=== PATIENT | male | born 1945 | race Caucasian/White ===

== ENCOUNTER 2024-12-19 09:43 | Inpatient (IN) | payer MEDICAID ==
[2024-12-19] MEDS: NA CHLORIDE 0.9% 1,000 ML ONE (10:00)
[2024-12-19] MEDS ORDERED: CEFAZOLIN SODIUM 2 GM/VIAL ONE (10:31)
[2024-12-19 10:33] LABS: PT Prothrombin Time 57.2 SECONDS (10-13.0); Protime INR 5.31
[2024-12-19] MEDS ORDERED: FENTANYL CITR 100 MCG/2 ML ONE (10:57)
[2024-12-19] MEDS ORDERED: ONDANSETRON 4 MG/2 ML VIAL ONE (10:57)
[2024-12-19] MEDS ORDERED: LIDOCAINE 2% MPF 5 ML VIAL ONE (10:57)
[2024-12-19] MEDS ORDERED: ONDANSETRON 4 MG/2 ML VIAL IV PRN (14:01)
--- NOTE | 2024-12-19 14:06 | P.HP ---
Certification for Inpatient Patient admitted to: Inpatient With expected LOS: >2 Midnights Practitioner: I am a practitioner with admitting privileges, knowledge of patient current condition, hospital course, and medical plan of care. Services: Services provided to patient in accordance with Admission requirements found in Title 42 Section 412.3 of the Code of Federal Regulations Patient History Date of Service: 12/19/24 Reason for admission: infected diabetic foot wound History of Present Illness: 79yo M, PMH: IDDM2, HTN, CAD s/p stent, who had an injury ~1 week ago with a piece of glass penetrating his foot. He underwent debridement and removal of glass by Dr. Larson. He was treated with antibiotics and wound care, however, he states home health didn't do wound care. He presented to Dr. Larson's office ~2 days ago, where he was noted to have worsening appearance of his wound, so he was scheduled for debridement today. In pre-op, an INR was checked and noted to be >5, so surgery was cancelled. Due to the worsening of his wound, Dr. Larson recommended admission to the hospital for IV antibiotics, and surgery once INR is better. Allergies No Known Allergies Allergy (Verified 12/17/24 13:03) Home Medications: Aspirin 325 mg PO DAILY 02/10/18 Metformin HCl 1,000 mg PO BID 02/10/18 Tamsulosin [Flomax] 0.4 mg PO BID 02/10/18 Warfarin Sodium 2.5 mg PO DAILY 02/10/18 Allopurinol 300 mg PO DAILY 12/07/24 Amoxicillin [Amoxil] 875 mg PO BID 12/07/24 Atorvastatin Calcium 20 mg PO DAILY 12/07/24 Colchicine 0.6 mg PO DAILY 12/07/24 Insuln Asp Prt/Insulin Aspart [Novolog Mix 70-30 Vial] 16 unit SQ BID 12/07/24 Isosorbide Mononitrate [Isosorbide Mononitrate ER] 30 mg PO DAILY 12/07/24 Losartan Potassium 100 mg PO DAILY 12/07/24 Metoprolol Succinate 50 mg PO DAILY 12/07/24 [place]-3S/Dha/Epa/Fish Oil [Fish Oil 1,200 mg Softgel] 1 each PO DAILY 12/07/24 hydroCHLOROthiazide [Hydrochlorothiazide] 12.5 mg PO DAILY 12/07/24 - Past Medical/Surgical History -: HTN -: CAD -: HLD -: stent - Family History Family History: Reviewed- Non-Contributory - Social History Smoking Status: Former smoker Alcohol use: Yes Place of Residence: Home Review of Systems 10-point ROS is otherwise unremarkable Physical Examination - Vital Signs Temperature: 98.4 F Blood Pressure: 140/77 Pulse: 91 Respirations: 18 - Physical Exam General: Alert, In no apparent distress, Oriented x3 HEENT: EOMI, Sclerae nonicteric Neck: Supple, No LAD Respiratory: Clear to auscultation bilaterally, Normal air movement Cardiovascular: No edema, Regular rate/rhythm Gastrointestinal: Soft and benign, No tenderness Musculoskeletal: No contractures Integumentary: Other (foot dressing in place, odorous) Neurological: Normal speech, Normal affect - Studies Laboratory Data (last 24 hrs) 12/19/24 10:05 PT 57.2 H INR 5.31 Assessment and Plan - Advance Directives Does patient have a Living Will: No Does patient have a Durable POA for Healthcare: No Physician Review Additional Text: Problem List infected Diabetic foot ulcer paroxysmal afib CAD s/p stent (2007) IDDM2 HTN HLD INR supratherapeutic last PO coumadin was taken 3 days ago hold coumadin monitor for signs of overt bleeding IV antibiotics - vanc/cefepime for now labs ordered for further eval. As of now, no evidence of sepsis at this time Dr. Larson consulted - planning for surgery once INR better unclear etiology of elevated INR, denies any recent increase in dosing may have been affected by recent antibiotic use / infection repeat labs in AM confirm home meds, restart as appropriate hold anticoagulation for now VTE: supratherapeutic Code: Full Dispo: home, ~3-4 days pending INR improvement / surgery / recovery Time Spent Managing Pts Care (In Minutes): 65
--- OUTSIDE RECORDS SUMMARY | 2024-12-19 14:37 | XMS REPORT | Continuity of Care Document ---
Author Name Unknown Address [address] [facility] [address] [place] [address] Organization [facility] [place] Address [address] [facility] [address] [place] [address] Care Team Providers Care Sign Maintenance Name Role Phone TICO CORONADO Primary Care Physician Unavailab DEON Baez Attending Clinician Unavailable Frank GLUE WHEEL OPERATOR- Jj SALINAS Attending Clinician TICO CORONADO Attending Clinician Unavailable ARLYN SAWANT Attending Clinician Unavailable SURINDER AGUIRRE Attending Clinician Unavailable NT90 Attending Clinician Unavailable HANNAH SHARMA Attending Clinician Unavailable Doctor Unassigned, [place] Attending Clinician U Deon Kwan MD Attending Clinician [phone] Jason Perdomo MD Attending Clinician [phone] Lachelle Umaña MD Attending Clinician [phone] LACHELLE UMAÑA Attending Clinician Unavailable DEON OTT Attending Clinician Unavailable Art Bradford MD Attending Clinician [phone] GEGE VU Attending Clinician Unavailabl e [id number] Attending Clinician Unavailable Kristen Ahumada Attending Clinician Unavailable Pob, [facility] Main Attending Clinician Unavailabl e 2, Adc Lab Attending Clinician Unavailable Vtc-Lab Attending Clinician Unavailable GAYATRI LINARES Attending Clinician UnavailGayatri Morocho MD Attending Clinician [phone] JJ MARIE Attending Clinician Unavailable LAB90 Attending Clinician Unavailable Lachelle Umaña MD Attending Clinician [phone] TERESA MARTELL Attending Clinician Unavailab Marcelina Barber Attending Clinician [phone] Doctor Unassigned, [place] Attending Clinician U JOSEPH Ramirez Attending Clinician Unavailable Tru OTT, Deon Attending Clinician [phone] MARCELINA CROWLEY Attending Clinician Unavaila ble [facility] Attending Clinician Unavailable Pob, Adc Lab Main Attending Clinician UnavailLeona Duval DO Attending Clinician [phone] Celena OTT, Nisreen Gregory Attending Clinician Un available Li FINN, Lauren Attending Clinician Unavailable Melody Cosby DO Attending Clinician [phone] Pako OTT, Caroline Attending Clinician [phone] JOHN BARR Attending Clinician Unavaila ble Cortney ACNP, John Attending Clinician + [phone] TWIN CARO Attending Clinician Unavaila ble [facility] Attending Clinician Unavailable Lucy Kimball MD Attending Clinician [phone] Velasquez YOUSIF, Peng Attending Clinician [phone] LUCY KIMBALL Attending Clinician Unavailable Joya Ruiz MD Attending Clinician [phone] JOYA RUIZ Attending Clinician UnavailTwin Greenwood MD Attending Clinician [phone] LELO YANG Attending Clinician Unavailable Gramm Lelo CORTES Attending Clinician [phone] Nurse, Adc Pob Immunization Attending Clinician Unavailable Lavelle Bates DO Attending Clinician [phone] Nurse, Adc Surgery Gu Attending Clinician Yvette Bird, Adc Surg Spec Procedure Attending Clinician Unavailable Juan Jose OTT, Joseph Attending Clinician [phone] Room, [facility] Uro Procedure Attending Clinician Unaluis Martin RN, Kaiden Franks Attending Clinician Unavail able Kris Kenny Attending Clinician [phone] Peter Fitzgerald MD Attending Clinician [phone] Meera CORTESArmen Attending Clinician [phone] TATE SHABAZZ Attending Clinician Unavailable 2, Adc Lab Attending Clinician Unavailable Mor Simpson MD Attending Clinician [phone] MOR SIMPSON Attending Clinician UnavailAJ Harden Attending Clinician Unavailable Aj Davila Attending Clinician [phone] ARMEN ESTES Attending Clinician Unavailable JASON PERDOMO Admitting Clinician Unavailable GAYATRI LINARES Admitting Clinician UnavailCaroline Law MD Admitting Clinician [phone] CAROLINE DURAND Admitting Clinician Unavailable Peter Fitzgerald MD Admitting Clinician [phone] Payers Payer Name Policy Type Policy Number Effective Date Expirati on Date Source MEDICARE PART A \\T\\ B [id number] 2012 00:00:00 [employer] INDEMNITY [id number] 2013 00:00:00 [employer] [id number] 2023 00:00:00 [employer]-POS 16 [id number] 00:00:00 Problems Condition Name Condition Details Condition Category Status Onset Date Resolution Date Last Treatment Date Treating Clinician Comments Source Elevated PSA Elevated PSA Disease Active 06-27 00:00: 00 Isabel Seybold - Externa l Type 2 diabetes mellitus with stage 3a chronic kidney disease (multi HCC) Type 2 diabetes mellitus with stage 3a chronic kidney disease (multi HCC) Disease Active 12-27 00:00: 00 Isabel Seybold - Externa l Thrombocyt openia Thrombocyt openia Disease Active 12-26 00:00: 00 Isabel Seybold - Externa l Controlled type 2 diabetes mellitus with stage 3 chronic kidney disease, with long-term current use of insulin (multi HCC) Controlled type 2 diabetes mellitus with stage 3 chronic kidney disease, with long-term current use of insulin (multi HCC) Disease Active 06-08 00:00: 00 Isabel Seybold - Externa l Controlled type 2 diabetes mellitus with stage 3 chronic kidney disease, with long-term current use of insulin (multi HCC) Controlled type 2 diabetes mellitus with stage 3 chronic kidney disease, with long-term current use of insulin (multi HCC) Disease Active 06-08 00:00: 00 Isabel Farnsworth - Externa l 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) Disease Active -16 00:00: 00 Isabel Farnsworth - Externa l Well adult exam Well adult exam Disease Active - 00:00: 00 Isabel Farnsworth - Externa l Longstandi ng persistent atrial fibrillati on (multi HCC) Longstandi ng persistent atrial fibrillati on (multi HCC) Disease Active 2022-05 00:00: 00 Isabel Hutsonold - Externa l Atrial fibrillati on (multi HCC) Atrial fibrillati on (multi HCC) Disease Active 2022-05 00:00: 00 Isabel Farnsworth - Externa l 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 (multi HCC) 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 (multi HCC) Disease Active 2022-05 00:00: 00 Isabel Hutsonold - Externa l Chronic anticoagul ation Chronic anticoagul ation Disease Active 2022-05 00:00: 00 Isabel Hutsonold - Externa l BPH (benign prostatic hyperplasi a) BPH (benign prostatic hyperplasi a) Disease Active 2022-05 00:00: 00 Isabel Farnsworth - Externa l DM type 2 with diabetic mixed hyperlipid emia (multi HCC) DM type 2 with diabetic mixed hyperlipid emia (multi HCC) Disease Active 2022-05 00:00: 00 Isabel Farnsworth - Externa l Gout Gout Disease Active 2022-05 00:00: 00 Isabel Hutsonold - Externa l HTN (hypertens ion) HTN (hypertens ion) Disease Active 2022-05 00:00: 00 Isabel Hutsonold - Externa l Obesity Obesity Disease Active 2022-05 00:00: 00 Isabel Farnsworth - Externa l Impacted cerumen of right ear Impacted cerumen of right ear Disease Active 2022-05 00:00: 00 Isabel keller CAD (coronary artery disease) CAD (coronary artery disease) Disease Active 2022-05 00:00: 00 Isabel keller History of heart artery stent History of heart artery stent Disease Active 2022-05 00:00: 00 Isabel keller At risk for falls At risk for falls Disease Active 01-05 00:00: 00 [facility] Unspecifie d abnormalit ies of gait and mobility Unspecifie d abnormalit ies of gait and mobility Disease Active 01-05 00:00: 00 [facility] Obesity (BMI 30-39.9) Obesity (BMI 30-39.9) Disease Active 8 00:00: 00 [facility] 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 Disease Active 8 00:00: 00 [facility] Bacteremia Bacteremia Disease Active 8 00:00: 00 [facility] Complicate d UTI (urinary tract infection) Complicate d UTI (urinary tract infection) Disease Active 10-14 00:00: 00 [facility] Coronary artery disease involving agdaagux coronary artery of agdaagux heart without angina pectoris Coronary artery disease involving agdaagux coronary artery of agdaagux heart without angina pectoris Disease Active 10-14 00:00: 00 [facility] Chronic atrial fibrillati on Chronic atrial fibrillati on Disease Active 10-14 00:00: 00 [facility] Elevated brain natriureti c peptide (BNP) level Elevated brain natriureti c peptide (BNP) level Disease Active 10-14 00:00: 00 [facility] Type 2 diabetes mellitus with other specified complicati on Type 2 diabetes mellitus with other specified complicati on Disease Active 10-14 00:00: 00 [facility] Coronary artery disease involving agdaagux coronary artery of agdaagux heart without angina pectoris Coronary artery disease involving agdaagux coronary artery of agdaagux heart without angina pectoris Disease Active 10-14 00:00: 00 [facility] Elevated brain natriureti c peptide (BNP) level Elevated brain natriureti c peptide (BNP) level Disease Active 10-14 00:00: 00 [facility] ANYI (acute kidney injury) ANYI (acute kidney injury) Disease Active 10-13 00:00: 00 [facility] ANYI (acute kidney injury) ANYI (acute kidney injury) Disease Active 10-13 00:00: 00 [facility] Dyslipidem ia Dyslipidem ia Disease Active 06-05 00:00: 00 [facility] Essential hypertensi on Essential hypertensi on Disease Active 06-05 00:00: 00 [facility] Metabolic syndrome Metabolic syndrome Disease Active 06-05 00:00: 00 [facility] Type II or unspecifie d type diabetes mellitus with peripheral auto garage attendant y disorders, uncontroll ed(250.72) Type II or unspecifie d type diabetes mellitus with peripheral auto garage attendant y disorders, uncontroll ed(250.72) Disease Active 08-20 00:00: 00 [facility] 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) Disease Active Iasbel Farnsworth - Externa l Allergies, Adverse Reactions, Alerts Allergy Name Allergy Type Status Severity Reaction(s) Onset Date Inactive Date Treating Clinician Comments Source [place] tin Propensi ty to adverse reaction s Active Itching 2015-05 00:00: 00 [facility] Linaglip tin Propensi ty to adverse reaction s Active Itching 2015-05 00:00: 00 [facility] SAXAGLIP TIN DRUG INGREDI Active ITCHING 2015-05 00:00: 00 [facility] LINAGLIP TIN DRUG INGREDI Active ITCHING 2015-05 00:00: 00 [facility] [place] tin Propensi ty to adverse reaction s Active Rash 09-04 00:00: 00 [facility] SITAGLIP TIN DRUG INGREDI Active ITCHING 2013-0 09-04 00:00: 00 [facility] Social History Social Habit Start Date Stop Date Quantity Comments Source History SDOH Alcohol Frequency [facility] History SDOH Alcohol Std Drinks [facility] History SDOH Alcohol Binge [facility] Sexual orientation Arabella lamb Daja - External History of Occupation Isabel Farnsworth - External Gender identity Patience Farnsworth - External History of tobacco use Cigarette Smoker Isabel arndt - External Alcoholic beverage intake 2024-12-03 00:00:00 2024-12-03 00:00:00 Current drinker of alcohol (finding) Isabel Farnsworth - External Cigarettes smoked current (pack per day) - Reported 2023-09-14 00:00:00 2023-09-14 00:00:00 Isabel Farnsworth - External Cigarette pack-years 2023-09-14 00:00:00 2023-09-14 00:00:00 Isabel Farnsworth - External Tobacco use and exposure 2023-09-14 00:00:00 2023-09-14 00:00:00 Smokeless tobacco non-user Isabel Farnsworth - External Alcohol intake 2023-06-08 00:00:00 2023-06-08 00:00:00 Current drinker of alcohol (finding) Isabel Farnsworth - External History of Social function 2023-05-04 00:00:00 2023-05-04 00:00:00 Isabel Farnsworth - External Education 2023-05-04 00:00:00 2023-05-04 00:00:00 17 Isabel Farnsworth - External Alcohol Comment 2023-05-04 00:00:00 2023-05-04 00:00:00 occasionally Isabel Farnsworth - External Sex 2023-02-23 07:49:31 2023-02-23 07:49:31 Male (finding) Isabel Farnsworth - External Exposure to SARS-CoV-2 (event) 2022-07-06 00:00:00 2022-07-16 11:25:00 Not sure [facility] Tobacco Comment 2021-12-10 00:00:00 2021-12-10 00:00:00 quit in 1983 [facility] Sex assigned at 1945 00:00:00 1945 00:00:00 Isabel Arzate Smoking Status Start Date Stop Date Source Never smoked tobacco [facility] Ex-smoker 2023-09-14 00:00:00 2023-09-14 00:00:00 Arabella lamb Daja Arzate Medications Ordered Medication Name Filled Medication Name Start Date Stop Date Current Medication? Ordering Clinician Indication Dosage Frequency Signature (SIG) Comments Components Source Insulin [place], Disposable, (BD ULTRAFINE III MINI PEN) 31 gauge x 3/16" Ndle 12-12 00:00: 00 Yes [id number] USE TWICE DAILY DIRECTED [facility] Isosorbide Mononitrate CR 30 MG oral TABLET SR 24 HR Isosorbide Mononitrate CR 30 MG oral TABLET SR 24 HR 12-03 15:28: 51 Yes 30mg QD Take 1 tablet (30 mg total) by mouth daily. Isabel keller [place] 3 340 MG oral Delayed Release Capsule [place] 3 340 MG oral Delayed Release Capsule 12-03 15:28: 51 Yes 1g Q.5D Take 1 g by mouth in the morning and 1 g in the evening. Isabel keller Aspirin (Ecotrin) 325 MG oral Tablet Delayed Response Aspirin (Ecotrin) 325 MG oral Tablet Delayed Response 12-03 15:28: 51 Yes 325mg QD Take 1 tablet (325 mg total) by mouth daily. Isabel keller Amoxicillin -Pot Clavulanate 875-125 MG oral Tablet Amoxicillin -Pot Clavulanate 875-125 MG oral Tablet 12-03 00:00: 00 Yes [id number] 1{tbl} Q.5D Take 1 tablet by mouth 2 times daily. Isabel keller Doxycycline Hyclate 100 MG oral Capsule Doxycycline Hyclate 100 MG oral Capsule 12-01 00:00: 00 Yes Isabel keller Warfarin (COUMADIN) 2 MG oral Tablet Warfarin (COUMADIN) 2 MG oral Tablet 11-26 00:00: 00 Yes 1 TABLET ORALLY TUESDAY, TUESDAY, TUESDAY, TUESDAY, TUESDAY Isabel keller Isosorbide Mononitrate CR 30 MG oral TABLET SR 24 HR 11-21 13:48: 44 Yes 30mg QD Take 1 tablet (30 mg total) by mouth daily. Isabel keller [place] 3 340 MG oral Delayed Release Capsule 11-21 13:48: 44 Yes 1g Q.5D Take 1 g by mouth in the morning and 1 g in the evening. Isabel keller Aspirin (Ecotrin) 325 MG oral Tablet Delayed Response 11-21 13:48: 44 Yes 325mg QD Take 1 tablet (325 mg total) by mouth daily. Isabel keller ondansetron (ZOFRAN (PF)) injection 11-19 21:17: 23 11-19 21:17 :23 No PRN, Starting on Tue11/19/24 at 1617, Until Tue11/19/24 at 1617, Administer over 2-5 Minutes, Intra-op [facility] lidocaine (XYLOCAINE) 2 % jelly URO-JET 11-19 19:57: 00 11-19 19:57 :00 No PRN, Starting on Tue11/19/24 at 1457, Until Tue11/19/24 at 1457, Routine, Intra-op [facility] ALPRAZolam (XANAX) tablet 0.25 mg 11-19 14:45: 00 11-19 19:25 :00 No [id number] .25mg 0.25 mg, Oral, ONCE, 1 dose, On Tue11/19/24 at 0945, Routine [facility] lidocaine variable + sod bicarb injection 11-19 14:45: 00 11-19 20:00 :00 No [id number] 30mL Intraderma l, ONCE, 1 dose, On Tue11/19/24 at 0945, 30 mL [facility] cefdinir 300 mg capsule 10-31 00:00: 00 11-08 04:59 :00 Yes 300mg Take 1 capsule by mouth in the morning and 1 capsule in the evening. Do all this for 7 days. [facility] sodium phosphates (FLEET ENEMA) 19-7 gram/118 mL enema 10-31 00:00: 00 11-03 04:59 :00 Yes 1{enema } Insert 1 Enema into rectum in the morning for 2 doses. Follow package directions [facility] ONETOUCH VERIO FLEX METER Misc 10-12 00:00: 00 Yes [id number] Use as directed daily E 11.65 [facility] Blood Glucose Monitoring Suppl (OneTouch Verio Flex System) w/Device does not apply Kit Blood Glucose Monitoring Suppl (OneTouch Verio Flex System) w/Device does not apply Kit 10-12 00:00: 00 Yes USE DIRECTED DAILY E 11.65 Isabel Farnsworth - Externa l Lancets (OneTouch Delica Plus [id number]) does not apply Misc Lancets (OneTouch Delica Plus [id number]) does not apply Misc 10-11 00:00: 00 Yes Isabel Farnsworth - Externa l Insulin NPH-Regular Human Rec (NOVOLIN 70-30 FLEXPEN U-100) 100 unit/mL (70-30) injection 10-10 00:00: 00 Yes [id number] 14U inject 14 Units under the skin 2 times daily before breakfast and dinner. E11.65 [facility] lancets (ONETOUCH DELICA PLUS LANCET) 33 gauge Misc 10-10 00:00: 00 Yes [id number] Use to check blood glucose three times daily before meals E11.65 [facility] blood sugar diagnostic (ONETOUCH VERIO TEST STRIPS) strip 10-10 00:00: 00 Yes [id number] Use to check blood glucose 3x daily before meals E11.65 [facility] metFORMIN 1,000 mg tablet 10-10 00:00: 00 Yes [id number] 1000mg Take 1 tablet by mouth every morning and evening. [facility] TAMSULOSIN 0.4 mg 24 hr capsule 2025-0 5-29 00:00: 00 Yes [id number] TAKE 1 CAPSULE BY MOUTH IN THE MORNING AND IN THE EVENING [facility] Tamsulosin HCl 0.4 MG oral Capsule 08-08 14:40: 20 08-08 00:00 :00 No .4mg Take 1 capsule (0.4 mg total) by mouth every night at bedtime. Isabel keller [place] 3 340 MG oral Delayed Release Capsule 08-08 14:17: 52 Yes 1g Q.5D Take 1 g by mouth in the morning and 1 g in the evening. Isabel keller Isosorbide Mononitrate CR 30 MG oral TABLET SR 24 HR 08-08 14:17: 51 Yes 30mg QD Take 1 tablet (30 mg total) by mouth daily. Isabel keller Aspirin (Ecotrin) 325 MG oral Tablet Delayed Response 08-08 14:17: 51 Yes 325mg QD Take 1 tablet (325 mg total) by mouth daily. Isabel keller Insulin NPH Isophane & Regular (NovoLIN 70/30 FlexPen) (70-30) 100 UNIT/ML subcutaneou s Suspension Pen-injecto r Insulin NPH Isophane & Regular (NovoLIN 70/30 FlexPen) (70-30) 100 UNIT/ML subcutaneou s Suspension Pen-injecto r 08-08 00:00: 00 Yes [id number] 3 16 unit sc eery am and 14 unit sc every pm. Isabel keller Warfarin 2.5 MG oral Tablet Warfarin 2.5 MG oral Tablet 08-08 00:00: 00 Yes [id number] 2.5mg QD Take 1 tablet (2.5 mg total) by mouth daily. Isabel keller Tamsulosin HCl 0.4 MG oral Capsule Tamsulosin HCl 0.4 MG oral Capsule 08-08 00:00: 00 Yes [id number] .4mg Q.5D Take 1 capsule (0.4 mg total) by mouth in the morning and 1 capsule (0.4 mg total) before bedtime. Isabel keller Ketoconazol e 2 % apply externally Cream 08-08 00:00: 00 11-21 00:00 :00 No [id number] 1{appli cation} Q.5D Apply 1 Applicatio n topically 2 times daily. Isabel keller Gabapentin 100 MG oral Capsule 02 00:00: 00 11-21 00:00 :00 No [id number] 100mg Q.5D Take 1 capsule (100 mg total) by mouth 2 times daily as needed. Isabel keller tamsulosin 0.4 mg 24 hr capsule 3-13 00:00: 00 10-04 00:00 :00 No [id number] .4mg Take 1 capsule by mouth in the morning and 1 capsule in the evening. [facility] Tamsulosin HCl 0.4 MG oral Capsule 06-27 14:25: 38 Yes .4mg Take 1 capsule (0.4 mg total) by mouth every night at bedtime. Isabel keller Isosorbide Mononitrate CR 30 MG oral TABLET SR 24 HR 06-27 14:25: 38 Yes 30mg QD Take 1 tablet (30 mg total) by mouth daily. Isabel keller [place] 3 340 MG oral Delayed Release Capsule 06-27 14:25: 38 Yes 1g Q.5D Take 1 g by mouth 2 times daily. Isabel keller Aspirin (Ecotrin) 325 MG oral Tablet Delayed Response 06-27 14:25: 38 Yes 325mg QD Take 1 tablet (325 mg total) by mouth daily. Isabel keller lidocaine (XYLOCAINE) 2 % jelly URO-JET 10 mL 06-06 19:00: 00 06-06 18:26 :00 No [id number] 10mL 10 mL, Urethral, ONCE, 1 dose, On Tue06/06/24 at 1300, Routine [facility] gentamicin injection 160 mg 06-06 18:00: 00 06-06 17:16 :00 No [id number] 160mg 160 mg, Intramuscu lar, ONCE, 1 dose, On Tue06/06/24 at 1200, [place], Reason for Anti-Infec tive: Surgical Prophylaxi s, Surgical Prophylaxi s: Genitourin filemon, Duration of therapy: within 24 hours of surgery [facility] amoxicillin -pot clavulanate 500 mg (AUGMENTIN) 500-125 mg tablet 06-04 00:00: 00 06-04 00:00 :00 No [id number] 500mg Take 1 tablet by mouth in the morning and 1 tablet at noon and 1 tablet in the evening. [facility] tamsulosin 0.4 mg 24 hr capsule 2023-05 00:00: 00 04-23 00:00 :00 No [id number] .4mg Take 1 capsule by mouth in the morning. [facility] atorvastati n 20 mg tablet 2023-05 14:28: 02 Yes TAKE 1 TABLET BY MOUTH EVERY DAY FOR 90 DAYS [facility] metFORMIN 1,000 mg tablet 2023-05 00:00: 00 10-10 00:00 :00 No [id number] 1000mg Take 1 tablet by mouth every morning and evening. [facility] hydroCHLORO thiazide 12.5 MG oral Tablet hydroCHLORO thiazide 12.5 MG oral Tablet 2023-05 00:00: 00 Yes 12.5mg QD TAKE 1 TABLET BY MOUTH EVERY DAY Isabel keller METFORMIN 1,000 mg tablet 2023-05 00:00: 00 04-11 00:00 :00 No [id number] 1000mg TAKE 1 TABLET BY MOUTH EVERY MORNING AND EVENING. [facility] tamsulosin 0.4 mg 24 hr capsule 2023-05 1- 00:00: 00 Yes [id number] .4mg Take 1 capsule by mouth in the morning and 1 capsule in the evening. [facility] HYDROcodone -acetaminop hen 5-325 mg tablet 2023-05 0-13 00:00: 00 02-26 04:59 :00 No [id number] 1{tbl} Take 1 tablet by mouth every 6 (six) hours as needed for Pain (scale 7-10) for up to 7 days. Indication s: acute pain [facility] blood sugar diagnostic (ONETOUCH VERIO TEST STRIPS) strip 01-12 00:00: 00 Yes [id number] Use to check blood glucose 3x daily before meals E11.65 [facility] metFORMIN 1,000 mg tablet 01-12 00:00: 00 Yes [id number] 1000mg Take 1 tablet by mouth every morning and evening. [facility] Insulin [place], Disposable, (SURE COMFORT PEN NEEDLE) 31 gauge x 5/16" Ndle 01-12 00:00: 00 12-12 00:00 :00 No [id number] USE TWICE DAILY [facility] Insulin NPH-Regular Human Rec (NOVOLIN 70-30 FLEXPEN U-100) 100 unit/mL (70-30) injection 01-12 00:00: 00 10-10 00:00 :00 No [id number] 14U inject 14 Units under the skin 2 (two) times daily before breakfast and dinner. E11.65 [facility] blood sugar diagnostic (ONETOUCH VERIO TEST STRIPS) strip 01-12 00:00: 00 10-10 00:00 :00 No [id number] Use to check blood glucose 3x daily before meals E11.65 [facility] Insulin [place], Disposable, (SURE COMFORT PEN NEEDLE) 31 gauge x 5/16" Ndle 01-11 00:00: 00 01-12 00:00 :00 No [id number] USE TWICE DAILY [facility] Tamsulosin HCl 0.4 MG oral Capsule 12-26 15:24: 56 Yes .4mg Take 1 capsule (0.4 mg total) by mouth every night at bedtime. Isabel keller Isosorbide Mononitrate CR 30 MG oral TABLET SR 24 HR 12-26 15:24: 56 Yes 30mg QD Take 1 tablet (30 mg total) by mouth daily. Isabel keller [place] 3 340 MG oral Delayed Release Capsule 12-26 15:24: 56 Yes 1g Q.5D Take 1 g by mouth 2 times daily. Isabel keller Aspirin (Ecotrin) 325 MG oral Tablet Delayed Response 820 15:24: 56 Yes 325mg QD Take 1 tablet (325 mg total) by mouth daily. Isabel keller Atorvastati n Calcium 20 MG oral Tablet Atorvastati n Calcium 20 MG oral Tablet 12-26 00:00: 00 Yes [id number] 20mg QD Take 1 tablet (20 mg total) by mouth daily FOR 90 DAYS. Isabel keller TAMSULOSIN 0.4 mg 24 hr capsule 12-14 00:00: 00 03-15 00:00 :00 No [id number] TAKE 1 CAPSULE BY MOUTH EVERY MORNING AND EVERY EVENING FOR PAIN [facility] metFORMIN 1,000 mg tablet 12-04 00:00: 00 01-12 00:00 :00 No [id number] 1000mg TAKE 1 TABLET BY MOUTH IN THE MORNING AND IN THE EVENING [facility] Atorvastati n Calcium 20 MG oral Tablet 11-06 00:00: 00 12-26 00:00 :00 No 20mg Q.5D Take 1 tablet (20 mg total) by mouth 2 times daily FOR 90 DAYS. Isabel keller hydroCHLORO thiazide 12.5 MG oral Tablet 10-03 00:00: 00 Yes 12.5mg QD Take 1 tablet (12.5 mg total) by mouth daily. Isabel keller tamsulosin 0.4 mg 24 hr capsule 09-12 00:00: 00 12-14 00:00 :00 No [id number] TAKE 1 CAPSULE BY MOUTH EVERY MORNING AND 1 CAPSULE FOR PAIN EVERY EVENING [facility] OneTouch Verio in vitro Strip OneTouch Verio in vitro Strip 30 00:00: 00 Yes Isabel keller Sure Comfort Pen [place] 31G X 8 MM does not apply Misc [facility] [employer] Pen [place] 31G X 8 MM does not apply Misc 08-31 00:00: 00 Yes Q.5D in the morning and in the evening. Isabel keller NovoLIN 70/30 FlexPen (70-30) 100 UNIT/ML subcutaneou s Suspension Pen-injecto r 3-14 00:00: 00 08-08 00:00 :00 No Isabel keller hydroCHLORO thiazide 12.5 MG oral Tablet 2-27 00:00: 00 Yes TAKE 1 TABLET BY MOUTH EVERY DAY IN THE MORNING FOR 90 DAYS Isabel keller Losartan Potassium (COZAAR) 100 MG oral Tablet Losartan Potassium (COZAAR) 100 MG oral Tablet 2-15 00:00: 00 Yes 100mg QD Take 1 tablet (100 mg total) by mouth daily. Isabel keller Insulin NPH Isophane & Regular (NOVOLIN 70/30 FLEXPEN RELION SC) 06-08 16:22: 04 09-13 00:00 :00 No 14U Inject 14 units into the skin 2 times daily. Isabel keller Colchicine 0.6 MG oral Tablet 06-08 16:20: 20 06-08 00:00 :00 No .6mg Take 1 tablet (0.6 mg total) by mouth daily. Isabel keller Tamsulosin HCl 0.4 MG oral Capsule 06-08 16:05: 38 Yes .4mg Take 1 capsule (0.4 mg total) by mouth every night at bedtime. Isabel keller Isosorbide Mononitrate CR 30 MG oral TABLET SR 24 HR 06-08 16:05: 38 Yes 30mg Take 1 tablet (30 mg total) by mouth daily. Isabel keller [place] 3 340 MG oral Delayed Release Capsule 06-08 16:05: 38 Yes 1g Take 1 g by mouth 2 times daily. Isabel keller Aspirin (Ecotrin) 325 MG oral Tablet Delayed Response 06-08 16:05: 38 Yes 325mg Take 1 tablet (325 mg total) by mouth daily. Isabel keller amLODIPine Besy-Benaze pril HCl 10-40 MG oral Capsule 06-08 16:05: 38 Yes 1{capsu le} Take 1 capsule by mouth daily. Isabel keller Colchicine 0.6 MG oral Tablet Colchicine 0.6 MG oral Tablet 06-08 00:00: 00 Yes [id number] .6mg QD Take 1 tablet (0.6 mg total) by mouth daily. Isabel keller Cefdinir 300 MG oral Capsule 05-18 00:00: 00 06-08 00:00 :00 No [id number] 300mg Take 1 capsule (300 mg total) by mouth 2 times daily. Isabel keller Warfarin Sodium 2.5 MG oral Tablet 2022-05 15:04: 49 05-04 00:00 :00 No 2.5mg Take 1 tablet (2.5 mg total) by mouth daily. Isabel keller Allopurinol 300 MG oral Tablet 2022-05 15:03: 30 05-04 00:00 :00 No 300mg Take 1 tablet (300 mg total) by mouth 2 times daily FOR 90 DAYS. Isabel keller Finasteride 5 MG oral Tablet 2022-05 15:01: 41 05-04 00:00 :00 No 5mg Take 1 tablet (5 mg total) by mouth daily. Isabel keller B-COMPLEX, FOLIC ACID, OR 2022-05 15:01: 29 05-04 00:00 :00 No Take by mouth. Isabel keller Tamsulosin HCl 0.4 MG oral Capsule 2022-05 14:59: 17 Yes .4mg Take 1 capsule (0.4 mg total) by mouth every night at bedtime. Isabel keller Isosorbide Mononitrate CR 30 MG oral TABLET SR 24 HR 2022-05 14:59: 17 Yes 30mg Take 1 tablet (30 mg total) by mouth daily. Isabel keller Colchicine 0.6 MG oral Tablet 2022-05 14:59: 17 Yes .6mg Take 1 tablet (0.6 mg total) by mouth daily. Isabel keller [place] 3 340 MG oral Delayed Release Capsule 2022-05 14:59: 17 Yes 1g Take 1 g by mouth 2 times daily. Isabel keller Aspirin (Ecotrin) 325 MG oral Tablet Delayed Response 2022-05 14:59: 17 Yes 325mg Take 1 tablet (325 mg total) by mouth daily. Isabel keller amLODIPine Besy-Benaze pril HCl 10-40 MG oral Capsule 2022-05 14:59: 15 09-13 00:00 :00 No 1{capsu le} Take 1 capsule by mouth daily. Isabel keller Metoprolol Succinate 50 MG oral TABLET SR 24 HR Metoprolol Succinate 50 MG oral TABLET SR 24 HR 2022-05 00:00: 00 Yes [id number] 50mg QD Take 1 tablet (50 mg total) by mouth daily FOR 90 DAYS. Isabel keller Allopurinol 300 MG oral Tablet Allopurinol 300 MG oral Tablet 2022-05 00:00: 00 12-03 00:00 :00 No [id number] 300mg QD Take 1 tablet (300 mg total) by mouth daily FOR 90 DAYS. Isabel keller Warfarin Sodium (COUMADIN) 2 MG oral Tablet 2022-05 00:00: 00 08-08 00:00 :00 No [id number] 2mg QD Take 1 tablet (2 mg total) by mouth daily. Isabel keller Ketoconazol e 2 % apply externally Cream 2022-05 00:00: 00 06-27 00:00 :00 No [id number] Apply to the affected skin twice daily for 14 days.. Isabel keller Triamcinolo ne Acetonide 0.1 % apply externally Cream 2022-05 00:00: 00 06-02 05:59 :00 No [id number] Apply to affected skin twice daily for 10 days.. Isabel Seybold - Externa l lancets (ONETOUCH DELICA PLUS LANCET) 33 gauge [facility] 2022-05 00:00: 00 Yes [id number] Use to check blood glucose three times daily before meals E11.65 [facility] lancets (ONETOUCH DELICA PLUS LANCET) 33 gauge [facility] 2022-05 00:00: 00 10-10 00:00 :00 No [id number] Use to check blood glucose three times daily before meals E11.65 [facility] blood sugar diagnostic (ONETOUCH VERIO TEST STRIPS) strip 2022-05 00:00: 00 01-12 00:00 :00 No [id number] Use to check blood glucose 3x daily before meals E11.65 [facility] ONETOUCH VERIO FLEX METER [facility] 2022-05 00:00: 00 Yes [id number] Use as directed TIDAC E11.65 [facility] Metformin HCl 1000 MG oral Tablet Metformin HCl 1000 MG oral Tablet 2022-05 00:00: 00 Yes 1000mg Q.5D Take 1 tablet (1,000 mg total) by mouth in the morning and 1 tablet (1,000 mg total) in the evening. Isabel keller ONETOUCH VERIO FLEX METER [facility] 2022-05 00:00: 00 10-12 00:00 :00 No [id number] Use as directed TIDAC E11.65 [facility] Insulin NPH-Regular Human Rec (NOVOLIN 70-30 FLEXPEN U-100) 100 unit/mL (70-30) injection 2022-05 00:00: 00 01-12 00:00 :00 No [id number] 14U inject 14 Units under the skin 2 (two) times daily before breakfast and dinner. E11.65 [facility] ONETOUCH VERIO TEST STRIPS strip 2022-05 00:00: 00 04-12 00:00 :00 No [id number] Use as directed TIDAC E11.65 [facility] ONETOUCH DELICA PLUS LANCET 33 gauge [facility] 2022-05 00:00: 04-12 00:00 :00 No [id number] Use as directed TIDAC E11.65 [facility] Metoprolol Succinate 50 MG oral TABLET SR 24 HR 2022-05 1-06 00:00: 00 05-04 00:00 :00 No 50mg Take 1 tablet (50 mg total) by mouth 2 times daily FOR 90 DAYS. Isabel Morelosa krishna Insulin [place], Disposable, (SURE COMFORT PEN NEEDLE) 31 gauge x 5/16" Ndle 2022-05 0- 00:00: 00 01-11 00:00 :00 No [id number] USE TWICE DAILY [facility] Atorvastati n Calcium 10 MG oral Tablet 2022-05 0 00:00: 00 12-26 00:00 :00 No 10mg QD Take 1 tablet (10 mg total) by mouth daily. Isabel Farnsworth - Jamari keller Insulin NPH-Regular Human Rec (NOVOLIN 70-30 FLEXPEN U-100) 100 unit/mL (70-30) injection 10-11 00:00: 00 04-11 00:00 :00 No [id number] 14U inject 14 Units under the skin 2 (two) times daily before breakfast and dinner. E11.65 [facility] metFORMIN 1,000 mg tablet 10-11 00:00: 00 04-11 00:00 :00 No [id number] 1000mg Take 1 tablet by mouth in the morning and 1 tablet in the evening. [facility] tamsulosin (FLOMAX) 0.4 mg 24 hr capsule 425 00:00: 00 09-12 00:00 :00 No [id number] .4mg Take 1 capsule by mouth in the morning and 1 capsule in the evening. once daily [facility] amoxicillin -pot clavulanate 500 mg (AUGMENTIN) 500-125 mg tablet 3-20 00:00: 00 08-03 04:59 :00 No [id number] 500mg Take 1 tablet by mouth in the morning and 1 tablet in the evening. Do all this for 7 days. [facility] cefUROXime 250 mg tablet 3-09 00:00: 00 07-26 00:00 :00 No [id number] 250mg Take 1 tablet by mouth in the morning and 1 tablet in the evening. [facility] cephALEXin (KEFLEX) 500 mg capsule 2-16 00:00: 00 06-30 05:59 :00 No [id number] 500mg Take 1 capsule by mouth in the morning and 1 capsule in the evening. Do all this for 5 days. [facility] Insulin [place], Disposable, (BD ULTRAFINE III MINI PEN) 31 gauge x 3/16" Ndle 06-02 00:00: 00 Yes [id number] USE TO INJECT INSULIN 2X DAILY. DX:E11.9 [facility] Insulin [place], Disposable, (BD ULTRAFINE III MINI PEN) 31 gauge x 3/16" Ndle 06-02 00:00: 00 02-28 00:00 :00 No [id number] USE TO INJECT INSULIN 2X DAILY. DX:E11.9 [facility] Insulin NPH-Regular Human Rec (NOVOLIN 70-30 FLEXPEN U-100) 100 unit/mL (70-30) injection 06-02 00:00: 00 10-11 00:00 :00 No [id number] 14U inject 14 Units under the skin 2 (two) times daily before breakfast and dinner. E11.65 [facility] metFORMIN 1,000 mg tablet 06-02 00:00: 00 10-11 00:00 :00 No [id number] 1000mg Take 1 tablet by mouth in the morning and 1 tablet in the evening. [facility] Insulin NPH-Regular Human Rec (NOVOLIN 70-30 FLEXPEN U-100) 100 unit/mL (70-30) injection 2021-05 0-11 00:00: 00 06-02 00:00 :00 No 8U inject 8 Units under the skin 2 (two) times daily before breakfast and dinner. [facility] metFORMIN 1,000 mg tablet 9-30 00:00: 00 06-02 00:00 :00 No [id number] 1000mg Take 1 tablet by mouth in the morning and 1 tablet in the evening. [facility] insulin NPH and regular human 70-30 (HUMULIN 70/30 U-100 INSULIN) 100 unit/mL (70-30) injection 02-05 00:00: 00 02-16 00:00 :00 No [id number] 8U inject 8 Units under the skin 2 (two) times daily before breakfast and dinner. [facility] metFORMIN 1,000 mg tablet 02-02 00:00: 00 02-05 00:00 :00 No [id number] 1000mg Take 1 tablet by mouth in the morning and 1 tablet in the evening. [facility] tamsulosin (FLOMAX) 0.4 mg 24 hr capsule 01-29 00:00: 00 08-31 00:00 :00 No [id number] .4mg Take 1 capsule by mouth in the morning and 1 capsule in the evening. once daily [facility] losartan 100 mg tablet 12-11 00:47: 02 Yes 100mg Take 100 mg by mouth in the morning. [facility] omega-3 fatty acids-vitam in E (FISH OIL) 1,000 mg capsule 12-09 12:47: 21 Yes 1g Take 1 g by mouth 2 (two) times daily. [facility] losartan 100 mg tablet 12-09 12:47: 21 Yes 100mg Take 100 mg by mouth in the morning. [facility] COLCHICINE 0.6 MG ORAL TAB 12-09 12:47: 21 Yes once daily [facility] ECOTRIN 325 MG ORAL TBEC 12-09 12:47: 21 Yes once daily [facility] WARFARIN 2.5 MG ORAL TAB 12-09 12:47: 21 Yes once daily [facility] IMDUR 30 MG ORAL TB24 12-09 12:47: 21 Yes once daily [facility] omega-3 fatty acids-vitam in E (FISH OIL) 1,000 mg capsule 12-09 12:47: 21 Yes 1g Take 1 g by mouth 2 (two) times daily. [facility] allopurinol (ZYLOPRIM) 300 mg tablet 12-09 12:47: 21 Yes 300mg Take 300 mg by mouth daily. [facility] finasteride 5 mg tablet 12-09 12:47: 21 Yes 5mg Take 5 mg by mouth daily. [facility] B-complex with vitamin C (VITAMIN B COMPLEX-C ORAL) 12-09 12:47: 21 Yes Take by mouth. [facility] levoFLOXaci n 750 mg tablet 12-09 00:00: 00 12-17 04:59 :00 No [id number] 750mg Take 1 tablet by mouth in the morning for 7 days. [facility] metFORMIN 1,000 mg tablet 10-06 00:00: 00 02-02 00:00 :00 No [id number] 1000mg Take 1 tablet by mouth 2 (two) times daily. [facility] tamsulosin (FLOMAX) 0.4 mg 24 hr capsule 09-11 00:00: 00 01-29 00:00 :00 No [id number] .4mg Take 1 capsule by mouth 2 (two) times daily. once daily [facility] liraglutide (VICTOZA 3-MERON) 0.6 mg/0.1 mL (18 mg/3 mL) injection 18 00:00: 00 06-02 00:00 :00 No [id number] 1.8mg inject 1.8 mg under the skin daily. [facility] Insulin [place], Disposable, (BD ULTRAFINE III MINI PEN) 31 gauge x 3/16" Ndle 3-14 00:00: 00 06-02 00:00 :00 No USE TO INJECT INSULIN 2X DAILY. DX:E11.9 [facility] blood sugar diagnostic (ACCU-CHEK GUIDE TEST STRIPS) strip 1-28 00:00: 00 04-11 00:00 :00 No [id number] Use to check glucose 3X daily. DX:E11.8 [facility] insulin degludec (TRESIBA FLEXTOUCH U-100) 100 unit/mL (3 mL) InPn 06-05 00:00: 00 02-05 00:00 :00 No [id number] 12U inject 12 Units under the skin daily. [facility] FLOMAX 0.4 MG ORAL CP24 2020-05 15:05: 34 03-31 00:00 :00 No once daily [facility] metoprolol succinate XL 50 mg 24 hr tablet 12-14 00:00: 00 Yes 50mg Take 50 mg by mouth daily. [facility] TOPROL XL 25 MG ORAL TB24 05-21 15:00: 04 05-21 00:00 :00 No once daily [facility] LOTREL 10-40 MG ORAL CAP 05-21 14:59: 17 05-21 00:00 :00 No once daily [facility] atorvastati n (LIPITOR) 10 mg tablet 08-15 00:00: 00 04-11 00:00 :00 No [id number] 10mg Take 1 tablet by mouth at bedtime. [facility] Liraglutide (VICTOZA 3-MERON) 0.6 mg/0.1 mL (18 mg/3 mL) injection 01-26 00:00: 00 03-25 00:00 :00 No 1.8mg inject 0.3 mL under the skin daily. [facility] Liraglutide (VICTOZA 2-MERON) 0.6 mg/0.1 mL (18 mg/3 mL) injection 11-12 00:00: 00 01-26 00:00 :00 No [id number] 1.8mg inject 0.3 mL under the skin daily. [facility] Insulin Syringes, Disposable, 1 mL Syrg 06-25 00:00: 00 2020- 01-13 00:00 :00 No [id number] Inject once a day E11.59Use as directed [facility] Insulin [place], Disposable, 29 gauge x 1/2" Ndle 06-25 00:00: 00 05-21 00:00 :00 No [id number] Once a day E11.59 [facility] metFORMIN 1,000 mg tablet 06-25 00:00: 00 03-25 00:00 :00 No [id number] 1000mg Take 1 tablet by mouth 2 (two) times daily. [facility] atorvastati n (LIPITOR) 10 mg tablet 06-25 00:00: 00 03-25 00:00 :00 No [id number] 10mg Take 1 tablet by mouth at bedtime. [facility] insulin glargine 100 unit/mL injection 06-25 00:00: 00 03-25 00:00 :00 No [id number] 10U inject 10 Units under the skin daily. [facility] Immunizations Ordered Immunization Name Filled Immunization Name Date Status Comments Source Influenza High Dose 2024-01-13 09:30:00 Completed [facility] Pneumococcal 13 Conjugate, PCV13 (Prevnar 13) 2024-01-13 09:30:00 Completed [facility] SARS-COV-2 COVID-19 PFIZER VACCINE 2024-01-13 09:30:00 Completed [facility] Pneumococcal Polysaccharide, PPSV23 (PNEUMOVAX) 2024-01-13 09:30:00 Completed [facility] Influenza High Dose 2023-09-15 00:00:00 Completed [facility] Pneumococcal 13 Conjugate, PCV13 (Prevnar 13) 2023-09-15 00:00:00 Completed [facility] SARS-COV-2 COVID-19 PFIZER VACCINE 2023-09-15 00:00:00 Completed [facility] Pneumococcal Polysaccharide, PPSV23 (PNEUMOVAX) 2023-09-15 00:00:00 Completed [facility] Influenza High Dose 2023-09-11 00:00:00 Completed [facility] Pneumococcal 13 Conjugate, PCV13 (Prevnar 13) 2023-09-11 00:00:00 Completed [facility] SARS-COV-2 COVID-19 PFIZER VACCINE 2023-09-11 00:00:00 Completed [facility] Pneumococcal Polysaccharide, PPSV23 (PNEUMOVAX) 2023-09-11 00:00:00 Completed [facility] Influenza High Dose 2023-05-04 00:00:00 Completed [facility] Pneumococcal 13 Conjugate, PCV13 (Prevnar 13) 2023-05-04 00:00:00 Completed [facility] SARS-COV-2 COVID-19 PFIZER VACCINE 2023-05-04 00:00:00 Completed [facility] Pneumococcal Polysaccharide, PPSV23 (PNEUMOVAX) 2023-05-04 00:00:00 Completed [facility] Influenza vaccine, quadrivalent, adjuvanted, 65+ Influenza vaccine, quadrivalent, adjuvanted, 65+ 2023-05-04 00:00:00 Completed Isabel Arzate Influenza High Dose 2023-04-12 00:00:00 Completed [facility] Pneumococcal 13 Conjugate, PCV13 (Prevnar 13) 2023-04-12 00:00:00 Completed [facility] SARS-COV-2 COVID-19 PFIZER VACCINE 2023-04-12 00:00:00 Completed [facility] Pneumococcal Polysaccharide, PPSV23 (PNEUMOVAX) 2023-04-12 00:00:00 Completed [facility] Influenza High Dose 2023-04-11 14:30:00 Completed [facility] Pneumococcal 13 Conjugate, PCV13 (Prevnar 13) 2023-04-11 14:30:00 Completed [facility] Pneumococcal Polysaccharide, PPSV23 (PNEUMOVAX) 2023-04-11 14:30:00 Completed [facility] SARS-COV-2 COVID-19 PFIZER VACCINE 2023-04-11 14:30:00 Completed [facility] Influenza High Dose 2023-02-28 00:00:00 Completed [facility] Pneumococcal 13 Conjugate, PCV13 (Prevnar 13) 2023-02-28 00:00:00 Completed [facility] SARS-COV-2 COVID-19 PFIZER VACCINE 2023-02-28 00:00:00 Completed [facility] Pneumococcal Polysaccharide, PPSV23 (PNEUMOVAX) 2023-02-28 00:00:00 Completed [facility] Influenza High Dose 2023-02-27 00:00:00 Completed [facility] Pneumococcal 13 Conjugate, PCV13 (Prevnar 13) 2023-02-27 00:00:00 Completed [facility] SARS-COV-2 COVID-19 PFIZER VACCINE 2023-02-27 00:00:00 Completed [facility] Pneumococcal Polysaccharide, PPSV23 (PNEUMOVAX) 2023-02-27 00:00:00 Completed [facility] Influenza High Dose 2021-06-10 00:00:00 Completed [facility] Pneumococcal 13 Conjugate, PCV13 (Prevnar 13) 2021-06-10 00:00:00 Completed [facility] SARS-COV-2 COVID-19 PFIZER VACCINE 2021-06-10 00:00:00 Completed [facility] Pneumococcal Polysaccharide, PPSV23 (PNEUMOVAX) 2021-06-10 00:00:00 Completed [facility] SARS-COV-2 COVID-19 PFIZER VACCINE 2021-04-15 00:00:00 Completed [facility] SARS-COV-2 COVID-19 PFIZER VACCINE 2021-04-15 00:00:00 Completed [facility] SARS-COV-2 COVID-19 PFIZER VACCINE 2021-04-15 00:00:00 Completed [facility] SARS-COV-2 COVID-19 PFIZER VACCINE 2021-04-15 00:00:00 Completed [facility] SARS-COV-2 COVID-19 PFIZER VACCINE 2021-04-15 00:00:00 Completed [facility] SARS-COV-2 COVID-19 PFIZER VACCINE 2021-04-15 00:00:00 Completed [facility] SARS-COV-2 COVID-19 PFIZER VACCINE 2021-04-15 00:00:00 Completed [facility] SARS-COV-2 COVID-19 PFIZER VACCINE 2021-04-15 00:00:00 Completed [facility] SARS-COV-2 COVID-19 PFIZER VACCINE 2021-04-15 00:00:00 Completed [facility] SARS-COV-2 COVID-19 PFIZER VACCINE 2021-04-15 00:00:00 Completed [facility] SARS-COV-2 COVID-19 PFIZER VACCINE 2021-04-15 00:00:00 Completed [facility] SARS-COV-2 COVID-19 PFIZER VACCINE 2021-04-15 00:00:00 Completed [facility] SARS-COV-2 COVID-19 PFIZER VACCINE 2021-04-15 00:00:00 Completed [facility] SARS-COV-2 COVID-19 PFIZER VACCINE 2021-04-15 00:00:00 Completed [facility] SARS-COV-2 COVID-19 PFIZER VACCINE 2021-04-15 00:00:00 Completed [facility] SARS-COV-2 COVID-19 PFIZER VACCINE 2021-04-15 00:00:00 Completed [facility] SARS-COV-2 COVID-19 PFIZER VACCINE 2021-04-15 00:00:00 Completed [facility] SARS-COV-2 COVID-19 PFIZER VACCINE 2021-04-15 00:00:00 Completed [facility] SARS-COV-2 COVID-19 PFIZER VACCINE 2021-04-15 00:00:00 Completed [facility] SARS-COV-2 COVID-19 PFIZER VACCINE 2021-04-15 00:00:00 Completed [facility] SARS-COV-2 COVID-19 PFIZER VACCINE 2021-04-15 00:00:00 Completed [facility] SARS-COV-2 COVID-19 PFIZER VACCINE 2021-04-15 00:00:00 Completed [facility] SARS-COV-2 COVID-19 PFIZER VACCINE 2021-04-15 00:00:00 Completed [facility] SARS-COV-2 COVID-19 PFIZER VACCINE 2021-04-15 00:00:00 Completed [facility] SARS-COV-2 COVID-19 PFIZER VACCINE 2021-04-15 00:00:00 Completed [facility] SARS-COV-2 COVID-19 PFIZER VACCINE 2021-04-15 00:00:00 Completed [facility] SARS-COV-2 COVID-19 PFIZER VACCINE 2021-04-15 00:00:00 Completed [facility] SARS-COV-2 COVID-19 PFIZER VACCINE 2021-04-15 00:00:00 Completed [facility] SARS-COV-2 COVID-19 PFIZER VACCINE 2021-04-15 00:00:00 Completed [facility] SARS-COV-2 COVID-19 PFIZER VACCINE 2021-04-15 00:00:00 Completed [facility] SARS-COV-2 COVID-19 PFIZER VACCINE 2020-07-11 00:00:00 Completed [facility] SARS-COV-2 COVID-19 PFIZER VACCINE 2020-07-11 00:00:00 Completed [facility] SARS-COV-2 COVID-19 PFIZER VACCINE 2020-07-11 00:00:00 Completed [facility] SARS-COV-2 COVID-19 PFIZER VACCINE 2020-07-11 00:00:00 Completed [facility] SARS-COV-2 COVID-19 PFIZER VACCINE 2020-07-11 00:00:00 Completed [facility] SARS-COV-2 COVID-19 PFIZER VACCINE 2020-07-11 00:00:00 Completed [facility] SARS-COV-2 COVID-19 PFIZER VACCINE 2020-07-11 00:00:00 Completed [facility] SARS-COV-2 COVID-19 PFIZER VACCINE 2020-07-11 00:00:00 Completed [facility] SARS-COV-2 COVID-19 PFIZER VACCINE 2020-07-11 00:00:00 Completed [facility] SARS-COV-2 COVID-19 PFIZER VACCINE 2020-07-11 00:00:00 Completed [facility] SARS-COV-2 COVID-19 PFIZER VACCINE 2020-07-11 00:00:00 Completed [facility] SARS-COV-2 COVID-19 PFIZER VACCINE 2020-07-11 00:00:00 Completed [facility] SARS-COV-2 COVID-19 PFIZER VACCINE 2020-07-11 00:00:00 Completed [facility] SARS-COV-2 COVID-19 PFIZER VACCINE 2020-07-11 00:00:00 Completed [facility] SARS-COV-2 COVID-19 PFIZER VACCINE 2020-07-11 00:00:00 Completed [facility] SARS-COV-2 COVID-19 PFIZER VACCINE 2020-07-11 00:00:00 Completed [facility] SARS-COV-2 COVID-19 PFIZER VACCINE 2020-07-11 00:00:00 Completed [facility] SARS-COV-2 COVID-19 PFIZER VACCINE 2020-07-11 00:00:00 Completed [facility] SARS-COV-2 COVID-19 PFIZER VACCINE 2020-07-11 00:00:00 Completed [facility] SARS-COV-2 COVID-19 PFIZER VACCINE 2020-07-11 00:00:00 Completed [facility] SARS-COV-2 COVID-19 PFIZER VACCINE 2020-07-11 00:00:00 Completed [facility] SARS-COV-2 COVID-19 PFIZER VACCINE 2020-07-11 00:00:00 Completed [facility] SARS-COV-2 COVID-19 PFIZER VACCINE 2020-07-11 00:00:00 Completed [facility] SARS-COV-2 COVID-19 PFIZER VACCINE 2020-07-11 00:00:00 Completed [facility] SARS-COV-2 COVID-19 PFIZER VACCINE 2020-07-11 00:00:00 Completed [facility] SARS-COV-2 COVID-19 PFIZER VACCINE 2020-07-11 00:00:00 Completed [facility] SARS-COV-2 COVID-19 PFIZER VACCINE 2020-07-11 00:00:00 Completed [facility] SARS-COV-2 COVID-19 PFIZER VACCINE 2020-07-11 00:00:00 Completed [facility] SARS-COV-2 COVID-19 PFIZER VACCINE 2020-07-11 00:00:00 Completed [facility] SARS-COV-2 COVID-19 PFIZER VACCINE 2020-07-11 00:00:00 Completed [facility] SARS-COV-2 COVID-19 PFIZER VACCINE 2020-06-20 00:00:00 Completed [facility] SARS-COV-2 COVID-19 PFIZER VACCINE 2020-06-20 00:00:00 Completed [facility] SARS-COV-2 COVID-19 PFIZER VACCINE 2020-06-20 00:00:00 Completed [facility] SARS-COV-2 COVID-19 PFIZER VACCINE 2020-06-20 00:00:00 Completed [facility] SARS-COV-2 COVID-19 PFIZER VACCINE 2020-06-20 00:00:00 Completed [facility] SARS-COV-2 COVID-19 PFIZER VACCINE 2020-06-20 00:00:00 Completed [facility] SARS-COV-2 COVID-19 PFIZER VACCINE 2020-06-20 00:00:00 Completed [facility] SARS-COV-2 COVID-19 PFIZER VACCINE 2020-06-20 00:00:00 Completed [facility] SARS-COV-2 COVID-19 PFIZER VACCINE 2020-06-20 00:00:00 Completed [facility] SARS-COV-2 COVID-19 PFIZER VACCINE 2020-06-20 00:00:00 Completed [facility] SARS-COV-2 COVID-19 PFIZER VACCINE 2020-06-20 00:00:00 Completed [facility] SARS-COV-2 COVID-19 PFIZER VACCINE 2020-06-20 00:00:00 Completed [facility] SARS-COV-2 COVID-19 PFIZER VACCINE 2020-06-20 00:00:00 Completed [facility] SARS-COV-2 COVID-19 PFIZER VACCINE 2020-06-20 00:00:00 Completed [facility] SARS-COV-2 COVID-19 PFIZER VACCINE 2020-06-20 00:00:00 Completed [facility] SARS-COV-2 COVID-19 PFIZER VACCINE 2020-06-20 00:00:00 Completed [facility] SARS-COV-2 COVID-19 PFIZER VACCINE 2020-06-20 00:00:00 Completed [facility] SARS-COV-2 COVID-19 PFIZER VACCINE 2020-06-20 00:00:00 Completed [facility] SARS-COV-2 COVID-19 PFIZER VACCINE 2020-06-20 00:00:00 Completed [facility] SARS-COV-2 COVID-19 PFIZER VACCINE 2020-06-20 00:00:00 Completed [facility] SARS-COV-2 COVID-19 PFIZER VACCINE 2020-06-20 00:00:00 Completed [facility] SARS-COV-2 COVID-19 PFIZER VACCINE 2020-06-20 00:00:00 Completed [facility] SARS-COV-2 COVID-19 PFIZER VACCINE 2020-06-20 00:00:00 Completed [facility] SARS-COV-2 COVID-19 PFIZER VACCINE 2020-06-20 00:00:00 Completed [facility] SARS-COV-2 COVID-19 PFIZER VACCINE 2020-06-20 00:00:00 Completed [facility] SARS-COV-2 COVID-19 PFIZER VACCINE 2020-06-20 00:00:00 Completed [facility] SARS-COV-2 COVID-19 PFIZER VACCINE 2020-06-20 00:00:00 Completed [facility] SARS-COV-2 COVID-19 PFIZER VACCINE 2020-06-20 00:00:00 Completed [facility] SARS-COV-2 COVID-19 PFIZER VACCINE 2020-06-20 00:00:00 Completed [facility] Pneumococcal Polysaccharide, PPSV23 (PNEUMOVAX) 2019-02-14 00:00:00 Completed [facility] Pneumococcal Polysaccharide, PPSV23 (PNEUMOVAX) 2019-02-14 00:00:00 Completed [facility] Pneumococcal Polysaccharide, PPSV23 (PNEUMOVAX) 2019-02-14 00:00:00 Completed [facility] Pneumococcal Polysaccharide, PPSV23 (PNEUMOVAX) 2019-02-14 00:00:00 Completed [facility] Pneumococcal Polysaccharide, PPSV23 (PNEUMOVAX) 2019-02-14 00:00:00 Completed [facility] Pneumococcal Polysaccharide, PPSV23 (PNEUMOVAX) 2019-02-14 00:00:00 Completed [facility] Pneumococcal Polysaccharide, PPSV23 (PNEUMOVAX) 2019-02-14 00:00:00 Completed [facility] Pneumococcal Polysaccharide, PPSV23 (PNEUMOVAX) 2019-02-14 00:00:00 Completed [facility] Pneumococcal Polysaccharide, PPSV23 (PNEUMOVAX) 2019-02-14 00:00:00 Completed [facility] Pneumococcal Polysaccharide, PPSV23 (PNEUMOVAX) 2019-02-14 00:00:00 Completed [facility] Pneumococcal Polysaccharide, PPSV23 (PNEUMOVAX) 2019-02-14 00:00:00 Completed [facility] Pneumococcal Polysaccharide, PPSV23 (PNEUMOVAX) 2019-02-14 00:00:00 Completed [facility] Pneumococcal Polysaccharide, PPSV23 (PNEUMOVAX) 2019-02-14 00:00:00 Completed [facility] Pneumococcal Polysaccharide, PPSV23 (PNEUMOVAX) 2019-02-14 00:00:00 Completed [facility] Pneumococcal Polysaccharide, PPSV23 (PNEUMOVAX) 2019-02-14 00:00:00 Completed [facility] Pneumococcal Polysaccharide, PPSV23 (PNEUMOVAX) 2019-02-14 00:00:00 Completed [facility] Pneumococcal Polysaccharide, PPSV23 (PNEUMOVAX) 2019-02-14 00:00:00 Completed [facility] Pneumococcal Polysaccharide, PPSV23 (PNEUMOVAX) 2019-02-14 00:00:00 Completed [facility] Pneumococcal Polysaccharide, PPSV23 (PNEUMOVAX) 2019-02-14 00:00:00 Completed [facility] Pneumococcal Polysaccharide, PPSV23 (PNEUMOVAX) 2019-02-14 00:00:00 Completed [facility] Pneumococcal Polysaccharide, PPSV23 (PNEUMOVAX) 2019-02-14 00:00:00 Completed [facility] Pneumococcal Polysaccharide, PPSV23 (PNEUMOVAX) 2019-02-14 00:00:00 Completed [facility] Pneumococcal Polysaccharide, PPSV23 (PNEUMOVAX) 2019-02-14 00:00:00 Completed [facility] Pneumococcal Polysaccharide, PPSV23 (PNEUMOVAX) 2019-02-14 00:00:00 Completed [facility] Pneumococcal Polysaccharide, PPSV23 (PNEUMOVAX) 2019-02-14 00:00:00 Completed [facility] Pneumococcal Polysaccharide, PPSV23 (PNEUMOVAX) 2019-02-14 00:00:00 Completed [facility] Pneumococcal Polysaccharide, PPSV23 (PNEUMOVAX) 2019-02-14 00:00:00 Completed [facility] Pneumococcal Polysaccharide, PPSV23 (PNEUMOVAX) 2019-02-14 00:00:00 Completed [facility] Pneumococcal Polysaccharide, PPSV23 (PNEUMOVAX) 2019-02-14 00:00:00 Completed [facility] Pneumococcal Vaccine, Polysaccharide Pneumococcal Vaccine, Polysaccharide 2019-02-14 00:00:00 Completed Isabel Arzate Influenza High Dose 2019-02-07 00:00:00 Completed [facility] Influenza High Dose 2019-02-07 00:00:00 Completed [facility] Influenza High Dose 2019-02-07 00:00:00 Completed [facility] Influenza High Dose 2019-02-07 00:00:00 Completed [facility] Influenza High Dose 2019-02-07 00:00:00 Completed [facility] Influenza High Dose 2019-02-07 00:00:00 Completed [facility] Influenza High Dose 2019-02-07 00:00:00 Completed [facility] Influenza High Dose 2019-02-07 00:00:00 Completed [facility] Influenza High Dose 2019-02-07 00:00:00 Completed [facility] Influenza High Dose 2019-02-07 00:00:00 Completed [facility] Influenza High Dose 2019-02-07 00:00:00 Completed [facility] Influenza High Dose 2019-02-07 00:00:00 Completed [facility] Influenza High Dose 2019-02-07 00:00:00 Completed [facility] Influenza High Dose 2019-02-07 00:00:00 Completed [facility] Influenza High Dose 2019-02-07 00:00:00 Completed [facility] Influenza High Dose 2019-02-07 00:00:00 Completed [facility] Influenza High Dose 2019-02-07 00:00:00 Completed [facility] Influenza High Dose 2019-02-07 00:00:00 Completed [facility] Influenza High Dose 2019-02-07 00:00:00 Completed [facility] Influenza High Dose 2019-02-07 00:00:00 Completed [facility] Influenza High Dose 2019-02-07 00:00:00 Completed [facility] Influenza High Dose 2019-02-07 00:00:00 Completed [facility] Influenza High Dose 2019-02-07 00:00:00 Completed [facility] Influenza High Dose 2019-02-07 00:00:00 Completed [facility] Influenza High Dose 2019-02-07 00:00:00 Completed [facility] Influenza High Dose 2019-02-07 00:00:00 Completed [facility] Influenza High Dose 2019-02-07 00:00:00 Completed [facility] Influenza High Dose 2019-02-07 00:00:00 Completed [facility] Influenza High Dose 2019-02-07 00:00:00 Completed [facility] Influenza Virus Vaccine, High Dose, Age 65 And Up Influenza Virus Vaccine, High Dose, Age 65 And Up 2019-02-07 00:00:00 Completed Isabel Arzate Pneumococcal 13 Conjugate, PCV13 (Prevnar 13) 2018-02-03 00:00:00 Completed [facility] Pneumococcal 13 Conjugate, PCV13 (Prevnar 13) 2018-02-03 00:00:00 Completed [facility] Pneumococcal 13 Conjugate, PCV13 (Prevnar 13) 2018-02-03 00:00:00 Completed [facility] Pneumococcal 13 Conjugate, PCV13 (Prevnar 13) 2018-02-03 00:00:00 Completed [facility] Pneumococcal 13 Conjugate, PCV13 (Prevnar 13) 2018-02-03 00:00:00 Completed [facility] Pneumococcal 13 Conjugate, PCV13 (Prevnar 13) 2018-02-03 00:00:00 Completed [facility] Pneumococcal 13 Conjugate, PCV13 (Prevnar 13) 2018-02-03 00:00:00 Completed [facility] Pneumococcal 13 Conjugate, PCV13 (Prevnar 13) 2018-02-03 00:00:00 Completed [facility] Pneumococcal 13 Conjugate, PCV13 (Prevnar 13) 2018-02-03 00:00:00 Completed [facility] Pneumococcal 13 Conjugate, PCV13 (Prevnar 13) 2018-02-03 00:00:00 Completed [facility] Pneumococcal 13 Conjugate, PCV13 (Prevnar 13) 2018-02-03 00:00:00 Completed [facility] Pneumococcal 13 Conjugate, PCV13 (Prevnar 13) 2018-02-03 00:00:00 Completed [facility] Pneumococcal 13 Conjugate, PCV13 (Prevnar 13) 2018-02-03 00:00:00 Completed [facility] Pneumococcal 13 Conjugate, PCV13 (Prevnar 13) 2018-02-03 00:00:00 Completed [facility] Pneumococcal 13 Conjugate, PCV13 (Prevnar 13) 2018-02-03 00:00:00 Completed [facility] Pneumococcal 13 Conjugate, PCV13 (Prevnar 13) 2018-02-03 00:00:00 Completed [facility] Pneumococcal 13 Conjugate, PCV13 (Prevnar 13) 2018-02-03 00:00:00 Completed [facility] Pneumococcal 13 Conjugate, PCV13 (Prevnar 13) 2018-02-03 00:00:00 Completed [facility] Pneumococcal 13 Conjugate, PCV13 (Prevnar 13) 2018-02-03 00:00:00 Completed [facility] Pneumococcal 13 Conjugate, PCV13 (Prevnar 13) 2018-02-03 00:00:00 Completed [facility] Pneumococcal 13 Conjugate, PCV13 (Prevnar 13) 2018-02-03 00:00:00 Completed [facility] Pneumococcal 13 Conjugate, PCV13 (Prevnar 13) 2018-02-03 00:00:00 Completed [facility] Pneumococcal 13 Conjugate, PCV13 (Prevnar 13) 2018-02-03 00:00:00 Completed [facility] Pneumococcal 13 Conjugate, PCV13 (Prevnar 13) 2018-02-03 00:00:00 Completed [facility] Pneumococcal 13 Conjugate, PCV13 (Prevnar 13) 2018-02-03 00:00:00 Completed [facility] Pneumococcal 13 Conjugate, PCV13 (Prevnar 13) 2018-02-03 00:00:00 Completed [facility] Pneumococcal 13 Conjugate, PCV13 (Prevnar 13) 2018-02-03 00:00:00 Completed [facility] Pneumococcal 13 Conjugate, PCV13 (Prevnar 13) 2018-02-03 00:00:00 Completed [facility] Pneumococcal 13 Conjugate, PCV13 (Prevnar 13) 2018-02-03 00:00:00 Completed [facility] Pneumococcal Vaccine, Conjugate 13 Pneumococcal Vaccine, Conjugate 13 2018-02-03 00:00:00 Completed Isabel Farnsworth - External Influenza Virus Vaccine, High Dose, Age 65 And Up Unknown Completed Isabel Farnsworth - External Pneumococcal Vaccine, Conjugate 13 Unknown Completed Isabel Farnsworth - External Pneumococcal Vaccine, Polysaccharide Unknown Completed Isabel luna - External Influenza vaccine, quadrivalent, adjuvanted, 65+ Unknown Completed Isabel roberts - External Influenza Virus Vaccine, High Dose, Age 65 And Up Unknown Completed Isabel Seybold - External Pneumococcal Vaccine, Conjugate 13 Unknown Completed Isabel Seybold - External Pneumococcal Vaccine, Polysaccharide Unknown Completed Isabel Seybol d - External Influenza vaccine, quadrivalent, adjuvanted, 65+ Unknown Completed Isabel Seybo ld - External Influenza Virus Vaccine, High Dose, Age 65 And Up Unknown Completed Isabel Seybold - External Pneumococcal Vaccine, Conjugate 13 Unknown Completed Isabel Seybold - External Pneumococcal Vaccine, Polysaccharide Unknown Completed Isabel Seybol d - External Influenza vaccine, quadrivalent, adjuvanted, 65+ Unknown Completed Isabel Seybo ld - External Influenza Virus Vaccine, High Dose, Age 65 And Up Unknown Completed Isabel Seybold - External Pneumococcal Vaccine, Conjugate 13 Unknown Completed Isabel Seybold - External Pneumococcal Vaccine, Polysaccharide Unknown Completed Isabel Seybol d - External Influenza vaccine, quadrivalent, adjuvanted, 65+ Unknown Completed Isabel Seybo ld - External Influenza Virus Vaccine, High Dose, Age 65 And Up Unknown Completed Isabel Seybold - External Pneumococcal Vaccine, Conjugate 13 Unknown Completed Isabel Seybold - External Pneumococcal Vaccine, Polysaccharide Unknown Completed Isabel Seybol d - External Influenza vaccine, quadrivalent, adjuvanted, 65+ Unknown Completed Isabel Seybo ld - External Influenza Virus Vaccine, High Dose, Age 65 And Up Unknown Completed Isabel Seybold - External Pneumococcal Vaccine, Conjugate 13 Unknown Completed Isabel Seybold - External Pneumococcal Vaccine, Polysaccharide Unknown Completed Isabel Seybol d - External Influenza vaccine, quadrivalent, adjuvanted, 65+ Unknown Completed Isabel Seybo ld - External Influenza Virus Vaccine, High Dose, Age 65 And Up Unknown Completed Isabel Seybold - External Pneumococcal Vaccine, Conjugate 13 Unknown Completed Isabel Seybold - External Pneumococcal Vaccine, Polysaccharide Unknown Completed Isabel Seybol d - External Influenza vaccine, quadrivalent, adjuvanted, 65+ Unknown Completed Isabel Seybo ld - External Vital Signs Vital Name Observation Time Observation Value Comments S ource Systolic blood pressure 2024-12-03 15:23:00 122 mm[Hg] Isable Seybo ld - External Diastolic blood pressure 2024-12-03 15:23:00 70 mm[Hg] Isabel Seybo ld - External Heart rate 2024-12-03 15:23:00 91 /min Hilario balderas Seybold - External Body temperature 2024-12-03 15:23:00 36.89 Melinda Isabel Seybold - External Respiratory rate 2024-12-03 15:23:00 18 /min Isabel Seybold - External Body height 2024-12-03 15:23:00 177.8 cm Patience ey Seybold - External Body weight 2024-12-03 15:23:00 97.07 kg Patience ey Seybold - External BMI 2024-12-03 15:23:00 30.71 kg/m2 Patience ey Seybold - External Oxygen saturation in Arterial blood by Pulse oximetry 2024-12-03 15:23:00 98 /min Isabel Seybo ld - External Systolic blood pressure 2024-11-21 18:43:00 118 mm[Hg] Isabel Seybo ld - External Diastolic blood pressure 2024-11-21 18:43:00 72 mm[Hg] Isabel Seybo ld - External Heart rate 2024-11-21 18:43:00 96 /min Hilario y Seybold - External Body temperature 2024-11-21 18:43:00 36.5 Melinda Isabel Seybold - External Respiratory rate 2024-11-21 18:43:00 20 /min Isabel Seybold - External Body height 2024-11-21 18:43:00 177.8 cm Patience ey Seybold - External Body weight 2024-11-21 18:43:00 97.07 kg Patience ey Seybold - External BMI 2024-11-21 18:43:00 30.71 kg/m2 Patience ey Seybold - External Oxygen saturation in Arterial blood by Pulse oximetry 2024-11-21 18:43:00 96 /min Isabel Seybo ld - External Systolic blood pressure 2024-11-19 21:50:00 140 mm[Hg] [facility] Diastolic blood pressure 2024-11-19 21:50:00 68 mm[Hg] [facility] Respiratory rate 2024-11-19 21:50:00 17 /min [facility] Oxygen saturation in Arterial blood by Pulse oximetry 2024-11-19 21:50:00 97 /min [facility] Heart rate 2024-11-19 21:15:00 98 /min [facility] Systolic blood pressure 2024-10-10 18:03:00 107 mm[Hg] [facility] Diastolic blood pressure 2024-10-10 18:03:00 72 mm[Hg] [facility] Heart rate 2024-10-10 18:03:00 84 /min [facility] Respiratory rate 2024-10-10 18:03:00 18 /min [facility] Body height 2024-10-10 18:03:00 177.8 cm [facility] Body weight 2024-10-10 18:03:00 93.895 kg [facility] BMI 2024-10-10 18:03:00 29.70 kg/m2 [facility] Oxygen saturation in Arterial blood by Pulse oximetry 2024-10-10 18:03:00 95 /min [facility] Systolic blood pressure 2024-08-08 19:16:00 116 mm[Hg] Isabel Seybo ld - External Diastolic blood pressure 2024-08-08 19:16:00 74 mm[Hg] Isabel Seybo ld - External Heart rate 2024-08-08 19:16:00 73 /min Kelse y Seybold - External Body temperature 2024-08-08 19:16:00 36.44 Melinda Isabel Seybold - External Respiratory rate 2024-08-08 19:16:00 18 /min Isabel Seybold - External Body height 2024-08-08 19:16:00 177.8 cm Patience ey Seybold - External Body weight 2024-08-08 19:16:00 95.346 kg Patience ey Seybold - External BMI 2024-08-08 19:16:00 30.16 kg/m2 Patience ey Seybold - External Oxygen saturation in Arterial blood by Pulse oximetry 2024-08-08 19:16:00 99 /min Isabel Seybo ld - External Systolic blood pressure 2024-06-27 20:22:00 122 mm[Hg] Isabel Seybo ld - External Diastolic blood pressure 2024-06-27 20:22:00 72 mm[Hg] Isabel Seybo ld - External Heart rate 2024-06-27 20:22:00 93 /min Hilario Hutsonold - External Body temperature 2024-06-27 20:22:00 36.28 Melinda Isabel Farnsworth - External Respiratory rate 2024-06-27 20:22:00 18 /min Isabel Farnsworth - External Body height 2024-06-27 20:22:00 177.8 cm Patience valdes Seybold - External Body weight 2024-06-27 20:22:00 96.163 kg Patience valdes Seybold - External BMI 2024-06-27 20:22:00 30.42 kg/m2 Patience valdes Seybhair - External Oxygen saturation in Arterial blood by Pulse oximetry 2024-06-27 20:22:00 100 /min Isabel Parekh ld - External Systolic blood pressure 2024-06-06 16:52:00 135 mm[Hg] [facility] Diastolic blood pressure 2024-06-06 16:52:00 75 mm[Hg] [facility] Heart rate 2024-06-06 16:52:00 76 /min [facility] Body height 2024-06-06 16:52:00 177.8 cm [facility] Body weight 2024-06-06 16:52:00 98.431 kg [facility] BMI 2024-06-06 16:52:00 31.14 kg/m2 [facility] Oxygen saturation in Arterial blood by Pulse oximetry 2024-06-06 16:52:00 98 /min [facility] Systolic blood pressure 2024-04-20 20:02:00 138 mm[Hg] [facility] Diastolic blood pressure 2024-04-20 20:02:00 87 mm[Hg] [facility] Heart rate 2024-04-20 20:02:00 80 /[facility] Body temperature 2024-04-20 20:02:00 36.67 Melinda [facility] Respiratory rate 2024-04-20 20:02:00 20 /min [facility] Body height 2024-04-20 20:02:00 177.8 cm [facility] Body weight 2024-04-20 20:02:[address] [facility] BMI 2024-04-20 20:02:00 30.99 kg/m2 Univ [facility] Oxygen saturation in Arterial blood by Pulse oximetry 2024-04-20 20:02:00 100 /min [facility] Systolic blood pressure 2024-04-11 19:56:00 109 mm[Hg] [facility] Diastolic blood pressure 2024-04-11 19:56:00 58 mm[Hg] [facility] Heart rate 2024-04-11 19:56:00 85 /min [facility] Respiratory rate 2024-04-11 19:56:00 16 /min [facility] Body height 2024-04-11 19:56:[address] [facility] Body weight 2024-04-11 19:56:[address] [facility] BMI 2024-04-11 19:56:00 31.32 kg/m2 Univ [facility] Oxygen saturation in Arterial blood by Pulse oximetry 2024-04-11 19:56:00 97 /min [facility] Systolic blood pressure 2024-02-19 19:18:00 132 mm[Hg] [facility] Diastolic blood pressure 2024-02-19 19:18:00 73 mm[Hg] [facility] Heart rate 2024-02-19 19:18:00 73 /min [facility] Body temperature 2024-02-19 19:18:00 37 Melinda [facility] Respiratory rate 2024-02-19 19:18:00 15 /min [facility] Oxygen saturation in Arterial blood by Pulse oximetry 2024-02-19 19:18:00 98 /min [facility] Body height 2024-02-19 18:46:00 175.3 [facility] 2024-02-19 18:46:[address] [facility] BMI 2024-02-19 18:46:00 31.01 kg/m2 Univ [facility] Systolic blood pressure 2024-01-13 14:34:00 107 mm[Hg] [facility] Diastolic blood pressure 2024-01-13 14:34:00 50 mm[Hg] [facility] Heart rate 2024-01-13 14:34:00 74 /min [facility] Respiratory rate 2024-01-13 14:34:00 14 /min [facility] Body height 2024-01-13 14:34:00 175.3 cm [facility] Body [facility] 2024-01-13 14:34:00 98.703 kg [facility] BMI 2024-01-13 14:34:00 32.13 kg/m2 [facility] Oxygen saturation in Arterial blood by Pulse oximetry 2024-01-13 14:34:00 99 /min [facility] Systolic blood pressure 2023-12-27 20:23:00 119 mm[Hg] Isabel Antunezybo ld - External Diastolic blood pressure 2023-12-27 20:23:00 73 mm[Hg] Isabel Antunezybo ld - External Heart rate 2023-12-27 20:23:00 89 /min Kelse y Seybold - External Body temperature 2023-12-27 20:23:00 36.56 Melinda Isabel Antunezybold - External Respiratory rate 2023-12-27 20:23:00 20 /min Isabel Antunezybold - External Body height 2023-12-27 20:23:00 177.8 cm Patience valdes Seybold - External Body weight 2023-12-27 20:23:00 97.523 kg Patience valdes Seybold - External BMI 2023-12-27 20:23:00 30.85 kg/m2 Patience valdes Seybold - External Oxygen saturation in Arterial blood by Pulse oximetry 2023-12-27 20:23:00 98 /min Isabel Hutsono ld - External Systolic blood pressure 2023-10-12 17:50:00 138 mm[Hg] [facility] Diastolic blood pressure 2023-10-12 17:50:00 84 mm[Hg] [facility] Heart rate 2023-10-12 17:50:00 79 /min [facility] Respiratory rate 2023-10-12 17:50:00 16 /min [facility] Body height 2023-10-12 17:50:00 175.3 cm [facility] Body weight 2023-10-12 17:50:00 97.024 kg [facility] BMI 2023-10-12 17:50:00 31.59 kg/m2 [facility] Oxygen saturation in Arterial blood by Pulse oximetry 2023-10-12 17:50:00 98 /min [facility] Systolic blood pressure 2023-09-14 13:24:00 122 mm[Hg] Isabel Seybo ld - External Diastolic blood pressure 2023-09-14 13:24:00 68 mm[Hg] Isabel Seybo ld - External Heart rate 2023-09-14 13:24:00 84 /min Kelse y Seybold - External Body temperature 2023-09-14 13:24:00 36.78 Melinda Isabel Seybold - External Respiratory rate 2023-09-14 13:24:00 18 /min Isabel Seybold - External Body height 2023-09-14 13:24:00 177.8 cm Patience ey Seybold - External Body weight 2023-09-14 13:24:00 97.07 kg Patience ey Seybold - External BMI 2023-09-14 13:24:00 30.71 kg/m2 Patience ey Seybold - External Systolic blood pressure 2023-06-08 22:04:00 131 mm[Hg] Isabel Seybo ld - External Diastolic blood pressure 2023-06-08 22:04:00 86 mm[Hg] Isabel Seybo ld - External Heart rate 2023-06-08 22:04:00 88 /min Kelse y Seybold - External Body temperature 2023-06-08 22:04:00 36.94 Melinda Isabel Seybold - External Respiratory rate 2023-06-08 22:04:00 16 /min Isabel Seybold - External Body height 2023-06-08 22:04:00 177.8 cm Patience ey Seybold - External Body weight 2023-06-08 22:04:00 99.338 kg Patience ey Seybold - External BMI 2023-06-08 22:04:00 31.42 kg/m2 Patience ey Seybold - External Oxygen saturation in Arterial blood by Pulse oximetry 2023-06-08 22:04:00 98 /min Isabel Parekh ld - External Systolic blood pressure 2023-05-04 20:46:00 129 mm[Hg] Isabel Hutsono ld - External Diastolic blood pressure 2023-05-04 20:46:00 89 mm[Hg] Isabel Hutsono ld - External Heart rate 2023-05-04 20:46:00 78 /min Hilario y ybhair - External Body temperature 2023-05-04 20:46:00 36.94 Melinda Isabel Antunezybold - External Body height 2023-05-04 20:46:00 177.8 cm Patience valdes Seybold - External Body weight 2023-05-04 20:46:00 97.523 kg Patience valdes Seybold - External BMI 2023-05-04 20:46:00 30.85 kg/m2 Patience valdes Seybold - External Systolic blood pressure 2023-04-11 20:48:00 156 mm[Hg] [facility] Diastolic blood pressure 2023-04-11 20:48:00 75 mm[Hg] [facility] Heart rate 2023-04-11 20:48:00 76 /min Unive [facility] Respiratory rate 2023-04-11 20:48:00 18 /min [facility] Body height 2023-04-11 20:48:00 175.3 cm [facility] Body weight 2023-04-11 20:48:00 96.616 kg [facility] BMI 2023-04-11 20:48:00 31.45 kg/m2 [facility] Oxygen saturation in Arterial blood by Pulse oximetry 2023-04-11 20:48:00 100 /min [facility] Systolic blood pressure 2023-01-05 19:08:00 126 mm[Hg] [facility] Diastolic blood pressure 2023-01-05 19:08:00 68 mm[Hg] [facility] Heart rate 2023-01-05 19:08:00 99 /min Unive [facility] Body temperature 2023-01-05 19:08:00 36.11 Melinda [facility] Respiratory rate 2023-01-05 19:08:00 20 /min [facility] Body height 2023-01-05 19:08:[address] [facility] Body weight 2023-01-05 19:08:[address] [facility] BMI 2023-01-05 19:08:00 30.72 kg/m2 Univ [facility] Oxygen saturation in Arterial blood by Pulse oximetry 2023-01-05 19:08:00 100 /min [facility] Systolic blood pressure 2022-10-11 19:49:00 133 mm[Hg] [facility] Diastolic blood pressure 2022-10-11 19:49:00 72 mm[Hg] [facility] Heart rate 2022-10-11 19:49:00 100 /min Unive [facility] Respiratory rate 2022-10-11 19:49:00 16 /min [facility] Body height 2022-10-11 19:49:[address] [facility] Body weight 2022-10-11 19:49:00 99.202 kg [facility] BMI 2022-10-11 19:49:00 32.30 kg/m2 [facility] Oxygen saturation in Arterial blood by Pulse oximetry 2022-10-11 19:49:00 100 /min [facility] Systolic blood pressure 2022-06-21 22:32:00 138 mm[Hg] [facility] Diastolic blood pressure 2022-06-21 22:32:00 83 mm[Hg] [facility] Heart rate 2022-06-21 22:31:00 80 /min Unive [facility] Body temperature 2022-06-21 22:31:00 36.56 Melinda [facility] Respiratory rate 2022-06-21 22:31:00 18 /min [facility] Body height 2022-06-21 22:31:00 175.3 cm [facility] 2022-06-21 22:31:00 99.338 kg [facility] BMI 2022-06-21 22:31:00 32.34 kg/m2 [facility] Oxygen saturation in Arterial blood by Pulse oximetry 2022-06-21 22:31:00 97 /min [facility] Systolic blood pressure 2022-06-02 20:02:00 143 mm[Hg] [facility] Diastolic blood pressure 2022-06-02 20:02:00 77 mm[Hg] [facility] Heart rate 2022-06-02 20:02:00 91 /min Unive [facility] Respiratory rate 2022-06-02 20:02:00 16 /min [facility] Body height 2022-06-02 20:02:[address] [facility] Body weight 2022-06-02 20:02:[address] [facility] BMI 2022-06-02 20:02:00 31.11 kg/m2 [facility] Oxygen saturation in Arterial blood by Pulse oximetry 2022-06-02 20:02:00 96 /min [facility] Systolic blood pressure 2022-02-05 16:41:00 129 mm[Hg] [facility] Diastolic blood pressure 2022-02-05 16:41:00 75 mm[Hg] [facility] Heart rate 2022-02-05 16:41:00 86 /min Unive [facility] Body temperature 2022-02-05 16:41:00 36.44 Melinda [facility] Respiratory rate 2022-02-05 16:41:00 16 /min [facility] Body height 2022-02-05 16:41:[address] [facility] Body weight 2022-02-05 16:41:[address] [facility] BMI 2022-02-05 16:41:00 30.72 kg/m2 [facility] Oxygen saturation in Arterial blood by Pulse oximetry 2022-02-05 16:41:00 97 /min [facility] Systolic blood pressure 2021-12-10 20:03:00 117 mm[Hg] [facility] Diastolic blood pressure 2021-12-10 20:03:00 72 mm[Hg] [facility] Heart rate 2021-12-10 20:03:00 57 /min [facility] acute hospital Respiratory rate 2021-12-10 20:03:00 16 /min [facility] Body height 2021-12-10 20:03:00 177.8 cm [facility] Body weight 2021-12-10 20:03:00 98.431 kg [facility] BMI 2021-12-10 20:03:00 31.14 kg/m2 [facility] Oxygen saturation in Arterial blood by Pulse oximetry 2021-12-10 20:03:00 96 /min [facility] Procedures Procedure Date / Time Performed Performing Clinician Source FOOT LEFT 2024-12-03 00:00:00 Isabel medina - External PROTHROMBIN TIME (PT) 2024-12-03 00:00:00 Isabel Farnsworth - External MR GUIDED BIOPSY PROSTATE 2024-11-19 20:34:42 Arlyn Sawant [facility] SURGICAL PATHOLOGY EXAM 2024-11-19 20:10:00 Arnie Perdomo [facility] PHYSICIAN ORDERS 2024-10-18 14:42:02 Doctor Leatha signed, [place] [facility] POCT HEMOGLOBIN A1C TEST 2024-10-10 00:00:00 Dashawn Umaña [facility] JOSE,POST-VOID RES,US,NON-IMAGING 2024-06-06 18:10:00 Tru [facility] POCT URINALYSIS AUTO 2024-06-06 16:43:00 Heron Ott [facility] POCT URINALYSIS AUTO 2024-04-20 19:58:00 Heron Ott [facility] JOSE,POST-VOID RES,US,NON-IMAGING 2024-04-20 00:00:00 Tru [facility] XR RIBS 3 VW RIGHT 2024-02-19 20:26:52 Gayatri Linares [facility] XR SHOULDER 2+ VW RIGHT 2024-02-19 20:26:52 Gayatri Linares [facility] POCT HEMOGLOBIN A1C TEST 2023-10-12 18:44:00 Dashawn Umaña jonathan [facility] EXTERNAL PROVIDER - ADC CARDIOLOGY 2023-05-04 06:01:00 Doctor Unassigned, [place] [facility] POCT HEMOGLOBIN A1C TEST 2023-04-11 00:00:00 Dashawn Umaña jonathan [facility] POCT URINALYSIS AUTO 2023-01-05 20:53:00 Heron Ott [facility] MEDICATION CORRESPONDENCE 2022-12-28 05:01:00 Do ctor Unassigned, [place] [facility] ASSIGNMENT OF BENEFITS 2022-08-16 18:51:48 Docto r Unassigned, [place] [facility] ASSIGNMENT OF BENEFITS 2022-07-26 19:16:34 Docto r Unassigned, [place] [facility] ASSIGNMENT OF BENEFITS 2022-07-16 17:18:29 Docto r Unassigned, [place] [facility] URINE CULTURE 2022-06-21 23:00:00 Marcelina Crowley [facility] POCT URINALYSIS AUTO 2022-06-21 22:33:00 Marcus Crowley [facility] DIABETES TESTING REPORTS 2022-06-02 06:01:00 Doc tor Unassigned, [place] [facility] POCT HEMOGLOBIN A1C TEST 2022-06-02 00:00:00 Dashawn Umaña [facility] POCT URINALYSIS AUTO 2021-12-10 20:12:00 Heron Ott [facility] Plan of Care Planned Activity Planned Date Details Comments Source Encounters Start Date/Time End Date/Time Encounter Type Admission Type Attending Clinicians Care Facility Care Department Encounter ID Source 2022-12-30 11:54:[address] [facility] [id number] [facility] Fire Depart ent 2021-03-08 23:37:01 Emergency [facility] [id number] [facility] 2024-12-11 00:00:00 2024-12-12 09:28:00 Jj Jaimes [facility] 1.2.840.114 350.1.13.10 4.2.7.2.686 [id number] [facility] 2024-12-12 00:00:00 2024-12-12 00:00:00 Outpatient TICO CORONADO ISABEL GONZALES [id number] [facility] 2024-12-09 18:00:00 2024-12-09 18:00:00 [facility] [id number] 2024-12-03 16:50:00 2024-12-03 16:50:00 Outpatient ISABEL GONZALES [id number] [facility] 2024-12-03 15:30:00 2024-12-03 15:30:00 Outpatient SURINDER AGUIRRE ISABEL GONZALES [id number] [facility] 2024-12-03 15:00:00 2024-12-03 15:00:00 Outpatient NT90 ISABEL GONZALES [id number] [facility] 2024-12-03 00:00:00 2024-12-03 00:00:00 Outpatient HANNAH SHARMA ISABEL GONZALES [id number] [facility] 2024-10-29 00:00:00 2024-12-01 18:23:51 Patient Secure Msg Doctor Unassigned, [place] Doctor Unassigned, [place] [facility] ..840.114 350.1.13.10 4.2.7.2.686 [id number] [facility] 2024-11-30 00:00:00 2024-11-30 16:15:15 Telephone Tru [facility] 1..840.114 350.1.13.10 4.2.7.2.686 [id number] [facility] 2024-11-21 14:00:00 2024-11-21 14:00:00 Outpatient TICO CORONADO ISABEL GONZALES [id number] [facility] 2024-11-20 08:00:00 2024-11-20 08:00:00 Outpatient ARLYN WANG [facility] [id number] [facility] 2024-11-19 13:49:45 2024-11-19 23:59:00 Hospital Encounter ARLYN WANG [facility] 1.2.840.114 350.1.13.10 4.2.7.2.686 [id number] [facility] 2024-10-31 00:00:00 2024-10-31 12:10:43 Case Management Jason Perdomo [facility] ([facility]) 1.2840.114 350.1.13.10 4.2.7.2.686 [id number] [facility] 2024-10-18 00:00:00 2024-10-19 02:04:13 Orders Only Doctor Unassigned, [place] Doctor Unassigned, [place] [facility] ([facility] 1.2840.114 350.1.13.10 4.2.7.2.686 [id number] [facility] 2024-10-17 00:00:00 2024-10-17 13:22:32 Telephone Deon Ott [facility] 1.2840.114 350.1.13.10 4.2.7.2.686 [id number] [facility] 2024-10-16 15:15:00 2024-10-16 15:15:00 Outpatient ISABEL GONZALES [id number] Isabel [facility]arnsworth 2024-10-10 13:00:00 2024-10-10 14:03:42 Office Visit Lachelle Santiago [facility] 1.20.114 350.1.13.10 4.2.7.2.686 [id number] [facility] 2024-10-03 00:00:00 2024-10-04 14:09:51 Refill Tru [facility] 1.2840.114 350.1.13.10 4.2.7.2.686 [id number] [facility] 2024-10-04 00:00:00 2024-10-04 00:00:00 Outpatient ISABEL GILBERTSEY [id number] [facility] 2024-10-04 00:00:00 2024-10-04 00:00:00 Outpatient DEON OTT [id number] [facility] 2024-09-27 12:30:00 2024-09-27 12:30:00 Outpatient ISABEL ISABEL [id number] [facility] 2024-09-16 00:00:00 2024-09-16 00:00:00 [facility] [id number] [facility] 2024-09-15 09:15:00 2024-09-15 09:15:00 [facility] [id number] [facility] 2024-09-15 09:15:00 2024-09-15 09:15:00 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 Machine Operator 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 R [facility] 1..114 350.1.13.10 4.2.7.2.686 [id number] [facility] 2024-09-14 00:00:00 2024-09-14 17:26:20 Telephone Tru [facility] 1..114 350.1.13.10 4.2.7.2.686 [id number] [facility] 2017-01-26 00:00:00 2024-08-30 22:27:47 Refill Art Bradford [facility] 1..114 350.1.13.10 4.2.7.2.686 [id number] [facility] 2024-08-28 00:00:00 2024-08-28 00:00:00 Outpatient ISABEL ISABEL [id number] [facility] 2024-08-09 00:00:00 2024-08-09 00:00:00 Outpatient GEGE VU ISABEL GONZALES [id number] [facility] 2024-08-08 14:30:00 2024-08-08 14:30:00 Outpatient TICO CORONADO ISABEL [id number] [facility] 2024-08-08 00:00:00 2024-08-08 00:00:00 Outpatient GEGE VU ISABEL GONZALES [id number] [facility] 2024-08-07 08:20:00 2024-08-07 08:20:00 Outpatient [id number] ISABEL GONZALES [id number] [facility] 2024-06-28 00:00:00 2024-06-28 00:00:00 Outpatient TICO CORONADO ISABEL [id number] [facility] 2024-06-27 14:30:00 2024-06-27 14:30:00 Outpatient TICO CORONADO ISABEL [id number] [facility] 2021-02-09 00:00:00 2024-06-23 02:53:05 Orders Only Kristen Ahumada Sarah N [facility] 1.2.840.114 350.1.13.10 4.2.7.2.686 [id number] [facility] 2024-06-23 00:00:00 2024-06-23 00:00:00 [facility] [id number] 2024-06-23 00:00:00 2024-06-23 00:00:00 Outpatient DEON GOULD [facility] [id number] [facility] 2024-06-07 00:00:00 2024-06-07 09:40:15 Telephone Deon Ott [facility] 1.2.840.114 350.1.13.10 4.2.7.2.686 [id number] [facility] 2024-06-06 11:00:00 2024-06-06 12:16:41 Outpatient R DEON OTT [facility] [id number] [facility] 2024-06-06 11:00:00 2024-06-06 12:16:41 Office Visit R TRU [facility] 1.2.840.114 350.1.13.10 4.2.7.2.686 [id number] [facility] 2024-06-04 00:00:00 2024-06-04 08:52:36 [facility] [place] 1.2.840.114 350.1.13.10 4.2.7.2.686 [id number] [facility] 2024-06-01 14:15:00 2024-06-01 14:30:00 Spinning Machine Operator Visit Pob, Adc Lab Main Deon Ott Pob, Adc Lab Main [facility] 1.2.840.114 350.1.13.10 4.2.7.2.686 [id number] [facility] 2024-06-01 14:15:00 2024-06-01 14:15:00 [facility] [id number] [facility] 2024-05-31 00:00:00 2024-05-31 13:00:38 Telephone Tru [facility] 1.2.840.114 350.1.13.10 4.2.7.2.686 [id number] [facility] 2024-04-23 00:00:00 2024-04-23 13:38:52 Refill Deon Ott [facility] 1.2.840.114 350.1.13.10 4.2.7.2.686 [id number] [facility] 2024-04-23 00:00:00 2024-04-23 07:32:57 Telephone Deon Ott [facility] 1.2.840.114 350.1.13.10 4.2.7.2.686 [id number] [facility] 2024-04-20 13:30:00 2024-04-20 13:45:00 Spinning Machine Operator Visit 2, Adc Lab Deon Ott 2, Adc Lab [facility] 1.2.840.114 350.1.13.10 4.2.7.2.686 [id number] [facility] 2024-04-20 13:30:00 2024-04-20 13:30:00 [facility] [id number] [facility] 2024-04-20 13:15:00 2024-04-20 13:30:00 Office Visit Tru [facility] 1.2.840.114 350.1.13.10 4.2.7.2.686 [id number] [facility] 2024-04-20 00:00:00 2024-04-20 00:00:00 Outpatient TICO CORONADO [id number] [facility] 2024-04-11 14:00:00 2024-04-11 14:33:29 Outpatient R LACHELLE UMAÑA [facility] [id number] [facility] 2024-04-11 14:00:00 2024-04-11 14:33:29 Office Visit Umaña, [place] [facility] 1.840.114 350.1.13.10 4.2.7.2.686 [id number] [facility] 2024-03-31 00:00:00 2024-03-31 00:00:00 Outpatient TICO CORONADO ISABEL [id number] Isabel Antunezhair 2024-03-30 00:00:00 2024-03-30 12:21:57 [facility] 1.840.114 350.1.13.10 4.2.7.2.686 [id number] [facility] 2024-03-30 12:00:00 2024-03-30 12:15:00 Spinning Machine Operator Visit Vtc-Lab Lachelle Umaña [facility] 1.840.114 350.1.13.10 4.2.7.2.686 [id number] [facility] 2024-03-30 12:00:00 2024-03-30 12:00:00 Outpatient LACHELLE SANTIAGO [facility] [id number] [facility] 2024-03-28 00:00:00 2024-03-28 00:00:00 Outpatient KOKITICO Lassiter ISABEL GONZALES [id number] [facility] 2024-03-11 00:00:00 2024-03-15 08:48:13 Deon Cruz [facility] 1..840.114 350.1.13.10 4.2.7.2.686 [id number] [facility] 2024-02-19 14:03:00 2024-02-19 18:02:00 Emergency X GAYATRI LINARES [facility] ERT [id number] [facility] 2024-02-19 14:03:00 2024-02-19 18:02:00 Emergency Gayatri Linares [facility] 1.2840.114 350.1.13.10 4.2.7.2.686 [id number] [facility] 2024-01-13 09:30:00 2024-01-13 10:14:07 Outpatient R FRANK JJ [facility] [id number] [facility] 2024-01-13 09:30:00 2024-01-13 10:14:07 Office Visit Jj Marie [facility] 1.840.114 350.1.13.10 4.2.7.2.686 [id number] [facility] 2024-01-13 00:00:00 2024-01-13 00:00:00 Outpatient TICO CORONADO [id number] Isabel [facility] 2024-01-12 00:00:00 2024-01-12 14:43:29 Refill [facility]le [facility] 1..840.114 350.1.13.10 4.2.7.2.686 [id number] [facility] 2023-12-27 15:15:00 2023-12-27 15:15:00 Outpatient TICO CORONADO [id number] [facility] 2023-12-12 00:00:00 2023-12-15 12:06:03 Refill Deon Ott [facility] 1..840.114 350.1.13.10 4.2.7.2.686 [id number] [facility] 2023-11-16 15:15:00 2023-11-16 15:15:00 Outpatient TICO CORONADO [id number] [facility] 2023-11-09 00:00:00 2023-11-09 00:00:00 Outpatient TICO CORONADO [id number] [facility] 2023-11-08 09:25:00 2023-11-08 09:25:00 Outpatient LAB90 ISABEL GONZALES [id number] [facility] 2023-10-26 15:45:00 2023-10-26 15:45:00 Outpatient TICO CORONADO [id number] [facility] 2023-10-24 00:00:00 2023-10-24 00:00:00 Outpatient TICO CORONADO [id number] [facility] 2023-10-12 13:00:00 2023-10-12 13:37:59 Outpatient R LEEROY [facility] [id number] [facility] 2023-10-12 13:00:00 2023-10-12 13:37:59 Office Visit Leeroy [facility] .840.114 350.1.13.10 4.2.7.2.686 [id number] [facility] 2023-10-02 00:00:00 2023-10-02 00:00:00 Outpatient TICO CORONADO [id number] [facility] 2023-09-15 00:00:00 2023-09-15 15:14:[address] [facility] .840.114 350.1.13.10 4.2.7.2.686 [id number] [facility] 2023-09-14 08:30:00 2023-09-14 08:30:00 Outpatient JASBIRTERESA [id number] [facility] 2023-09-11 00:00:00 2023-09-13 09:10:06 Marcelina Murray [facility] 1.840.114 350.1.13.10 4.2.7.2.686 [id number] [facility] 2023-09-07 16:00:00 2023-09-07 16:00:00 Outpatient PREZATICO Lassiter [id number] Isabel Antunezhair 2023-06-08 16:15:00 2023-06-08 16:15:00 Outpatient PREZASTICO [id number] [facility]23-[facility]-08 16:15:00 2023-06-08 16:15:00 Outpatient PREZAS, TICO GONZALES ISABEL [id number] [facility] 2023-05-30 16:15:00 2023-05-30 16:15:00 Outpatient PREZASTICO [id number] Isabel Antunezhair 2023-05-25 09:05:00 2023-05-25 09:05:00 Outpatient LAB90 ISABEL ISABEL [id number] [facility] 2023-05-18 00:00:00 2023-05-18 00:00:00 Outpatient PREZAMaikol, TICO GONZALES ISABEL [id number] [facility] 2023-05-16 00:00:00 2023-05-16 00:00:00 Outpatient PREZAS, TICO GONZALES [id number] [facility] 2023-05-13 09:25:00 2023-05-13 09:25:00 Outpatient LAB90 ISABEL GILBERTSEY [id number] [facility] 2023-05-04 15:00:00 2023-05-04 15:00:00 Outpatient PREZASTICO [id number] [facility] 2023-05-04 00:00:00 2023-05-04 00:00:00 Orders Only Doctor Unassigned, [place] [facility] 1.2.840.114 350.1.13.10 4.2.7.2.686 [id number] [facility] 2023-04-20 13:00:00 2023-04-20 13:00:00 Outpatient JOSEPH SNOW [facility] [id number] [facility] 2023-04-12 00:00:00 2023-04-12 00:00:00 [facility] 1..840.114 350.1.13.10 4.2.7.2.686 [id number] 220 [id number] [facility] 2023-04-11 14:30:00 2023-04-11 15:54:22 Outpatient R [facility] [id number] [facility] 2023-04-11 14:30:00 2023-04-11 15:54:22 Office Visit [facility] 1.840.114 350.1.13.10 4.2.7.2.686 [id number] 220 [id number] [facility] 2023-02-28 00:00:00 2023-02-28 00:00:00 [facility] 1.2840.114 350.1.13.10 4.2.7.2.686 [id number] 220 [id number] [facility] 2023-02-27 00:00:00 2023-02-27 00:00:00 Refill Tru [facility] 1..840.114 350.1.13.10 4.2.7.2.686 [id number] [facility] 2023-02-23 13:30:00 2023-02-23 13:30:00 Outpatient R JOSEPH BHAT [facility] [id number] [facility] 2023-01-05 14:00:00 2023-01-05 14:46:21 Outpatient R TRU [facility] [id number] [facility] 2023-01-05 14:00:00 2023-01-05 14:46:21 Office Visit Tru [facility] 1.840.114 350.1.13.10 4.2.7.2.686 [id number] [facility] 2022-12-28 00:00:00 2022-12-28 00:00:00 Orders Only Doctor Unassigned, [place] [facility] 1.2840.114 350.1.13.10 4.2.7.2.686 [id number] [id number] [facility] 2022-12-28 00:00:00 2022-12-28 00:00:00 Telephone Tru [facility] 1.840.114 350.1.13.10 4.2.7.2.686 [id number] 204 [id number] [facility] 2022-10-11 15:45:00 2022-10-11 16:00:00 Spinning Machine Operator Visit Vtc-Lab [facility] [place] 1.840.114 350.1.13.10 4.2.7.2.686 [id number] [facility] 2022-10-11 14:30:00 2022-10-11 15:44:45 Outpatient R LEEROY [facility] [id number] [facility] 2022-10-11 14:30:00 2022-10-11 15:44:45 Office Visit [facility] 1.840.114 350.1.13.10 4.2.7.2.686 [id number] 220 [id number] [facility] 2022-08-31 00:00:00 2022-08-31 00:00:00 Telephone Meghanachermag [facility] BUILDING 1.2840.114 350.1.13.10 4.2.7.2.686 [id number] 204 [id number] [facility] 2022-08-26 00:00:00 2022-08-26 00:00:00 Telephone Lachelle Umaña [facility] 1.2840.114 350.1.13.10 4.2.7.2.686 [id number] 220 [id number] [facility] 2022-08-16 14:00:00 2022-08-16 14:15:00 Spinning Machine Operator Visit Pob, Adc Lab Main [facility] 1.2840.114 350.1.13.10 4.2.7.2.686 [id number] [facility] 2022-08-16 14:00:00 2022-08-16 14:00:00 Outpatient R TRU [facility] [id number] [facility] 2022-08-16 00:00:00 2022-08-16 00:00:00 Orders Only Doctor Unassigned, [place] [facility] 1.2840.114 350.1.13.10 4.2.7.2.686 [id number] 009 [id number] [facility] 2022-07-28 00:00:00 2022-07-28 00:00:00 Case Management Carline [facility] 1.2840.114 350.1.13.10 4.2.7.2.686 [id number] 204 [id number] [facility] 2022-07-26 14:45:00 2022-07-26 15:00:00 Spinning Machine Operator Visit Shona, Adc Lab Main Carline [facility] BUILDING 1.2840.114 350.1.13.10 4.2.7.2.686 [id number] [facility] 2022-07-26 14:45:00 2022-07-26 14:45:00 [facility] [id number] 2022-07-26 00:00:00 2022-07-26 00:00:00 Orders Only Doctor Unassigned, [place] [facility] 1.2.840.114 350.1.13.10 4.2.7.2.686 [id number] [id number] [facility] 2022-07-26 00:00:00 2022-07-26 00:00:00 [facility] 1.2.840.114 350.1.13.10 4.2.7.2.686 [id number] 204 [id number] [facility] 2022-07-16 11:30:00 2022-07-16 11:45:00 Spinning Machine Operator Visit Pob, Adc Lab Main [facility] 1.2.840.114 350.1.13.10 4.2.7.2.686 [id number] [facility] 2022-07-16 11:30:00 2022-07-16 11:30:00 [facility] [id number] [facility] 2022-07-16 00:00:00 2022-07-16 00:00:00 Orders Only Doctor Unassigned, [place] [facility] 1.2.840.114 350.1.13.10 4.2.7.2.686 [id number] [id number] [facility] 2022-07-15 00:00:00 2022-07-15 00:00:00 [facility]phone [facility] 1.2.840.114 350.1.13.10 4.2.7.2.686 [id number] [facility] 2022-06-24 00:00:00 2022-06-24 00:00:00 Case Management Crowley, [facility] 1.2.840.114 350.1.13.10 4.2.7.2.686 [id number] 204 [id number] [facility] 2022-06-21 16:30:00 2022-06-21 16:58:52 Outpatient R CARLINE [facility] [id number] [facility] 2022-06-21 16:30:00 2022-06-21 16:58:52 Office Visit Carline [facility] 1.840.114 350.1.13.10 4.2.7.2.686 [id number] 204 [id number] [facility] 2022-06-02 14:00:00 2022-06-02 14:37:16 Outpatient R [facility]Y [facility] [id number] [facility] 2022-06-02 14:00:00 2022-06-02 14:37:16 [facility] 1..114 350.1.13.10 4.2.7.2.686 [id number] 220 [id number] [facility] 2022-06-02 00:00:00 2022-06-02 00:00:00 Orders Only Doctor Unassigned, [place] [facility] 1..114 350.1.13.10 4.2.7.2.686 [id number] [id number] [facility] 2022-02-16 00:00:00 2022-02-16 00:00:00 Telephone Leona Wei [facility] MULTISPEC IALTY [facility] 1..114 350.1.13.10 4.2.7.2.686 [id number] 220 [id number] [facility] 2022-02-05 12:45:00 2022-02-05 13:00:00 Spinning Machine Operator Visit Vtc-Lab Umaña, [facility] MULTISPEC IALTY [facility] 1.2840.114 350.1.13.10 4.2.7.2.686 [id number] [facility] 2022-02-05 11:00:00 2022-02-05 12:27:09 Outpatient R [facility]Y [facility] [id number] [facility] 2022-02-05 11:00:00 2022-02-05 12:27:09 [facility] 1.2840.114 350.1.13.10 4.2.7.2.686 [id number] 220 [id number] [facility] 2022-02-05 00:00:00 2022-02-05 00:00:00 [facility] 1.2.840.114 350.1.13.10 4.2.7.2.686 [id number] 220 [id number] [facility] 2022-02-02 00:00:00 2022-02-02 00:00:00 [facility] 1.2840.114 350.1.13.10 4.2.7.2.686 [id number] 220 [id number] [facility] 2022-02-02 00:00:00 2022-02-02 00:00:00 Refill Leeroy [facility] MULTISPEC [facility]ALTY [facility] 1.2.840.114 350.1.13.10 4.2.7.2.686 [id number] 220 [id number] [facility] 2022-01-29 00:00:00 2022-01-29 00:00:00 Telephone Nisreen Dallas [facility] MULTISPEC IALTY [facility] 1.2840.114 350.1.13.10 4.2.7.2.686 [id number] 220 [id number] [facility] 2022-01-29 00:00:00 2022-01-29 00:00:00 Refill Tru [facility] BUILDING 1.2.840.114 350.1.13.10 4.2.7.2.686 [id number] 204 [id number] [facility] 2021-12-10 14:30:00 2021-12-10 15:29:30 Outpatient R TRU [facility] [id number] [facility] 2021-12-10 14:30:00 2021-12-10 15:29:30 Office Visit Tru [facility] 1.2.840.114 350.1.13.10 4.2.7.2.686 [id number] 204 [id number] [facility] 2021-12-10 00:00:00 2021-12-10 00:00:00 Transition of Care [place] Lauren BALTAZAR 1.2.840.114 350.1.13.10 4.2.7.2.686 [id number] [facility] 2021-12-07 13:12:00 2021-12-09 12:47:00 Hospital Encounter Melody Cosby Jelani [facility] 1.2.840.114 350.1.13.10 4.2.7.2.686 [id number] [facility] 2021-12-06 16:49:00 2021-12-06 20:14:00 Emergency X [facility] [id number] [facility] 2021-12-06 16:49:00 2021-12-06 20:14:00 [facility] 1.2.840.114 350.1.13.10 4.2.7.2.686 [id number] [facility] 2021-12-06 16:49:00 2021-12-06 20:14:00 Emergency X JOHN BARR [facility] ERT [id number] [facility] 2021-10-12 15:00:00 2021-10-12 15:00:00 Outpatient R [facility] [id number] [facility] 2021-10-12 15:00:00 2021-10-12 15:00:00 Outpatient R VANIA TWIN [facility] [id number] [facility] 2021-10-06 00:00:00 2021-10-06 00:00:00 Telephone [facility]reen [place] [facility] 1.114 350.1.13.10 4.2.7.2.686 [id number] 220 [id number] [facility] 2021-10-02 10:00:00 2021-10-02 10:00:00 Outpatient R [facility]EROY [facility] [id number] [facility] 2021-10-02 10:00:00 2021-10-02 10:00:00 Outpatient R LACHELLE UMAÑA [facility] [id number] [facility] 2021-09-11 00:00:00 2021-09-11 00:00:00 Telephone Deon Ott [facility] 1..114 350.1.13.10 4.2.7.2.686 [id number] 204 [id number] [facility] 2021-09-07 15:30:00 2021-09-07 15:30:00 Spinning Machine Operator Visit [facility] Lucy Kimball [facility] 1.114 350.1.13.10 4.2.7.2.686 [id number] [facility] 2021-09-07 14:30:00 2021-09-07 15:00:00 Office Visit Peng Eng Peter C [facility] 1.114 350.1.13.10 4.2.7.2.686 [id number] [id number] [facility] 2021-09-07 14:30:00 2021-09-07 15:00:00 Office Visit Peng Eng Peter C [facility] 1.114 350.1.13.10 4.2.7.2.686 [id number] [facility] 2021-09-07 14:30:00 2021-09-07 14:30:00 Outpatient Roney [facility] [id number] [facility] 2021-09-07 14:30:00 2021-09-07 14:30:00 Outpatient LUCY GREGORY [facility] [id number] [facility] 2021-09-07 14:30:00 2021-09-07 14:30:00 Outpatient LUCY GREGORY [facility] [id number] [facility] 2021-09-03 11:45:00 2021-09-03 12:00:00 Spinning Machine Operator Visit Pob, Adc Lab Main Joya Ruiz [facility] 1.114 350.1.13.10 4.2.7.2.686 [id number] [facility] 2021-09-03 11:45:00 2021-09-03 11:45:00 Outpatient JOYA SUTHERLAND [facility] [id number] [facility] 2021-09-03 00:00:00 2021-09-03 00:00:00 Orders Only Doctor Unassigned, [place] [facility] 1.114 350.1.13.10 4.2.7.2.686 [id number] [id number] [facility] 2021-08-17 00:00:00 2021-08-17 00:00:00 Refill Peng Eng [facility] 1.0.114 350.1.13.10 4.2.7.2.686 [id number] 089 [id number] [facility] 2021-07-24 00:00:00 2021-07-24 00:00:00 [facility] [place] [facility] 1.840.114 350.1.13.10 4.2.7.2.686 [id number] 220 [id number] [facility] 2021-07-23 00:00:00 2021-07-23 00:00:00 [facility] 1.840.114 350.1.13.10 4.2.7.2.686 [id number] [facility] 2021-07-21 00:00:00 2021-07-21 00:00:00 Orders Only Doctor Unassigned, [place] [facility] 1.840.114 350.1.13.10 4.2.7.2.686 [id number] [id number] [facility] 2021-07-20 00:00:00 2021-07-20 00:00:00 Refill Nisreen [place] [facility] 1.0.114 350.1.13.10 4.2.7.2.686 [id number] 220 [id number] [facility] 2021-07-06 14:00:00 2021-07-06 15:00:00 Office Visit Peng Eng Juan Carlos [facility] 1.0.114 350.1.13.10 4.2.7.2.686 [id number] [facility] 2021-07-06 14:00:00 2021-07-06 14:00:00 Outpatient Roney [facility] [id number] [facility] 2021-07-06 14:00:00 2021-07-06 14:00:00 Outpatient TWIN PEREIRA [facility] [id number] [facility] 2021-06-11 00:00:00 2021-06-11 00:00:00 Telephone Tru [facility] BUILDING 1.84.114 350.1.13.10 4.2.7.2.686 [id number] [facility] 2021-06-10 00:00:00 2021-06-10 00:00:00 Patient Secure Msg Doctor Unassigned, [place] [facility] 1.114 350.1.13.10 4.2.7.2.686 [id number] [facility] 2021-06-08 12:45:00 2021-06-08 13:00:00 Spinning Machine Operator Visit Pob, Adc Lab Main Tru [facility] BUILDING 1..114 350.1.13.10 4.2.7.2.686 [id number] [facility] 2021-06-08 12:45:00 2021-06-08 12:45:00 Outpatient R TRU [facility] [id number] [facility] 2021-06-05 10:00:00 2021-06-05 10:38:40 Office Visit Nisreen [place] [facility] 1.114 350.1.13.10 4.2.7.2.686 [id number] [facility] 2021-06-05 10:00:00 2021-06-05 10:38:40 Outpatient R UMAÑA, [facility] [id number] [facility] 2021-06-05 10:00:00 2021-06-05 10:38:40 Outpatient R LEEROY [facility] [id number] [facility] 2021-06-05 10:00:00 2021-06-05 10:38:40 Office Visit Nisreen Dallas, [facility] 1.114 350.1.13.10 4.2.7.2.686 [id number] [facility] 2021-06-05 10:00:00 2021-06-05 10:00:00 Outpatient R LEEROY [facility] [id number] [facility] 2021-06-05 10:00:00 2021-06-05 10:00:00 Outpatient Roney UMAÑA [facility] [id number] [facility] 2021-06-05 00:00:00 2021-06-05 00:00:00 Orders Only Doctor Unassigned, [place] [facility] 1.114 350.1.13.10 4.2.7.2.686 [id number] [id number] [facility] 2021-06-03 13:00:00 2021-06-03 13:00:00 Outpatient LELO SMITH [facility] [id number] [facility] 2021-05-21 00:00:00 2021-05-21 00:00:00 Telephone Deon Ott [facility] BUILDING 1..114 350.1.13.10 4.2.7.2.686 [id number] [facility] 2021-05-04 00:00:00 2021-05-04 00:00:00 Telephone Lelo Yang [facility] BUILDING 1..114 350.1.13.10 4.2.7.2.686 [id number] 204 [id number] [facility] 2021-04-30 16:30:00 2021-04-30 16:45:00 Spinning Machine Operator Visit Shona, Ayesha Lab Main Lelo [facility] BU[facility] 1.2.840.114 350.1.13.10 4.2.7.2.686 [id number] [facility] 2021-04-30 16:30:00 2021-04-30 16:30:00 Outpatient R TREYRACHELELELO [facility] [id number] [facility] 2021-04-30 00:00:00 2021-04-30 00:00:00 Case Management Lelo Yang [facility] BUILDING 1.2.840.114 350.1.13.10 4.2.7.2.686 [id number] [facility] 2021-04-17 00:00:00 2021-04-17 00:00:00 Telephone MeghanaDeon power [facility] BUILDING 1.2.840.114 350.1.13.10 4.2.7.2.686 [id number] [facility] 2021-04-15 13:45:00 2021-04-15 13:45:00 Outpatient R LELO YANG [facility] [id number] [facility] 2021-04-15 13:45:00 2021-04-15 13:45:00 Outpatient R TREY LELO [facility] [id number] [facility] 2021-04-15 10:53:19 2021-04-15 11:08:19 Spinning Machine Operator Visit Shona, Ayesha Lab Main TreyRacheleLelo A [facility] BUILDING 1.2.840.114 350.1.13.10 4.2.7.2.686 [id number] [facility] 2021-04-15 11:06:06 2021-04-15 11:06:15 Imm/Inj Visit Nurse, Adc Pob ImmunizatiLavelle Moreno [facility] BUILDING 1.2.840.114 350.1.13.10 4.2.7.2.686 [id number] [facility] 2021-03-31 00:00:00 2021-03-31 00:00:00 Refill Tru [facility] BUILDING 1.2.840.114 350.1.13.10 4.2.7.2.686 [id number] [facility] 2021-03-26 00:00:00 2021-03-26 00:00:00 Telephone Tru [facility] 1.2.840.114 350.1.13.10 4.2.7.2.686 [id number] [facility] 2021-03-20 00:00:00 2021-03-20 00:00:00 Telephone Tru [facility] 1.2.840.114 350.1.13.10 4.2.7.2.686 [id number] 204 [id number] [facility] 2021-03-19 12:27:18 2021-03-19 12:42:18 Spinning Machine Operator Visit Pob, Adc Lab Main Tru [facility] 1.2.840.114 350.1.13.10 4.2.7.2.686 [id number] [facility] 2021-03-19 12:30:00 2021-03-19 12:30:00 [facility] [id number] 2021-03-16 00:00:00 2021-03-16 00:00:00 Telephone Meghanajannet [facility] 1.2.840.114 350.1.13.10 4.2.7.2.686 [id number] [facility] 2021-03-14 09:15:00 2021-03-14 09:15:00 [facility] [id number] [facility] 2021-03-14 08:48:55 2021-03-14 09:03:55 Spinning Machine Operator Visit Pob, [facility] 1.2.840.114 350.1.13.10 4.2.7.2.686 [id number] [facility] 2021-03-14 00:00:00 2021-03-14 00:00:00 Orders Only Doctor Unassigned, [place] [facility] 1..840.114 350.1.13.10 4.2.7.2.686 [id number] [id number] [facility] 2021-03-13 00:00:00 2021-03-13 00:00:00 Telephone Tru [facility] 1.2.840.114 350.1.13.10 4.2.7.2.686 [id number] [facility] 2021-03-05 16:30:00 2021-03-05 16:30:00 [facility] [id number] [facility] 2021-03-05 16:30:00 2021-03-05 14:45:25 Outpatient R TRU [facility] [id number] [facility] 2021-03-05 14:11:40 2021-03-05 14:45:25 Office Visit Tru [facility] 1.2.840.114 350.1.13.10 4.2.7.2.686 [id number] 204 [id number] [facility] 2021-02-17 00:00:00 2021-02-17 00:00:00 [facility] 1.2.840.114 350.1.13.10 4.2.7.2.686 [id number] 204 [id number] [facility] 2021-02-16 13:36:51 2021-02-16 15:11:28 Office Visit Tru [facility] Building 1.2.840.114 350.1.13.10 4.2.7.2.686 [id number] [facility] 2021-02-16 14:00:00 2021-02-16 14:00:00 Outpatient R TRU [facility] [id number] [facility] 2021-02-12 08:01:49 2021-02-12 09:06:40 Office Visit Tru [facility] Building 1.2.840.114 350.1.13.10 4.2.7.2.686 [id number] 204 [id number] [facility] 2021-02-12 08:00:00 2021-02-12 08:00:00 [facility] [id number] [facility] 2021-02-12 00:00:00 2021-02-12 00:00:00 Telephone Tru [facility] Building 1.2.840.114 350.1.13.10 4.2.7.2.686 [id number] [facility] 2021-02-11 00:00:00 2021-02-11 00:00:00 Telephone Tru [facility] Building 1.2.840.114 350.1.13.10 4.2.7.2.686 [id number] [facility] 2021-02-09 14:00:00 2021-02-09 14:00:00 Outpatient R TRU [facility] [id number] [facility] 2021-02-09 13:51:20 2021-02-09 13:51:43 Nurse Visit Nurse, [facility] 1.2.840.114 350.1.13.10 4.2.7.2.686 [id number] [facility] 2021-02-09 00:00:00 2021-02-09 00:00:00 Telephone Tru [facility] Building 1.2.840.114 350.1.13.10 4.2.7.2.686 [id number] [facility] 2021-02-09 00:00:00 2021-02-09 00:00:00 Telephone Tru [facility] Building 1.2.840.114 350.1.13.10 4.2.7.2.686 [id number] [facility] 2021-01-23 09:38:21 2021-01-23 11:17:30 Office Visit Nisreen [place] [facility] M[facility]PEC [facility]TY [facility] 1.2.840.114 350.1.13.10 4.2.7.2.686 [id number] [facility] 2021-01-23 09:38:21 2021-01-23 11:17:30 Office Visit Nisreen [place] [facility] MULTISPEC [facility]TY C[facility] 1.2.840.114 350.1.13.10 4.2.7.2.686 [id number] [facility] 2021-01-23 10:00:00 2021-01-23 10:00:00 Outpatient R LACHELLE UMAÑA [facility] [id number] [facility] 2020-12-25 14:30:00 2020-12-25 14:30:00 [facility] [id number] [facility] 2020-12-25 13:29:16 2020-12-25 13:59:16 Office Visit Deon Ott, Ayesha Surg Spec Procedure [facility] Professio nal Building 1.2.840.114 350.1.13.10 4.2.7.2.686 [id number] [facility] 2020-12-25 00:00:00 2020-12-25 00:00:00 Orders Only Doctor Unassigned, [place] 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 Shona, Ayesha Lab Main [facility] 1.2.840.114 350.1.13.10 4.2.7.2.686 [id number] [facility] 2020-12-22 13:30:00 2020-12-22 13:30:00 Outpatient R DEON OTT [facility] [id number] [facility] 2020-12-18 00:00:00 2020-12-18 00:00:00 Telephone [facility] 1.2.840.114 350.1.13.10 4.2.7.2.686 [id number] [facility] 2020-12-18 00:00:00 2020-12-18 00:00:00 Telephone Alzweri, [facility] Building 1.2840.114 350.1.13.10 4.2.7.2.686 [id number] [facility] 2020-12-16 09:38:57 2020-12-16 10:54:59 Office Visit Juan Jose Joseph Kim, [employer] Procedure [facility] 1.2840.114 350.1.13.10 4.2.7.2.686 [id number] [facility] 2020-12-16 10:00:00 2020-12-16 10:00:00 Outpatient R JOSEPH BHAT [facility] [id number] [facility] 2020-12-16 00:00:00 2020-12-16 00:00:00 Telephone Tru [facility] 1.2840.114 350.1.13.10 4.2.7.2.686 [id number] [facility] 2020-12-11 11:30:33 2020-12-11 11:45:33 Spinning Machine Operator Visit Potobias, Adc Lab Main Lydia [facility] 1.2840.114 350.1.13.10 4.2.7.2.686 [id number] [facility] 2020-12-11 11:30:00 2020-12-11 11:30:00 Outpatient R TRU [facility] [id number] [facility] 2020-12-09 00:00:00 2020-12-09 00:00:00 Telephone Nisreen Dallas [facility] 1.20.114 350.1.13.10 4.2.7.2.686 [id number] [facility] 2020-12-08 00:00:00 2020-12-08 00:00:00 [facility] 1. 350.1.13.10 4.2.7.2.686 [id number] [facility] 2020-11-24 00:00:00 2020-11-24 00:00:00 Telephone [facility] 1.114 350.1.13.10 4.2.7.2.686 [id number] [facility] 2020-11-17 09:13:53 2020-11-17 10:00:18 Office Visit Deon Ott, Adc Surg Spec Procedure [facility] Building 1.114 350.1.13.10 4.2.7.2.686 [id number] [facility] 2020-11-17 09:30:00 2020-11-17 09:30:00 Outpatient R DEON OTT [facility] [id number] [facility] 2020-11-04 13:11:14 2020-11-04 13:26:14 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 1.114 350.1.13.10 4.2.7.2.686 [id number] [facility] 2020-10-31 00:00:00 2020-10-31 00:00:00 Case Management Lelo Yang [facility] 1..114 350.1.13.10 4.2.7.2.686 [id number] [facility] 2020-10-30 00:00:00 2020-10-30 00:00:00 Telephone Tru [facility] [employer] 1..114 350.1.13.10 4.2.7.2.686 [id number] [facility] 2020-10-27 15:41:30 2020-10-27 16:27:43 Office Visit Meghanajannet [facility] 1..114 350.1.13.10 4.2.7.2.686 [id number] [facility] 2020-10-27 16:15:00 2020-10-27 16:15:00 Outpatient R TRU [facility] [id number] [facility] 2020-10-16 00:00:00 2020-10-16 00:00:00 Transition of Care [facility]iden [facility] 1..114 350.1.13.10 4.2.7.2.686 [id number] [facility] 2020-10-13 13:57:00 2020-10-15 13:45:00 Hospital Encounter Kris Delaney [facility] 1..114 350.1.13.10 4.2.7.2.686 [id number] [facility] 2020-10-13 00:00:00 2020-10-13 00:00:00 Orders Only Doctor Unassigned, [place] [facility] 1.2.840.114 350.1.13.10 4.2.7.2.686 [id number] [facility] 2020-10-07 00:00:00 2020-10-07 00:00:00 Refill MeeraArmen [facility] 1.2.840.114 350.1.13.10 4.2.7.2.686 [id number] [facility] 2020-09-15 00:00:00 2020-09-15 00:00:00 Telephone Nisreen Dallas [facility] 1.2.840.114 350.1.13.10 4.2.7.2.686 [id number] [facility] 2020-09-08 00:00:00 2020-09-08 00:00:00 [facility] 1.2.840.114 350.1.13.10 4.2.7.2.686 [id number] [facility] 2020-09-01 00:00:00 2020-09-01 00:00:00 [facility].114 350.1.13.10 4.2.7.2.686 [id number] [facility] 2020-09-01 00:00:00 2020-09-01 00:00:00 Refill Tru [facility] 1.2.840.114 350.1.13.10 4.2.7.2.686 [id number] [facility] 2020-08-07 00:00:00 2020-08-07 00:00:00 Orders Only Doctor Unassigned, [place] [facility] 1.2.840.114 350.1.13.10 4.2.7.2.686 [id number] [facility] 2020-08-04 11:05:55 2020-08-04 11:50:37 Office Visit Deon Ott Adc Surg Spec Procedure [facility]al Building 1.2840.114 350.1.13.10 4.2.7.2.686 [id number] [facility] 2020-08-04 11:30:00 2020-08-04 11:30:00 Outpatient R TRU [facility] [id number] [facility] 2020-07-31 13:30:00 2020-07-31 13:30:00 Outpatient R TRU [facility] [id number] [facility] 2020-07-23 13:29:28 2020-07-23 13:44:28 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 1..114 350.1.13.10 4.2.7.2.686 [id number] [facility] 2020-07-23 13:30:00 2020-07-23 13:30:00 Outpatient R TRU [facility] [id number] [facility] 2020-07-22 00:00:00 2020-07-22 00:00:[address] [facility] 1.284.114 350.1.13.10 4.2.7.2.686 [id number] [facility] 2020-07-18 10:25:49 2020-07-18 11:50:38 [facility] [place] 1..114 350.1.13.10 4.2.7.2.686 [id number] [facility] 2020-07-18 10:30:00 2020-07-18 10:30:00 Outpatient R [facility] [id number] [facility] 2020-07-14 00:00:00 2020-07-14 00:00:00 Telephone Nisreen Dallas [facility] 1..840.114 350.1.13.10 4.2.7.2.686 [id number] [facility] 2020-07-11 09:20:00 2020-07-11 09:20:00 Outpatient TATE NAVA [facility] [id number] [facility] 2020-07-07 00:00:00 2020-07-07 00:00:00 [facility] 1..840.114 350.1.13.10 4.2.7.2.686 [id number] [facility] 2020-06-27 11:00:00 2020-06-27 11:00:00 Outpatient R LACHELLE UMAÑA [facility] [id number] [facility] 2020-06-26 14:30:00 2020-06-26 14:30:00 Outpatient R DEON OTT [facility] [id number] [facility] 2020-06-20 14:00:00 2020-06-20 14:00:00 Outpatient TATE NAVA [facility] [id number] [facility] 2020-06-12 13:30:20 2020-06-12 14:36:30 Office Visit Deon Ott Rm, Adc Surg Spec Procedure [facility] Building 1..840.114 350.1.13.10 4.2.7.2.686 [id number] [facility] 2020-06-12 14:00:00 2020-06-12 14:00:00 [facility] [id number] [facility] 2020-06-09 00:00:00 2020-06-09 00:00:00 Telephone Tru [facility] 1.2.840.114 350.1.13.10 4.2.7.2.686 [id number] [facility] 2020-05-19 00:00:00 2020-05-19 00:00:00 Telephone Tru [facility] 1.2.840.114 350.1.13.10 4.2.7.2.686 [id number] [facility] 2020-05-14 11:23:32 2020-05-14 11:37:03 Nurse Visit Nurse, [facility] 1.2.840.114 350.1.13.10 4.2.7.2.686 [id number] [facility] 2020-05-14 10:30:00 2020-05-14 10:30:00 Outpatient R TRU [facility] [id number] [facility] 2020-05-13 00:00:00 2020-05-13 00:00:00 Case Management Lelo Yang [facility] Building 1.2.840.114 350.1.13.10 4.2.7.2.686 [id number] [facility] 2020-05-08 14:46:15 2020-05-08 15:01:15 Spinning Machine Operator Visit 2, Adc Lab Tru [facility] Building 1.2.840.114 350.1.13.10 4.2.7.2.686 [id number] [facility] 2020-05-08 13:02:27 2020-05-08 14:42:41 Office Visit Tru [facility] Keerthi Bowers [facility] 1.2.114 350.1.13.10 4.2.7.2.686 [id number] [facility] 2020-05-08 13:30:00 2020-05-08 13:30:00 Outpatient R MEGHANAJANNET [facility] [id number] [facility] 2020-05-08 00:00:00 2020-05-08 00:00:00 Orders Only Doctor Unassigned, [place] [facility] 1.0.114 350.1.13.10 4.2.7.2.686 [id number] [facility] 2020-03-07 00:00:00 2020-03-07 00:00:00 Orders Only Doctor Unassigned, [place] [facility] 1.0.114 350.1.13.10 4.2.7.2.686 [id number] [facility] 2020-03-01 00:00:00 2020-03-01 00:00:00 Anson Estes [facility] 1..114 350.1.13.10 4.2.7.2.686 [id number] [facility] 2020-01-07 00:00:00 2020-01-07 00:00:00 [facility] 1..114 350.1.13.10 4.2.7.2.686 [id number] [facility] 2019-12-28 10:45:55 2019-12-28 12:23:56 Office Visit [facility] 1.2.840.114 350.1.13.10 4.2.7.2.686 [id number] [facility] 2019-12-28 11:00:00 2019-12-28 11:00:00 Outpatient R [facility] [id number] [facility] 2019-12-27 14:24:04 2019-12-27 15:17:50 Office Visit Mor Simpson [facility] carmelo [place] 1..114 350.1.13.10 4.2.7.2.686 [id number] [facility] 2019-12-27 14:45:00 2019-12-27 14:45:00 Outpatient R MOR SIMPSON [facility] [id number] [facility] 2019-12-20 11:00:00 2019-12-20 11:00:00 Outpatient R MOR SIMPSON [facility] [id number] [facility] 2019-12-04 00:00:00 2019-12-04 00:00:00 Anson Estes [facility] 1.114 350.1.13.10 4.2.7.2.686 [id number] [facility] 2019-11-28 00:00:00 2019-11-28 00:00:00 Anson Estes [facility] 1.2.114 350.1.13.10 4.2.7.2.686 [id number] [facility] 2019-10-03 13:30:00 2019-10-03 13:30:00 Outpatient AJ BLANTON [facility] [id number] [facility] 2019-10-03 13:12:59 2019-10-03 13:27:59 Office Visit Aj Borges [facility] Surgical Specialmatt rhodes [place] 1.84.114 350.1.13.10 4.2.7.2.686 [id number] [facility] 2019-08-20 15:40:00 2019-08-20 15:40:00 Outpatient R [facility] [id number] [facility] 2019-08-20 14:37:23 2019-08-20 15:17:23 Telemedici ne Visit Meera [facility] 1.2.840.114 350.1.13.10 4.2.7.2.686 [id number] [facility] 2019-07-12 00:00:00 2019-07-12 00:00:00 [facility] 1.2.840.114 350.1.13.10 4.2.7.2.686 [id number] [facility] 2019-01-15 00:00:00 2019-01-15 00:00:00 Refill Meera [facility] 1.2.840.114 350.1.13.10 4.2.7.2.686 [id number] [facility] Results Test Description Test Time Test Comments Results Result Comments Source MR Guided biopsy prostate 2024-11-06 5 18:35:35 PROCEDURE: TRANSPERINEAL PROSTATE BIOPSY WITH TRANSRECTAL ULTRASOUNDGUIDANCE INDICATION: MRI of the prostate result that showed PI - Rad 3 and 4lesions. Primary target is anterior transition zone lesion on the left midgland [facility] PHYSICIAN ORDERS 2024-10-07 2 14:42:02 Ordered by an unspecified provider. [facility],US,[id number] 18:10:00* Test Item Value Reference Range Interpretation Comme nts PVR (URINE VOLUME) (test code = 5193) 0 ml 0-100 [facility], [id number] 16:50:00 * Test Item Value Reference Range Interpretation Comme nts POCT U SP GRAV (test code = 3255) 1.01 mg/dl 1.005-1.025 POCT PH U (test code = 3254) 6 mg/dl 5-8 POCT U LEUK EST (test code = 3263) moderate Negative - Negative POCT U NIT (test code = 3262) neg Negative - Negati ve POCT U PROT (test code = 3259) neg Negative - Negat john POCT U GLU (test code = 3256) neg Negative - Negati ve POCT U KETONE (test code = 3258) neg Negative - Negative POCT U UROBILI (test code = 3260) 0.2 mg/dl 0.2-1 POCT U BILI (test code = 3261) neg Negative - Negat john POCT U BLD (test code = 3257) trace Negative - Negati ve POCT U COLOR (test code = 3266) yellow POCT U APPEAR (test code = 3267) clear [facility] Urinalysis, [id number] 19:59:00 * Test Item Value Reference Range Interpretation Comme nts POCT U SP GRAV (test code = 3255) 1.010 mg/dl 1.005-1.025 POCT PH U (test code = 3254) 5.5 mg/dl 5-8 POCT U LEUK EST (test code = 3263) small Negative - Negative POCT U NIT (test code = 3262) positive Negative - Negative POCT U PROT (test code = 3259) trace Negative - Negative POCT U GLU (test code = 3256) negative Negative - Negative POCT U KETONE (test code = 3258) negative Negative - Negative POCT U UROBILI (test code = 3260) 0.2 mg/dl 0.2-1 POCT U BILI (test code = 3261) negative Negative - Negative POCT U BLD (test code = 3257) trace-intact Negative - Negative POCT U COLOR (test code = 3266) yellow POCT U APPEAR (test code = 3267) cloudy [facility],POST-VOID RES,US,[id number] 00:00:00* Test Item Value Reference Range Interpretation Comme nts PVR (URINE VOLUME) (test cod e = 5193) 177 ml 0-100 A Lab Interpretation (test cod e = 35625-4) Abnormal [facility] SH[facility] 2+ VW [id number] 22:10:41 ORDERING PROVIDER: ?GAYATRI LINARES HISTORY: ?fall TECHNIQUE: Internally and externally rotated and scapular Y views of theright shoulder. ? Technical Quality: Diagnostic COMPARISON: None FINDINGS: The osseous structures are anatomically aligned. ?No acute fractures areidentified. ?Glenohumeral and acromioclavicular osteoarthrosis. ?Softtissues are unremarkable.[facility] RIBS 3 VW [id number] 22:06:10ORDERING PROVIDER: ?GAYATRI LINARES HISTORY: Fall, injury, trauma TECHNIQUE: AP view of the chest and AP and oblique views of the right ribs. COMPARISON: None FINDINGS: The lungs are adequately aerated. ? No focal consolidation, pleuraleffusion, or pneumothorax. ? The cardiac silhouette and pulmonaryvasculature are within normal limits. ? No acute rib fracture lucency adjacent to the skin marker. Subacute chronicfracture remodeling of lateral right rib 9. Degenerative changes are seenin the spine and shoulders.[facility] Hemoglobin A1C [id number] 18:44:00* Test Item Value Reference Range Interpretation Comme [facility] PO[facility] HBA1C (test code = 4548-4) 6.7 % 4-6 A Lab Interpretation (test cod e = 36438-9) Abnormal [facility] Hemoglobin A1C [id number] 18:44:00* Test Item Value Reference Range Interpretation Comme [facility] POCT HBA1C (test code = 4548-4) 6.7 % 4-6 A Lab Interpretation (test cod e = 07832-5) Abnormal [facility] Hemoglobin A1C [id number] 18:44:00* Test Item Value Reference Range Interpretation Comme [facility] POCT HBA1C (test code = 4548-4) 6.7 % 4-6 A Lab Interpretation (test cod e = 70519-2) Abnormal [facility] HEMOGLOBIN A1C [id number] 22:53:00* Test Item Value Reference Range Interpretation Comme [facility] POCT HBA1C (test code = 4548-4) 8.0 % 4-6 A Lab Interpretation (test cod e = 47337-6) Abnormal [facility] HEMOGLOBIN A1C [id number] 22:53:00* Test Item Value Reference Range Interpretation Comme nts POCT HBA1C (test code = 4548-4) 8.0 % 4-6 A Lab Interpretation (test cod e = 03222-3) Abnormal [facility] URINALYSIS, [id number] 20:53:00 * Test Item Value Reference Range Interpretation Comme nts POCT U SP GRAV (test code = 3255) 1.020 mg/dl 1.005-1.025 POCT PH U (test code = 3254) 5.5 mg/dl 5-8 POCT U LEUK EST (test code = 3263) large Negative - Negative POCT U NIT (test code = 3262) positive Negative - Negati ve POCT U PROT (test code = 3259) 30 Negative - Negative POCT U GLU (test code = 3256) neg Negative - Negati ve POCT U KETONE (test code = 3258) neg Negative - Negative POCT U UROBILI (test code = 3260) 0.2 mg/dl 0.2-1 POCT U BILI (test code = 3261) neg Negative - Negative POCT U BLD (test code = 3257) moderate Negative - Negati ve POCT U COLOR (test code = 3266) POCT U APPEAR (test code = 3267) [facility] URINALYSIS, [id number] 22:35:00 * Test Item Value Reference Range Interpretation Comme nts POCT U SP GRAV (test code = 3255) 1.005 mg/dl 1.005-1.025 POCT PH U (test code = 3254) 6 mg/dl 5-8 POCT U LEUK EST (test code = 3263) moderate Negative - Negative POCT U NIT (test code = 3262) positive Negative - Negati ve POCT U PROT (test code = 3259) negative Negative - Negative POCT U GLU (test code = 3256) 500 Negative - Negati ve POCT U KETONE (test code = 3258) negative Negative - Negative POCT U UROBILI (test code = 3260) 0.2 mg/dl 0.2-1 POCT U BILI (test code = 3261) negative Negative - Negative POCT U BLD (test code = 3257) negative Negative - Negati ve POCT U COLOR (test code = 3266) yellow POCT U APPEAR (test code = 3267) clear [facility] URINALYSIS, [id number] 22:35:00 * Test Item Value Reference Range Interpretation Comme nts POCT U SP GRAV (test code = 3255) 1.005 mg/dl 1.005-1.025 POCT PH U (test code = 3254) 6 mg/dl 5-8 POCT U LEUK EST (test code = 3263) moderate Negative - Negative POCT U NIT (test code = 3262) positive Negative - Negati ve POCT U PROT (test code = 3259) negative Negative - Negative POCT U GLU (test code = 3256) 500 Negative - Negati ve POCT U KETONE (test code = 3258) negative Negative - Negative POCT U UROBILI (test code = 3260) 0.2 mg/dl 0.2-1 POCT U BILI (test code = 3261) negative Negative - Negative POCT U BLD (test code = 3257) negative Negative - Negati ve POCT U COLOR (test code = 3266) yellow POCT U APPEAR (test code = 3267) clear [facility] HEMOGLOBIN A1C [id number] 23:08:00* Test Item Value Reference Range Interpretation Comme nts POCT HBA1C (test code = 4548-4) 7.9 % 4-6 A Lab Interpretation (test cod e = 28464-0) Abnormal [facility] HEMOGLOBIN A1C [id number] 23:08:00* Test Item Value Reference Range Interpretation Comme nts POCT HBA1C (test code = 4548-4) 7.9 % 4-6 A Lab Interpretation (test cod e = 82776-7) Abnormal [facility] URINALYSIS, [id number] 20:13:00 * Test Item Value Reference Range Interpretation Comme nts POCT U SP GRAV (test code = 3255) 1.025 mg/dl 1.005-1.025 POCT PH U (test code = 3254) 5.5 mg/dl 5-8 POCT U LEUK EST (test code = 3263) small Negative - Negative POCT U NIT (test code = 3262) negative Negative - Negati ve POCT U PROT (test code = 3259) negative Negative - Negative POCT U GLU (test code = 3256) negative Negative - Negati ve POCT U KETONE (test code = 3258) negative Negative - Negative POCT U UROBILI (test code = 3260) 0.2 mg/dl 0.2-1 POCT U BILI (test code = 3261) negative Negative - Negative POCT U BLD (test code = 3257) trace Negative - Negati ve POCT U COLOR (test code = 3266) yellow POCT U APPEAR (test code = 3267) clear [facility] Procedure Notes Date/Time Note Provider Source 2024-11-19 14:00:00 Procedure(s): TRANSPERINEAL PROSTATE BIOPSY (SHX) Pre-Procedure Diagnose(s): Elevated prostate specific antigen (PSA) Post-Procedure Diagnose(s): Elevated prostate specific antigen (PSA) Summary: transperineal prostate biopsy Images from the original note were not included. VASCULAR AND INTERVENTIONAL RADIOLOGY PROCEDURE NOTE Pre-procedure diagnosis: prostate lesion and elevated PSA Post-procedure diagnosis: same Procedure: 18g core biopsy bilateral prostate targeting anterior TZ on left Findings: anterior TZ hypoechoic area biopsied and bilateral gland biopsies also donej. 18g cores submitted left anterior and right gland Complications: none Condition: good Estimated blood loss: less than 5cc Full dictated note to follow in PACS. T [facility] Notes Date/Time Note Provider Source 2024-12-12 09:25:27 Refill BD Pen needle MINH: 10/10/2024 NOV: none Refill sent for 90 days Per refill policy, needs follow up scheduled PSS: please assist with scheduling visit AST Francoise Roberts RN [facility] Referral ID Status Reason Start Date Expiration Date Visits Requested Visits Authorized [id number] Authorized Service Not Available at Clinic 12/03/2024 03/03/2025 1 1 Isabelcatalinahair [id number] 17:15:53* Isabeloralia [id number] 17:15:53* Surinder Aguirre PA-C - 12/03/2024 3:19 PM CDT Images from the original note were not included. HPI: Danny Bryant II is a 79 year old male is here for Foot Pain (Left foot injury ) . Left foot foreign body: [facility] Foreign body seen on XR- pt states the foreign body was removed in the ER but no repeat imaging was done. He was given abx- Doxycycline day 4/14 days seems to be getting worse Swelling and redness has worsened. He does have history of diabetes. Also taking Warfarin for persistent afib. Stopped taking the Warfarin because he read that doxy would interfere- has not been taking for 2 days. Diabetes mellitus: Patient is currently taking Metformin 1000 mg BID, Insulin 70/30 16 units in the morning and 14 units in the evening. Increased after last check. Last A1C was Results for orders placed or performed in visit on 08/07/24 HEMOGLOBIN (HB) A1C WITH EAG Collection Time: 08/07/24 8:24 AM Result Value Ref Range HEMOGLOBIN A1C 7.8 (High) 4.8 - 5.6 % Estimate Average Glucose (eAG) 177 mg/dL Current medications: Current Medications[1] Allergies: Patient has no known allergies. I have reviewed the past Medical, Family, and Social history. Review of Systems: All systems are negative, except those pertinent items mentioned in the HPI. Review of Systems Constitutional: Negative for chills and fever. Musculoskeletal: Positive for arthralgias and joint swelling. Negative for gait problem. Skin: Positive for color change. Physical Exam: BP 122/70 (Side: Left Arm, Position: SITTING, Cuff Size: Medium Adult) | Pulse 91 | Temp 98.4 ?F (36.9 ?C) (Oral) | Resp 18 | Ht 5' 10" (1.778 m) | Wt 214 lb (97.1 kg) | SpO2 98% | BMI 30.71 kg/m? Physical Exam Constitutional: General: He is not in acute distress. Appearance: Normal appearance. HENT: Head: Normocephalic and atraumatic. Right Ear: External ear normal. Left Ear: External ear normal. Nose: Nose normal. Eyes: Conjunctiva/sclera: Conjunctivae normal. Cardiovascular: Rate and Rhythm: Normal rate. Pulses: Normal pulses. Heart sounds: No murmur heard. Pulmonary: Effort: Pulmonary effort is normal. No respiratory distress. Breath sounds: No stridor. No wheezing, rhonchi or rales. Skin: Findings: Erythema present. Neurological: General: No focal deficit present. Mental Status: He is alert. Psychiatric: Mood and Affect: Mood normal. Behavior: Behavior normal. Thought Content: Thought content normal. Judgment: Judgment normal. Assessment and Plan: Danny was seen today for foot pain. Diagnoses and all orders for this visit: Foreign body in left foot, subsequent encounter- Amoxicillin-Pot Clavulanate 875-125 MG oral Tablet; Take 1 tablet by mouth 2 times daily. - REFERRAL TO GENERAL SURGERY- EXTERNAL - FOOT LEFT; Future Will obtain x-ray of left foot to evaluate for foreign body. Tetanus up-to-date. Will switch from doxycycline to Augmentin due to lack of efficacy. Referral placed to general surgeon Dr. Zamorano for further evaluation. Patient to schedule appointment for later this week. Cellulitis of foot- Amoxicillin-Pot Clavulanate 875-125 MG oral Tablet; Take 1 tablet by mouth 2 times daily. - REFERRAL TO GENERAL SURGERY- EXTERNAL - FOOT LEFT; Future Longstanding persistent atrial fibrillation (multi HCC)- PROTHROMBIN TIME (PT); Future Advised to restart warfarin as he stopped the warfarin 2 days ago. Will check INR in 2 to 3 days. Hypercoagulable state due to longstanding persistent atrial fibrillation (multi HCC) Advised to restart warfarin. Will check INR in 2 to 3 days. Type 2 diabetes mellitus with stage 3a chronic kidney disease, with long-term current use of insulin (multi HCC) - Amoxicillin-Pot Clavulanate 875-125 MG oral Tablet; Take 1 tablet by mouth 2 times daily. Controlled. Continue Metformin 1000 mg BID, Insulin 70/30 16 units in the morning and 14 units in the evening. Recommend to decrease carbohydrate intake to less than 45 g per meal. Recommend to check blood sugars at least twice daily. Recommend to maintain blood sugars less than 140 fasting and less than 200 after meals. If blood sugar remains above 200 further adjustment in medication may be required. Warfarin anticoagulation- PROTHROMBIN TIME (PT); Future Advised to restart his warfarin after being off of it for 2 days. Come back in 2 to 3 days to recheck INR. Return if symptoms worsen or fail to improve. This document was completed using voice recognition software. This can produce system safety manager errors that can at times significantly distort words and phrases. Please interpret any aspect of the note that is nonsensical in light of this fact. JOSE Hines-CSP: Dr. Tico Coronado, [place] [facility] [1]Current Outpatient Medications Medication Sig Dispense Refill Amoxicillin-Pot Clavulanate 875-125 MG oral Tablet Take 1 tablet by mouth 2 times daily. 20 tablet 0 Aspirin (Ecotrin) 325 MG oral Tablet Delayed Response Take 1 tablet (325 mg total) by mouth daily. Atorvastatin Calcium 20 MG oral Tablet Take 1 tablet (20 mg total) by mouth daily FOR 90 DAYS. Blood Glucose Monitoring Suppl (CelePostio Flex System) w/Device does not apply Kit USE DIRECTED DAILY E 11.65 Colchicine 0.6 MG oral Tablet Take 1 tablet (0.6 mg total) by mouth daily. 90 tablet 1 Doxycycline Hyclate 100 MG oral Capsule hydroCHLOROthiazide 12.5 MG oral Tablet TAKE 1 TABLET BY MOUTH EVERY DAY 90 tablet 1 Insulin NPH Isophane & Regular (NovoLIN 70/30 FlexPen) (70-30) 100 UNIT/ML subcutaneous Suspension Pen-injector 16 unit sc eery am and 14 unit sc every pm. Isosorbide Mononitrate CR 30 MG oral TABLET SR 24 HR Take 1 tablet (30 mg total) by mouth daily. Lancets (Zero Carbon Food Delica Plus Gavyna76P) does not apply Misc Losartan Potassium (COZAAR) 100 MG oral Tablet Take 1 tablet (100 mg total) by mouth daily. Metformin HCl 1000 MG oral Tablet Take 1 tablet (1,000 mg total) by mouth in the morning and 1 tablet (1,000 mg total) in the evening. Metoprolol Succinate 50 MG oral TABLET SR 24 HR Take 1 tablet (50 mg total) by mouth daily FOR 90 DAYS. [place] 3 340 MG oral Delayed Release Capsule Take 1 g by mouth in the morning and 1 g in the evening. CelePostSET in vitro Strip Sure Comfort Pen [place] 31G X 8 MM does not apply Misc in the morning and in the evening. Tamsulosin HCl 0.4 MG oral Capsule Take 1 capsule (0.4 mg total) by mouth in the morning and 1 capsule (0.4 mg total) before bedtime. Warfarin (COUMADIN) 2 MG oral Tablet 1 TABLET ORALLY TUESDAY, TUESDAY, TUESDAY, TUESDAY, TUESDAY Warfarin 2.5 MG oral Tablet Take 1 tablet (2.5 mg total) by mouth daily. No current facility-administered medications for this visit. T [facility]2025-07-28 17:15:53Pending Results Scheduled Orders Name Type Priority Associated Diagnoses Orde r Schedule FOOT LEFT Imaging Routine Foreign body in left foot, subsequent encounter Cellulitis of foot Expected: 12/03/2024, Expires: 06/05/2025 PROTHROMBIN TIME (PT) Lab Routine Longstanding persistent atrial fibrillation (multi HCC) Warfarin anticoagulation Expected: 12/03/2024 (Approximate), Expires: 03/03/2025 Scheduled Referrals Name Type Priority Associated Diagnoses Orde r Schedule REFERRAL TO GENERAL SURGERY- EXTERNAL Referral Routine Foreign body in left foot, subsequent encounter Cellulitis of foot Ordered: 12/03/2024 Health Maintenance Due Date Last Done Comments Tdap Vaccines 1966 Zoster Vaccines (1 of 2) 1997 AAA SCREEN 2012 RSV Vaccines (1 - 1-dose 75+ series) 2022 COVID-19 Vaccine ( - 2023-2 5 season) 2024 04/15/2021, 07/11/2020, 06/20/2020 Diabetes: Retinopathy Screening 01/18/2024 01/17/2023 (Previously completed) Physical Exam 05/04/2024 05/04/2023 Influenza Vaccines (#1) 2025 05/04/2023, 02/07 Diabetes: Hemoglobin A1C 02/06/2025 04 025, 03/30/2024, 11/08/2023, Additional history exists Creatinine Level (Kidney Fun ction Test) 08/07/2025 08/07/2024, 11/08/2023, 05/13/2023 Diabetes: Urine Protein Screening 08/07/2025 025, 05/13/2023 Lipid Panel 08/07/2025 08/07/2024, 05/13/2023 Pneumococcal Vaccine: 50+ Years Completed 9, 02/03/2018 [place] [id number] 17:15:53 Diagnosis Foreign body in left foot, s ubsequent encounter - Primary Cellulitis of foot Cellulitis and abscess of foot, except toes Longstanding persistent atri al fibrillation (multi HCC) Hypercoagulable state due to longstanding persistent atrial fibrillation (multi HCC) Type 2 diabetes mellitus wit h stage 3a chronic kidney disease, with long-term current use of insulin (multi HCC) Warfarin anticoagulation Long-term (current) use of anticoagulants [place] [id number] 17:15:53 [place] [id number] 15:28:55 Chief Complaint Patient presents with Foot Pain Left foot injury Ml Pruitt LVN [place] [id number] 10:43:55 SCHEDULED AST Asia PelletierMarymount HospitalBxuwsq7676-22-86 16:14:28 Spoke with patient and updated on POC. Patient awaiting call from [facility] to schedule. Kiya Michael RNMarymount HospitalKmersw1012-00-71 15:28:[address] Ott's note on 06/06/24 MRI prostate to rule out TENNILLE and prostate cancer changes , prior to GARSIA procedure/ HoLEP MRI Guided Prostate Biopsy result showed no lesions suspicious for cancer. Chronic inflammation noted. A. PROSTATE GLAND, LEFT ANTERIOR TRANSITION ZONE TARGET, NEEDLE BIOPSY: - BENIGN PROSTATE TISSUE B. PROSTATE GLAND, RIGHT BACKGROUND, NEEDLE BIOPSY: - BENIGN PROSTATE TISSUE WITH CHRONIC INFLAMMATION Schedule with Dr. 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 Ott with results break down as well as to discuss plan of treatment now that biopsy is completed. Patient states he was sent results via [facility] but was not given any direction as to what to do next. Please advise. Asia Keller [place] 968405-07-16 13:50:18 Chief Complaint Patient presents with Diabetes 3 month follow up Ear Problem Right ear feels clogged Anay Chin MA [facility] Hospital[facility]arylSandra [facility] [address]67Ncvsfg2575-26-94 13:48:45 Chief Complaint Patient presents with Diabetes 3 month follow up Anay Chin MA [facility] Cpkxez6661-20-62 09:59:10 Addended by: ARLYN SAWANT O on: 10/18/2024 09:59 AM Modules accepted: Orders [place] 145965-06-12 09:58:10 MRI Guided biopsy ordered with [facility]. [place] 145965-06-12 09:47:31 Called patient, notified him that I received a faxed response from [facility] that they do not offer MRI guided biopsy of the prostate. Patient would like to schedule MRI with [facility]. Please advise. Maria Teresa Plasencia [place] 912175-06-11 14:50:26 Order faxed to [facility] per patient request. Maria Teresa Plasencia [facility]Tilxqs8677-18-14 14:28:51 Addended by: ARLYN SAWANT O on: 10/17/2024 02:28 PM Modules accepted: Orders [facility] HospitalGljtwp8914-37-66 14:04:40 Spoke to patient regarding MRI of the prostate result that showed PI - Rad 3 and 4 lesions. Advised that MRI guided biopsy have been ordered and patient requested that the order be sent to [facility]. Order will be faxed to [facility], [facility] HospitalUttdnd2326-63-39 12:59:34 Received MRI prostate results from [facility] Maza uploaded to chart under media for review. Jordana WatersMarymount HospitalRatndq3722-81-53 10:09:06 MRI orders faxed to [facility] at [phone]. Airam Fraga RN 10/04/2024 10:09 AM Name and verified, pt is aware of MRI orders faxed. Pt verbalized understanding. Airam Fraga RN 10/04/2024 10:14 AM Airam Fraga [facility] HospitalWkwkxz4083-44-35 09:23:35 Patient called back to give information of radiology department he is going to use for his MRI, he will need order to be faxed to [phone] phone # [phone]. He will also want a call back when order is sent so that he can call and scheduled his appointment. Jordana WatersMarymount HospitalTbxnka6006-50-73 08:38:37 Name and verified, pt states he is on his last bottle of tamsulosin and needs more refills. Pt states he has not done his MRI. It was canceled in August and has not rescheduled. Pt states he will call today to schedule MRI. Please advise on refills. Airam Fraga RN 10/04/2024 8:41 AM [facility] HospitalObatar0309-24-81 09:15:00 Images from the original note were not included. Venipuncture collection performed by clean technique on the right anticubitus. Total of 1 attempts were made. Slight pressure and a bandage/dressing were applied to the site(s). The patient experienced no complications. The following specimens were processed according to instructions and sent to [facility] laboratories per lab order on today: LT BLUE SST 1 RED LAV PPT DK GREEN (LiHep) DK GREEN (SodH) HSU DK BLUE (K2) DK BLUE (S) ACD Blood Culture NIPT/NTD Labs for Alzweri only [facility] HospitalOoluxb1875-22-93 17:06:18 Pt has an appt for a MRI scheduled for 09/16 ( Tuesday) and states that he was told he could not be seen without an updated order. Per MRI order, it does not until 05/2025. Unable to contact radiology outside of business hours. Order resubmitted as previously written to prevent a potential delay in care. Cr levels > 90 days old, orders placed, pt advised to have lab collected tomorrow prior to exam Tuesday. Routed to Dr Ott for review. [place] 145965-05-09 16:08:27 Patient called in regards to scheduled MRI. Order is out of date and radiology will not allow patient to proceed with 09/16/24 appointment. Please advise with new/update MRI order. T Asia Keller [facility] HospitaltannerAnthony [facility] 74[address]-04-02 14:19:16 Chief Complaint Patient presents with Diabetes Blood Pressure 6 week follow up OTHER Patient complains of dry skin and jock itch Anay Chin MA [facility] HospitalseyDaja Iqdegh5178-30-46 14:26:22 Chief Complaint Patient presents with Diabetes Blood Pressure 6 month follow up Anay Chin MA [facility] Hollisoralia Nkkupl2562-39-45 09:36:29 LVM- Courtesy post-procedure call. Mailbox is full and unable to leave a message. msg sent. ÓN Berry RNTracy [place] 145965-01-27 14:53:58 Sent [place] 715895-01-27 14:53:54 Addended by: DEON OTT on: 06/04/2024 02:53 PM Modules accepted: Orders [place] 715895-01-27 13:42:05 Patient notified of results/recommendations, understanding was verbalized via teach back. Augmentin sent to the incorrect pharmacy. Can you please resend to [facility]/pharmacy #[id number] [place], [place] - [address] [place] [address]? I corrected this on the patient chart and made it his preferred pharmacy. 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 Patient has been identified by and name and was provided with cup, antiseptic towelette, and clean catch instructions. 2 urine specimen(s) sent. Unpreserved 1 Urine Culture 1 Aptima tube Other urine [place] 715895-01-23 16:39:50 Patient notified of plan by PSS. ÓN Michael [facility] HospitalVugheh8841-91-51 15:09:19 Called number on file; no answer; unable to leave message due to mail box is full. ÓN Michael [place] 137625-01-23 15:07:31 Ucx order placed, submit tomorrow, then start oral abx, if need be will change it accordingly [place] 715895-01-23 15:07:29 Addended by: DEON OTT on: 05/31/2024 03:07 PM Modules accepted: Orders [place] 52888-01-23 12:43:00 Patient called asking for antibiotics before cysto procedure. I do not see that UCX was completed within the 14-10 day window please advise. [facility] Asia Keller [place] 968404-12-16 13:36:52 Received refill request for Tamsulosin 0.4 mg. MINH 04/20/2024 noted to continue and RTC for cysto. Cysto scheduled for 05/2024. Refill approved. Patient notified. IRA JANG RN 04/23/2024 1:37 PM [facility] Ira Jang RNTracy [place] 145964-12-16 13:29:46 Pt is requesting a refill and says he is completley out. Please Assist [place] 715894-12-16 07:29:59 Elevated PSA most likely 2/2 UTI Oral abx Repeat Ucx 10 days prior to cysto Repeat PSA prior to cysto 06/06/2023 If PSA > 3.0 for MRI Prostate RTC as scheduled [place] 715894-12-13 13:30:00 Images from the original note were not included. Venipuncture collection performed by clean technique on the left anticubitus. Total of 1 attempts were made. Slight pressure and a bandage/dressing were applied to the site(s). The patient experienced no complications. The following specimens were processed according to instructions and sent to [facility] laboratories per lab order on 04/20/2024: LT BLUE SST 1 RED LAV PPT DK GREEN (LiHep) DK GREEN (SodH) HSU DK BLUE (K2) DK BLUE (S) ACD Blood Culture NIPT/NTD Alzweri orders only [facility]2024-11-22 12:00:00 Images from the original note were not included. Venipuncture collection performed by clean technique on the left anticubitus. Total of 1 attempts were made. Slight pressure and a bandage/dressing were applied to the site(s). The patient experienced no complications. The following specimens were processed according to instructions and sent to [facility] laboratories per lab order on 03/30/2024 : LT BLUE SST 1 RED LAV 1 PPT DK GREEN (LiHep) DK GREEN (SodH) HSU DK BLUE (K2) DK BLUE (S) ACD Blood Culture NIPT/NTD Patient has been identified by and was provided with cup, antiseptic towelette, and clean catch instructions. 1 urine specimen(s) sent. Unpreserved 1 Urine Culture Aptima tube Other urine [place] 715894-11-07 08:46:18 40 day supply sent to pharmacy. Follow up scheduled on 04/20/2024. If patient is to cancel appointment no further refills will be approved. [facility] Malina River MATracy [place] 145964-11-04 14:03:53 Patient requests the medication be sent to [facility] until he's able to come in for his appointment. Please advise. 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 Pt states," he fall last night while getting groceries and hit shoulder and arm adducted. He states he thinks he broke ribs on the right side, rates pain 8/10. C/o of pain in knee and pain when he reach for items with the right arm. Pt states he had a fall in 2022 and broken some ribs but nothing was done. Benita Ortiz [facility] HospitalEujego4745-68-31 13:30:00 [facility] Emergency Department Note Patient Name: Danny Bryant II Date of : 1945 78 year old male Treatment Room: Room/bed info not found Primary Care Physician: Tico Coronado Patient Escorted by: Friend [6] Mode of Arrival: Personal means [1] EMS Treatment Prior to ED Arrival: Travel and Exposure Screening: Symptoms Does patient have any of these symptoms?: (not recorded) Exposure Screening Has patient had contact with someone with a communicable disease in the last month?: (not recorded) Diseases exposed to:: (not recorded) Is Patient ?: (not recorded) Exposure Date: (not recorded) Chief Complaint: Chief Complaint Patient presents with Fall History of Present Illness: Pt is a 78 yo M with h/o afib on coumadin, CAD, HLD, DM, HTN, p/w pain to R shoulder and R chest wall after fall last night about 8 pm. Pt states he was carrying in groceries, tripped and fell onto hard grass. 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 Pt denies abd pain, no head injury, no LOC, no neck pain, no weakness, numbness, tingling. Pt having pain with R shoulder movement, able to range elbow, wrist without difficulty. No pain to hips, lower extremities. History provided by: Patient Past Medical History/Immunizations: Past Medical History: Diagnosis Date Atrial fibrillation 2009 s/p cardioversion 06/2009 Coronary artery disease 2007 s/p stent Essential hypertension, benign Gout MT (myocardial infarction) Other and unspecified hyperlipidemia Type II or unspecified type diabetes mellitus without mention of complication, not stated as uncontrolled Allergies: Allergies Allergen Reactions Januvia [Sitagliptin] Itching and Rash Onglyza [Saxagliptin] Itching Tradjenta [Linagliptin] Itching Past Social History: Tobacco Use Former; Types: Cigarettes Passive Exposure: Past Smokeless Tobacco: Never used smokeless tobacco. Comments: quit in 1983 Alcohol Use Yes. Comments: occassional Drug Use No. Past Surgical History: Past Surgical History: Procedure Laterality Date HYDROCELECTOMY STENT Review of Systems: Review of Systems Constitutional: Negative for chills and fever. HENT: Negative for congestion, rhinorrhea and sore throat. Eyes: Negative for visual disturbance. Respiratory: Negative for cough and shortness of breath. Cardiovascular: Negative for chest pain. Gastrointestinal: Negative for abdominal pain, diarrhea, nausea and vomiting. Genitourinary: Negative for dysuria, urgency, frequency and flank pain. Musculoskeletal: Negative for back pain. Skin: Negative for rash and wound. Neurological: Negative for dizziness, light-headedness and headaches. Psychiatric/Behavioral: Negative. Endocrine: Endocrine negative Physical Exam: ED Triage Vitals Weight 10/13/24 1346 95.3 kg (210 lb) Actual or estimated 02/19/24 1346 Estimated by patient/family report Height 02/19/24 1346 1.753 m (5' 9") BP 02/19/24 1418 132/73 Pulse 02/19/24 1418 73 Resp 02/19/24 1418 15 Temp 02/19/24 1418 37 ?C (98.6 ?F) Temp source 02/19/24 1418 Oral SpO2 02/19/24 1418 98 % Measured on 02/19/24 1418 Room air Physical Exam Vitals and nursing note reviewed. Constitutional: General: He is not in acute distress. Appearance: Normal appearance. He is well-developed. He is not diaphoretic. HENT: Head: Normocephalic and atraumatic. Right Ear: External ear normal. Left Ear: External ear normal. Nose: Nose normal. Mouth/Throat: Mouth: Mucous membranes are moist. Pharynx: Oropharynx is clear. Eyes: Extraocular Movements: Extraocular movements intact. Conjunctiva/sclera: Conjunctivae normal. Pupils: Pupils are equal, round, and reactive to light. Cardiovascular: Rate and Rhythm: Normal rate and regular rhythm. Pulses: Normal pulses. Heart sounds: Normal heart sounds. No murmur heard. Pulmonary: Effort: Pulmonary effort is normal. No respiratory distress. Breath sounds: Normal breath sounds. No wheezing. Abdominal: General: Bowel sounds are normal. Palpations: Abdomen is soft. There is no mass. Tenderness: There is no abdominal tenderness. There is no guarding. Musculoskeletal: General: No tenderness. Normal range of motion. Cervical back: Normal range of motion and neck supple. Skin: General: Skin is warm and dry. Capillary Refill: Capillary refill takes less than 2 seconds. Findings: No erythema or rash. Neurological: General: No focal deficit present. Mental Status: He is alert and oriented to person, place, and time. Mental status is at baseline. Cranial Nerves: No cranial nerve deficit. Psychiatric: Mood and Affect: Mood normal. Behavior: Behavior normal. Thought Content: Thought content normal. Judgment: Judgment normal. Radiology: XR RIBS 3 VW RIGHT Final Result ORDERING PROVIDER: GAYATRI LINARES HISTORY: Fall, injury, trauma TECHNIQUE: AP view of the chest and AP and oblique views of the right ribs. COMPARISON: None FINDINGS: The lungs are adequately aerated. No focal consolidation, pleural effusion, or pneumothorax. The cardiac silhouette and pulmonary vasculature are within normal limits. No acute rib fracture lucency adjacent to the skin marker. Subacute chronic fracture remodeling of lateral right rib 9. Degenerative changes are seen in the spine and shoulders. IMPRESSION 1. No radiographic evidence of acute cardiopulmonary disease. 2. No acute rib fracture lucency adjacent to the skin marker. 3. Subacute chronic fracture remodeling of lateral right rib 9. RL: [id number] AFC: [id number] End of Report SHOULDER 2+ VW RIGHT Final Result ORDERING PROVIDER: GAYATRI LINARES HISTORY: fall TECHNIQUE: Internally and externally rotated and scapular Y views of the right shoulder. Technical Quality: Diagnostic COMPARISON: None FINDINGS: The osseous structures are anatomically aligned. No acute fractures are identified. Glenohumeral and acromioclavicular osteoarthrosis. Soft tissues are unremarkable. IMPRESSION 1. No acute fracture or malalignment detected at the right shoulder. 2. Glenohumeral and acromioclavicular osteoarthrosis. RL: 4231 AFC: [id number] End of Report Lab Results: Lab Results - No data to display EKG: If EKG completed, see Procedure Note. Orders and Treatments: Orders Placed This Encounter Procedures XR RIBS 3 VW RIGHT XR SHOULDER 2+ VW RIGHT Orders Placed This Encounter Medications HYDROcodone-acetaminophen 5-325 mg tablet First Provider Eval: ED Events Date/Time Event User Comments 02/19/24 1342 Medical Screening Begins GAYATRI LINARES MD -- 02/19/24 1342 First Provider Evaluation GAYATRI LINARES MD -- ED COURSE Diagnosis/Impression as of 02/19/24 1741 Fall, initial encounter Injury of right shoulder, initial encounter Chest wall contusion, right, initial encounter Procedures: Procedures MDM: Medical Decision Making Pt is a 78 yo M with h/o afib on coumadin, CAD, HLD, DM, HTN, p/w pain to R shoulder and R chest wall after fall last night about 8 pm. Pt states he was carrying in groceries, tripped and fell onto hard grass. 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 Pt denies abd pain, no head injury, no LOC, no neck pain, no weakness, numbness, tingling. Pt having pain with R shoulder movement, able to range elbow, wrist without difficulty. No pain to hips, lower extremities. XR of R shoulder and R chest wall/ribs ordered to eval for traumatic injuries. XRs reviewed, no acute fractures. Pt and informed of all test results, advised to rest and take OTC meds as needed for pain. Also provided script for [place] as needed for severe pain. Problems Addressed: Chest wall contusion, right, initial encounter: acute illness or injury Fall, initial encounter: acute illness or injury Injury of right shoulder, initial encounter: acute illness or injury Amount and/or Complexity of Data Reviewed Independent Historian: spouse Radiology: ordered and independent interpretation performed. Decision-making details documented in ED Course. Risk Prescription drug management. Flowsheet Documentation: Scoring Tools: No data recorded Disposition/Condition: ED Disposition ED Disposition Disch - Home Condition Stable Comment -- Discharge Medications: Patient's Medications START taking these medications HYDROCODONE-ACETAMINOPHEN 5-325 MG TABLET Take 1 tablet by mouth every 6 (six) hours as needed for Pain (scale 7-10) for up to 7 days. Indications: acute pain CONTINUE taking these medications which have NOT CHANGED ALLOPURINOL (ZYLOPRIM) 300 MG TABLET Take 300 mg by mouth daily. ATORVASTATIN (LIPITOR) 10 MG TABLET Take 1 tablet by mouth at bedtime. B-COMPLEX WITH VITAMIN C (VITAMIN B COMPLEX-C ORAL) Take by mouth. BLOOD SUGAR DIAGNOSTIC ([place] VERIO TEST STRIPS) STRIP Use to check blood glucose 3x daily before meals E11.65 COLCHICINE 0.6 MG ORAL TAB once daily ECOTRIN 325 MG ORAL TBEC once daily FINASTERIDE 5 MG TABLET Take 5 mg by mouth daily. IMDUR 30 MG ORAL TB24 once daily INSULIN NEEDLES, DISPOSABLE, (SURE COMFORT PEN NEEDLE) 31 GAUGE X 5/16" NDLE USE TWICE DAILY INSULIN NPH-REGULAR HUMAN REC (NOVOLIN 70-30 FLEXPEN U-100) 100 UNIT/ML (70-30) INJECTION inject 14 Units under the skin 2 (two) times daily before breakfast and dinner. E11.65 LANCETS (ONETOUCH DELICA PLUS LANCET) 33 GAUGE MISC Use to check blood glucose three times daily before meals E11.65 LOSARTAN 100 MG TABLET Take 100 mg by mouth in the morning. METFORMIN 1,000 MG TABLET Take 1 tablet by mouth every morning and evening. METOPROLOL SUCCINATE XL 50 MG 24 HR TABLET Take 50 mg by mouth daily. OMEGA-3 FATTY ACIDS-VITAMIN E (FISH OIL) 1,000 MG CAPSULE Take 1 g by mouth 2 (two) times daily. ONETOUCH VERIO FLEX METER MISC Use as directed TIDAC E11.65 TAMSULOSIN 0.4 MG 24 HR CAPSULE TAKE 1 CAPSULE BY MOUTH EVERY MORNING AND EVERY EVENING FOR PAIN WARFARIN 2.5 MG ORAL TAB once daily START taking Modified Medications as Prescribed No medications on file STOP taking these medications No medications on file Follow-up: Contact information for follow-up Tico Coronado Specialty: FAMILY MEDICINE Relationship: PCP - General [address] [place], [place] [id number] [facility] [id number] Electronically signed by: Gayatri Linares MD 02/19/24 174 [facility]62[facility] 14:41:41 MIN[facility]-10/12/23 NOV-04/11/24 Refill sent Kristen Carlin RN Plan: - Continue 70/30 Insulin 14 Units before breakfast and 14 Units before dinner the nights that you plan to wake up late the following day.. - Make sure to take insulin 30 minutes before breakfast and Dinner - You can continue NPH 70/30 16 units before dinner the days you are planning to wake up early. - Continue metformin 1000 mg twice a day Kristen Carlin [facility]Seafep0110-18-26 09:59:53 REFILL (Requires review before approval) Provider: Deon Ott MD Patient's phone number: [phone] (home) Pharmacy: [facility] - [facility] [address] Medication: tamsulosin (FLOMAX) Strength: 0.4 mg capsule Directions: TAKE 1 CAPSULE BY MOUTH EVERY MORNING AND 1 CAPSULE FOR PAIN EVERY EVENING Quantity: 180 Capsules with ZERO Refills Last filled: Unknown, last prescribed 09/13/2023 Last office visit: 01/05/2023 Next scheduled visit: No future Urology visits are scheduled. Rizwana Johnson [facility]2024-06-05 13:00:00 Addended by: LACHELLE UMAÑA MD on: 11/06/2023 09:20 PM Modules accepted: Level of Service [facility]2024-05-09 09:11:49 Images from the original note were not included. T Melody [facility]2024-05-08 08:35:55 Chief Complaint Patient presents with Ear Problem Right ear clogged Ml Pruitt LVN [facility]2023-08-30 14:00:00Addended by: DIMITRIS GARDNER on: 01/05/2023 03:55 PM Modules accepted: Orders T [facility]tg[facility]4548-25-09 15:31:57 [employer] Medical supply form placed in provider folder in [facility] location for signature. A copy was scannedinto chart Asia Keller [facility]2017-09-20 11:11:11 PA retracted and RX resent as three pack. Awaiting pharmacy processing. 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 [facility]
[2024-12-19 14:59] VITALS: BMI 29.4
[2024-12-19] MEDS: HYDROCODONE/APAP 5/325 MG TAB PO PRN (15:21)
[2024-12-19] MEDS: VANCOMYCIN 2 GM in NA CHLORIDE 0.9% 500 ML IVPB ONE (15:21)
[2024-12-19] MEDS ORDERED: D10W 125 ML IV PRN (16:37)
[2024-12-19] MEDS ORDERED: GLUCAGON 1 MG/VIAL IM PRN (16:37)
[2024-12-19] MEDS: CEFEPIME 1 GM in NA CHLORIDE 0.9% 100 ML IV SCH (20:42)
[2024-12-19] MEDS: TAMSULOSIN 0.4 MG SR CAP PO SCH (20:43)
[2024-12-19] MEDS: INSULIN REGULAR (HUMAN) 100 UNIT/ML SQ SCH (20:56)
[2024-12-19] MEDS ORDERED: VANCOMYCIN 1.5 GM in NA CHLORIDE 0.9% 500 ML IVPB SCH (21:00)
[2024-12-20 05:38] LABS: Absolute Lymphocytes (CBC) 1.9 K/uL (0.7-4.9); Hematocrit 35.7 % (39.6-49.0); Hemoglobin 12.5 g/dL (13.6-17.9); MCH 31.3 pg (27.0-35.0); MCHC 34.8 g/dL (32.0-36.0); MCV 89.9 fL (80-100); MPV 7.3 fL (7.6-11.3); Nucleated RBC Absolute Count 0.0 (0-0); Nucleated Red Blood Cells % 0.1 % (0-0); RBC Red Blood Cell Count 3.98 M/uL (4.33-5.43); White Blood Count 9.50 thou/uL (4.3-10.9)
[2024-12-20 05:46] LABS: PT Prothrombin Time 47.4 SECONDS (10-13.0); Protime INR 4.38
[2024-12-20 06:01] LABS: ALT/SGPT 25.0 U/L (16-61); AST/SGOT 20.0 U/L (15-37); Albumin 2.6 g/dL (3.4-5.0); Albumin/Globulin Ratio 0.7 (1.1-1.8); Alkaline Phosphatase 139.0 U/L (45-117); Anion Gap 8.6 mEq/L (5.0-15.0); BUN Blood Urea Nitrogen 26.0 mg/dL (7-18); Globulin 4.0 g/dL (2.3-3.5); Glucose Level 182.0 mg/dL (74-106); Magnesium 1.7 mg/dL (1.6-2.4); Potassium 3.6 mEq/L (3.5-5.1)
--- NOTE | 2024-12-20 08:40 | P.PN ---
Date of Service: 12/20/24 Subjective: Continues with foot pain ~same Tolerable on oral medication, not needing IV vitals stable, afebrile Family updated at bedside Physical Exam: GEN: Alert, oriented, NAD CV: Regular rate and rhythm, no edema Pulm: Nonlabored respirations on room air, clear bilaterally ABD: soft, nontender, nondistended Integumentary: Left foot wrapped. left lateral foot with ischemic dusky appearance / foul odor Neuro: Normal speech, normal affect Problem List: Infected Diabetic foot ulcer INR supratherapeutic Recent Proteus ESBL infection Paroxysmal A-fib on chronic anticoagulation Hypercoagulable state hx of CAD s/p PCI Hx of CKD3 IDDM2 Hypertension Hyperlipidemia BPH Infected Diabetic foot ulcer INR supratherapeutic Recent Proteus ESBL infection Paroxysmal A-fib on chronic anticoagulation Hypercoagulable state Presents as a direct admit from Dr. Larson. Recently had piece of glass penetrating his foot ~1 week ago and had I&D with foreign body removal 12/10 Patient was slated for surgery but cancelled due to pre-op INR 5.31 Unclear etiology of elevated INR, denies any recent increase in dosing may have been affected by recent antibiotic use / infection On coumadin for longstanding persistent A-fib and hypercoagulable state. Prior wound cultures (12/10): Proteus Mirabilis ESBL and Staph Aureus Continue IV Vanc/Cefepime (12/19-) Dr. Larson consulted - planning for surgery once INR better Continue local wound care: vashe with damp to dry dressings Last PO coumadin was taken 3 days before admission Monitor for signs of overt bleeding Hold Coumadin Hx of CKD3 Continue to monitor renal function, electrolytes Sees Dr. Gaytan group Stable. IDDM2 accu-cheks, SSI confirm home meds, restart as appropriate Hypertension Hyperlipidemia BPH hx of CAD s/p PCI Resume home flomax, metoprolol, statin Recent PSA of 9. Had OSH MRI prostate done in October which showed multiple lesions - some concerning for malignancy Had Biopsy in November per PCP notes. Unknown results. Followed by [facility] Urology. VTE: Hold all anticoagulation for now Code: Full Dispo: Home, several days Pending surgery once INR better
[2024-12-20] MEDS: POTASSIUM CL SA 10 MEQ TAB PO ONE ×4 (09:19→18:11)
[2024-12-20] MEDS: METOPROLOL XL 50 MG TAB PO SCH (09:19)
[2024-12-20] MEDS: ATORVASTATIN 20 MG TAB PO SCH (09:19)
[2024-12-20] MEDS: ACETAMINOPHEN 500 MG TAB PO PRN (16:44)
[2024-12-20] MEDS: VANCOMYCIN 1.75 GM in NA CHLORIDE 0.9% 500 ML IVPB SCH (16:45)
[2024-12-21 05:10] LABS: Absolute Lymphocytes (CBC) 1.4 K/uL (0.7-4.9); Hematocrit 35.4 % (39.6-49.0); Hemoglobin 12.4 g/dL (13.6-17.9); MCH 31.6 pg (27.0-35.0); MCHC 35.1 g/dL (32.0-36.0); MCV 89.9 fL (80-100); MPV 6.9 fL (7.6-11.3); Nucleated RBC Absolute Count 0.0 (0-0); Nucleated Red Blood Cells % 0.0 % (0-0); RBC Red Blood Cell Count 3.94 M/uL (4.33-5.43); White Blood Count 8.60 thou/uL (4.3-10.9)
[2024-12-21 05:17] LABS: PT Prothrombin Time 41.9 SECONDS (10-13.0); Protime INR 3.86
[2024-12-21 05:31] LABS: ALT/SGPT 24.0 U/L (16-61); AST/SGOT 15.0 U/L (15-37); Albumin 2.5 g/dL (3.4-5.0); Albumin/Globulin Ratio 0.7 (1.1-1.8); Alkaline Phosphatase 144.0 U/L (45-117); Anion Gap 8.8 mEq/L (5.0-15.0); BUN Blood Urea Nitrogen 20.0 mg/dL (7-18); Globulin 3.8 g/dL (2.3-3.5); Glucose Level 147.0 mg/dL (74-106); Magnesium 1.7 mg/dL (1.6-2.4); Potassium 3.8 mEq/L (3.5-5.1)
[2024-12-21] MEDS: COLCHICINE 0.6 MG TAB PO SCH (08:56)
[2024-12-21] MEDS: POTASSIUM CL SA 10 MEQ TAB PO ONE (08:58)
[2024-12-21] MEDS: MAGNESIUM SULFATE 1 gm IVPB 1 GM/100 ML BAG IV ONE (08:58)
--- NOTE | 2024-12-21 10:55 | P.PN ---
Date of Service: 12/21/24 Subjective: Doing okay pain slightly worse feels toe is darker vitals stable Physical Exam: GEN: Alert, oriented, NAD CV: Regular rate and rhythm, no edema Pulm: Nonlabored respirations on room air, clear bilaterally ABD: soft, nontender, nondistended Integumentary: Left foot wrapped. left lateral foot with dry black 5th digit, foul odor Neuro: Normal speech, normal affect Problem List: Infected Diabetic foot ulcer INR supratherapeutic Recent Proteus ESBL infection Paroxysmal A-fib on chronic anticoagulation Hypercoagulable state Hx of CKD3 IDDM2 Hypertension Hyperlipidemia BPH hx of CAD s/p PCI Hx of gout Infected Diabetic foot ulcer INR supratherapeutic Recent Proteus ESBL infection Paroxysmal A-fib on chronic anticoagulation Hypercoagulable state Presents as a direct admit from Dr. Larson. Recently had piece of glass penetrating his foot ~1 week ago and had I&D with foreign body removal 12/10 Patient was slated for surgery but cancelled due to pre-op INR 5.31 Unclear etiology of elevated INR, denies any recent increase in dosing may have been affected by recent antibiotic use / infection On coumadin for longstanding persistent A-fib and hypercoagulable state. Prior wound cultures (12/10): Proteus Mirabilis ESBL and Staph Aureus Continue IV Vanc/Cefepime (12/19-) Dr. Larson consulted - planning for surgery once INR better Local wound care per surgery Monitor for signs of overt bleeding Hold Coumadin INR slowly improving daily - continue to hold check arterial dopplers Hx of CKD3 Continue to monitor renal function, electrolytes Sees Dr. Gaytan group Stable. IDDM2 accu-cheks, SSI confirm home meds, restart as appropriate Hypertension Hyperlipidemia BPH hx of CAD s/p PCI Hx of gout Resume home flomax, metoprolol, statin Recent PSA of 9. Had OSH MRI prostate done in October which showed multiple lesions - some concerning for malignancy Had Biopsy in November per PCP notes. Unknown results Followed by [facility] Urology VTE: Hold all anticoagulation for now Code: Full Dispo: Home, several days Pending surgery once INR better
[2024-12-21 14:26] LABS: Anion Gap 9.9 mEq/L (5.0-15.0); BUN Blood Urea Nitrogen 18.0 mg/dL (7-18); Glucose Level 194.0 mg/dL (74-106); Potassium 3.9 mEq/L (3.5-5.1)
[2024-12-22 06:13] LABS: PT Prothrombin Time 41.1 SECONDS (10-13.0); Protime INR 3.78
[2024-12-22 06:20] LABS: Absolute Lymphocytes (CBC) 2.0 K/uL (0.7-4.9); Hematocrit 36.3 % (39.6-49.0); Hemoglobin 12.8 g/dL (13.6-17.9); MCH 31.6 pg (27.0-35.0); MCHC 35.1 g/dL (32.0-36.0); MCV 90.0 fL (80-100); MPV 7.3 fL (7.6-11.3); Nucleated RBC Absolute Count 0.0 (0-0); Nucleated Red Blood Cells % 0.0 % (0-0); RBC Red Blood Cell Count 4.04 M/uL (4.33-5.43); White Blood Count 8.30 thou/uL (4.3-10.9)
[2024-12-22 06:35] LABS: ALT/SGPT 52.0 U/L (16-61); AST/SGOT 44.0 U/L (15-37); Albumin 2.4 g/dL (3.4-5.0); Albumin/Globulin Ratio 0.6 (1.1-1.8); Alkaline Phosphatase 164.0 U/L (45-117); Anion Gap 14.1 mEq/L (5.0-15.0); BUN Blood Urea Nitrogen 14.0 mg/dL (7-18); Globulin 4.0 g/dL (2.3-3.5); Glucose Level 151.0 mg/dL (74-106); Magnesium 2.0 mg/dL (1.6-2.4); Potassium 4.1 mEq/L (3.5-5.1)
[2024-12-22] MEDS: SILVER SULFADIAZINE 1% 50 GM TOP SCH (08:32)
--- NOTE | 2024-12-22 08:54 | RAD REPORT ---
EXAMINATION:Lower Extremity Arterial Bilat CLINICAL INDICATION: Leg pain. eval flow. left leg nonhealing /infected wound TECHNIQUE: Arterial duplex ultrasound was performed of the bilateral lower extremity arteries. With r eal-time, color-flow, and spectral wave Doppler evaluation..Grayscale, color and spectral analysis performed on all vessels COMPARISON: No prior exam. FINDINGS: Right common femoral, right superficial femoral, right popliteal arterial waveforms biphasic Right dorsalis pedis and posterior tibial arteries monophasic. There are diminished in amplitude. Left common femoral, left superficial femoral, left popliteal arterial waveforms triphasic. Left dorsalis pedis and posterior tibial arteries mono phasic waveforms. No occlusion IMPRESSION: Moderate bilateral distal lower extremity arterial disease No high-grade proximal/mid stenosis visualized proximal and mid lower extremity arteries bilaterally
--- NOTE | 2024-12-22 09:30 | P.PN ---
Date of Service: 12/22/24 Subjective: pain slightly worse today dressings changed this morning no events overnight afebrile Physical Exam: GEN: Alert, oriented, NAD CV: Regular rate and rhythm, no edema Pulm: Nonlabored respirations on room air Integumentary: left lateral foot with dry black 5th digit, foul odor Neuro: Normal speech, normal affect Problem List: Infected Diabetic foot ulcer INR supratherapeutic Moderate bilateral PAD Paroxysmal A-fib on chronic anticoagulation Hypercoagulable state Hx of CKD3 IDDM2 Hypertension Hyperlipidemia BPH hx of CAD s/p PCI Hx of gout Infected Diabetic foot ulcer INR supratherapeutic Moderate bilateral PAD Presents as a direct admit from Dr. Larson. Recently had piece of glass penetrating his foot ~1 week ago and had I&D with foreign body removal 12/10 Dr. Larson consulted - planning for surgery once INR better Unclear etiology of elevated INR, denies any recent increase in dosing Possibly affected by recent abx/infection Prior wound cultures (12/10): Proteus Mirabilis ESBL and Staph Aureus Continue IV Vanc/Cefepime (12/19-) Monitor for signs of overt bleeding INR slowly improving daily - continue to hold Coumadin Arterial doppler showed moderate bilateral PAD. No high grade stenosis. Silvadene cream added by surgery Paroxysmal A-fib on chronic anticoagulation Hypercoagulable state Continue home metoprolol Coumadin held for surgery HR stable in 70-80s Hx of CKD3 Continue to monitor renal function, electrolytes Sees Dr. Gaytan group Stable. IDDM2 accu-cheks, SSI confirm home meds, restart as appropriate Hypertension Hyperlipidemia BPH hx of CAD s/p PCI Hx of gout Resume home flomax, metoprolol, statin, allopurinol, colchicine Recent PSA of 9. Had OSH MRI prostate done in October which showed multiple lesions - some concerning for malignancy Had Biopsy in November per PCP notes. Unknown results Followed by [facility] Urology VTE: Hold all anticoagulation for now Code: Full Dispo: Home, several days Pending surgery once INR better
[2024-12-23 06:21] LABS: Albumin 2.5 g/dL (3.4-5.0); Anion Gap 14.4 mEq/L (5.0-15.0); BUN Blood Urea Nitrogen 13.0 mg/dL (7-18); Glucose Level 167.0 mg/dL (74-106); Magnesium 1.9 mg/dL (1.6-2.4); Potassium 4.4 mEq/L (3.5-5.1)
[2024-12-23 06:22] LABS: PT Prothrombin Time 33.0 SECONDS (10-13.0); Protime INR 3.02
--- NOTE | 2024-12-23 11:27 | P.PN ---
Date of Service: 12/23/24 Subjective: no events overnight vitals stable continues with pain Physical Exam: GEN: Alert, oriented, NAD CV: Regular rate and rhythm, no edema Pulm: Nonlabored respirations on room air Integumentary: left lateral foot with dry black 5th digit, foul odor Neuro: Normal speech, normal affect Problem List: Infected Diabetic foot ulcer INR supratherapeutic Moderate bilateral PAD Paroxysmal A-fib on chronic anticoagulation Hypercoagulable state Hx of CKD3 IDDM2 Hypertension Hyperlipidemia BPH hx of CAD s/p PCI Hx of gout Infected Diabetic foot ulcer INR supratherapeutic Moderate bilateral PAD Presents as a direct admit from Dr. Larson. Recently had piece of glass penetrating his foot ~1 week ago and had I&D with foreign body removal 12/10 Dr. Larson consulted - planning for surgery once INR better Unclear etiology of elevated INR, denies any recent increase in dosing Possibly affected by recent abx/infection Prior wound cultures (12/10): Proteus Mirabilis ESBL and Staph Aureus Continue IV Vanc/Cefepime (12/19-) Monitor for signs of overt bleeding INR slowly improving daily - continue to hold Coumadin Arterial doppler showed moderate bilateral PAD. No high grade stenosis. Local wound care per surgery Paroxysmal A-fib on chronic anticoagulation Hypercoagulable state Continue home metoprolol Coumadin held for surgery HR stable in 70-80s Hx of CKD3 Continue to monitor renal function, electrolytes Sees Dr. Gaytan group Stable. IDDM2 accu-cheks, SSI confirm home meds, restart as appropriate Hypertension Hyperlipidemia BPH hx of CAD s/p PCI Hx of gout Resume home flomax, metoprolol, statin, allopurinol, colchicine Recent PSA of 9. Had OSH MRI prostate done in October which showed multiple lesions - some concerning for malignancy Had Biopsy in November per PCP notes. Unknown results Followed by [facility] Urology VTE: Hold all anticoagulation for now Code: Full Dispo: Home, several days Pending surgery once INR <2
[2024-12-24 06:06] LABS: PT Prothrombin Time 25.0 SECONDS (10-13.0); Protime INR 2.27
[2024-12-24 06:12] LABS: Anion Gap 9.3 mEq/L (5.0-15.0); BUN Blood Urea Nitrogen 12.0 mg/dL (7-18); Glucose Level 176.0 mg/dL (74-106); Magnesium 1.9 mg/dL (1.6-2.4); Potassium 4.3 mEq/L (3.5-5.1)
--- NOTE | 2024-12-24 10:07 | P.PN ---
Date of Service: 12/24/24 Subjective: Doing okay family updated at bedside afebrile Physical Exam: GEN: Alert, oriented, NAD CV: Regular rate and rhythm, no edema Pulm: Nonlabored respirations on room air Integumentary: left lateral foot with dry black 5th digit, foul odor Neuro: Normal speech, normal affect Problem List: Infected Diabetic foot ulcer INR supratherapeutic Moderate bilateral PAD Paroxysmal A-fib on chronic anticoagulation Hypercoagulable state Hx of CKD3 IDDM2 Hypertension Hyperlipidemia BPH hx of CAD s/p PCI Hx of gout Infected Diabetic foot ulcer INR supratherapeutic Moderate bilateral PAD Presents as a direct admit from Dr. Larson. Recently had piece of glass penetrating his foot ~1 week ago and had I&D with foreign body removal 12/10 Dr. Larson consulted - planning for surgery once INR better Unclear etiology of elevated INR, denies any recent increase in dosing Possibly affected by recent abx/infection Prior wound cultures (12/10): Proteus Mirabilis ESBL and Staph Aureus Continue IV Vanc/Cefepime (12/19-) Monitor for signs of overt bleeding INR slowly improving daily - continue to hold Coumadin Arterial doppler showed moderate bilateral PAD. No high grade stenosis. Local wound care per surgery Paroxysmal A-fib on chronic anticoagulation Hypercoagulable state Continue home metoprolol Coumadin held for surgery HR stable in 70-80s Hx of CKD3 Continue to monitor renal function, electrolytes Sees Dr. Gaytan group Stable. IDDM2 accu-cheks, SSI confirm home meds, restart as appropriate Hypertension Hyperlipidemia BPH hx of CAD s/p PCI Hx of gout Resume home flomax, metoprolol, statin, allopurinol, colchicine Recent PSA of 9. Had OSH MRI prostate done in October which showed multiple lesions - some concerning for malignancy Had Biopsy in November per PCP notes. Unknown results Followed by [facility] Urology VTE: Hold all anticoagulation for now Code: Full Dispo: Home, several days Pending surgery once INR <2
[2024-12-25 06:30] LABS: PT Prothrombin Time 21.8 SECONDS (10-13.0); Protime INR 1.97
[2024-12-25 06:35] LABS: Anion Gap 10.8 mEq/L (5.0-15.0); BUN Blood Urea Nitrogen 11.0 mg/dL (7-18); Glucose Level 184.0 mg/dL (74-106); Magnesium 1.8 mg/dL (1.6-2.4); Potassium 4.8 mEq/L (3.5-5.1)
[2024-12-25] MEDS: MAGNESIUM SULFATE 1 gm IVPB 1 GM/100 ML BAG IV ONE (09:10)
[2024-12-25] MEDS: NA CHLORIDE 0.9% 1,000 ML ONE (11:46)
[2024-12-25] MEDS: LIDOCAINE HCL/EPINEPHRINE 20 ML MDV ONE (12:08)
[2024-12-25] MEDS ORDERED: LIDOCAINE 1% MPF 5 ML VIAL ONE (12:18)
[2024-12-25] MEDS ORDERED: FENTANYL CITR 100 MCG/2 ML ONE (12:18)
[2024-12-25] MEDS ORDERED: KETOROLAC 30 MG/ML INJ ONE (13:11)
--- NOTE | 2024-12-25 13:29 | P.OP ---
Preoperative diagnosis: LEFT 5th Toe Osteomyelitis Postoperative diagnosis: LEFT 5th Toe Osteomyelitis Primary procedure: LEFT 5th Partial Ray Amputation Anesthesia: GETA Estimated blood loss: <5cc Specimen: Amputation Findings: Necrotic Tissue to plantar fascia over 5th, 4th toes, Complications: None Transferred to: Recovery Room Condition: Good
[2024-12-25] MEDS: HYDROMORPHONE HCL 1 MG/ML INJ ONE (14:05)
[2024-12-25 14:15] VITALS: O2SAT 99
--- NOTE | 2024-12-25 15:20 | OP ---
Date of Procedure: 12/25/2024 Surgeon: Nazia Larson MD, Preoperative Diagnosis: Left fifth toe osteomyelitis. Postoperative Diagnosis: Left fifth toe osteomyelitis. Procedure Performed: Left fifth partial ray amputation. Anesthesia: General endotracheal. Estimated Blood Loss: Less than 5 cc. Specimen: Amputation specimen, which is left fifth toe and bone segment from metatarsal. Findings: Necrotic tissue to the plantar fascia overlying the fifth toe as well as the fourth toe. They were grossly necrotic to the capsule extending over the fourth metatarsal head, but not obviousl y involving the fourth metatarsal. Complications: None. Disposition: The patient was transferred to recovery room in good condition. Procedure In Detail: After informed consent was obtained, patient was brought to the operating room, prepped and draped in the usual sterile fashion. After adequate anesthesia was achieved, I demarca nazia an area circumferentially around an obvious fifth necrotic toe down to subcutaneous tissues. I d ebrided all nonviable tissue. I then the metatarsophalangeal joint on the fifth toe, sent off the toe and specimen for pathologic examination, at this point. I then proceeded to peel back al l the periosteum from the proximal segment of the obviously infected metatarsal head on the fifth dig it. I debrided all nonviable tissue circumferentially around this as well as near the fourth metatar sophalangeal joint and including the plantar fascia under the fourth metatarsal head. After all thes e nonviable tissue was removed, I transected the bone on the fifth metatarsal for a partial ray amput ation with a bone cutter, at this point, and sent this off for pathologic examination. The area was copiously irrigated. Good healthy bleeding viable tissue was left behind. This was easily controlle d with electrocautery. At this point, the area was copiously irrigated multiple times until complete ly cleared. I beveled the edges with a rasp of the fifth toe and then ultimately cleansed out the re maining area with significant irrigation. I then reapproximated the area over the fifth metatarsal t o cover the bone in its entirety using interrupted 2-0 nylon sutures, and the remainder of the incisi on was left open and packed with Vashe soaked gauze and sterile dressing placed over top. The patien t tolerated the procedure well without incident or complication, transferred to PACU in good conditio n. All counts were correct at the end of the case. ALIZA/NISSA Voice ID: [id number] Report ID: [id number]
--- NOTE | 2024-12-25 18:59 | P.PN ---
Subjective Date of Service: 12/25/24 Chief Complaint: infected diabetic foot wound Patient reports her left foot pain is better. Left 5th Partial Ray Amputation done today. Patient seen after surgery. Physical Examination - Vital Signs Temperature: 97.3 F Blood Pressure: 132/73 Pulse: 54 Respirations: 14 Pulse Ox (%): 99 - Studies Laboratory Data (last 24 hrs) 12/25/24 12/25/24 06:06 06:06 PT 21.8 H INR 1.97 Sodium 137 Potassium 4.8 BUN 11 Creatinine 1.06 Glucose 184 H Magnesium 1.8 Assessment And Plan - Plan Physical Exam: GEN: Alert, oriented, NAD CV: Regular rate and rhythm, no edema Pulm: Nonlabored respirations on room air Integumentary: Left fifth ray amputation wound with clean dressing. Neuro: Normal speech, normal affect Problem List: Infected Diabetic foot ulcer INR supratherapeutic Moderate bilateral PAD Paroxysmal A-fib on chronic anticoagulation Hypercoagulable state Hx of CKD3 IDDM2 Hypertension Hyperlipidemia BPH hx of CAD s/p PCI Hx of gout Infected Diabetic foot ulcer INR supratherapeutic Moderate bilateral PAD Presents as a direct admit from Dr. Larson. Recently had piece of glass penetrating his foot ~1 week ago and had I&D with foreign body removal 12/10 Dr. Larson consulted - planning for surgery once INR better Unclear etiology of elevated INR, denies any recent increase in dosing Possibly affected by recent abx/infection Prior wound cultures (12/10): Proteus Mirabilis ESBL and Staph Aureus Continue IV Vanc/Cefepime (12/19-) Monitor for signs of overt bleeding INR slowly improving daily - continue to hold Coumadin Arterial doppler showed moderate bilateral PAD. No high grade stenosis. Local wound care per surgery Paroxysmal A-fib on chronic anticoagulation Hypercoagulable state Continue home metoprolol Coumadin held for surgery HR stable in 70-80s Hx of CKD3 Continue to monitor renal function, electrolytes Sees Dr. Gaytan group Stable. IDDM2 accu-cheks, SSI confirm home meds, restart as appropriate Hypertension Hyperlipidemia BPH hx of CAD s/p PCI Hx of gout Resume home flomax, metoprolol, statin, allopurinol, colchicine Recent PSA of 9. Had OSH MRI prostate done in October which showed multiple lesions - some concerning for malignancy Had Biopsy in November per PCP notes. Unknown results Followed by [facility] Urology 12/25 Left fifth ray amputation. Continue antibiotics-cefepime and vancomycin. Continue wound care PT consult Continue home dose metoprolol Resume Coumadin tomorrow General Surgery Dr. Larson to follow. Code: Full
[2024-12-26] MEDS: MORPHINE 2 MG/ML SYR IV PRN (12:51)
--- NOTE | 2024-12-26 17:08 | P.PN ---
Subjective Date of Service: 12/26/24 Chief Complaint: infected diabetic foot wound Patient denies any new complain No fever. He is tolerating diet. Patient seen after surgery. Physical Examination - Vital Signs Temperature: 98 F Blood Pressure: 187/77 Pulse: 83 Respirations: 17 Pulse Ox (%): 99 Assessment And Plan - Plan Physical Exam: GEN: Alert, oriented, NAD CV: Regular rate and rhythm, no edema Pulm: Nonlabored respirations on room air Integumentary: Left fifth ray amputation wound with clean dressing. Neuro: Normal speech, normal affect Problem List: Infected Diabetic foot ulcer INR supratherapeutic Moderate bilateral PAD Paroxysmal A-fib on chronic anticoagulation Hypercoagulable state Hx of CKD3 IDDM2 Hypertension Hyperlipidemia BPH hx of CAD s/p PCI Hx of gout Infected Diabetic foot ulcer INR supratherapeutic Moderate bilateral PAD Presents as a direct admit from Dr. Larson. Recently had piece of glass penetrating his foot ~1 week ago and had I&D with foreign body removal 12/10 Dr. Larson consulted - planning for surgery once INR better Unclear etiology of elevated INR, denies any recent increase in dosing Possibly affected by recent abx/infection Prior wound cultures (12/10): Proteus Mirabilis ESBL and Staph Aureus Continue IV Vanc/Cefepime (12/19-) Monitor for signs of overt bleeding INR slowly improving daily - continue to hold Coumadin Arterial doppler showed moderate bilateral PAD. No high grade stenosis. Local wound care per surgery Paroxysmal A-fib on chronic anticoagulation Hypercoagulable state Continue home metoprolol Coumadin held for surgery HR stable in 70-80s Hx of CKD3 Continue to monitor renal function, electrolytes Sees Dr. Gaytan group Stable. IDDM2 accu-cheks, SSI confirm home meds, restart as appropriate Hypertension Hyperlipidemia BPH hx of CAD s/p PCI Hx of gout Resume home flomax, metoprolol, statin, allopurinol, colchicine Recent PSA of 9. Had OSH MRI prostate done in October which showed multiple lesions - some concerning for malignancy Had Biopsy in November per PCP notes. Unknown results Followed by [facility] Urology 12/25 Left fifth ray amputation. Continue antibiotics-cefepime and vancomycin. Continue wound care PT consult Continue home dose metoprolol Resume Coumadin tomorrow General Surgery Dr. Larson to follow. 12/26 Patient stated his pain is well-controlled. He lost his IV access. IV antibiotics changed to oral Augmentin and Bactrim Patient seen and evaluated by surgery Dr. Larson who recommend discharge in a.m. Resume Coumadin and monitor PT and INR. Code: Full
[2024-12-26] MEDS: AMOX/K CLAV 875 MG TAB PO SCH (19:51)
[2024-12-26] MEDS: SMZ./TMP. 800/160 MG TABLET PO SCH (19:52)
[2024-12-27 05:29] VITALS: TEMP 97.9
[2024-12-27 06:20] LABS: Absolute Lymphocytes (CBC) 1.1 K/uL (0.7-4.9); Hematocrit 32.3 % (39.6-49.0); Hemoglobin 11.2 g/dL (13.6-17.9); MCH 31.0 pg (27.0-35.0); MCHC 34.5 g/dL (32.0-36.0); MCV 89.9 fL (80-100); MPV 7.8 fL (7.6-11.3); Nucleated RBC Absolute Count 0.0 (0-0); Nucleated Red Blood Cells % 0.0 % (0-0); RBC Red Blood Cell Count 3.60 M/uL (4.33-5.43); White Blood Count 9.40 thou/uL (4.3-10.9)
[2024-12-27 06:35] LABS: Anion Gap 10.1 mEq/L (5.0-15.0); BUN Blood Urea Nitrogen 14.0 mg/dL (7-18); Glucose Level 193.0 mg/dL (74-106); Potassium 4.1 mEq/L (3.5-5.1)
[2024-12-27 06:38] LABS: PT Prothrombin Time 19.1 SECONDS (10-13.0); Protime INR 1.72
[2024-12-27 08:05] VITALS: BP 135/65
[2024-12-27] MEDS: ASPIRIN 325 MG TAB PO SCH (08:11)
[2024-12-27] MEDS: LOSARTAN POTASSIUM 50 MG TABLET PO SCH (08:11)
[2024-12-27] MEDS: ISOSORBIDE MONO SR 30 MG TAB PO SCH (08:11)
[2024-12-27] MEDS: WARFARIN SODIUM 2.5 MG TAB PO SCH (08:12)
[2024-12-27] MEDS ORDERED: HOME MED 1 EA UNK (Losartan Potassium [Losartan Potassium] 100 MG Tablet) PO SCH (09:00)
[2024-12-27] MEDS ORDERED: HOME MED 1 EA UNK (Hydrochlorothiazide [Hydrochlorothiazide] 12.5 MG Tablet) PO SCH (09:00)
--- NOTE | 2024-12-27 09:11 | P.DS ---
Admission Date: 12/19/24 Discharge Date: 12/27/24 Disposition: ROUTINE DISCHARGE Discharge Condition: FAIR Reason for Admission: infected diabetic foot wound Brief History of Present Illness: 79yo M, PMH: IDDM2, HTN, CAD s/p stent, who had an injury 1 week ago with a piece of glass penetrating his foot, status post debridement and removal of glass by Dr. Larson, followed by antibiotic treatment and local wound care followed up at Dr. Larson's and was noted to have worsening appearance of his wound, so he was scheduled for debridement. His INR checked before surgery was greater than 5, so surgery was cancelled and patient admitted for further management. Hospital Course: Problem List: Infected Diabetic foot ulcer INR supratherapeutic Moderate bilateral PAD Paroxysmal A-fib on chronic anticoagulation Hypercoagulable state Hx of CKD3 IDDM2 Hypertension Hyperlipidemia BPH hx of CAD s/p PCI Hx of gout Patient was admitted to the medical floor and treated with broad-spectrum antibiotics which included IV vancomycin and cefepime. His wound culture grew ESBL Proteus mirabilis and Staph aureus. Arterial Doppler of the lower extremity showed moderate bilateral peripheral arterial disease, no high-grade stenosis Patient was seen and evaluated by surgery Dr. Larson who performed left fifth ray amputation. Patient was monitored after amputation, his home dose Coumadin restarted. He was seen and evaluated by physical therapy and patient was able to ambulate with a walker. Patient deemed stable for discharge perDr. Larson. He is discharged with Bactrim and Augmentin and advised to follow-up with Dr. MARGARITO villeda within 1 week. Patient has multiple prostate lesions which is being addressed by [facility] urology. Vital Signs/Physical Exam: Temp Pulse Resp BP Pulse Ox 97.9 F 80 20 135/65 99 12/27/24 08:00 12/27/24 08:00 12/27/24 08:00 12/27/24 08:00 12/27/24 08:00 General: Alert, In no apparent distress, Oriented x3 HEENT: Mucous membr. moist/pink Neck: Supple, JVD not distended Respiratory: Clear to auscultation bilaterally, Normal air movement Cardiovascular: No edema, Regular rate/rhythm, Normal S1 S2 Gastrointestinal: Normal bowel sounds, Soft and benign, Non-distended, No tenderness Musculoskeletal: No swelling Integumentary: No cyanosis Neurological: Normal strength at 5/5 x4 extr Laboratory Data at Discharge: WBC 9.40 thou/uL (4.3-10.9) 12/27/24 05:59 Hgb 11.2 g/dL (13.6-17.9) L 12/27/24 05:59 Hct 32.3 % (39.6-49.0) L 12/27/24 05:59 Plt Count 195 thou/uL (152-406) 12/27/24 05:59 PT 19.1 SECONDS (10-13.0) H 12/27/24 05:59 INR 1.72 12/27/24 05:59 Sodium 136 mEq/L (136-145) 12/27/24 05:59 Potassium 4.1 mEq/L (3.5-5.1) 12/27/24 05:59 BUN 14 mg/dL (7-18) 12/27/24 05:59 Creatinine 1.14 mg/dL (0.70-1.30) 12/27/24 05:59 Glucose 193 mg/dL (74-106) H 12/27/24 05:59 Phosphorus 2.5 mg/dL (2.5-4.9) 12/23/24 04:39 Magnesium 1.8 mg/dL (1.6-2.4) 12/25/24 06:06 Total Bilirubin 0.7 mg/dL (0.2-1.0) 12/22/24 05:47 AST 44 U/L (15-37) H 12/22/24 05:47 ALT 52 U/L (16-61) 12/22/24 05:47 Alkaline Phosphatase 164 U/L (45-117) H 12/22/24 05:47 Home Medications: Aspirin 325 mg PO DAILY 02/10/18 Metformin HCl 1,000 mg PO BID 02/10/18 Tamsulosin [Flomax*] 0.4 mg PO BID 02/10/18 Warfarin Sodium 2.5 mg PO DAILY 02/10/18 Allopurinol 300 mg PO DAILY 12/07/24 Atorvastatin Calcium 20 mg PO DAILY 12/07/24 Colchicine 0.6 mg PO DAILY 12/07/24 Insuln Asp Prt/Insulin Aspart [Novolog Mix 70-30 Vial] 16 unit SQ BID 12/07/24 Isosorbide Mononitrate [Isosorbide Mononitrate ER] 30 mg PO DAILY 12/07/24 Losartan Potassium 100 mg PO DAILY 12/07/24 Metoprolol Succinate 50 mg PO DAILY 12/07/24 [place]-3S/Dha/Epa/Fish Oil [Fish Oil 1,200 mg Softgel] 1 each PO DAILY 12/07/24 hydroCHLOROthiazide [Hydrochlorothiazide] 12.5 mg PO DAILY 12/07/24 Amox/Clavulanate [Augmentin 875-125 Tab*] 875 mg PO BID #20 tab 12/27/24 Hydrocodone 5/APAP 325 [[place] 5/325*] 1 tab PO Q6H PRN #15 tab 12/27/24 Silver Sulfadiazine Crm [Silvadene*] 1 appl TOP DAILY #1 tube 12/27/24 Smz./Tmp. [Bactrim Ds 800 MG/160 MG*] 1 tab PO BID #20 tab 12/27/24 New Medications: Amox/Clavulanate [Augmentin 875-125 Tab*] 875 mg PO BID #20 tab Smz./Tmp. [Bactrim Ds 800 MG/160 MG*] 1 tab PO BID #20 tab Hydrocodone 5/APAP 325 [[place] 5/325*] 1 tab PO Q6H PRN #15 tab PRN Reason: Pain Scale 5-7 (Moderate) Silver Sulfadiazine Crm [Silvadene*] 1 appl TOP DAILY #1 tube Diet: ADA Activity: Ad darius Followup: Tico Coronado DO [Primary Care Provider] - 1-2 Weeks Rolando Larson MD [ACTIVE - CAN ADMIT] - 1-2 Weeks Time spent managing pt's care (in minutes): 35
== END 2024-12-27 11:13 | disposition home or self-care (01) | DRG 240 ==
LOC: OR 09:43 → 2ND 11:52
PROVIDERS: ADMIT Hospitalist; ATTEND Internal Medicine
PROC: 0Y6N0ZF Detachment at Left Foot, Partial 5th Ray, Open Approach (ICD-10-PCS; principal; 2024-12-25 13:15)
DX: E11.52 Type 2 diabetes mellitus with diabetic peripheral angiopathy with gangrene (principal); I48.11 Longstanding persistent atrial fibrillation; M86.172 Other acute osteomyelitis, left ankle and foot; Z16.12 Extended spectrum beta lactamase (ESBL) resistance; E11.69 Type 2 diabetes mellitus with other specified complication; I12.9 Hypertensive chronic kidney disease with stage 1 through stage 4 chronic kidney disease, or unspecified chronic kidney disease; N18.30 Chronic kidney disease, stage 3 unspecified; E11.22 Type 2 diabetes mellitus with diabetic chronic kidney disease; E11.621 Type 2 diabetes mellitus with foot ulcer; L97.529 Non-pressure chronic ulcer of other part of left foot with unspecified severity; M10.9 Gout, unspecified; N40.0 Benign prostatic hyperplasia without lower urinary tract symptoms; E78.00 Pure hypercholesterolemia, unspecified; I25.10 Atherosclerotic heart disease of native coronary artery without angina pectoris; B96.4 Proteus (mirabilis) (morganii) as the cause of diseases classified elsewhere; B95.61 Methicillin susceptible Staphylococcus aureus infection as the cause of diseases classified elsewhere; Z79.4 Long term (current) use of insulin; Z95.5 Presence of coronary angioplasty implant and graft; Z79.82 Long term (current) use of aspirin; Z79.01 Long term (current) use of anticoagulants; Z79.84 Long term (current) use of oral hypoglycemic drugs; Z79.899 Other long term (current) drug therapy; Z87.891 Personal history of nicotine dependence
CPT/HCPCS: 36415; 80048; 80053; 80069; 80202; 82947; 83735; 84132; 85025; 85610; 88305; 88311; 93925; 94760; 97116; 97161; 97530; J0692; J1171; J1815; J2003; J2270; J2405; J2704; J3010; J3370; J3475; J7030; J7040

== ENCOUNTER 2025-02-09 10:37 | Inpatient (IN) | payer MEDICAID ==
--- OUTSIDE RECORDS SUMMARY | 2025-02-09 10:47 | XMS REPORT | Continuity of Care Document ---
Author Name Unknown Address [address] [facility] [address] [place] [address] [facility] [place] Address [address] [facility] [address] [place] [address] Care Team Providers Care Cigar Sorter Name Role Phone TICO CORONADO Primary Care Physician Unavailab DEON Baez Attending Clinician Unavailable SURINDER AGUIRRE Attending Clinician Unavailable MARLEN NELSON Attending Clinician Unavailable TICO CORONADO Attending Clinician Unavailable JOYA RUIZ Attending Clinician UnavailDeon Ballesteros MD Attending Clinician [phone] Jason Perdomo MD Attending Clinician [phone] Arlyn Sawant Attending Clinician [phone] Shekhar [facility] Jj SALINAS Attending Clinician ARLYN SAWANT Attending Clinician Unavailable NT90 Attending Clinician Unavailable HANNAH SHARMA Attending Clinician Unavailable Doctor Unassigned, [place] Attending Clinician U Lachelle Rosa MD Attending Clinician [phone] LACHELLE UMAÑA Attending Clinician Unavailable DEON OTT Attending Clinician Unavailable Art Bradford MD Attending Clinician [phone] GEGE VU Attending Clinician Unavaileddie e CPC075 Attending Clinician Unavailable Kristen Ahumada Attending Clinician Unavailable Pob, [facility] Main Attending Clinician Unavailabl e 2, [facility] Attending Clinician Unavailable Vtc-Lab Attending Clinician Unavailable MILAGROS, GAYATRI S Attending Clinician Unavaileddie Linares MD, Gayatri S Attending Clinician [phone] JJ MARIE Attending Clinician Unavailable LAB90 Attending Clinician Unavailable Leeroy OTT, Lachelle Attending Clinician [phone] TERESA MARTELL Attending Clinician Unavailab Marcelina Barber Attending Clinician Doctor Unassigned, [place] Attending Clinician U kietailJOSEPH Perez Attending Clinician Unavailable Deon Ott MD Attending Clinician [phone] MARCELINA CROWLEY Attending Clinician Unavaila ble [facility] Attending Clinician Unavailable Pob, Adc Lab Main Attending Clinician UnavailLeona Duval DO Attending Clinician [phone] Celena OTT, Nisreen Gregory Attending Clinician Un available Lauren Jefferson RN Attending Clinician Unavailable Melody Cosby DO Attending Clinician [phone] Caroline Min MD Attending Clinician [phone] JOHN BARR Attending Clinician Unavaila ble Cortney ACNP, John Attending Clinician + [phone] TWIN NICK Attending Clinician Unavaila ble [facility] Attending Clinician Unavailable Lucy Kimball MD Attending Clinician [phone] Peng Ernst Attending Clinician [phone] LUCY KIMBALL Attending Clinician Unavailable Joya Ruiz MD Attending Clinician [phone] Twin Nick MD Attending Clinician [phone] LELO YANG Attending Clinician Unavailable Gramm SEBASTIAN Lelo A Attending Clinician [phone] Nurse, Ad[facility] Pob Immunization Attending Clinician Unavailable Lavelle Bates DO Attending Clinician [phone] Nurse, Adc Surgery Gu Attending Clinician Yvette nichols , [facility] Surg Spec Procedure Attending Clinician Unavailable Joseph Ingram MD Attending Clinician [phone] Room, [facility] Uro Procedure Attending Clinician Unav cal Martin RN, Kaiden Franks Attending Clinician Unavail able Kris Kenny Attending Clinician [phone] Peter Fitzgerald MD Attending Clinician [phone] Meera MAYP, Armen Attending Clinician [phone] TATE SHABAZZ Attending Clinician Unavailable 2, [facility] Attending Clinician Unavailable Mor Simpson MD Attending Clinician [phone] MOR SIMPSON Attending Clinician UnavailAJ Harden Attending Clinician Unavailable Aj Davila Attending Clinician [phone] MEERAARMEN Attending Clinician Unavailable JOYA RUIZ Admitting Clinician UnavailJASON Bee Admitting Clinician Unavailable GAYATRI LINARES Admitting Clinician UnavailCaroline Law MD Admitting Clinician [phone] CAROLINE MIN Admitting Clinician Unavailable Peter Fitzgerald MD Admitting Clinician [phone] Payers Payer Name Policy Type Policy Number Effective Date Expirati on Date Source MEDICARE PART A \\T\\ B [id number] 2012 00:00:00 [employer] INDEMNITY [id number] 2013 00:00:00 [employer] H[employer]-POS 16 [id number] 00:00:00 JAY ADVANTAGE OON [id number] 2023 00:00:00 Problems Condition Name Condition Details Condition Category Status Onset Date Resolution Date Last Treatment Date Treating Clinician Comments Source Elevated PSA Elevated PSA Disease Active 06-27 00:00: 00 Isabel keller Type 2 diabetes mellitus with stage 3a chronic kidney disease (multi HCC) Type 2 diabetes mellitus with stage 3a chronic kidney disease (multi HCC) Disease Active 12-27 00:00: 00 Isabel keller Thrombocyt openia Thrombocyt openia Disease Active 12-26 00:00: 00 Isabel keller Controlled type 2 diabetes mellitus with stage 3 chronic kidney disease, with long-term current use of insulin (multi HCC) Controlled type 2 diabetes mellitus with stage 3 chronic kidney disease, with long-term current use of insulin (multi HCC) Disease Active 06-08 00:00: 00 Isabel Secatalinaold - Externa l Controlled type 2 diabetes mellitus with stage 3 chronic kidney disease, with long-term current use of insulin (multi HCC) Controlled type 2 diabetes mellitus with stage 3 chronic kidney disease, with long-term current use of insulin (multi HCC) Disease Active 06-08 00:00: 00 Isabel Hutsonold - Externa l 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) Disease Active 05-24 00:00: 00 Isabel Seybold - Externa l Well adult exam Well adult exam Disease Active 05-18 00:00: 00 Isabel Seybold - Externa l Longstandi ng persistent atrial fibrillati on (multi HCC) Longstandi ng persistent atrial fibrillati on (multi HCC) Disease Active 2022-05 00:00: 00 Isabel Hutsonold - Externa l Atrial fibrillati on (multi HCC) Atrial fibrillati on (multi HCC) Disease Active 2022-05 00:00: 00 Isabel Seybold - Externa l 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 (multi HCC) 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 (multi HCC) Disease Active 2022-05 00:00: 00 Isabel Hutsonold - Externa l Chronic anticoagul ation Chronic anticoagul ation Disease Active 2022-05 00:00: 00 Isabel Secatalinaold - Externa l BPH (benign prostatic hyperplasi a) BPH (benign prostatic hyperplasi a) Disease Active 2022-05 00:00: 00 Isabel Seybold - Externa l DM type 2 with diabetic mixed hyperlipid emia (multi HCC) DM type 2 with diabetic mixed hyperlipid emia (multi HCC) Disease Active 2022-05 00:00: 00 Isabel Seybold - Externa l Gout Gout Disease Active 2022-05 00:00: 00 Isabel Seybold - Externa l HTN (hypertens ion) HTN (hypertens ion) Disease Active 2022-05 00:00: 00 Isabel Seybold - Externa l Obesity Obesity Disease Active 2022-05 00:00: 00 Isabel keller Impacted cerumen of right ear Impacted cerumen of right ear Disease Active 2022-05 00:00: 00 Isabel Morelosa krishna CAD (coronary artery disease) CAD (coronary artery disease) Disease Active 2022-05 00:00: 00 Isabel keller History of heart artery stent History of heart artery stent Disease Active 2022-05 00:00: 00 Isabel keller At risk for falls At risk for falls Disease Active 01-05 00:00: 00 [facility] Unspecifie d abnormalit ies of gait and mobility Unspecifie d abnormalit ies of gait and mobility Disease Active 01-05 00:00: 00 [facility] Obesity (BMI 30-39.9) Obesity (BMI 30-39.9) Disease Active 8 00:00: 00 [facility] 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 Disease Active 8 00:00: 00 [facility] Bacteremia Bacteremia Disease Active 8 00:00: 00 [facility] Complicate d UTI (urinary tract infection) Complicate d UTI (urinary tract infection) Disease Active 6 00:00: 00 [facility] Coronary artery disease involving iroquois coronary artery of iroquois heart without angina pectoris Coronary artery disease involving iroquois coronary artery of iroquois heart without angina pectoris Disease Active 10-14 00:00: 00 [facility] Chronic atrial fibrillati on Chronic atrial fibrillati on Disease Active 6 00:00: 00 [facility] Elevated brain natriureti c peptide (BNP) level Elevated brain natriureti c peptide (BNP) level Disease Active 6 00:00: 00 [facility] Type 2 diabetes mellitus with other specified complicati on Type 2 diabetes mellitus with other specified complicati on Disease Active 6 00:00: 00 [facility] Coronary artery disease involving iroquois coronary artery of iroquois heart without angina pectoris Coronary artery disease involving iroquois coronary artery of iroquois heart without angina pectoris Disease Active 10-14 00:00: 00 [facility] Elevated brain natriureti c peptide (BNP) level Elevated brain natriureti c peptide (BNP) level Disease Active 10-14 00:00: 00 [facility] ANYI (acute kidney injury) ANYI (acute kidney injury) Disease Active 10-13 00:00: 00 [facility] ANYI (acute kidney injury) ANYI (acute kidney injury) Disease Active 10-13 00:00: 00 [facility] Dyslipidem ia Dyslipidem ia Disease Active 06-05 00:00: 00 [facility] Essential hypertensi on Essential hypertensi on Disease Active 06-05 00:00: 00 [facility] Metabolic syndrome Metabolic syndrome Disease Active 06-05 00:00: 00 [facility] Type II or unspecifie d type diabetes mellitus with peripheral site supervisor y disorders, uncontroll ed(250.72) Type II or unspecifie d type diabetes mellitus with peripheral site supervisor y disorders, uncontroll ed(250.72) Disease Active -14 00:00: 00 [facility] 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) Disease Active Isabel keller Allergies, Adverse Reactions, Alerts Allergy Name Allergy Type Status Severity Reaction(s) Onset Date Inactive Date Treating Clinician Comments Source Saxaglip tin Propensi ty to adverse reaction s Active Itching 2015-05 00:00: 00 [facility] Linaglip tin Propensi ty to adverse reaction s Active Itching 2015-05 00:00: 00 [facility] SAXAGLIP TIN DRUG INGREDI Active ITCHING 2015-05 00:00: 00 [facility] LINAGLIP TIN DRUG INGREDI Active ITCHING 2015-05 00:00: 00 [facility] Sitaglip tin Propensi ty to adverse reaction s Active Rash 09-04 00:00: 00 [facility] SITAGLIP TIN DRUG INGREDI Active ITCHING 09-04 00:00: 00 [facility] Social History Social Habit Start Date Stop Date Quantity Comments Source History SDOH Alcohol Frequency [facility] History SDOH Alcohol Std Drinks [facility] History SDOH Alcohol Binge [facility] Sexual orientation Arabella Farnsworth - External History of Occupation Isabel Farnsworth [...] (event) 2022-07-06 00:00:00 2022-07-16 11:25:00 Not sure [facility] Tobacco Comment 2021-12-10 00:00:00 2021-12-10 00:00:00 quit in 1983 [facility] Sex assigned at 1945 00:00:00 1945 00:00:00 Isabel Arzate Smoking Status Start Date Stop Date Source Never smoked tobacco [facility] Ex-smoker 2023-09-14 00:00:00 2023-09-14 00:00:00 Arabella Arzate Medications Ordered Medication Name Filled Medication Name Start Date Stop Date Current Medication? Ordering Clinician Indication Dosage Frequency Signature (SIG) Comments Components Source Insulin Elmo, Disposable, (BD ULTRAFINE III MINI PEN) 31 gauge x 3/16" Ndle 12-12 00:00: 00 Yes [id number] USE TWICE DAILY DIRECTED [facility] Isosorbide Mononitrate CR 30 MG oral TABLET SR 24 HR Isosorbide Mononitrate CR 30 MG oral TABLET SR 24 HR 12-03 15:28: 51 Yes 30mg QD Take 1 tablet (30 mg total) by mouth daily. Isabel keller Happy Jack 3 340 MG oral Delayed Release Capsule Happy Jack 3 340 MG oral Delayed Release Capsule [...] MG oral Tablet 12-03 00:00: 00 Yes [id number] 1{tbl} Q.5D Take 1 tablet by mouth [...] mg total) by mouth daily. Isabel keller Happy Jack 3 340 MG oral Delayed Release Capsule [...] at 1617, Administer over 2-5 Minutes, Intra-op [facility] lidocaine (XYLOCAINE) 2 % jelly URO-JET 11-19 19:57: 00 11-19 19:57 :00 No PRN, Starting on Tue11/19/24 at 1457, Until Tue11/19/24 at 1457, Routine, Intra-op [facility] ALPRAZolam (XANAX) tablet 0.25 mg 11-19 14:45: 00 11-19 19:25 :00 No [id number] .25mg 0.25 mg, Oral, ONCE, 1 dose, On Tue11/19/24 at 0945, Routine [facility] lidocaine variable + sod bicarb injection 11-19 14:45: 00 11-19 20:00 :00 No [id number] 30mL Intraderma l, ONCE, 1 dose, On Tue11/19/24 at 0945, 30 mL [facility] cefdinir 300 mg capsule 10-31 00:00: 00 11-08 04:59 :00 No 300mg Take 1 capsule by mouth in the morning and 1 capsule in the evening. Do all this for 7 days. [facility] sodium phosphates (FLEET ENEMA) 19-7 gram/118 mL enema 10-31 00:00: 00 11-03 04:59 :00 No 1{enema } Insert 1 Enema into rectum in the morning for 2 doses. Follow package directions [facility] ONETOUCH VERIO FLEX METER Misc 10-12 00:00: 00 Yes [id number] Use as directed daily E 11.65 [facility] Blood Glucose Monitoring Suppl (OneTouch Verio Flex System) w/Device does not apply Kit Blood Glucose Monitoring Suppl (OneTouch Verio Flex System) w/Device does not apply Kit 10-12 00:00: 00 Yes USE DIRECTED DAILY E 11.65 Isabel Kauffman l Lancets (OneTouch Delica Plus [id number]) does not apply Misc Lancets (OneTouch Delica Plus [id number]) does not apply Misc 10-11 00:00: 00 Yes Isabel Kauffman l Insulin NPH-Regular Human Rec (NOVOLIN 70-30 FLEXPEN U-100) 100 unit/mL (70-30) injection 10-10 00:00: 00 Yes [id number] 14U inject 14 Units under the skin 2 times daily before breakfast and dinner. E11.65 [facility] lancets (ONETOUCH DELICA PLUS LANCET) 33 gauge Misc 10-10 00:00: 00 Yes [id number] Use to check blood glucose three times daily before meals E11.65 [facility] blood sugar diagnostic (ONETOUCH VERIO TEST STRIPS) strip 10-10 00:00: 00 Yes [id number] Use to check blood glucose 3x daily before meals E11.65 [facility] metFORMIN 1,000 mg tablet 10-10 00:00: 00 Yes [id number] 1000mg Take 1 tablet by mouth every morning and evening. [facility] TAMSULOSIN 0.4 mg 24 hr capsule 10-04 00:00: 00 Yes [id number] TAKE 1 CAPSULE BY MOUTH IN THE MORNING AND IN THE EVENING [facility] Tamsulosin HCl 0.4 MG oral Capsule 08-08 14:40: 20 08-08 00:00 :00 No .4mg Take 1 capsule (0.4 mg total) by mouth every night at bedtime. Isabel keller Happy Jack 3 340 MG oral Delayed Release Capsule [...] Suspension Pen-injecto r 08-08 00:00: 00 Yes [id number] 3 16 unit sc eery am and 14 unit sc every pm. Isabel keller Warfarin 2.5 MG oral Tablet Warfarin 2.5 MG oral Tablet 08-08 00:00: 00 Yes [id number] 2.5mg QD Take 1 tablet (2.5 mg total) by mouth daily. Isabel keller Tamsulosin HCl 0.4 MG oral Capsule Tamsulosin HCl 0.4 MG oral Capsule 08-08 00:00: 00 Yes [id number] .4mg Q.5D Take 1 capsule (0.4 mg total) by mouth in the morning and 1 capsule (0.4 mg total) before bedtime. Isabel keller Ketoconazol e 2 % apply externally Cream 08-08 00:00: 00 11-21 00:00 :00 No [id number] 1{appli cation} Q.5D Apply 1 Applicatio n topically 2 times daily. Isabel keller Gabapentin 100 MG oral Capsule 08-08 00:00: 00 11-21 00:00 :00 No [id number] 100mg Q.5D Take 1 capsule (100 mg total) by mouth 2 times daily as needed. Isabel keller tamsulosin 0.4 mg 24 hr capsule 13 00:00: 00 10-04 00:00 :00 No [id number] .4mg Take 1 capsule by mouth in the morning and 1 capsule in the evening. [facility] Tamsulosin HCl 0.4 MG oral Capsule 06-27 14:25: 38 Yes .4mg Take 1 capsule (0.4 mg total) by mouth every night at bedtime. Isabel keller Isosorbide Mononitrate CR 30 MG oral TABLET SR 24 HR 06-27 14:25: 38 Yes 30mg QD Take 1 tablet (30 mg total) by mouth daily. Isabel keller Happy Jack 3 340 MG oral Delayed Release Capsule 06-27 14:25: 38 Yes 1g Q.5D Take 1 g by mouth 2 times daily. Isabel keller Aspirin (Ecotrin) 325 MG oral Tablet Delayed Response 06-27 14:25: 38 Yes 325mg QD Take 1 tablet (325 mg total) by mouth daily. Isabel keller lidocaine (XYLOCAINE) 2 % jelly URO-JET 10 mL 06-06 19:00: 00 06-06 18:26 :00 No [id number] 10mL 10 mL, Urethral, ONCE, 1 dose, On Tue06/06/24 at 1300, Routine [facility] gentamicin injection 160 mg 06-06 18:00: 00 06-06 17:16 :00 No [id number] 160mg 160 mg, Intramuscu lar, ONCE, 1 dose, On Tue06/06/24 at 1200, [place], Reason for Anti-Infec tive: Surgical Prophylaxi s, Surgical Prophylaxi s: Genitourin filemon, Duration of therapy: within 24 hours of surgery [facility] amoxicillin -pot clavulanate 500 mg (AUGMENTIN) 500-125 mg tablet 06-04 00:00: 00 06-04 00:00 :00 No [id number] 500mg Take 1 tablet by mouth in the morning and 1 tablet at noon and 1 tablet in the evening. [facility] tamsulosin 0.4 mg 24 hr capsule 2023-05 00:00: 00 04-23 00:00 :00 No [id number] .4mg Take 1 capsule by mouth in the morning. [facility] atorvastati n 20 mg tablet 2023-05 14:28: 02 Yes TAKE 1 TABLET BY MOUTH EVERY DAY FOR 90 DAYS [facility] metFORMIN 1,000 mg tablet 2023-05 00:00: 00 10-10 00:00 :00 No [id number] 1000mg Take 1 tablet by mouth every morning and evening. [facility] hydroCHLORO thiazide 12.5 MG oral Tablet hydroCHLORO thiazide 12.5 MG oral Tablet 2023-05 00:00: 00 Yes 12.5mg QD TAKE 1 TABLET BY MOUTH EVERY DAY Isabel keller METFORMIN 1,000 mg tablet 2023-05 00:00: 00 04-11 00:00 :00 No [id number] 1000mg TAKE 1 TABLET BY MOUTH EVERY MORNING AND EVENING. [facility] tamsulosin 0.4 mg 24 hr capsule 2023-05 00:00: 00 Yes [id number] .4mg Take 1 capsule by mouth in the morning and 1 capsule in the evening. [facility] HYDROcodone -acetaminop hen 5-325 mg tablet 2023-05 0-13 00:00: 00 02-26 04:59 :00 No [id number] 1{tbl} Take 1 tablet by mouth every 6 (six) hours as needed for Pain (scale 7-10) for up to 7 days. Indication s: acute pain [facility] blood sugar diagnostic (ONETOUCH VERIO TEST STRIPS) strip 01-12 00:00: 00 Yes [id number] Use to check blood glucose 3x daily before meals E11.65 [facility] metFORMIN 1,000 mg tablet 01-12 00:00: 00 Yes [id number] 1000mg Take 1 tablet by mouth every morning and evening. [facility] Insulin Elmo, Disposable, (SURE COMFORT PEN NEEDLE) 31 gauge x 5/16" Ndle 01-12 00:00: 00 12-12 00:00 :00 No [id number] USE TWICE DAILY [facility] Insulin NPH-Regular Human Rec (NOVOLIN 70-30 FLEXPEN U-100) 100 unit/mL (70-30) injection 01-12 00:00: 00 10-10 00:00 :00 No [id number] 14U inject 14 Units under the skin 2 (two) times daily before breakfast and dinner. E11.65 [facility] blood sugar diagnostic (ONETOUCH VERIO TEST STRIPS) strip 01-12 00:00: 00 10-10 00:00 :00 No [id number] Use to check blood glucose 3x daily before meals E11.65 [facility] Insulin Elmo, Disposable, (SURE COMFORT PEN NEEDLE) 31 gauge x 5/16" Ndle 01-11 00:00: 00 01-12 00:00 :00 No [id number] USE TWICE DAILY [facility] Tamsulosin HCl 0.4 MG oral Capsule 12-26 15:24: 56 Yes .4mg Take 1 capsule (0.4 mg total) by mouth every night at bedtime. Isabel keller Isosorbide Mononitrate CR 30 MG oral TABLET SR 24 HR 12-26 15:24: 56 Yes 30mg QD Take 1 tablet (30 mg total) by mouth daily. Isabel keller Happy Jack 3 340 MG oral Delayed Release Capsule 12-26 15:24: 56 Yes 1g Q.5D Take 1 g by mouth 2 times daily. Isabel keller Aspirin (Ecotrin) 325 MG oral Tablet Delayed Response 12-26 15:24: 56 Yes 325mg QD Take 1 tablet (325 mg total) by mouth daily. Isabel keller Atorvastati n Calcium 20 MG oral Tablet Atorvastati n Calcium 20 MG oral Tablet 12-26 00:00: 00 Yes [id number] 20mg QD Take 1 tablet (20 mg total) by mouth daily FOR 90 DAYS. Isabel keller TAMSULOSIN 0.4 mg 24 hr capsule 12-14 00:00: 00 03-15 00:00 :00 No [id number] TAKE 1 CAPSULE BY MOUTH EVERY MORNING AND EVERY EVENING FOR PAIN [facility] metFORMIN 1,000 mg tablet 12-04 00:00: 00 01-12 00:00 :00 No [id number] 1000mg TAKE 1 TABLET BY MOUTH IN THE MORNING AND IN THE EVENING [facility] Atorvastati n Calcium 20 MG oral [...] 09-12 00:00: 00 12-14 00:00 :00 No [id number] TAKE 1 CAPSULE BY MOUTH EVERY MORNING AND 1 CAPSULE FOR PAIN EVERY EVENING [facility] OneTouch Verio in vitro Strip OneTouch Verio in vitro Strip 4-30 00:00: 00 Yes Isabel keller Sure Comfort Pen Elmo 31G X 8 MM does not apply Misc Sure Comfort Pen Elmo 31G X 8 MM does not apply Misc 4-25 00:00: 00 Yes Q.5D in the morning [...] mg total) by mouth daily. Isabel keller Happy Jack 3 340 MG oral Delayed Release Capsule 06-08 16:05: 38 Yes 1g Take 1 g by mouth 2 times daily. Isabel keller Aspirin (Ecotrin) 325 MG oral Tablet Delayed Response 06-08 16:05: 38 Yes 325mg Take 1 tablet (325 mg total) by mouth daily. Isabel ekller amLODIPine Besy-Benaze pril HCl 10-40 MG oral Capsule 06-08 16:05: 38 Yes 1{capsu le} Take 1 capsule by mouth daily. Isabel keller Colchicine 0.6 MG oral Tablet Colchicine 0.6 MG oral Tablet 06-08 00:00: 00 Yes [id number] .6mg QD Take 1 tablet (0.6 mg total) by mouth daily. Isabel keller Cefdinir 300 MG oral Capsule 05-18 00:00: 00 06-08 00:00 :00 No [id number] 9100 300mg Take 1 capsule (300 mg [...] mg total) by mouth daily. Isabel keller Happy Jack 3 340 MG oral Delayed Release Capsule [...] SR 24 HR 2022-05 00:00: 00 Yes [id number] 50mg QD Take 1 tablet (50 mg total) by mouth daily FOR 90 DAYS. Isabel keller Allopurinol 300 MG oral Tablet Allopurinol 300 MG oral Tablet 2022-05 00:00: 00 12-03 00:00 :00 No [id number] 300mg QD Take 1 tablet (300 mg total) by mouth daily FOR 90 DAYS. Isabel keller Warfarin Sodium (COUMADIN) 2 MG oral Tablet 2022-05 00:00: 00 08-08 00:00 :00 No [id number] 2mg QD Take 1 tablet (2 mg total) by mouth daily. Isabel keller Ketoconazol e 2 % apply externally Cream 2022-05 00:00: 00 06-27 00:00 :00 No [id number] Apply to the affected skin twice daily for 14 days.. Isabel keller Triamcinolo ne Acetonide 0.1 % apply externally Cream 2022-05 00:00: 06-02 05:59 :00 No [id number] Apply to affected skin twice daily for 10 days.. Isabel Farnsworth - Jethroa l lancets (ONETOUCH DELICA PLUS LANCET) 33 gauge [facility] 2022-05 00:00: 00 Yes [id number] Use to check blood glucose three times daily before meals E11.65 [facility] lancets (ONETOUCH DELICA PLUS LANCET) 33 gauge [facility] 2022-05 00:00: 00 10-10 00:00 :00 No [id number] Use to check blood glucose three times daily before meals E11.65 [facility] blood sugar diagnostic (ONETOUCH VERIO TEST STRIPS) strip 2022-05 00:00: 00 01-12 00:00 :00 No [id number] Use to check blood glucose 3x daily before meals E11.65 [facility] ONETOUCH VERIO FLEX METER [facility] 2022-05 00:00: 00 Yes [id number] Use as directed TIDAC E11.65 [facility] Metformin HCl 1000 MG oral Tablet Metformin HCl 1000 MG oral Tablet 2022-05 00:00: 00 Yes 1000mg Q.5D Take 1 tablet (1,000 mg total) by mouth in the morning and 1 tablet (1,000 mg total) in the evening. Isabel Morelosa l ONETOUCH VERIO FLEX METER [facility] 2022-05 00:00: 00 10-12 00:00 :00 No [id number] Use as directed TIDAC E11.65 [facility] Insulin NPH-Regular Human Rec (NOVOLIN 70-30 FLEXPEN U-100) 100 unit/mL (70-30) injection 2022-05 00:00: 00 01-12 00:00 :00 No [id number] 14U inject 14 Units under the skin 2 (two) times daily before breakfast and dinner. E11.65 [facility] ONETOUCH VERIO TEST STRIPS strip 2022-05 00:00: 00 04-12 00:00 :00 No [id number] Use as directed TIDAC E11.65 [facility] ONETOUCH DELICA PLUS LANCET 33 gauge Misc 2022-05 2-04 00:00: 00 04-12 00:00 :00 No [id number] Use as directed TIDAC E11.65 [facility] Metoprolol Succinate 50 MG oral TABLET SR 24 HR 2022-05 1-06 00:00: 00 05-04 00:00 :00 No 50mg Take 1 tablet (50 mg total) by mouth 2 times daily FOR 90 DAYS. [facility] Insulin Elmo, Disposable, (SURE COMFORT PEN NEEDLE) 31 gauge x 5/16" Ndle 2022-05 0-23 00:00: 00 01-11 00:00 :00 No [id number] USE TWICE DAILY [facility] Atorvastati n Calcium 10 MG oral Tablet 2022-05 0-02 00:00: 00 12-26 00:00 :00 No 10mg QD Take 1 tablet (10 mg total) by mouth daily. [facility] keller Insulin NPH-Regular Human Rec (NOVOLIN 70-30 FLEXPEN U-100) 100 unit/mL (70-30) injection 6 00:00: 00 04-11 00:00 :00 No [id number] 14U inject 14 Units under the skin 2 (two) times daily before breakfast and dinner. E11.65 [facility] metFORMIN 1,000 mg tablet 10-11 00:00: 00 04-11 00:00 :00 No [id number] 1000mg Take 1 tablet by mouth in the morning and 1 tablet in the evening. [facility] tamsulosin (FLOMAX) 0.4 mg 24 hr capsule 4-25 00:00: 00 09-12 00:00 :00 No [id number] .4mg Take 1 capsule by mouth in the morning and 1 capsule in the evening. once daily [facility] amoxicillin -pot clavulanate 500 mg (AUGMENTIN) 500-125 mg tablet 3-20 00:00: 00 08-03 04:59 :00 No [id number] 500mg Take 1 tablet by mouth in the morning and 1 tablet in the evening. Do all this for 7 days. [facility] cefUROXime 250 mg tablet 3-09 00:00: 00 07-26 00:00 :00 No [id number] 250mg Take 1 tablet by mouth in the morning and 1 tablet in the evening. [facility] cephALEXin (KEFLEX) 500 mg capsule 2-16 00:00: 00 06-30 05:59 :00 No [id number] 500mg Take 1 capsule by mouth in the morning and 1 capsule in the evening. Do all this for 5 days. [facility] Insulin Elmo, Disposable, (BD ULTRAFINE III MINI PEN) 31 gauge x 3/16" Ndle 06-02 00:00: 00 Yes [id number] USE TO INJECT INSULIN 2X DAILY. DX:E11.9 [facility] Insulin Elmo, Disposable, (BD ULTRAFINE III MINI PEN) 31 gauge x 3/16" Ndle 06-02 00:00: 00 02-28 00:00 :00 No [id number] USE TO INJECT INSULIN 2X DAILY. DX:E11.9 [facility] Insulin NPH-Regular Human Rec (NOVOLIN 70-30 FLEXPEN U-100) 100 unit/mL (70-30) injection 06-02 00:00: 00 10-11 00:00 :00 No [id number] 14U inject 14 Units under the skin 2 (two) times daily before breakfast and dinner. E11.65 [facility] metFORMIN 1,000 mg tablet -25 00:00: 00 10-11 00:00 :00 No [id number] 1000mg Take 1 tablet by mouth in the morning and 1 tablet in the evening. [facility] Insulin NPH-Regular Human Rec (NOVOLIN 70-30 FLEXPEN U-100) 100 unit/mL (70-30) injection 2021-05 0-11 00:00: 00 06-02 00:00 :00 No 8U inject 8 Units under the skin 2 (two) times daily before breakfast and dinner. [facility] metFORMIN 1,000 mg tablet 02-05 00:00: 00 06-02 00:00 :00 No [id number] 1000mg Take 1 tablet by mouth in the morning and 1 tablet in the evening. [facility] insulin NPH and regular human 70-30 (HUMULIN 70/30 U-100 INSULIN) 100 unit/mL (70-30) injection 02-05 00:00: 00 02-16 00:00 :00 No [id number] 8U inject 8 Units under the skin 2 (two) times daily before breakfast and dinner. [facility] metFORMIN 1,000 mg tablet 02-02 00:00: 00 02-05 00:00 :00 No [id number] 1000mg Take 1 tablet by mouth in the morning and 1 tablet in the evening. [facility] tamsulosin (FLOMAX) 0.4 mg 24 hr capsule 01-29 00:00: 00 08-31 00:00 :00 No [id number] .4mg Take 1 capsule by mouth in the morning and 1 capsule in the evening. once daily [facility] losartan 100 mg tablet 12-11 00:47: 02 Yes 100mg Take 100 mg by mouth in the morning. [facility] omega-3 fatty acids-vitam in E (FISH OIL) 1,000 mg capsule 12-09 12:47: 21 Yes 1g Take 1 g by mouth 2 (two) times daily. [facility] losartan 100 mg tablet 12-09 12:47: 21 Yes 100mg Take 100 mg by mouth in the morning. [facility] COLCHICINE 0.6 MG ORAL TAB 12-09 12:47: 21 Yes once daily [facility] ECOTRIN 325 MG ORAL TBEC 12-09 12:47: 21 Yes once daily [facility] WARFARIN 2.5 MG ORAL TAB 12-09 12:47: 21 Yes once daily [facility] IMDUR 30 MG ORAL TB24 12-09 12:47: 21 Yes once daily [facility] omega-3 fatty acids-vitam in E (FISH OIL) 1,000 mg capsule 12-09 12:47: 21 Yes 1g Take 1 g by mouth 2 (two) times daily. [facility] allopurinol (ZYLOPRIM) 300 mg tablet 12-09 12:47: 21 Yes 300mg Take 300 mg by mouth daily. [facility] finasteride 5 mg tablet 12-09 12:47: 21 Yes 5mg Take 5 mg by mouth daily. [facility] B-complex with vitamin C (VITAMIN B COMPLEX-C ORAL) 12-09 12:47: 21 Yes Take by mouth. [facility] levoFLOXaci n 750 mg tablet 12-09 00:00: 00 12-17 04:59 :00 No [id number] 750mg Take 1 tablet by mouth in the morning for 7 days. [facility] metFORMIN 1,000 mg tablet 10-06 00:00: 00 02-02 00:00 :00 No [id number] 1000mg Take 1 tablet by mouth 2 (two) times daily. [facility] tamsulosin (FLOMAX) 0.4 mg 24 hr capsule 06 00:00: 00 01-29 00:00 :00 No [id number] .4mg Take 1 capsule by mouth 2 (two) times daily. once daily [facility] liraglutide (VICTOZA 3-MERON) 0.6 mg/0.1 mL (18 mg/3 mL) injection 3-18 00:00: 00 06-02 00:00 :00 No [id number] 1.8mg inject 1.8 mg under the skin daily. [facility] Insulin Elmo, Disposable, (BD ULTRAFINE III MINI PEN) 31 gauge x 3/16" Ndle 3-14 00:00: 00 06-02 00:00 :00 No USE TO INJECT INSULIN 2X DAILY. DX:E11.9 [facility] blood sugar diagnostic (ACCU-CHEK GUIDE TEST STRIPS) strip 06-05 00:00: 00 04-11 00:00 :00 No [id number] Use to check glucose 3X daily. DX:E11.8 [facility] insulin degludec (TRESIBA FLEXTOUCH U-100) 100 unit/mL (3 mL) InPn 06-05 00:00: 00 02-05 00:00 :00 No [id number] 12U inject 12 Units under the skin daily. [facility] FLOMAX 0.4 MG ORAL CP24 2020-05 15:05: 34 03-31 00:00 :00 No once daily [facility] metoprolol succinate XL 50 mg 24 hr tablet 12-14 00:00: 00 Yes 50mg Take 50 mg by mouth daily. [facility] TOPROL XL 25 MG ORAL TB24 05-21 15:00: 04 05-21 00:00 :00 No once daily [facility] LOTREL 10-40 MG ORAL CAP 05-21 14:59: 17 05-21 00:00 :00 No [facility] atorvastati n (LIPITOR) 10 mg tablet 08-15 00:00: 00 04-11 00:00 :00 No [id number] 10mg Take 1 tablet by mouth at bedtime. [facility] Liraglutide (VICTOZA 3-MERON) 0.6 mg/0.1 mL (18 mg/3 mL) injection 01-26 00:00: 00 03-25 00:00 :00 No 1.8mg inject 0.3 mL under the skin daily. [facility] Liraglutide (VICTOZA 2-MERON) 0.6 mg/0.1 mL (18 mg/3 mL) injection 11-12 00:00: 00 01-26 00:00 :00 No [id number] 1.8mg inject 0.3 mL under the skin daily. [facility] Insulin Syringes, Disposable, 1 mL Syrg 06-25 00:00: 00 05-21 00:00 :00 No [id number] Inject once a day E11.59Use as directed [facility] Insulin Elmo, Disposable, 29 gauge x 1/2" Ndle 06-25 00:00: 00 05-21 00:00 :00 No [id number] Once a day E11.59 [facility] metFORMIN 1,000 mg tablet 06-25 00:00: 00 03-25 00:00 :00 No [id number] 1000mg Take 1 tablet by mouth 2 (two) times daily. [facility] atorvastati n (LIPITOR) 10 mg tablet 06-25 00:00: 00 03-25 00:00 :00 No [id number] 10mg Take 1 tablet by mouth at bedtime. [facility] insulin glargine 100 unit/mL injection 06-25 00:00: 00 03-25 00:00 :00 No [id number] 10U inject 10 Units under the skin daily. [facility] Immunizations Ordered Immunization Name Filled Immunization Name Date Status Comments Source Influenza High Dose 2024-01-13 09:30:00 Completed [facility] Pneumococcal 13 Conjugate, PCV13 (Prevnar 13) 2024-01-13 09:30:00 Completed [facility] SARS-COV-2 COVID-19 PFIZER VACCINE 2024-01-13 09:30:00 Completed [facility] Pneumococcal Polysaccharide, PPSV23 (PNEUMOVAX) 2024-01-13 09:30:00 Completed [facility] Influenza High Dose 2023-09-15 00:00:00 Completed [facility] Pneumococcal 13 Conjugate, PCV13 (Prevnar 13) 2023-09-15 00:00:00 Completed [facility] SARS-COV-2 COVID-19 PFIZER VACCINE 2023-09-15 00:00:00 Completed [facility] Pneumococcal Polysaccharide, PPSV23 (PNEUMOVAX) 2023-09-15 00:00:00 Completed [facility] Influenza High Dose 2023-09-11 00:00:00 Completed [facility] Pneumococcal 13 Conjugate, PCV13 (Prevnar 13) 2023-09-11 00:00:00 Completed [facility] SARS-COV-2 COVID-19 PFIZER VACCINE 2023-09-11 00:00:00 Completed [facility] Pneumococcal Polysaccharide, PPSV23 (PNEUMOVAX) 2023-09-11 00:00:00 Completed [facility] Influenza High Dose 2023-05-04 00:00:00 Completed [facility] Pneumococcal 13 Conjugate, PCV13 (Prevnar 13) 2023-05-04 00:00:00 Completed [facility] SARS-COV-2 COVID-19 PFIZER VACCINE 2023-05-04 00:00:00 Completed [facility] Pneumococcal Polysaccharide, PPSV23 (PNEUMOVAX) 2023-05-04 00:00:00 Completed [facility] Influenza vaccine, quadrivalent, adjuvanted, 65+ Influenza vaccine, quadrivalent, adjuvanted, 65+ 2023-05-04 00:00:00 Completed [facility] Arzate Influenza High Dose 2023-04-12 00:00:00 Completed [facility] Pneumococcal 13 Conjugate, PCV13 (Prevnar 13) 2023-04-12 00:00:00 Completed [facility] SARS-COV-2 COVID-19 PFIZER VACCINE 2023-04-12 00:00:00 Completed [facility] Pneumococcal Polysaccharide, PPSV23 (PNEUMOVAX) 2023-04-12 00:00:00 Completed [facility] Influenza High Dose 2023-04-11 14:30:00 Completed [facility] Pneumococcal 13 Conjugate, PCV13 (Prevnar 13) 2023-04-11 14:30:00 Completed [facility] Pneumococcal Polysaccharide, PPSV23 (PNEUMOVAX) 2023-04-11 14:30:00 Completed [facility] SARS-COV-2 COVID-19 PFIZER VACCINE 2023-04-11 14:30:00 Completed [facility] Influenza High Dose 2023-02-28 00:00:00 Completed [facility] Pneumococcal 13 Conjugate, PCV13 (Prevnar 13) 2023-02-28 00:00:00 Completed [facility] SARS-COV-2 COVID-19 PFIZER VACCINE 2023-02-28 00:00:00 Completed [facility] Pneumococcal Polysaccharide, PPSV23 (PNEUMOVAX) 2023-02-28 00:00:00 Completed [facility] Influenza High Dose 2023-02-27 00:00:00 Completed [facility] Pneumococcal 13 Conjugate, PCV13 (Prevnar 13) 2023-02-27 00:00:00 Completed [facility] SARS-COV-2 COVID-19 PFIZER VACCINE 2023-02-27 00:00:00 Completed [facility] Pneumococcal Polysaccharide, PPSV23 (PNEUMOVAX) 2023-02-27 00:00:00 Completed [facility] Influenza High Dose 2021-06-10 00:00:00 Completed [facility] Pneumococcal 13 Conjugate, PCV13 (Prevnar 13) 2021-06-10 00:00:00 Completed [facility] SARS-COV-2 COVID-19 PFIZER VACCINE 2021-06-10 00:00:00 Completed [facility] Pneumococcal Polysaccharide, PPSV23 (PNEUMOVAX) 2021-06-10 00:00:00 Completed [facility] SARS-COV-2 COVID-19 PFIZER VACCINE 2021-04-15 00:00:00 Completed [facility] SARS-COV-2 COVID-19 PFIZER VACCINE 2021-04-15 00:00:00 Completed [facility] SARS-COV-2 COVID-19 PFIZER VACCINE 2021-04-15 00:00:00 Completed [facility] SARS-COV-2 COVID-19 PFIZER VACCINE 2021-04-15 00:00:00 Completed [facility] SARS-COV-2 COVID-19 PFIZER VACCINE 2021-04-15 00:00:00 Completed [facility] SARS-COV-2 COVID-19 PFIZER VACCINE 2021-04-15 00:00:00 Completed [facility] SARS-COV-2 COVID-19 PFIZER VACCINE 2021-04-15 00:00:00 Completed [facility] SARS-COV-2 COVID-19 PFIZER VACCINE 2021-04-15 00:00:00 Completed [facility] SARS-COV-2 COVID-19 PFIZER VACCINE 2021-04-15 00:00:00 Completed [facility] SARS-COV-2 COVID-19 PFIZER VACCINE 2021-04-15 00:00:00 Completed [facility] SARS-COV-2 COVID-19 PFIZER VACCINE 2021-04-15 00:00:00 Completed [facility] SARS-COV-2 COVID-19 PFIZER VACCINE 2021-04-15 00:00:00 Completed [facility] SARS-COV-2 COVID-19 PFIZER VACCINE 2021-04-15 00:00:00 Completed [facility] SARS-COV-2 COVID-19 PFIZER VACCINE 2021-04-15 00:00:00 Completed [facility] SARS-COV-2 COVID-19 PFIZER VACCINE 2021-04-15 00:00:00 Completed [facility] SARS-COV-2 COVID-19 PFIZER VACCINE 2021-04-15 00:00:00 Completed [facility] SARS-COV-2 COVID-19 PFIZER VACCINE 2021-04-15 00:00:00 Completed [facility] SARS-COV-2 COVID-19 PFIZER VACCINE 2021-04-15 00:00:00 Completed [facility] SARS-COV-2 COVID-19 PFIZER VACCINE 2021-04-15 00:00:00 Completed [facility] SARS-COV-2 COVID-19 PFIZER VACCINE 2021-04-15 00:00:00 Completed [facility] SARS-COV-2 COVID-19 PFIZER VACCINE 2021-04-15 00:00:00 Completed [facility] SARS-COV-2 COVID-19 PFIZER VACCINE 2021-04-15 00:00:00 Completed [facility] SARS-COV-2 COVID-19 PFIZER VACCINE 2021-04-15 00:00:00 Completed [facility] SARS-COV-2 COVID-19 PFIZER VACCINE 2021-04-15 00:00:00 Completed [facility] SARS-COV-2 COVID-19 PFIZER VACCINE 2021-04-15 00:00:00 Completed [facility] SARS-COV-2 COVID-19 PFIZER VACCINE 2021-04-15 00:00:00 Completed [facility] SARS-COV-2 COVID-19 PFIZER VACCINE 2021-04-15 00:00:00 Completed [facility] SARS-COV-2 COVID-19 PFIZER VACCINE 2021-04-15 00:00:00 Completed [facility] SARS-COV-2 COVID-19 PFIZER VACCINE 2021-04-15 00:00:00 Completed [facility] SARS-COV-2 COVID-19 PFIZER VACCINE 2021-04-15 00:00:00 Completed [facility] SARS-COV-2 COVID-19 PFIZER VACCINE 2020-07-11 00:00:00 Completed [facility] SARS-COV-2 COVID-19 PFIZER VACCINE 2020-07-11 00:00:00 Completed [facility] SARS-COV-2 COVID-19 PFIZER VACCINE 2020-07-11 00:00:00 Completed [facility] SARS-COV-2 COVID-19 PFIZER VACCINE 2020-07-11 00:00:00 Completed [facility] SARS-COV-2 COVID-19 PFIZER VACCINE 2020-07-11 00:00:00 Completed [facility] SARS-COV-2 COVID-19 PFIZER VACCINE 2020-07-11 00:00:00 Completed [facility] SARS-COV-2 COVID-19 PFIZER VACCINE 2020-07-11 00:00:00 Completed [facility] SARS-COV-2 COVID-19 PFIZER VACCINE 2020-07-11 00:00:00 Completed [facility] SARS-COV-2 COVID-19 PFIZER VACCINE 2020-07-11 00:00:00 Completed [facility] SARS-COV-2 COVID-19 PFIZER VACCINE 2020-07-11 00:00:00 Completed [facility] SARS-COV-2 COVID-19 PFIZER VACCINE 2020-07-11 00:00:00 Completed [facility] SARS-COV-2 COVID-19 PFIZER VACCINE 2020-07-11 00:00:00 Completed [facility] SARS-COV-2 COVID-19 PFIZER VACCINE 2020-07-11 00:00:00 Completed [facility] SARS-COV-2 COVID-19 PFIZER VACCINE 2020-07-11 00:00:00 Completed [facility] SARS-COV-2 COVID-19 PFIZER VACCINE 2020-07-11 00:00:00 Completed [facility] SARS-COV-2 COVID-19 PFIZER VACCINE 2020-07-11 00:00:00 Completed [facility] SARS-COV-2 COVID-19 PFIZER VACCINE 2020-07-11 00:00:00 Completed [facility] SARS-COV-2 COVID-19 PFIZER VACCINE 2020-07-11 00:00:00 Completed [facility] SARS-COV-2 COVID-19 PFIZER VACCINE 2020-07-11 00:00:00 Completed [facility] SARS-COV-2 COVID-19 PFIZER VACCINE 2020-07-11 00:00:00 Completed [facility] SARS-COV-2 COVID-19 PFIZER VACCINE 2020-07-11 00:00:00 Completed [facility] SARS-COV-2 COVID-19 PFIZER VACCINE 2020-07-11 00:00:00 Completed [facility] SARS-COV-2 COVID-19 PFIZER VACCINE 2020-07-11 00:00:00 Completed [facility] SARS-COV-2 COVID-19 PFIZER VACCINE 2020-07-11 00:00:00 Completed [facility] SARS-COV-2 COVID-19 PFIZER VACCINE 2020-07-11 00:00:00 Completed [facility] SARS-COV-2 COVID-19 PFIZER VACCINE 2020-07-11 00:00:00 Completed [facility] SARS-COV-2 COVID-19 PFIZER VACCINE 2020-07-11 00:00:00 Completed [facility] SARS-COV-2 COVID-19 PFIZER VACCINE 2020-07-11 00:00:00 Completed [facility] SARS-COV-2 COVID-19 PFIZER VACCINE 2020-07-11 00:00:00 Completed [facility] SARS-COV-2 COVID-19 PFIZER VACCINE 2020-07-11 00:00:00 Completed [facility] SARS-COV-2 COVID-19 PFIZER VACCINE 2020-06-20 00:00:00 Completed [facility] SARS-COV-2 COVID-19 PFIZER VACCINE 2020-06-20 00:00:00 Completed [facility] SARS-COV-2 COVID-19 PFIZER VACCINE 2020-06-20 00:00:00 Completed [facility] SARS-COV-2 COVID-19 PFIZER VACCINE 2020-06-20 00:00:00 Completed [facility] SARS-COV-2 COVID-19 PFIZER VACCINE 2020-06-20 00:00:00 Completed [facility] SARS-COV-2 COVID-19 PFIZER VACCINE 2020-06-20 00:00:00 Completed [facility] SARS-COV-2 COVID-19 PFIZER VACCINE 2020-06-20 00:00:00 Completed [facility] SARS-COV-2 COVID-19 PFIZER VACCINE 2020-06-20 00:00:00 Completed [facility] SARS-COV-2 COVID-19 PFIZER VACCINE 2020-06-20 00:00:00 Completed [facility] SARS-COV-2 COVID-19 PFIZER VACCINE 2020-06-20 00:00:00 Completed [facility] SARS-COV-2 COVID-19 PFIZER VACCINE 2020-06-20 00:00:00 Completed [facility] SARS-COV-2 COVID-19 PFIZER VACCINE 2020-06-20 00:00:00 Completed [facility] SARS-COV-2 COVID-19 PFIZER VACCINE 2020-06-20 00:00:00 Completed [facility] SARS-COV-2 COVID-19 PFIZER VACCINE 2020-06-20 00:00:00 Completed [facility] SARS-COV-2 COVID-19 PFIZER VACCINE 2020-06-20 00:00:00 Completed [facility] SARS-COV-2 COVID-19 PFIZER VACCINE 2020-06-20 00:00:00 Completed [facility] SARS-COV-2 COVID-19 PFIZER VACCINE 2020-06-20 00:00:00 Completed [facility] SARS-COV-2 COVID-19 PFIZER VACCINE 2020-06-20 00:00:00 Completed [facility] SARS-COV-2 COVID-19 PFIZER VACCINE 2020-06-20 00:00:00 Completed [facility] SARS-COV-2 COVID-19 PFIZER VACCINE 2020-06-20 00:00:00 Completed [facility] SARS-COV-2 COVID-19 PFIZER VACCINE 2020-06-20 00:00:00 Completed [facility] SARS-COV-2 COVID-19 PFIZER VACCINE 2020-06-20 00:00:00 Completed [facility] SARS-COV-2 COVID-19 PFIZER VACCINE 2020-06-20 00:00:00 Completed [facility] SARS-COV-2 COVID-19 PFIZER VACCINE 2020-06-20 00:00:00 Completed [facility] SARS-COV-2 COVID-19 PFIZER VACCINE 2020-06-20 00:00:00 Completed [facility] SARS-COV-2 COVID-19 PFIZER VACCINE 2020-06-20 00:00:00 Completed [facility] SARS-COV-2 COVID-19 PFIZER VACCINE 2020-06-20 00:00:00 Completed [facility] SARS-COV-2 COVID-19 PFIZER VACCINE 2020-06-20 00:00:00 Completed [facility] SARS-COV-2 COVID-19 PFIZER VACCINE 2020-06-20 00:00:00 Completed [facility] Pneumococcal Polysaccharide, PPSV23 (PNEUMOVAX) 2019-02-14 00:00:00 Completed [facility] Pneumococcal Polysaccharide, PPSV23 (PNEUMOVAX) 2019-02-14 00:00:00 Completed [facility] Pneumococcal Polysaccharide, PPSV23 (PNEUMOVAX) 2019-02-14 00:00:00 Completed [facility] Pneumococcal Polysaccharide, PPSV23 (PNEUMOVAX) 2019-02-14 00:00:00 Completed [facility] Pneumococcal Polysaccharide, PPSV23 (PNEUMOVAX) 2019-02-14 00:00:00 Completed [facility] Pneumococcal Polysaccharide, PPSV23 (PNEUMOVAX) 2019-02-14 00:00:00 Completed [facility] Pneumococcal Polysaccharide, PPSV23 (PNEUMOVAX) 2019-02-14 00:00:00 Completed [facility] Pneumococcal Polysaccharide, PPSV23 (PNEUMOVAX) 2019-02-14 00:00:00 Completed [facility] Pneumococcal Polysaccharide, PPSV23 (PNEUMOVAX) 2019-02-14 00:00:00 Completed [facility] Pneumococcal Polysaccharide, PPSV23 (PNEUMOVAX) 2019-02-14 00:00:00 Completed [facility] Pneumococcal Polysaccharide, PPSV23 (PNEUMOVAX) 2019-02-14 00:00:00 Completed [facility] Pneumococcal Polysaccharide, PPSV23 (PNEUMOVAX) 2019-02-14 00:00:00 Completed [facility] Pneumococcal Polysaccharide, PPSV23 (PNEUMOVAX) 2019-02-14 00:00:00 Completed [facility] Pneumococcal Polysaccharide, PPSV23 (PNEUMOVAX) 2019-02-14 00:00:00 Completed [facility] Pneumococcal Polysaccharide, PPSV23 (PNEUMOVAX) 2019-02-14 00:00:00 Completed [facility] Pneumococcal Polysaccharide, PPSV23 (PNEUMOVAX) 2019-02-14 00:00:00 Completed [facility] Pneumococcal Polysaccharide, PPSV23 (PNEUMOVAX) 2019-02-14 00:00:00 Completed [facility] Pneumococcal Polysaccharide, PPSV23 (PNEUMOVAX) 2019-02-14 00:00:00 Completed [facility] Pneumococcal Polysaccharide, PPSV23 (PNEUMOVAX) 2019-02-14 00:00:00 Completed [facility] Pneumococcal Polysaccharide, PPSV23 (PNEUMOVAX) 2019-02-14 00:00:00 Completed [facility] Pneumococcal Polysaccharide, PPSV23 (PNEUMOVAX) 2019-02-14 00:00:00 Completed [facility] Pneumococcal Polysaccharide, PPSV23 (PNEUMOVAX) 2019-02-14 00:00:00 Completed [facility] Pneumococcal Polysaccharide, PPSV23 (PNEUMOVAX) 2019-02-14 00:00:00 Completed [facility] Pneumococcal Polysaccharide, PPSV23 (PNEUMOVAX) 2019-02-14 00:00:00 Completed [facility] Pneumococcal Polysaccharide, PPSV23 (PNEUMOVAX) 2019-02-14 00:00:00 Completed [facility] Pneumococcal Polysaccharide, PPSV23 (PNEUMOVAX) 2019-02-14 00:00:00 Completed [facility] Pneumococcal Polysaccharide, PPSV23 (PNEUMOVAX) 2019-02-14 00:00:00 Completed [facility] Pneumococcal Polysaccharide, PPSV23 (PNEUMOVAX) 2019-02-14 00:00:00 Completed [facility] Pneumococcal Polysaccharide, PPSV23 (PNEUMOVAX) 2019-02-14 00:00:00 Completed [facility] Pneumococcal Vaccine, Polysaccharide Pneumococcal Vaccine, Polysaccharide 2019-02-14 00:00:00 Completed [facility] Arzate Influenza High Dose 2019-02-07 00:00:00 Completed [facility] Influenza High Dose 2019-02-07 00:00:00 Completed [facility] Influenza High Dose 2019-02-07 00:00:00 Completed [facility] Influenza High Dose 2019-02-07 00:00:00 Completed [facility] Influenza High Dose 2019-02-07 00:00:00 Completed [facility] Influenza High Dose 2019-02-07 00:00:00 Completed [facility] Influenza High Dose 2019-02-07 00:00:00 Completed [facility] Influenza High Dose 2019-02-07 00:00:00 Completed [facility] Influenza High Dose 2019-02-07 00:00:00 Completed [facility] Influenza High Dose 2019-02-07 00:00:00 Completed [facility] Influenza High Dose 2019-02-07 00:00:00 Completed [facility] Influenza High Dose 2019-02-07 00:00:00 Completed [facility] Influenza High Dose 2019-02-07 00:00:00 Completed [facility] Influenza High Dose 2019-02-07 00:00:00 Completed [facility] Influenza High Dose 2019-02-07 00:00:00 Completed [facility] Influenza High Dose 2019-02-07 00:00:00 Completed [facility] Influenza High Dose 2019-02-07 00:00:00 Completed [facility] Influenza High Dose 2019-02-07 00:00:00 Completed [facility] Influenza High Dose 2019-02-07 00:00:00 Completed [facility] Influenza High Dose 2019-02-07 00:00:00 Completed [facility] Influenza High Dose 2019-02-07 00:00:00 Completed [facility] Influenza High Dose 2019-02-07 00:00:00 Completed [facility] Influenza High Dose 2019-02-07 00:00:00 Completed [facility] Influenza High Dose 2019-02-07 00:00:00 Completed [facility] Influenza High Dose 2019-02-07 00:00:00 Completed [facility] Influenza High Dose 2019-02-07 00:00:00 Completed [facility] Influenza High Dose 2019-02-07 00:00:00 Completed [facility] Influenza High Dose 2019-02-07 00:00:00 Completed [facility] Influenza High Dose 2019-02-07 00:00:00 Completed [facility] Influenza Virus Vaccine, High Dose, Age 65 And Up Influenza Virus Vaccine, High Dose, Age 65 And Up 2019-02-07 00:00:00 Completed Isabel Arzate Pneumococcal 13 Conjugate, PCV13 (Prevnar 13) 2018-02-03 00:00:00 Completed [facility] Pneumococcal 13 Conjugate, PCV13 (Prevnar 13) 2018-02-03 00:00:00 Completed [facility] Pneumococcal 13 Conjugate, PCV13 (Prevnar 13) 2018-02-03 00:00:00 Completed [facility] Pneumococcal 13 Conjugate, PCV13 (Prevnar 13) 2018-02-03 00:00:00 Completed [facility] Pneumococcal 13 Conjugate, PCV13 (Prevnar 13) 2018-02-03 00:00:00 Completed [facility] Pneumococcal 13 Conjugate, PCV13 (Prevnar 13) 2018-02-03 00:00:00 Completed [facility] Pneumococcal 13 Conjugate, PCV13 (Prevnar 13) 2018-02-03 00:00:00 Completed [facility] Pneumococcal 13 Conjugate, PCV13 (Prevnar 13) 2018-02-03 00:00:00 Completed [facility] Pneumococcal 13 Conjugate, PCV13 (Prevnar 13) 2018-02-03 00:00:00 Completed [facility] Pneumococcal 13 Conjugate, PCV13 (Prevnar 13) 2018-02-03 00:00:00 Completed [facility] Pneumococcal 13 Conjugate, PCV13 (Prevnar 13) 2018-02-03 00:00:00 Completed [facility] Pneumococcal 13 Conjugate, PCV13 (Prevnar 13) 2018-02-03 00:00:00 Completed [facility] Pneumococcal 13 Conjugate, PCV13 (Prevnar 13) 2018-02-03 00:00:00 Completed [facility] Pneumococcal 13 Conjugate, PCV13 (Prevnar 13) 2018-02-03 00:00:00 Completed [facility] Pneumococcal 13 Conjugate, PCV13 (Prevnar 13) 2018-02-03 00:00:00 Completed [facility] Pneumococcal 13 Conjugate, PCV13 (Prevnar 13) 2018-02-03 00:00:00 Completed [facility] Pneumococcal 13 Conjugate, PCV13 (Prevnar 13) 2018-02-03 00:00:00 Completed [facility] Pneumococcal 13 Conjugate, PCV13 (Prevnar 13) 2018-02-03 00:00:00 Completed [facility] Pneumococcal 13 Conjugate, PCV13 (Prevnar 13) 2018-02-03 00:00:00 Completed [facility] Pneumococcal 13 Conjugate, PCV13 (Prevnar 13) 2018-02-03 00:00:00 Completed [facility] Pneumococcal 13 Conjugate, PCV13 (Prevnar 13) 2018-02-03 00:00:00 Completed [facility] Pneumococcal 13 Conjugate, PCV13 (Prevnar 13) 2018-02-03 00:00:00 Completed [facility] Pneumococcal 13 Conjugate, PCV13 (Prevnar 13) 2018-02-03 00:00:00 Completed [facility] Pneumococcal 13 Conjugate, PCV13 (Prevnar 13) 2018-02-03 00:00:00 Completed [facility] Pneumococcal 13 Conjugate, PCV13 (Prevnar 13) 2018-02-03 00:00:00 Completed [facility] Pneumococcal 13 Conjugate, PCV13 (Prevnar 13) 2018-02-03 00:00:00 Completed [facility] Pneumococcal 13 Conjugate, PCV13 (Prevnar 13) 2018-02-03 00:00:00 Completed [facility] Pneumococcal 13 Conjugate, PCV13 (Prevnar 13) 2018-02-03 00:00:00 Completed [facility] Pneumococcal 13 Conjugate, PCV13 (Prevnar 13) 2018-02-03 00:00:00 Completed [facility] Pneumococcal Vaccine, Conjugate 13 Pneumococcal Vaccine, Conjugate 13 2018-02-03 00:00:00 Completed Isabel Farnsworth - External Influenza Virus Vaccine, High Dose, Age 65 And Up Unknown Completed Isabel Devine External Pneumococcal Vaccine, Conjugate 13 Unknown Completed Isabel Devine External Pneumococcal Vaccine, Polysaccharide Unknown Completed Isabel [...] Systolic blood pressure 2024-12-03 15:23:00 122 mm[Hg] Isabel Seybo ld - External Diastolic blood pressure 2024-12-03 15:23:00 70 mm[Hg] Isabel Seybo ld - External Heart rate 2024-12-03 15:23:00 91 /min Pollose y Seybold - External Body temperature 2024-12-03 15:23:00 36.89 Melinda Isabel Seybold - External Respiratory rate 2024-12-03 15:23:00 18 /min Isabel Antunezybold - External Body height 2024-12-03 15:23:00 177.8 cm Patience ey Seybold - External Body weight 2024-12-03 15:23:00 97.07 kg Patience ey Seybold - External BMI 2024-12-03 15:23:00 30.71 kg/m2 Patience ey Seybold - External Oxygen saturation in Arterial blood by Pulse oximetry 2024-12-03 15:23:00 98 /min Isabel Hutosno ld - External Systolic blood pressure 2024-11-21 18:43:00 118 mm[Hg] Isabel Antunezybo ld - External Diastolic blood pressure 2024-11-21 18:43:00 72 mm[Hg] Isabel Antunezybo ld - External Heart rate 2024-11-21 18:43:00 96 /min Hilario y Seybold - External Body temperature 2024-11-21 18:43:00 36.5 Melinda Isabel Seybold - External Respiratory rate 2024-11-21 18:43:00 20 /min Isabel Antunezybold - External Body height 2024-11-21 18:43:00 177.8 cm Patience ey Seybold - External Body weight 2024-11-21 18:43:00 97.07 kg Patience ey Seybold - External BMI 2024-11-21 18:43:00 30.71 kg/m2 Patience ey Seybold - External Oxygen saturation in Arterial blood by Pulse oximetry 2024-11-21 18:43:00 96 /min Isabel Hutsono ld - External Systolic blood pressure 2024-11-19 21:50:00 140 mm[Hg] [facility] Diastolic blood pressure 2024-11-19 21:50:00 68 mm[Hg] [facility] Respiratory rate 2024-11-19 21:50:00 17 /min [facility] Oxygen saturation in Arterial blood by Pulse oximetry 2024-11-19 21:50:00 97 /min [facility] Heart rate 2024-11-19 21:15:00 98 /min [facility] Systolic blood pressure 2024-10-10 18:03:00 107 mm[Hg] [facility] Diastolic blood pressure 2024-10-10 18:03:00 72 mm[Hg] [facility] Heart rate 2024-10-10 18:03:00 84 /min [facility] Respiratory rate 2024-10-10 18:03:00 18 /min [facility] Body height 2024-10-10 18:03:00 177.8 cm [facility] Body weight 2024-10-10 18:03:00 93.895 kg [facility] BMI 2024-10-10 18:03:00 29.70 kg/m2 [facility] Oxygen saturation in Arterial blood by Pulse oximetry 2024-10-10 18:03:00 95 /min [facility] Systolic blood pressure 2024-08-08 19:16:00 116 [...] blood pressure 2024-06-27 20:22:00 72 mm[Hg] Isabel Hutsono ld - External Heart rate 2024-06-27 20:22:00 93 /min Hilario Farnsworth - External Body temperature 2024-06-27 20:22:00 36.28 Melinda Isabel Farnsworth - External Respiratory rate 2024-06-27 20:22:00 18 /min Isabel Farnsworth - External Body height 2024-06-27 20:22:00 177.8 cm Patience valdes Seybold - External Body weight 2024-06-27 20:22:00 96.163 kg Patience ey Seybold - External BMI 2024-06-27 20:22:00 30.42 kg/m2 Patience valdes Seybold - External Oxygen saturation in Arterial blood by Pulse oximetry 2024-06-27 20:22:00 100 /min Isabel Parekh ld - External Systolic blood pressure 2024-06-06 16:52:00 135 mm[Hg] [facility] Diastolic blood pressure 2024-06-06 16:52:00 75 mm[Hg] [facility] Heart rate 2024-06-06 16:52:00 76 /[facility] Body height 2024-06-06 16:52:00 177.8 cm [facility] Body weight 2024-06-06 16:52:00 98.431 kg [facility] BMI 2024-06-06 16:52:00 31.14 kg/m2 [facility] Oxygen saturation in Arterial blood by Pulse oximetry 2024-06-06 16:52:00 98 /min [facility] Systolic blood pressure 2024-04-20 20:02:00 138 mm[Hg] [facility] Diastolic blood pressure 2024-04-20 20:02:00 87 mm[Hg] [facility] Heart rate 2024-04-20 20:02:00 80 /min [facility] Body temperature 2024-04-20 20:02:00 36.67 Melinda [facility] Respiratory rate 2024-04-20 20:02:00 20 /min [facility] Body height 2024-04-20 20:02:00 177.8 cm [facility] Body weight 2024-04-20 20:02:00 97.977 kg [facility] BMI 2024-04-20 20:02:00 30.99 kg/m2 [facility] Oxygen saturation in Arterial blood by Pulse oximetry 2024-04-20 20:02:00 100 /min [facility] Systolic blood pressure 2024-04-11 19:56:00 109 mm[Hg] [facility] Diastolic blood pressure 2024-04-11 19:56:00 58 mm[Hg] [facility] Heart rate 2024-04-11 19:56:00 85 /min [facility] Respiratory rate 2024-04-11 19:56:00 16 /min [facility] Body height 2024-04-11 19:56:00 175.3 cm [facility] Body weight 2024-04-11 19:56:00 96.208 kg [facility] BMI 2024-04-11 19:56:00 31.32 kg/m2 [facility] Oxygen saturation in Arterial blood by Pulse oximetry 2024-04-11 19:56:00 97 /min [facility] Systolic blood pressure 2024-02-19 19:18:00 132 mm[Hg] [facility] Diastolic blood pressure 2024-02-19 19:18:00 73 mm[Hg] [facility] Heart rate 2024-02-19 19:18:00 73 /min [facility] Body temperature 2024-02-19 19:18:00 37 Melinda [facility] Respiratory rate 2024-02-19 19:18:00 15 /min [facility] Oxygen saturation in Arterial blood by Pulse oximetry 2024-02-19 19:18:00 98 /min [facility] Body height 2024-02-19 18:46:00 [facility].3 [facility] 2024-02-19 18:46:00 95.255 kg [facility] BMI 2024-02-19 18:46:00 31.01 kg/m2 [facility] Systolic blood pressure 2024-01-13 14:34:00 107 mm[Hg] [facility] Diastolic blood pressure 2024-01-13 14:34:00 50 mm[Hg] [facility] Heart rate 2024-01-13 14:34:00 74 /min [facility] 2024-01-13 14:34:00 14 /min [facility] Body height 2024-01-13 14:34:00 175.3 cm [facility] Body weight 2024-01-13 14:34:00 98.703 kg [facility] BMI 2024-01-13 14:34:00 32.13 kg/m2 [facility] Oxygen saturation in Arterial blood by Pulse oximetry 2024-01-13 14:34:00 99 /min [facility] Systolic blood pressure 2023-12-27 20:23:00 119 mm[Hg] Isabel Antunezybo ld - External Diastolic blood pressure 2023-12-27 20:23:00 73 mm[Hg] Isabel Antunezybo ld - External Heart rate 2023-12-27 20:23:00 89 /min Kelse y Seybold - External Body temperature 2023-12-27 20:23:00 36.56 Melinda Isabel Seybold - External Respiratory rate 2023-12-27 20:23:00 20 /min Isabel Antunezybold - External Body height 2023-12-27 20:23:00 177.8 cm Patience ey Seybold - External Body weight 2023-12-27 20:23:00 97.523 kg Patience ey Seybold - External BMI 2023-12-27 20:23:00 30.85 kg/m2 Patience ey Seybold - External Oxygen saturation in Arterial blood by Pulse oximetry 2023-12-27 20:23:00 98 /min Isabel Hutsono ld - External Systolic blood pressure 2023-10-12 17:50:00 138 mm[Hg] [facility] Diastolic blood pressure 2023-10-12 17:50:00 84 mm[Hg] [facility] Heart rate 2023-10-12 17:50:00 79 /min [facility] 2023-10-12 17:50:00 16 /min [facility] Body height 2023-10-12 17:50:00 175.3 cm [facility] Body weight 2023-10-12 17:50:00 97.024 kg [facility] BMI 2023-10-12 17:50:00 31.59 kg/m2 [facility] Oxygen saturation in Arterial blood by Pulse oximetry 2023-10-12 17:50:00 98 /min [facility] Systolic blood pressure 2023-09-14 13:24:00 122 [...] Body weight 2023-06-08 22:04:00 99.338 kg Patience valdes Seybold - External BMI 2023-06-08 22:04:00 31.42 kg/m2 Patience valdes Seybold - External Oxygen saturation in Arterial blood by Pulse oximetry 2023-06-08 22:04:00 98 /min Isabel Parekh ld - External Systolic blood pressure 2023-05-04 20:46:00 129 mm[Hg] Isabel Hutsono ld - External Diastolic blood pressure 2023-05-04 20:46:00 89 mm[Hg] Isabel Hutsono ld - External Heart rate 2023-05-04 20:46:00 78 /min Hilario Farnsworth - External Body temperature 2023-05-04 20:46:00 36.94 Melinda Isabel Farnsworth - External Body height 2023-05-04 20:46:00 177.8 cm Patience valdes Seybold - External Body weight 2023-05-04 20:46:00 97.523 kg Patience valdes Seybold - External BMI 2023-05-04 20:46:00 30.85 kg/m2 Patience valdes Seybold - External Systolic blood pressure 2023-04-11 20:48:00 156 mm[Hg] [facility] Diastolic blood pressure 2023-04-11 20:48:00 75 mm[Hg] [facility] Heart rate 2023-04-11 20:48:00 76 /min [facility] Respiratory rate 2023-04-11 20:48:00 18 /min [facility] Body height 2023-04-11 20:48:00 175.3 cm [facility] Body weight 2023-04-11 20:48:00 96.616 kg [facility] BMI 2023-04-11 20:48:00 31.45 kg/m2 [facility] Oxygen saturation in Arterial blood by Pulse oximetry 2023-04-11 20:48:00 100 /min [facility] Systolic blood pressure 2023-01-05 19:08:00 126 mm[Hg] [facility] Diastolic blood pressure 2023-01-05 19:08:00 68 mm[Hg] [facility] Heart rate 2023-01-05 19:08:00 99 /min [facility] Body temperature 2023-01-05 19:08:00 36.11 Melinda [facility] Respiratory rate 2023-01-05 19:08:00 20 /min [facility] Body height 2023-01-05 19:08:00 175.3 cm [facility] 2023-01-05 19:08:00 94.348 kg [facility] BMI 2023-01-05 19:08:00 30.72 kg/m2 [facility] Oxygen saturation in Arterial blood by Pulse oximetry 2023-01-05 19:08:00 100 /min [facility] Systolic blood pressure 2022-10-11 19:49:00 133 mm[Hg] [facility] Diastolic blood pressure 2022-10-11 19:49:00 72 mm[Hg] [facility] Heart rate 2022-10-11 19:49:00 100 /min [facility] Respiratory rate 2022-10-11 19:49:00 16 /min [facility] Body height 2022-10-11 19:49:00 175.3 cm [facility] Body weight 2022-10-11 19:49:00 99.202 kg [facility] BMI 2022-10-11 19:49:00 32.30 kg/m2 [facility] Oxygen saturation in Arterial blood by Pulse oximetry 2022-10-11 19:49:00 100 /min [facility] Systolic blood pressure 2022-06-21 22:32:00 138 mm[Hg] [facility] Diastolic blood pressure 2022-06-21 22:32:00 83 mm[Hg] [facility] Heart rate 2022-06-21 22:31:00 80 /min [facility] Body temperature 2022-06-21 22:31:00 36.56 Melinda [facility] Respiratory rate 2022-06-21 22:31:00 18 /min [facility] Body height 2022-06-21 22:31:00 175.3 cm [facility] Body weight 2022-06-21 22:31:00 99.338 kg [facility] BMI 2022-06-21 22:31:00 32.34 kg/m2 [facility] saturation in Arterial blood by Pulse oximetry 2022-06-21 22:31:00 97 /min [facility] Systolic blood pressure 2022-06-02 20:02:00 143 mm[Hg] [facility] Diastolic blood pressure 2022-06-02 20:02:00 77 mm[Hg] [facility] Heart rate 2022-06-02 20:02:00 91 /min [facility] Respiratory rate 2022-06-02 20:02:00 16 /min [facility] Body height 2022-06-02 20:02:00 177.8 cm [facility] Body weight 2022-06-02 20:02:00 98.34 kg [facility] BMI 2022-06-02 20:02:00 31.11 kg/m2 [facility] Oxygen saturation in Arterial blood by Pulse oximetry 2022-06-02 20:02:00 96 /min [facility] Systolic blood pressure 2022-02-05 16:41:00 129 mm[Hg] [facility] Diastolic blood pressure 2022-02-05 16:41:00 75 mm[Hg] [facility] Heart rate 2022-02-05 16:41:00 86 /min [facility] Body temperature 2022-02-05 16:41:00 36.44 Melinda [facility] Respiratory rate 2022-02-05 16:41:00 16 /min [facility] Body height 2022-02-05 16:41:00 177.8 cm [facility] Body weight 2022-02-05 16:41:00 97.115 kg [facility] BMI 2022-02-05 16:41:00 30.72 kg/m2 [facility] saturation in Arterial blood by Pulse oximetry 2022-02-05 16:41:00 97 /min [facility] Systolic blood pressure 2021-12-10 20:03:00 117 mm[Hg] [facility] Diastolic blood pressure 2021-12-10 20:03:00 72 mm[Hg] [facility] Heart rate 2021-12-10 20:03:00 57 /min [facility] Respiratory rate 2021-12-10 20:03:00 16 /min [facility] Body height 2021-12-10 20:03:00 177.8 cm [facility] Body weight 2021-12-10 20:03:00 98.431 kg [facility] BMI 2021-12-10 20:03:00 31.14 kg/m2 [facility] Oxygen saturation in Arterial blood by Pulse oximetry 2021-12-10 20:03:00 96 /min [facility] Procedures Procedure Date / Time Performed Performing Clinician Source FOOT LEFT 2024-12-03 00:00:00 Isabel medina - External PROTHROMBIN TIME (PT) 2024-12-03 00:00:00 Isabel Farnsworth - External MR GUIDED BIOPSY PROSTATE 2024-11-19 20:34:42 Arlyn Sawant [facility] SURGICAL PATHOLOGY EXAM 2024-11-19 20:10:00 Arnie Perdomo [facility] PHYSICIAN ORDERS 2024-10-18 14:42:02 Doctor Leatha signed, [place] [facility] POCT HEMOGLOBIN A1C TEST 2024-10-10 00:00:00 Dashawn Umaña [facility] JOSE,POST-VOID RES,US,NON-IMAGING 2024-06-06 18:10:00 Tru [facility] POCT URINALYSIS AUTO 2024-06-06 16:43:00 Heron Ott [facility] POCT URINALYSIS AUTO 2024-04-20 19:58:00 Heron Ott [facility] JOSE,POST-VOID RES,US,NON-IMAGING 2024-04-20 00:00:00 Tru [facility] XR RIBS 3 VW RIGHT 2024-02-19 20:26:52 Gayatri Linares [facility] XR SHOULDER 2+ VW RIGHT 2024-02-19 20:26:52 Gayatri Linares [facility] POCT HEMOGLOBIN A1C TEST 2023-10-12 18:44:00 Dashawn Umaña [facility] EXTERNAL PROVIDER - [facility] CARDIOLOGY 2023-05-04 06:01:00 Doctor Unassigned, [place] [facility] POCT HEMOGLOBIN A1C TEST 2023-04-11 00:00:00 Dashawn Umaña [facility] POCT URINALYSIS AUTO 2023-01-05 20:53:00 Heron Ott [facility] MEDICATION CORRESPONDENCE 2022-12-28 05:01:00 Do ctor Unassigned, [place] [facility] ASSIGNMENT OF BENEFITS 2022-08-16 18:51:48 Docto r Unassigned, [place] [facility] ASSIGNMENT OF BENEFITS 2022-07-26 19:16:34 Docto r Unassigned, [place] [facility] ASSIGNMENT OF BENEFITS 2022-07-16 17:18:29 Docto r Unassigned, [place] [facility] URINE CULTURE 2022-06-21 23:00:00 Marcelina Crowley [facility] POCT URINALYSIS AUTO 2022-06-21 22:33:00 Marcus Crowley [facility] DIABETES TESTING REPORTS 2022-06-02 06:01:00 Doc tor Unassigned, [place] [facility] POCT HEMOGLOBIN A1C TEST 2022-06-02 00:00:00 Dashawn Umaña [facility] POCT URINALYSIS AUTO 2021-12-10 20:12:00 Heron Ott [facility] Plan of Care Planned Activity Planned Date Details Comments Source Encounters Start Date/Time End Date/Time Encounter Type Admission Type Attending Clinicians Care Facility Care Department Encounter ID Source 2022-12-30 11:54:58 Emergency HFD HFD [id number] [facility] 2021-03-08 23:37:01 Emergency [facility] [id number] [facility] 2025-02-06 13:00:00 2025-02-06 13:00:00 Outpatient Roney TRUDEON [facility] [id number] [facility] 2025-02-04 00:00:00 2025-02-04 00:00:00 Outpatient SURINDER AGUIRRE ISABEL GONZALES [id number] [facility] 2025-01-24 00:00:00 2025-01-24 00:00:00 Outpatient LESLIEMARLEN ISABEL GONZALES [id number] [facility]-23 00:00:00 2025-01-23 00:00:00 Outpatient TICO CORONADO ISABEL GONZALES [id number] Isabel [facility] 2025-01-15 00:00:00 2025-01-15 00:00:00 Outpatient LA, TICO ISABEL GONZALES [id number] Isabel [facility] 2025-01-14 00:00:00 2025-01-14 23:59:00 Hospital Encounter JOYA SUTHERLAND [facility] [id number] [facility] 2025-01-14 00:00:00 2025-01-14 00:00:00 Outpatient [facility] [id number] [facility] 2025-01-09 00:00:00 2025-01-09 15:09:42 [facility] 1..840.114 [id number] [id number] [facility] 2025-01-02 13:30:00 2025-01-02 13:30:00 Outpatient RAMONA SURINDER GONZALES [id number] [facility] 2024-12-28 00:00:00 2024-12-28 00:00:00 Outpatient RAMONA SURINDER GONZALES [id number] Isabel [facility] 2024-11-21 00:00:00 2024-12-22 18:23:08 Patient Secure Jason De La Rosa [facility] 1..840.114 [id number] [id number] [facility] 2024-11-21 00:00:00 2024-12-22 18:21:27 Patient Secure Msg Arlyn Sawant [facility] 1.840.114 [id number] [id number] [id number] [facility] 2024-12-11 00:00:00 2024-12-12 09:28:00 Jj Jaimes [facility] ..114 350.1.13.10 [id number] [id number] [facility] 2024-12-12 00:00:00 2024-12-12 00:00:00 Outpatient TICO CORONADO [id number] [facility] 2024-12-09 18:00:00 2024-12-09 18:00:00 Outpatient DEON GOULD [facility] [id number] [facility] 2024-12-03 16:50:00 2024-12-03 16:50:00 Outpatient ISABEL GONZALSE [id number] [facility] 2024-12-03 15:30:00 2024-12-03 15:30:00 Outpatient SURINDER AGUIRRE [id number] [facility] 2024-12-03 15:00:00 2024-12-03 15:00:00 Outpatient NT90 ISABEL GONZALES [id number] [facility] 2024-12-03 00:00:00 2024-12-03 00:00:00 Outpatient HANNAH SHARMA [id number] [facility] 2024-10-29 00:00:00 2024-12-01 18:23:51 Patient Secure Msg Doctor Unassigned, [place] Doctor Unassigned, [place] [facility] .840.114 350.1.13.10 [id number] [id number] [facility] 2024-11-30 00:00:00 2024-11-30 16:15:15 [facility] [id number] [id number] [id number] [id number] [facility] 2024-11-21 14:00:00 2024-11-21 14:00:00 Outpatient TICO CORONADOSEY ISABEL [id number] Isabel Farnsworth 2024-11-20 08:00:00 2024-11-20 08:00:00 Outpatient ARLYN WANG [facility] [id number] [facility] 2024-11-19 13:49:45 2024-11-19 23:59:00 Hospital Encounter ARLYN WANG [facility] 1.2840.114 350.1.13.10 4.2.7.2.686 [id number] [facility] 2024-10-31 00:00:00 2024-10-31 12:10:43 Case Management Jason Perdomo [facility] ([facility] 1.20.114 350.1.13.10 4.2.7.2.686 [id number] [facility] 2024-10-18 00:00:00 2024-10-19 02:04:13 Orders Only Doctor Unassigned, [place] Doctor Unassigned, [place] [facility] ([facility]) 1.2840.114 350.1.13.10 4.2.7.2.686 [id number] [facility] 2024-10-17 00:00:00 2024-10-17 13:22:32 [facility] 1.2840.114 350.1.13.10 4.2.7.2.686 [id number] [facility] 2024-10-16 15:15:00 2024-10-16 15:15:00 Outpatient ISABEL GILBERTSEY [id number] Isabel Farnsworth 2024-10-10 13:00:00 2024-10-10 14:03:42 Office Visit Lachelle Santiago [facility] 1..114 350.1.13.10 4.2.7.2.686 [id number] 220 [id number] [facility] 2024-10-03 00:00:00 2024-10-04 14:09:51 Refill Deon Ott [facility] 1.84.114 350.1.13.10 4.2.7.2.686 [id number] [facility] 2024-10-04 00:00:00 2024-10-04 00:00:00 Outpatient ISABEL GONZALES [id number] [facility] 2024-10-04 00:00:00 2024-10-04 00:00:00 Outpatient DEON OTT [id number] [facility] 2024-09-27 12:30:00 2024-09-27 12:30:00 Outpatient ISABEL GONZALES [id number] [facility] 2024-09-16 00:00:00 2024-09-16 00:00:00 Outpatient DEON GOULD [facility] [id number] [facility] 2024-09-15 09:15:00 2024-09-15 09:15:00 Outpatient DEON GOULD [facility] [id number] [facility] 2024-09-15 09:15:00 2024-09-15 09:15:00 Darkroom Worker Visit DEON GOULD [facility] 1.840.114 350.1.13.10 4.2.7.2.686 [id number] [facility] 2024-09-14 00:00:00 2024-09-14 17:26:20 Telephone Deon Ott [facility] 1.2.840.114 350.1.13.10 4.2.7.2.686 [id number] 204 [id number] [facility] 2017-01-26 00:00:00 2024-08-30 22:27:47 RefArt Adams [facility] 1..840.114 350.1.13.10 4.2.7.2.686 [id number] [facility] 2024-08-28 00:00:00 2024-08-28 00:00:00 Outpatient ISABEL GONZALES [id number] [facility] 2024-08-09 00:00:00 2024-08-09 00:00:00 Outpatient GEGE VU [id number] [facility] 2024-08-08 14:30:00 2024-08-08 14:30:00 Outpatient TICO CORONADO [id number] [facility] 2024-08-08 00:00:00 2024-08-08 00:00:00 Outpatient GEGE VU [id number] [facility] 2024-08-07 08:20:00 2024-08-07 08:20:00 Outpatient [id number] ISABEL GONZALES [id number] [facility] 2024-06-28 00:00:00 2024-06-28 00:00:00 Outpatient TICO CORONADO [id number] [facility] 2024-06-27 14:30:00 2024-06-27 14:30:00 Outpatient TICO CORONADO [id number] [facility] 2021-02-09 00:00:00 2024-06-23 02:53:05 Orders Only Kristen Ahumadaesma, Kristen N [facility]ILD[facility] 1..840.114 350.1.13.10 4.2.7.2.686 [id number] [facility] 2024-06-23 00:00:00 2024-06-23 00:00:00 Outpatient R TRU [facility] [id number] [facility] 2024-06-23 00:00:00 2024-06-23 00:00:00 Outpatient R TRU [facility] [id number] [facility] 2024-06-07 00:00:00 2024-06-07 09:40:15 Telephone Tru Deon [facility] 1..840.114 350.1.13.10 4.2.7.2.686 [id number] [facility] 2024-06-06 11:00:00 2024-06-06 12:16:41 Outpatient R TRU [facility] [id number] [facility] 2024-06-06 11:00:00 2024-06-06 12:16:[address] [facility] 1.840.114 350.1.13.10 4.2.7.2.686 [id number] [facility] 2024-06-04 00:00:00 2024-06-04 08:52:36 [facility] [place] 1..840.114 350.1.13.10 4.2.7.2.686 [id number] 204 [id number] [facility] 2024-06-01 14:15:00 2024-06-01 14:30:00 Darkroom Worker Visit Pob, Adc Lab Main Octavio Ottth Pob, Adc Lab Main [facility] BUILDING 1.2.840.114 350.1.13.10 4.2.7.2.686 [id number] [facility] 2024-06-01 14:15:00 2024-06-01 14:15:00 Outpatient R DEON OTT [facility] [id number] [facility] 2024-05-31 00:00:00 2024-05-31 13:00:38 Telephone Tru [facility] BUILDING 1.2.840.114 350.1.13.10 4.2.7.2.686 [id number] [facility] 2024-04-23 00:00:00 2024-04-23 13:38:52 Refill Tru [facility] BUILDING 1.2.840.114 350.1.13.10 4.2.7.2.686 [id number] 204 [id number] [facility] 2024-04-23 00:00:00 2024-04-23 07:32:57 Telephone Deon Ott [facility] [place] 1.2.840.114 350.1.13.10 4.2.7.2.686 [id number] 204 [id number] [facility] 2024-04-20 13:30:00 2024-04-20 13:45:00 Darkroom Worker Visit 2, Adc Lab Deon Ott 2, Adc Lab [facility] BUILDING 1.2.840.114 350.1.13.10 4.2.7.2.686 [id number] [facility] 2024-04-20 13:30:00 2024-04-20 13:30:00 Outpatient R DEON OTT [facility] [id number] [facility] 2024-04-20 13:15:00 2024-04-20 13:30:00 [facility]..840.114 350.1.13.10 4.2.7.2.686 [id number] [facility] 2024-04-20 00:00:00 2024-04-20 00:00:00 Outpatient TICO CORONADO [id number] Isabel Farnsworth 2024-04-11 14:00:00 2024-04-11 14:33:29 Outpatient R LACHELLE UMAÑA [facility] [id number] [facility] 2024-04-11 14:00:00 2024-04-11 14:33:29 Office Visit Lachelle Umaña [facility] I[facility]TY [place] [facility] 1.840.114 350.1.13.10 4.2.7.2.686 [id number] 220 [id number] [facility] 2024-03-31 00:00:00 2024-03-31 00:00:00 Outpatient TICO CORONADO [id number] [facility] 2024-03-30 00:00:00 2024-03-30 12:21:57 Telephone Jj Marie [facility]TY [place] [facility] 1..840.114 350.1.13.10 4.2.7.2.686 [id number] 220 [id number] [facility] 2024-03-30 12:00:00 2024-03-30 12:15:00 Darkroom Worker Visit Vtc-Lab Lachelle Umaña Vtc[facility]Lab [facility] IALTY [place] [facility] 1..840.114 350.1.13.10 4.2.7.2.686 [id number] [facility] 2024-03-30 12:00:00 2024-03-30 12:00:00 Outpatient LACHELLE SANTIAGO [facility] [id number] [facility] 2024-03-28 00:00:00 2024-03-28 00:00:00 Outpatient TICO CORONADO [id number] Isabel Farnsworth 2024-03-11 00:00:00 2024-03-15 08:48:13 Refill Deon Ott [facility] 1..840.114 350.1.13.10 4.2.7.2.686 [id number] [facility] 2024-02-19 14:03:00 2024-02-19 18:02:00 Emergency X GAYATRI LINARES [facility] ERT [id number] [facility] 2024-02-19 14:03:00 2024-02-19 18:02:00 Emergency MilagrosGayatri dubois [facility] 1.840.114 350.1.13.10 4.2.7.2.686 [id number] [facility] 2024-01-13 09:30:00 2024-01-13 10:14:07 Outpatient JJ NO [facility] [id number] [facility] 2024-01-13 09:30:00 2024-01-13 10:14:07 Office [facility] Jj [facility] 1.840.114 350.1.13.10 4.2.7.2.686 [id number] [facility] 2024-01-13 00:00:00 2024-01-13 00:00:00 Outpatient TICO CORONADO [id number] Isabel [facility] 2024-01-12 00:00:00 2024-01-12 14:43:29 Refill Lachelle Umaña [facility] MULTISPEC [facility] 1.840.114 350.1.13.10 4.2.7.2.686 [id number] 220 [id number] [facility] 2023-12-27 15:15:00 2023-12-27 15:15:00 Outpatient TICO CORONADO ISABEL [id number] [facility] 2023-12-12 00:00:00 2023-12-15 12:06:03 Refill TruDeon [facility]ERS [facility] 1.2.840.114 350.1.13.10 4.2.7.2.686 [id number] [facility] 2023-11-16 15:15:00 2023-11-16 15:15:00 Outpatient PREZASTICO ISABEL GONZALES [id number] [facility] 2023-11-09 00:00:00 2023-11-09 00:00:00 Outpatient KOKIMaikol TICO ISABEL GONZALES [id number] [facility] 2023-11-08 09:25:00 2023-11-08 09:25:00 Outpatient LAB90 ISABEL GONZALES [id number] [facility] 2023-10-26 15:45:00 2023-10-26 15:45:00 Outpatient PREZATICO Lassiter ISABEL GONZALES [id number] [facility] 2023-10-24 00:00:00 2023-10-24 00:00:00 Outpatient PREZATICO Lassiter ISABEL GONZALES [id number] [facility] 2023-10-12 13:00:00 2023-10-12 13:37:59 Outpatient R [facility]EROY [facility] [id number] [facility] 2023-10-12 13:00:00 2023-10-12 13:37:59 Office Visit Leeroy [facility] 1.2.840.114 350.1.13.10 4.2.7.2.686 [id number] 220 [id number] [facility] 2023-10-02 00:00:00 2023-10-02 00:00:00 Outpatient PREKANDI TICO GONZALES [id number] [facility] 2023-09-15 00:00:00 2023-09-15 15:14:37 Telephone Umaña, [place] [facility] 1.2.840.114 350.1.13.10 4.2.7.2.686 [id number] 220 [id number] [facility] 2023-09-14 08:30:00 2023-09-14 08:30:00 Outpatient TERESA MARTELL ISABEL GOZNALES [id number] [facility] 2023-09-11 00:00:00 2023-09-13 09:10:06 Marcelina [facility] 1.2.840.114 350.1.13.10 4.2.7.2.686 [id number] [facility] 2023-09-07 16:00:00 2023-09-07 16:00:00 Outpatient PREZAMaikol, TICO GONZALES [id number] [facility] 2023-06-08 16:15:00 2023-06-08 16:15:00 Outpatient PREZAMaikol, TICO GONZALES [id number] [facility] 2023-06-08 16:15:00 2023-06-08 16:15:00 Outpatient PREZAMaikol, TICO GONZALES [id number] [facility] 2023-05-30 16:15:00 2023-05-30 16:15:00 Outpatient PREZATICO Lassiter [id number] [facility] 2023-05-25 09:05:00 2023-05-25 09:05:00 Outpatient LAB90 ISABEL GONZALES [id number] [facility] 2023-05-18 00:00:00 2023-05-18 00:00:00 Outpatient PREZAMaikol, TICO GONZALES [id number] [facility] 2023-05-16 00:00:00 2023-05-16 00:00:00 Outpatient PREZAMaikol, TICO GONZALES [id number] [facility] 2023-05-13 09:25:00 2023-05-13 09:25:00 Outpatient LAB90 ISABEL GONZALES [id number] Isabel Farnsworth 2023-05-04 15:00:00 2023-05-04 15:00:00 Outpatient TICO CORONADO [id number] Isabel Farnsworth 2023-05-04 00:00:00 2023-05-04 00:00:00 Orders Only Doctor Unassigned, [place] [facility] 1.114 350.1.13.10 4.2.7.2.686 [id number] [facility] 2023-04-20 13:00:00 2023-04-20 13:00:00 Outpatient R JOSEPH INGRAM [facility] [id number] [facility] 2023-04-12 00:00:00 2023-04-12 00:00:00 [facility] .114 350.1.13.10 4.2.7.2.686 [id number] 220 [id number] [facility] 2023-04-11 14:30:00 2023-04-11 15:54:22 Outpatient R DASHAWN [facility] [id number] [facility] 2023-04-11 14:30:00 2023-04-11 15:54:22 [facility] [place] [facility] .114 350.1.13.10 4.2.7.2.686 [id number] 220 [id number] [facility] 2023-02-28 00:00:00 2023-02-28 00:00:00 [facility] .114 350.1.13.10 4.2.7.2.686 [id number] 220 [id number] [facility] 2023-02-27 00:00:00 2023-02-27 00:00:00 Refill Deon Ott [facility] 1..114 350.1.13.10 4.2.7.2.686 [id number] 204 [id number] [facility] 2023-02-23 13:30:00 2023-02-23 13:30:00 Outpatient R JOSEPH INGRAM [facility] [id number] [facility] 2023-01-05 14:00:00 2023-01-05 14:46:21 Outpatient R TRU [facility] [id number] [facility] 2023-01-05 14:00:00 2023-01-05 14:46:21 Office Visit Tru [facility] BUILD[facility] 1.2840.114 350.1.13.10 4.2.7.2.686 [id number] [facility] 2022-12-28 00:00:00 2022-12-28 00:00:00 Orders Only Doctor Unassigned, [place] [facility] 1.2.840.114 350.1.13.10 4.2.7.2.686 [id number] [facility] 2022-12-28 00:00:00 2022-12-28 00:00:00 Telephone Tru [facility] 1.2.840.114 350.1.13.10 4.2.7.2.686 [id number] 204 [id number] [facility] 2022-10-11 15:45:00 2022-10-11 16:00:00 Darkroom Worker Visit [facility] 1.2840.114 350.1.13.10 4.2.7.2.686 [id number] [facility] 2022-10-11 14:30:00 2022-10-11 15:44:45 Outpatient R LACHELLE UMAÑA [facility] [id number] [facility] 2022-10-11 14:30:00 2022-10-11 15:44:45 Office Visit U[facility] MULTISPEC [facility] 1.2840.114 350.1.13.10 4.2.7.2.686 [id number] 220 [id number] [facility] 2022-08-31 00:00:00 2022-08-31 00:00:00 Telephone Tru [facility] BUILDING 1.20.114 350.1.13.10 4.2.7.2.686 [id number] [facility] 2022-08-26 00:00:00 2022-08-26 00:00:00 Telephone Leeroy [facility]TY [facility] 1.0.114 350.1.13.10 4.2.7.2.686 [id number] 220 [id number] [facility] 2022-08-16 14:00:00 2022-08-16 14:15:00 Darkroom Worker Visit Pob, Adc Lab Main Tru [facility] BUILDING 1.2.114 350.1.13.10 4.2.7.2.686 [id number] [facility] 2022-08-16 14:00:00 2022-08-16 14:00:00 Outpatient R TRU [facility] [id number] [facility] 2022-08-16 00:00:00 2022-08-16 00:00:00 Orders Only Doctor Unassigned, [place] [facility] 1.20.114 350.1.13.10 4.2.7.2.686 [id number] [facility] 2022-07-28 00:00:00 2022-07-28 00:00:00 Case Management Marcelina Crowley [facility] BUILDING 1.2.840.114 350.1.13.10 4.2.7.2.686 [id number] [facility] 2022-07-26 14:45:00 2022-07-26 15:00:00 Darkroom Worker Visit Pob, Adc Lab Main [facility] 1.2.840.114 350.1.13.10 4.2.7.2.686 [id number] [facility] 2022-07-26 14:45:00 2022-07-26 14:45:00 Outpatient SARA PERALESTNEY [facility] [id number] [facility] 2022-07-26 00:00:00 2022-07-26 00:00:00 Orders Only Doctor Unassigned, [place] [facility] 1.2.840.114 350.1.13.10 4.2.7.2.686 [id number] [facility] 2022-07-26 00:00:00 2022-07-26 00:00:00 [place] Sara Crowleytney [facility] 1.2.840.114 350.1.13.10 4.2.7.2.686 [id number] 204 [id number] [facility] 2022-07-16 11:30:00 2022-07-16 11:45:00 Darkroom Worker Visit Pob, Adc Lab Main [facility] 1.2.840.114 350.1.13.10 4.2.7.2.686 [id number] 353 [id number] [facility] 2022-07-16 11:30:00 2022-07-16 11:30:00 Outpatient R MARCELINA CROWLEY [facility] [id number] [facility] 2022-07-16 00:00:00 2022-07-16 00:00:00 Orders Only Doctor Unassigned, [place] [facility] 1.2840.114 350.1.13.10 4.2.7.2.686 [id number] [facility] 2022-07-15 00:00:00 2022-07-15 00:00:00 Telephone Carline [facility] 1.2840.114 350.1.13.10 4.2.7.2.686 [id number] [facility] 2022-06-24 00:00:00 2022-06-24 00:00:00 Case Management Carline [facility] 1.2840.114 350.1.13.10 4.2.7.2.686 [id number] [facility] 2022-06-21 16:30:00 2022-06-21 16:58:52 Outpatient R CARLINE [facility] [id number] [facility] 2022-06-21 16:30:00 2022-06-21 16:58:52 Office Visit Carline [facility] 1.2840.114 350.1.13.10 4.2.7.2.686 [id number] 204 [id number] [facility] 2022-06-02 14:00:00 2022-06-02 14:37:16 Outpatient R DASHAWN UMAÑ[facility] [id number] [facility] 2022-06-02 14:00:00 2022-06-02 14:37:16 Office Visit Lachelle Umaña [facility] 1.284.114 350.1.13.10 4.2.7.2.686 [id number] [facility] 2022-06-02 00:00:00 2022-06-02 00:00:00 Orders Only Doctor Unassigned, [place] [facility] 1.840.114 350.1.13.10 4.2.7.2.686 [id number] [facility] 2022-02-16 00:00:00 2022-02-16 00:00:00 Telephone Leona Wei [facility] [place] [facility] 1.840.114 350.1.13.10 4.2.7.2.686 [id number] 220 [id number] [facility] 2022-02-05 12:45:00 2022-02-05 13:00:00 Darkroom Worker Visit Vtc-Lab Leeroy [facility] IALTY [place] [facility] 1.840.114 350.1.13.10 4.2.7.2.686 [id number] [facility] 2022-02-05 11:00:00 2022-02-05 12:27:09 Outpatient R LEEROY [facility] [id number] [facility] 2022-02-05 11:00:00 2022-02-05 12:27:09 Office Visit Leona Wei [facility] I[facility]TY [place] [facility] 1.0.114 350.1.13.10 4.2.7.2.686 [id number] 220 [id number] [facility] 2022-02-05 00:00:00 2022-02-05 00:00:00 [facility] [place] [facility] 1.0.114 350.1.13.10 4.2.7.2.686 [id number] 220 [id number] [facility] 2022-02-02 00:00:00 2022-02-02 00:00:00 Telephone Nisreen [place] [facility] 1.840.114 350.1.13.10 4.2.7.2.686 [id number] 220 [id number] [facility] 2022-02-02 00:00:00 2022-02-02 00:00:00 Refill Lachelle Umaña [facility] MULTISPEC [facility] 1.2840.114 350.1.13.10 4.2.7.2.686 [id number] 220 [id number] [facility] 2022-01-29 00:00:00 2022-01-29 00:00:00 Telephone Nisreen [place] [facility] 1.20.114 350.1.13.10 4.2.7.2.686 [id number] 220 [id number] [facility] 2022-01-29 00:00:00 2022-01-29 00:00:00 Refill Tru [facility] 1.2840.114 350.1.13.10 4.2.7.2.686 [id number] [facility] 2021-12-10 14:30:00 2021-12-10 15:29:30 Outpatient R TRU [facility] [id number] [facility] 2021-12-10 14:30:00 2021-12-10 15:29:30 Office Visit Tru [facility] 1.2840.114 350.1.13.10 4.2.7.2.686 [id number] [facility] 2021-12-10 00:00:00 2021-12-10 00:00:00 Transition of Care Lauren Jefferson 1.2840.114 350.1.13.10 4.2.7.2.686 [id number] [facility] 2021-12-07 13:12:00 2021-12-09 12:47:00 Hospital Encounter Melody Cosby EstevanCaroline maria [facility] 1..840.114 350.1.13.10 4.2.7.2.686 [id number] [facility] 2021-12-06 16:49:00 2021-12-06 20:14:00 Emergency [facility] [id number] [facility] 2021-12-06 16:49:00 2021-12-06 20:14:00 Emergency [place], [facility] 1..840.114 350.1.13.10 4.2.7.2.686 [id number] [facility] 2021-12-06 16:49:00 2021-12-06 20:14:00 Emergency [facility] [id number] [facility] 2021-10-12 15:00:00 2021-10-12 15:00:00 Outpatient R [facility] [id number] [facility] 2021-10-12 15:00:00 2021-10-12 15:00:00 Outpatient R [place] [facility] [id number] [facility] 2021-10-06 00:00:00 2021-10-06 00:00:00 Telephone [facility] [place] [facility] 1..840.114 350.1.13.10 4.2.7.2.686 [id number] [facility] 2021-10-02 10:00:00 2021-10-02 10:00:00 Outpatient R LACHELLE UMAÑA [facility] [id number] [facility] 2021-10-02 10:00:00 2021-10-02 10:00:00 Outpatient R LACHELLE UMAÑA [facility] [id number] [facility] 2021-09-11 00:00:00 2021-09-11 00:00:00 [facility] 1.2840.114 350.1.13.10 4.2.7.2.686 [id number] [facility] 2021-09-07 15:30:00 2021-09-07 15:30:00 Darkroom Worker Visit [facility] Lucy Kimball [facility] 1.2.840.114 350.1.13.10 4.2.7.2.686 [id number] [facility] 2021-09-07 14:30:00 2021-09-07 15:00:00 Office Visit Peng Eng Peter [facility] 1.2.0.114 350.1.13.10 4.2.7.2.686 [id number] [facility] 2021-09-07 14:30:00 2021-09-07 15:00:00 Office Visit Peng Eng [facility] 1.2.0.114 350.1.13.10 4.2.7.2.686 [id number] [facility] 2021-09-07 14:30:00 2021-09-07 14:30:00 Outpatient R [facility] [id number] [facility] 2021-09-07 14:30:00 2021-09-07 14:30:00 Outpatient R LUCY KIMBALL [facility] [id number] [facility] 2021-09-07 14:30:00 2021-09-07 14:30:00 Outpatient R LUCY KIMBALL [facility] [id number] [facility] 2021-09-03 11:45:00 2021-09-03 12:00:00 Darkroom Worker Visit Shona, Ayes[facility] Joya Ruiz [facility] 1.2.840.114 350.1.13.10 4.2.7.2.686 [id number] [facility] 2021-09-03 11:45:00 2021-09-03 11:45:00 Outpatient JOYA SUTHERLAND [facility] [id number] [facility] 2021-09-03 00:00:00 2021-09-03 00:00:00 Orders Only Doctor Unassigned, [place] [facility] 1.2840.114 350.1.13.10 4.2.7.2.686 [id number] [facility] 2021-08-17 00:00:00 2021-08-17 00:00:00 Refill Peng Eng [facility] 1.0.114 350.1.13.10 4.2.7.2.686 [id number] [facility] 2021-07-24 00:00:00 2021-07-24 00:00:00 Refill Nisreen [place] [facility] 1..114 350.1.13.10 4.2.7.2.686 [id number] [facility] 2021-07-23 00:00:00 2021-07-23 00:00:00 Refill Deon Ott [facility] [facility] 1.0.114 350.1.13.10 4.2.7.2.686 [id number] [facility] 2021-07-21 00:00:00 2021-07-21 00:00:00 Orders Only Doctor Unassigned, [place] [facility] 1.20.114 350.1.13.10 4.2.7.2.686 [id number] [id number] [facility] 2021-07-20 00:00:00 2021-07-20 00:00:00 Nisreen Perez [facility] 1..114 350.1.13.10 4.2.7.2.686 [id number] 220 [id number] [facility] 2021-07-06 14:00:00 2021-07-06 15:00:00 Office Visit Peng Eng Juan Carlos [facility] 1..114 350.1.13.10 4.2.7.2.686 [id number] [facility] 2021-07-06 14:00:00 2021-07-06 14:00:00 Outpatient Roney NICK [facility] [id number] [facility] 2021-07-06 14:00:00 2021-07-06 14:00:00 Outpatient Roney NICK [facility] [id number] [facility] 2021-06-11 00:00:00 2021-06-11 00:00:00 Telephone Tru [facility] BUILDING 1..114 350.1.13.10 4.2.7.2.686 [id number] [facility] 2021-06-10 00:00:00 2021-06-10 00:00:00 Patient Secure Msg Doctor Unassigned, [place] [facility] 1..114 350.1.13.10 4.2.7.2.686 [id number] [facility] 2021-06-08 12:45:00 2021-06-08 13:00:00 Darkroom Worker Visit Pob, Adc Lab Main [facility] 1..114 350.1.13.10 4.2.7.2.686 [id number] [facility] 2021-06-08 12:45:00 2021-06-08 12:45:00 Outpatient R DEON OTT [facility] [id number] [facility] 2021-06-05 10:00:00 2021-06-05 10:38:40 Office Visit Nisreen [place], [facility] 1.840.114 350.1.13.10 4.2.7.2.686 [id number] 220 [id number] [facility] 2021-06-05 10:00:00 2021-06-05 10:38:40 Outpatient R LEEROY [facility] [id number] [facility] 2021-06-05 10:00:00 2021-06-05 10:38:40 Outpatient R LEEROY [facility] [id number] [facility] 2021-06-05 10:00:00 2021-06-05 10:38:40 [facility] [place] 1.840.114 350.1.13.10 4.2.7.2.686 [id number] [facility] 2021-06-05 10:00:00 2021-06-05 10:00:00 Outpatient R LEEROY [facility] [id number] [facility] 2021-06-05 10:00:00 2021-06-05 10:00:00 Outpatient R [facility]EROY [facility] [id number] [facility] 2021-06-05 00:00:00 2021-06-05 00:00:00 Orders Only Doctor Unassigned, [place] [facility] 1.2840.114 350.1.13.10 4.2.7.2.686 [id number] [facility] 2021-06-03 13:00:00 2021-06-03 13:00:00 Outpatient R LELO YANG [facility] [id number] [facility] 2021-05-21 00:00:00 2021-05-21 00:00:00 Telephone Deon Ott [facility] 1.2.840.114 350.1.13.10 4.2.7.2.686 [id number] [facility] 2021-05-04 00:00:00 2021-05-04 00:00:00 Telephone Lelo Yang [facility] 1.2.840.114 350.1.13.10 4.2.7.2.686 [id number] [facility] 2021-04-30 16:30:00 2021-04-30 16:45:00 Darkroom Worker Visit Pob, Adc Lab Main Lelo Yang [facility] 1.2.840.114 350.1.13.10 4.2.7.2.686 [id number] [facility] 2021-04-30 16:30:00 2021-04-30 16:30:00 Outpatient R TREY LELO [facility] [id number] [facility] 2021-04-30 00:00:00 2021-04-30 00:00:00 Case Management Lelo Yang [facility] 1.2.840.114 350.1.13.10 4.2.7.2.686 [id number] [facility] 2021-04-17 00:00:00 2021-04-17 00:00:00 Telephone Deon Ott [facility] 1.2.840.114 350.1.13.10 4.2.7.2.686 [id number] [facility] 2021-04-15 13:45:00 2021-04-15 13:45:00 Outpatient R LELO YANG [facility] [id number] [facility] 2021-04-15 13:45:00 2021-04-15 13:45:00 Outpatient R LELO YANG [facility] [id number] [facility] 2021-04-15 10:53:19 2021-04-15 11:08:19 Darkroom Worker Visit Pob, Adc Lab Main Lelo Yang [facility] 1.2.840.114 350.1.13.10 4.2.7.2.686 [id number] [facility] 2021-04-15 11:06:06 2021-04-15 11:06:15 Imm/Inj Visit Nurse, Adc Potobias Immunizatio Lavelle Jain [facility] 1.2.840.114 350.1.13.10 4.2.7.2.686 [id number] [facility] 2021-03-31 00:00:00 2021-03-31 00:00:00 Refill Tru [facility] 1.2.840.114 350.1.13.10 4.2.7.2.686 [id number] 204 [id number] [facility] 2021-03-26 00:00:00 2021-03-26 00:00:00 Telephone Tru [facility] BUILDING 1.2.840.114 350.1.13.10 4.2.7.2.686 [id number] 204 [id number] [facility] 2021-03-20 00:00:00 2021-03-20 00:00:00 Telephone Tru [facility] 1.2.840.114 350.1.13.10 4.2.7.2.686 [id number] 204 [id number] [facility] 2021-03-19 12:27:18 2021-03-19 12:42:18 Darkroom Worker Visit Pob, Adc Lab Main Tru [facility] 1.2.840.114 350.1.13.10 4.2.7.2.686 [id number] [facility] 2021-03-19 12:30:00 2021-03-19 12:30:00 Outpatient R TRU [facility] [id number] [facility] 2021-03-16 00:00:00 2021-03-16 [facility]:00[facility] 1.2840.114 350.1.13.10 4.2.7.2.686 [id number] [facility] 2021-03-14 09:15:00 2021-03-14 09:15:00 Outpatient R TRU [facility] [id number] [facility] 2021-03-14 08:48:55 2021-03-14 09:03:55 Darkroom Worker Visit Pob, [facility] 1.284.114 350.1.13.10 4.2.7.2.686 [id number] [facility] 2021-03-14 00:00:00 2021-03-14 00:00:00 Orders Only Doctor Unassigned, [place] [facility] 1.2840.114 350.1.13.10 4.2.7.2.686 [id number] [id number] [facility] 2021-03-13 00:00:00 2021-03-13 00:00:00 [facility] 1.2840.114 350.1.13.10 4.2.7.2.686 [id number] [facility] 2021-03-05 16:30:00 2021-03-05 16:30:00 Outpatient R TRU [facility] [id number] [facility] 2021-03-05 16:30:00 2021-03-05 14:45:25 Outpatient R TRU [facility] [id number] [facility] 2021-03-05 14:11:40 2021-03-05 14:45:25 [facility] 1.2.840.114 350.1.13.10 4.2.7.2.686 [id number] 204 [id number] [facility] 2021-02-17 00:00:00 2021-02-17 00:00:00 Telephone Tru [facility] 1.2.840.114 350.1.13.10 4.2.7.2.686 [id number] [facility] 2021-02-16 13:36:51 2021-02-16 15:11:28 [facility] 1.2.840.114 350.1.13.10 4.2.7.2.686 [id number] [facility] 2021-02-16 14:00:00 2021-02-16 14:00:00 [facility] [id number] 2021-02-12 08:01:49 2021-02-12 09:06:40 Office Visit Tru [facility] 1.2.840.114 350.1.13.10 4.2.7.2.686 [id number] [facility] 2021-02-12 08:00:00 2021-02-12 08:00:00 [facility] [id number] [facility] 2021-02-12 00:00:00 2021-02-12 00:00:00 Telephone Tru [facility] 1.2.840.114 350.1.13.10 4.2.7.2.686 [id number] [facility] 2021-02-11 00:00:00 2021-02-11 00:00:00 Telephone Tru [facility] 1.2.840.114 350.1.13.10 4.2.7.2.686 [id number] [facility] 2021-02-09 14:00:00 2021-02-09 14:00:00 Outpatient R TRU [facility] [id number] [facility] 2021-02-09 13:51:20 2021-02-09 13:51:43 Nurse Visit Nurse, [facility] Surgery Gu Tru [facility] 1.2.840.114 350.1.13.10 4.2.7.2.686 [id number] [facility] 2021-02-09 00:00:00 2021-02-09 00:00:00 Telephone Tru [facility] 1.2.840.114 350.1.13.10 4.2.7.2.686 [id number] [facility] 2021-02-09 00:00:00 2021-02-09 00:00:00 Telephone Tru [facility] 1.2.840.114 350.1.13.10 4.2.7.2.686 [id number] [facility] 2021-01-23 09:38:21 2021-01-23 11:17:30 Office Visit Nisreen [place], [facility] 1.20.114 350.1.13.10 4.2.7.2.686 [id number] [facility] 2021-01-23 09:38:21 2021-01-23 11:17:30 Office Visit Nisreen [place], [facility] 1.2840.114 350.1.13.10 4.2.7.2.686 [id number] [facility] 2021-01-23 10:00:00 2021-01-23 10:00:00 Outpatient R LEEROY [facility] [id number] [facility] 2020-12-25 14:30:00 2020-12-25 14:30:00 [facility] [id number] [facility] 2020-12-25 13:29:16 2020-12-25 13:59:16 Office Visit Deon Ott , Adc Surg Spec Procedure [facility] Building 1..114 350.1.13.10 4.2.7.2.686 [id number] [facility] 2020-12-25 00:00:00 2020-12-25 00:00:00 Orders Only Doctor Unassigned, [place] [facility] 1..114 350.1.13.10 4.2.7.2.686 [id number] [facility] 2020-12-22 13:35:11 2020-12-22 13:50:11 Darkroom Worker Visit Potobias, [facility] Lab [facility] 1..114 350.1.13.10 4.2.7.2.686 [id number] [facility] 2020-12-22 13:30:00 2020-12-22 13:30:00 Outpatient R TRU [facility] [id number] [facility] 2020-12-18 00:00:00 2020-12-18 00:00:00 Telephone [facility] 1.2.840.114 350.1.13.10 4.2.7.2.686 [id number] 204 [id number] [facility] 2020-12-18 00:00:00 2020-12-18 00:00:00 Telephone Lydia [facility] 1.2.840.114 350.1.13.10 4.2.7.2.686 [id number] 204 [id number] [facility] 2020-12-16 09:38:57 2020-12-16 10:54:59 Office Visit Joseph In[facility] 1.2.840.114 350.1.13.10 4.2.7.2.686 [id number] [facility] 2020-12-16 10:00:00 2020-12-16 10:00:00 Outpatient R JOSEPH INGRAM [facility] [id number] [facility] 2020-12-16 00:00:00 2020-12-16 00:00:00 Telephone Tru [facility] 1.2.840.114 350.1.13.10 4.2.7.2.686 [id number] [facility] 2020-12-11 11:30:33 2020-12-11 11:45:33 Darkroom Worker Visit Pob, Adc Lab Main Tru [facility] 1.2.840.114 350.1.13.10 4.2.7.2.686 [id number] [facility] 2020-12-11 11:30:00 2020-12-11 11:30:00 Outpatient R DEON OTT [facility] [id number] [facility] 2020-12-09 00:00:00 2020-12-09 00:00:00 [facility] 1.2.840.114 350.1.13.10 4.2.7.2.686 [id number] [facility] 2020-12-08 00:00:00 2020-12-08 00:00:00 [facility] 1.2840.114 350.1.13.10 4.2.7.2.686 [id number] 220 [id number] [facility] 2020-11-24 00:00:00 2020-11-24 00:00:00 Tele[facility] 1.2.840.114 350.1.13.10 4.2.7.2.686 [id number] 204 [id number] [facility] 2020-11-17 09:13:53 2020-11-17 10:00:18 Office Visit Deon Ott, Ayesha Surg Spec Procedure [facility] Professio nal Building 1.2.840.114 350.1.13.10 4.2.7.2.686 [id number] [facility] 2020-11-17 09:30:00 2020-11-17 09:30:00 Outpatient R DEON OTT [facility] [id number] [facility] 2020-11-04 13:11:14 2020-11-04 13:26:14 Darkroom Worker Visit Shona, Ayesha Lab Main [facility] 1.2.840.114 350.1.13.10 4.2.7.2.686 [id number] [facility] 2020-11-04 13:15:00 2020-11-04 13:15:00 Outpatient R LELO YANG [facility] [id number] [facility] 2020-11-04 00:00:00 2020-11-04 00:00:00 Orders Only Doctor Unassigned, [place] [facility] 1.2840.114 350.1.13.10 4.2.7.2.686 [id number] [facility] 2020-10-31 00:00:00 2020-10-31 00:00:00 Case Management Lelo Yang [facility] 1.2.840.114 350.1.13.10 4.2.7.2.686 [id number] [facility] 2020-10-30 00:00:00 2020-10-30 00:00:00 Telephone Tru [facility] 1.2840.114 350.1.13.10 4.2.7.2.686 [id number] 204 [id number] [facility] 2020-10-27 15:41:30 2020-10-27 16:27:43 Office Visit Tru [facility] 1.2840.114 350.1.13.10 4.2.7.2.686 [id number] 204 [id number] [facility] 2020-10-27 16:15:00 2020-10-27 16:15:00 Outpatient R TRU [facility] [id number] [facility] 2020-10-16 00:00:00 2020-10-16 00:00:00 Transition of Care Kaiden Martin 1.2.840.114 350.1.13.10 4.2.7.2.686 [id number] [facility] 2020-10-13 13:57:00 2020-10-15 13:45:00 Hospital Encounter Kieranwai Peter Packer [facility] 1..114 350.1.13.10 4.2.7.2.686 [id number] [facility] 2020-10-13 00:00:00 2020-10-13 00:00:00 Orders Only Doctor Unassigned, [place] [facility] 1..114 350.1.13.10 4.2.7.2.686 [id number] [facility] 2020-10-07 00:00:00 2020-10-07 00:00:00 Armen Gongora [facility] 1..114 350.1.13.10 4.2.7.2.686 [id number] 220 [id number] [facility] 2020-09-15 00:00:00 2020-09-15 00:00:00 Telephone Nisreen Dallas [facility] 1..114 350.1.13.10 4.2.7.2.686 [id number] 220 [id number] [facility] 2020-09-08 00:00:00 2020-09-08 00:00:00 Telephone Nisreen Dallas [facility] 1..114 350.1.13.10 4.2.7.2.686 [id number] 220 [id number] [facility] 2020-09-01 00:00:00 2020-09-01 00:00:00 Telephone Deon Ott [facility] Professio nal Building 1.2840.114 350.1.13.10 4.2.7.2.686 [id number] 204 [id number] [facility] 2020-09-01 00:00:00 2020-09-01 00:00:00 Refill Deon Ott [facility] Building 1.2.840.114 350.1.13.10 4.2.7.2.686 [id number] [facility] 2020-08-07 00:00:00 2020-08-07 00:00:00 Orders Only Doctor Unassigned, [place] [facility] 1.2.840.114 350.1.13.10 4.2.7.2.686 [id number] [facility] 2020-08-04 11:05:55 2020-08-04 11:50:37 Office Visit Deon Ott, Ayesha Surg Spec Procedure [facility] 1.2.840.114 350.1.13.10 4.2.7.2.686 [id number] [facility] 2020-08-04 11:30:00 2020-08-04 11:30:00 Outpatient R DEON OTT [facility] [id number] [facility] 2020-07-31 13:30:00 2020-07-31 13:30:00 Outpatient R DEON OTT [facility] [id number] [facility] 2020-07-23 13:29:28 2020-07-23 13:44:28 Darkroom Worker Visit Shona, Ayesha Lab Main [facility] 1.2.840.114 350.1.13.10 4.2.7.2.686 [id number] [facility] 2020-07-23 13:30:00 2020-07-23 13:30:00 Outpatient R ALZWERI, [facility] [id number] [facility] 2020-07-22 00:00:00 2020-07-22 00:00:00 Telephone Tru [facility] Professio nal Building 1.2.840.114 350.1.13.10 4.2.7.2.686 [id number] [facility] 2020-07-18 10:25:49 2020-07-18 11:50:38 Office Visit Nisreen [place] [facility] 1..840.114 350.1.13.10 4.2.7.2.686 [id number] 220 [id number] [facility] 2020-07-18 10:30:00 2020-07-18 10:30:00 Outpatient R [facility] [id number] [facility] 2020-07-14 00:00:00 2020-07-14 00:00:00 Telephone [place] [facility] 1..840.114 350.1.13.10 4.2.7.2.686 [id number] 220 [id number] [facility] 2020-07-11 09:20:00 2020-07-11 09:20:00 Outpatient R TATE SHABAZZ [facility] [id number] [facility] 2020-07-07 00:00:00 2020-07-07 00:00:00 Telephone Tru [facility] 1..840.114 350.1.13.10 4.2.7.2.686 [id number] [facility] 2020-06-27 11:00:00 2020-06-27 11:00:00 Outpatient R LACHELLE UMAÑA [facility] [id number] [facility] 2020-06-26 14:30:00 2020-06-26 14:30:00 Outpatient R DEON OTT [facility] [id number] [facility] 2020-06-20 14:00:00 2020-06-20 14:00:00 Outpatient R TATE SHABAZZ [facility] [id number] [facility] 2020-06-12 13:30:20 2020-06-12 14:36:30 Office Visit Deon Ott Rm, Adc Surg Spec Procedure [facility] Building 1.2.840.114 350.1.13.10 4.2.7.2.686 [id number] [facility] 2020-06-12 14:00:00 2020-06-12 14:00:00 Outpatient DEON GOULD [facility] [id number] [facility] 2020-06-09 00:00:00 2020-06-09 00:00:00 Telephone [facility] 1.2.840.114 350.1.13.10 4.2.7.2.686 [id number] [facility] 2020-05-19 00:00:00 2020-05-19 00:00:00 Tele[facility] 1.2.840.114 350.1.13.10 4.2.7.2.686 [id number] 204 [id number] [facility] 2020-05-14 11:23:32 2020-05-14 11:37:03 Nurse Visit Nurse, Adc Surgery Gu Tru [facility] 1.2.840.114 350.1.13.10 4.2.7.2.686 [id number] [facility] 2020-05-14 10:30:00 2020-05-14 10:30:00 [facility] [id number] 2020-05-13 00:00:00 2020-05-13 00:00:00 Case Management Trey, Lelo Franks [facility] Building 1.2840.114 350.1.13.10 4.2.7.2.686 [id number] 204 [id number] [facility] 2020-05-08 14:46:15 2020-05-08 15:01:15 Darkroom Worker Visit 2, Adc Lab Tru [facility] 1.2840.114 350.1.13.10 4.2.7.2.686 [id number] [facility] 2020-05-08 13:02:27 2020-05-08 14:42:41 Office Visit Tru [facility] 1.2840.114 350.1.13.10 4.2.7.2.686 [id number] [facility] 2020-05-08 13:30:00 2020-05-08 13:30:00 Outpatient R TRU [facility] [id number] [facility] 2020-05-08 00:00:00 2020-05-08 00:00:00 Orders Only Doctor Unassigned, [place] [facility] 1.2840.114 350.1.13.10 4.2.7.2.686 [id number] [facility] 2020-03-07 00:00:00 2020-03-07 00:00:00 Orders Only Doctor Unassigned, [place] [facility] 1.2840.114 350.1.13.10 4.2.7.2.686 [id number] [facility] 2020-03-01 00:00:00 2020-03-01 00:00:00 Armen Gongora [facility] 1.2840.114 350.1.13.10 4.2.7.2.686 [id number] [facility] 2020-01-07 00:00:00 2020-01-07 00:00:00 Armen Gongora [facility] 1..114 350.1.13.10 4.2.7.2.686 [id number] 220 [id number] [facility] 2019-12-28 10:45:55 2019-12-28 12:23:56 Office Visit Nisreen [place], [facility] 1.114 350.1.13.10 4.2.7.2.686 [id number] 220 [id number] [facility] 2019-12-28 11:00:00 2019-12-28 11:00:00 Outpatient R [facility] [id number] [facility] 2019-12-27 14:24:04 2019-12-27 15:17:50 Office Visit Mor Simpson [facility] 1.114 350.1.13.10 4.2.7.2.686 [id number] [facility] 2019-12-27 14:45:00 2019-12-27 14:45:00 Outpatient R MOR SIMPSON [facility] [id number] [facility] 2019-12-20 11:00:00 2019-12-20 11:00:00 Outpatient R MOR SIMPSON [facility] [id number] [facility] 2019-12-04 00:00:00 2019-12-04 00:00:00 [place] Agarwal Armen [place] [facility] 1.114 350.1.13.10 4.2.7.2.686 [id number] [facility] 2019-11-28 00:00:00 2019-11-28 00:00:00 Armen Gongora [facility] 1.2.840.114 350.1.13.10 4.2.7.2.686 [id number] [facility] 2019-10-03 13:30:00 2019-10-03 13:30:00 Outpatient R THAI [facility] [id number] [facility] 2019-10-03 13:12:59 2019-10-03 13:27:59 Office Visit Aj Borges [facility] car[facility] Young 1.2.840.114 350.1.13.10 4.2.7.2.686 [id number] [facility] 2019-08-20 15:40:00 2019-08-20 15:40:00 [facility] [id number] 2019-08-20 14:37:23 2019-08-20 15:17:23 [facility]medici ne [facility] 1.2.840.114 350.1.13.10 4.2.7.2.686 [id number] [facility] 2019-07-12 00:00:00 2019-07-12 00:00:00 [facility] 1.2.840.114 350.1.13.10 4.2.7.2.686 [id number] [facility] 2019-01-15 00:00:00 2019-01-15 00:00:00 Emreill Meera [facility] 1.2.840.114 350.1.13.10 4.2.7.2.686 [id number] [facility] Results Test Description Test Time Test Comments Results Result Comments Source MR Guided biopsy prostate 2024-11-06 5 18:35:35 PROCEDURE: TRANSPERINEAL PROSTATE BIOPSY WITH TRANSRECTAL ULTRASOUNDGUIDANCE INDICATION: MRI of the prostate result that showed PI - Rad 3 and 4lesions. Primary target is anterior transition zone lesion on the left midgland [facility] PHYSICIAN ORDERS 2024-10-07 2 14:42:02 Ordered by an unspecified provider. [facility]ID RES,US,[id number] 18:10:00* Test Item Value Reference Range Interpretation Comme nts PVR (URINE VOLUME) (test code = 5193) 0 ml 0-100 [facility], [id number] 16:50:00 * Test Item Value Reference Range [...] U APPEAR (test code = 3267) clear [facility] Urinalysis, [id number] 19:59:00 * Test Item Value Reference Range [...] U APPEAR (test code = 3267) cloudy [facility],US,[id number] 00:00:00* Test Item Value Reference Range Interpretation Comme nts PVR (URINE VOLUME) (test cod e = 5193) 177 ml 0-100 A Lab Interpretation (test cod e = 19015-1) Abnormal [facility] SH[facility] 2+ VW [id number] 22:10:41 ORDERING PROVIDER: ?GAYATRI LINARES HISTORY: ?fall TECHNIQUE: Internally and externally rotated and scapular Y views of theright shoulder. ? Technical Quality: Diagnostic COMPARISON: None FINDINGS: The osseous structures are anatomically aligned. ?No acute fractures areidentified. ?Glenohumeral and acromioclavicular osteoarthrosis. ?Softtissues are unremarkable.[facility] RIBS 3 VW [id number] 22:06:10ORDERING PROVIDER: ?GAYATRI LINARES HISTORY: Fall, injury, [...] Degenerative changes are seenin the spine and shoulders.[facility] Hemoglobin A1C [id number] 18:44:00* Test Item Value Reference Range Interpretation Comme nts POCT HBA1C (test code = 4548-4) 6.7 % 4-6 A Lab Interpretation (test cod e = 28284-4) Abnormal [facility] Hemoglobin A1C [id number] 18:44:00* Test Item Value Reference Range Interpretation Comme nts POCT HBA1C (test code = 4548-4) 6.7 % 4-6 A Lab Interpretation (test cod e = 62075-3) Abnormal [facility] Hemoglobin A1C [id number] 18:44:00* Test Item Value Reference Range Interpretation Comme nts POCT HBA1C (test code = 4548-4) 6.7 % 4-6 A Lab Interpretation (test cod e = 01290-4) Abnormal [facility] HEMOGLOBIN A1C [id number] 22:53:00* Test Item Value Reference Range Interpretation Comme nts POCT HBA1C (test code = 4548-4) 8.0 % 4-6 A Lab Interpretation (test cod e = 77059-2) Abnormal [facility] HEMOGLOBIN A1C [id number] 22:53:00* Test Item Value Reference Range Interpretation Comme nts POCT HBA1C (test code = 4548-4) 8.0 % 4-6 A Lab Interpretation (test cod e = 19609-2) Abnormal [facility] URINALYSIS, [id number] 20:53:00 * Test Item Value Reference Range [...] POCT U APPEAR (test code = 3267) [facility] URINALYSIS, [id number] 22:35:00 * Test Item Value Reference Range [...] U APPEAR (test code = 3267) clear [facility] URINALYSIS, [id number] 22:35:00 * Test Item Value Reference Range [...] U APPEAR (test code = 3267) clear [facility] HEMOGLOBIN A1C [id number] 23:08:00* Test Item Value Reference Range Interpretation Comme nts POCT HBA1C (test code = 4548-4) 7.9 % 4-6 A Lab Interpretation (test cod e = 50099-5) Abnormal [facility] HEMOGLOBIN A1C [id number] 23:08:00* Test Item Value Reference Range Interpretation Comme nts POCT HBA1C (test code = 4548-4) 7.9 % 4-6 A Lab Interpretation (test cod e = 34681-9) Abnormal [facility] URINALYSIS, [id number] 20:13:00 * Test Item Value Reference Range [...] U APPEAR (test code = 3267) clear [facility] Procedure Notes Date/Time Note Provider Source 2024-11-19 [...] Full dictated note to follow in PACS. [facility] Notes Date/Time Note Provider Source 2025-01-09 15:07:57 Name and verified, pt is aware of his biopsy results and that his upcoming appt is to discuss treatment options regarding his enlarged prostates. Pt verbalized understanding. Airam Fraga RN 01/09/2025 3:09 PM Arlyn Sawant 11/21/2024 2:29 PM CDT Prostate Biopsy result showed no lesions suspicious for cancer. Chronic inflammation noted. A. PROSTATE GLAND, LEFT ANTERIOR TRANSITION ZONE TARGET, NEEDLE BIOPSY: - BENIGN PROSTATE TISSUE B. PROSTATE GLAND, RIGHT BACKGROUND, NEEDLE BIOPSY: - BENIGN PROSTATE TISSUE WITH CHRONIC INFLAMMATION Airam Fraga RN [facility] 2025-01-09 14:11:32 Patient called and stated that he has an upcoming appointment on 02/06 to discuss biopsy results and he stated he does not understand why the results can not be given over the phone. He would like a call back to discuss plan of treatment. Jordana Waters [facility] 2024-12-12 09:25:27 Refill BD Pen needle MINH: 10/10/2024 NOV: none Refill sent for 90 days Per refill policy, needs follow up scheduled PSS: please assist with scheduling visit Francoise Roberts RN [facility] Referral ID Status Reason Start Date Expiration Date Visits Requested Visits Authorized [id number] Authorized Service Not Available at Clinic 12/03/2024 03/03/2025 1 1 IsabelDaja Pencbd0263-42-54 17:15:53* IsabelDaja Nvaora3587-89-25 17:15:53* Surinder Aguirre PA-C - 12/03/2024 3:19 [...] using voice recognition software. This can produce graphic design specialist errors that can at times significantly distort words and phrases. Please interpret any aspect of the note that is nonsensical in light of this fact. JOSE Hines-CSP: Dr. Tico Coronado, [facility] [1]Current Outpatient Medications Medication Sig Dispense [...] FOR 90 DAYS. Blood Glucose Monitoring Suppl (Bergey's Flex System) w/Device does not apply Kit [...] (30 mg total) by mouth daily. Lancets (Bluetector Delica Plus Kjqjpm86I) does not apply Misc Losartan Potassium (COZAAR) [...] total) by mouth daily FOR 90 DAYS. Happy Jack 3 340 MG oral Delayed Release Capsule Take 1 g by mouth in the morning and 1 g in the evening. Bergey's in vitro Strip Sure Comfort Pen Elmo 31G X 8 MM does not apply [...] No current facility-administered medications for this visit. [facility]2025-07-28 17:15:53Pending Results Scheduled Orders Name Type Priority [...] - 1-dose 75+ series) 2022 COVID-19 Vaccine (2023-2 5 season) 2024 04/15/2021, 07/11/2020, 06/20/2020 Diabetes: Retinopathy Screening 01/18/2024 01/17/2023 (Previously completed) Physical Exam 05/04/2024 05/04/2023 Influenza Vaccines (#1) 2025 05/04/2023, 02/07 Diabetes: Hemoglobin A1C 02/06/2025 025, 03/30/2024, 11/08/2023, Additional history exists Creatinine Level (Kidney Fun ction Test) 08/07/2025 08/07/2024, 11/08/2023, 05/13/2023 Diabetes: Urine Protein Screening 08/07/2025 025, 05/13/2023 Lipid Panel 08/07/2025 08/07/2024, 05/13/2023 Pneumococcal Vaccine: 50+ Years Completed 9, 02/03/2018 [place] 995565-07-28 17:15:53 Diagnosis Foreign body in left foot, [...] Warfarin anticoagulation Long-term (current) use of anticoagulants [place] 995565-07-28 17:15:53 [place] 995565-07-28 15:28:55 Chief Complaint Patient presents with Foot Pain Left foot injury Ml Pruitt LVN [place] 995565-07-28 10:43:55 SCHEDULED Asia Keller [facility] HospitalCnwdwj3242-16-32 16:14:28 Spoke with patient and updated on POC. Patient awaiting call from [facility] to schedule. Kiya Michael RNFlower HospitalJwycrx8711-95-18 15:28:[address] Ott's note on 06/06/24 [...] with Dr. 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 Ott with results break down as well as to discuss plan of treatment now that biopsy is completed. Patient states he was sent results via [place] but was not given any direction as to what to do next. Please advise. Asia Keller [place] 124715-07-16 13:50:18 Chief Complaint Patient presents with Diabetes 3 month follow up Ear Problem Right ear feels clogged Anay Chin MA [place] [address]Kijuhp6078-16-53 13:48:45 Chief Complaint Patient presents with Diabetes 3 month follow up Anay Chin MA [place] [address]Lwksxs7608-54-29 09:59:10 Addended by: ARLYN SAWANT on: 10/18/2024 09:59 AM Modules accepted: Orders [place] [address]-06-12 09:58:10 MRI Guided biopsy ordered with [facility]. [address]06-12 09:47:31 Called patient, notified him that I received a faxed response from [facility] that they do not offer MRI guided biopsy of the prostate. Patient would like to schedule MRI with [facility]. Please advise. Maria Teresa Plasencia [place] 009285-06-11 14:50:26 Order faxed to [facility] per patient request. Maria Teresa [facility]asencia [facility]107[facility] 14:28:51 Addended by: ARLYN SAWANT O on: 10/17/2024 02:28 PM Modules accepted: Orders [place] 592685-06-11 14:04:40 Spoke to patient regarding MRI of the prostate result that showed PI - Rad 3 and 4 lesions. Advised that MRI guided biopsy have been ordered and patient [facility] HospitalZpiybc5816-84-84 12:59:34 Received MRI prostate results from Isabel Maza uploaded to chart under media for review. Jordana WatersFlower HospitalRkivra4709-91-10 10:09:06 MRI orders faxed to [facility] at [phone]. Airam Fraga RN 10/04/2024 10:09 AM Name and verified, pt is aware of MRI orders faxed. Pt verbalized understanding. Airam Fraga RN 10/04/2024 10:14 AM Airam Fraga [facility] CenterYycjpa5501-09-51 09:23:35 Patient called back to give information of radiology department he is going to use for his MRI, he will need order to be faxed to [phone] phone # [phone]. He will also want a call back when order is sent so that he can call and scheduled his appointment. Jordana WatersFlower HospitalCigshm3111-79-54 08:38:37 Name and verified, pt states he is on his last bottle of tamsulosin and needs more refills. Pt states he has not done his MRI. It was canceled in August and has not rescheduled. Pt states he will call today to schedule MRI. Please advise on refills. Airam Fraga RN 10/04/2024 8:41 AM [facility]2025-05-10 09:15:00 Images from the original note were not included. Venipuncture collection performed by clean technique on the right anticubitus. Total of 1 attempts were made. Slight pressure and a bandage/dressing were applied to the site(s). The patient experienced no complications. The following specimens were processed according to instructions and sent to [facility] laboratories per lab order on today: LT BLUE SST 1 RED LAV PPT DK GREEN (LiHep) DK GREEN (SodH) HSU DK BLUE (K2) DK BLUE (S) ACD Blood Culture NIPT/NTD Labs for Alzweri only T [facility] HospitalZxniwd5731-80-44 17:06:18 Pt has an appt for a [...] Tuesday. Routed to Dr Ott for review. [place] [address]-05-09 16:08:27 Patient called in regards to scheduled MRI. Order is out of date and radiology will not allow patient to proceed with 09/16/24 appointment. Please advise with new/update MRI order. T Asia Keller [place] [address]-04-02 14:19:16 Chief Complaint Patient presents with Diabetes Blood Pressure 6 week follow up OTHER Patient complains of dry skin and jock itch Anay Chin MA [place] 726105-02-19 14:26:22 Chief Complaint Patient presents with Diabetes Blood Pressure 6 month follow up Anay Chin MA [place] 416145-01-30 09:36:29 LVM- Courtesy post-procedure call. Mailbox is full and unable to leave a message. msg sent. [facility] Belem Veras [place] 134515-01-27 14:53:58 Sent [place] 687915-01-27 14:53:54 Addended by: DEON OTT on: 06/04/2024 02:53 PM Modules accepted: Orders [place] 687915-01-27 13:42:05 Patient notified of results/recommendations, understanding was verbalized via teach back. Augmentin sent to the incorrect pharmacy. Can you please resend to [facility]/pharmacy #[id number] - [address] - [address] [place] [address]? I corrected this on the patient chart and made it his preferred pharmacy. 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 Patient has been identified by and name and was provided with cup, antiseptic towelette, and clean catch instructions. 2 urine specimen(s) sent. Unpreserved 1 Urine Culture 1 Aptima tube Other urine [place] 687915-01-23 16:39:50 Patient notified of plan by PSS. ÓN Michael [place] 134515-01-23 15:09:19 Called number on file; no answer; unable to leave message due to mail box is full. ÓN Michael [place] 134515-01-23 15:07:31 Ucx order placed, submit tomorrow, then start oral abx, if need be will change it accordingly [place] [address]-01-23 15:07:29 Addended by: DEON OTT on: 05/31/2024 03:07 PM Modules accepted: Orders [place] [address]-01-23 12:43:00 Patient called asking for antibiotics before cysto procedure. I do not see that UCX was completed within the 14-10 day window please advise. [facility] Asia Keller [place] [address]-12-16 13:36:52 Received refill request for Tamsulosin 0.4 mg. MINH 04/20/2024 noted to continue and RTC for cysto. Cysto scheduled for 05/2024. Refill approved. Patient notified. IRA JANG RN 04/23/2024 1:37 PM [facility] Ira Jang [place]NT[place] [address]-12-16 13:29:46 Pt is requesting a refill and says he is completley out. Please Assist [place] [address]-12-16 07:29:59 Elevated PSA most likely 2/2 UTI Oral abx Repeat Ucx 10 days prior to cysto Repeat PSA prior to cysto 06/06/2023 If PSA > 3.0 for MRI Prostate RTC as scheduled [place] [address]-12-13 13:30:00 Images from the original note were not included. Venipuncture collection performed by clean technique on the left anticubitus. Total of 1 attempts were made. Slight pressure and a bandage/dressing were applied to the site(s). The patient experienced no complications. The following specimens were processed according to instructions and sent to [facility] laboratories per lab order on 04/20/2024: LT BLUE SST 1 RED LAV PPT DK GREEN (LiHep) DK GREEN (SodH) HSU DK BLUE (K2) DK BLUE (S) ACD Blood Culture NIPT/NTD Alzweri orders only [facility]2024-11-22 12:00:00 Images from the original note were not included. Venipuncture collection performed by clean technique on the left anticubitus. Total of 1 attempts were made. Slight pressure and a bandage/dressing were applied to the site(s). The patient experienced no complications. The following specimens were processed according to instructions and sent to [facility] laboratories per lab order on 03/30/2024 : LT BLUE SST 1 RED LAV 1 PPT DK GREEN (LiHep) DK GREEN (SodH) HSU DK BLUE (K2) DK BLUE (S) ACD Blood Culture NIPT/NTD Patient has been identified by and was provided with cup, antiseptic towelette, and clean catch instructions. 1 urine specimen(s) sent. Unpreserved 1 Urine Culture Aptima tube Other urine [facility]2024-11-07 08:46:18 40 day supply sent to pharmacy. Follow up scheduled on 04/20/2024. If patient is to cancel appointment no further refills will be approved. [facility] Malina River MAFlower HospitalOijkpa6167-92-22 14:03:53 Patient requests the medication be sent to [facility] until he's able to come in for his appointment. Please advise. 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 Pt states," he [...] ribs but nothing was done. Benita Ortiz [facility] CenterNopxgm8353-59-06 13:30:00 [facility] Emergency Department Note Patient Name: [...] onto hard grass. 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 RL: 4231 AFC: 37831 End of Report SHOULDER 2+ VW RIGHT [...] Glenohumeral and acromioclavicular osteoarthrosis. RL: 4231 AFC: 46352 End of Report Lab Results: Lab Results [...] onto hard grass. Pt fell onto R medical management trainer and R shoulder abd chest took the [...] needed for pain. Also provided script for [place] as needed for severe pain. Problems Addressed: [...] ORAL) Take by mouth. BLOOD SUGAR DIAGNOSTIC (TheraSimTOUCH VERIO TEST STRIPS) STRIP Use to check [...] daily before breakfast and dinner. E11.65 LANCETS (TheraSimTOUCH DELICA PLUS LANCET) 33 GAUGE MISC Use [...] Specialty: FAMILY MEDICINE Relationship: PCP - General [address] [facility] [address] [facility] [id number] Electronically signed by: Gayatri Linares MD 02/19/24 174 [facility] - Xwqkxs2910-95-51 14:41:41 MINH-10/12/23 NOV-04/11/24 Refill sent Kristen Carlin [...] 1000 mg twice a day Kristen Carlin [facility] CenterAbouvx3153-10-19 09:59:53 REFILL (Requires review before approval) Provider: Deon Ott MD Patient's phone number: [phone] (home) Pharmacy: [facility] - [address] Medication: tamsulosin (FLOMAX) Strength: 0.4 mg capsule Directions: TAKE 1 CAPSULE BY MOUTH EVERY MORNING AND 1 CAPSULE FOR PAIN EVERY EVENING Quantity: 180 Capsules with ZERO Refills Last filled: Unknown, last prescribed 09/13/2023 Last office visit: 01/05/2023 Next scheduled visit: No future Urology visits are scheduled. Rizwana Johnson [facility]2024-06-05 13:00:00 Addended by: LACHELLE UMAÑA MD on: 11/06/2023 09:20 PM Modules accepted: Level of Service [facility]2024-05-09 09:11:49 Images from the original note were not included. T Melody Counts include 234 beds at the [facility]2024-05-08 08:35:55 Chief Complaint Patient presents with Ear Problem Right ear clogged Ml Pruitt LVN [facility]2023-08-30 14:00:00Addended by: DIMITRIS GARDNER on: 01/05/2023 03:55 PM Modules accepted: Orders [facility]2023-08-22 15:31:57 [employer] Medical supply form placed in provider folder in [facility] location for signature. A copy was scannedinto chart T Asia Keller [facility]2017-09-20 11:11:11 PA retracted and RX resent as three pack. Awaiting pharmacy processing. Time spent vice president corporate communications: 45 minutes. [facility]
--- NOTE | 2025-02-09 12:06 | RAD REPORT ---
Exam:Foot Left 3 View CLINICAL HISTORY: Left foot pain FINDINGS: Destruction involves fourth metatarsal head and distal diaphysis. Destruction involves the proximal, mid and portion of the distal fourth proximal phalanx. This indicates osteomyelitis. Portion of the fifth metatarsal has been resected. Cortical irregularity involving the residual fifth metatarsal could be post surgical change or osteomyelitis. No fracture or dislocation noted.
[2025-02-09 12:49] LABS: Absolute Lymphocytes (CBC) 1.9 K/uL (0.7-4.9); Hematocrit 29.4 % (39.6-49.0); Hemoglobin 9.7 g/dL (13.6-17.9); MCH 30.5 pg (27.0-35.0); MCHC 33.1 g/dL (32.0-36.0); MCV 92.2 fL (80-100); MPV 7.3 fL (7.6-11.3); Nucleated RBC Absolute Count 0.0 (0-0); Nucleated Red Blood Cells % 0.0 % (0-0); RBC Red Blood Cell Count 3.19 M/uL (4.33-5.43); White Blood Count 9.80 thou/uL (4.3-10.9)
[2025-02-09 12:54] LABS: PT Prothrombin Time 16.4 SECONDS (10-13.0); PTT, Activated Partial Thromb 34.7 SECONDS (27.2-37.4); Protime INR 1.47
[2025-02-09 13:00] LABS: ALT/SGPT 26.0 U/L (16-61); AST/SGOT 15.0 U/L (15-37); Albumin 2.4 g/dL (3.4-5.0); Albumin/Globulin Ratio 0.6 (1.1-1.8); Alkaline Phosphatase 191.0 U/L (45-117); Anion Gap 10.7 mEq/L (5.0-15.0); BUN Blood Urea Nitrogen 31.0 mg/dL (7-18); Globulin 4.3 g/dL (2.3-3.5); Glucose Level 226.0 mg/dL (74-106); Potassium 4.7 mEq/L (3.5-5.1)
--- NOTE | 2025-02-09 13:05 | EDPHYS ---
Physician Documentation [facility] Name: Danny Voss II Age: 79 yrs Sex: Male : 1945 Arrival Date: 02/09/2025 Time: 10:37 Bed 20 Private MD: ED Physician Sue Lindquist HPI: 02/09 12:46 This 79 yrs old Male presents to ER via Ambulatory with complaints of Toe Injury. sb4 12:46 Patient states that he has been dealing with a wound on his left foot for about 2 sb4 months now. States that it started with a splinter he had in his pinky toe. He had a surgery 2 months ago to remove the surgery, then it got infected so he had to have the whole toe removed. He states since then, he has been having daily wound dressing changes, has had a wound VAC, has seen Dr. Larson for it frequently. He states that most recently, it has had a foul odor in his home health noted bone exposure. He denies any fever or chills. Does have a history of hypertension and diabetes. Historical: - Allergies: 11:04 No Known Allergies; iw - PMHx: 11:05 Diabetes mellitus; Hypertensive disorder; iw - PSHx: 11:05 cardiac stent; left pinky toe amputation; iw - Immunization history:: Adult Immunizations unknown. - Infectious Disease History:: Denies. - Social history:: Smoking status: Patient denies any tobacco usage or history of. ROS: 12:46 Constitutional: Negative for fever, chills, and weight loss, sb4 12:46 Skin: Positive for per HPI, 12:46 All other systems are negative, Exam: 12:54 Constitutional: This is a well developed, well nourished patient who is awake, alert, sb4 and in no acute distress. Head/Face: Normocephalic, atraumatic. Eyes: Extra-ocular motions intact. Periorbital areas with no swelling, redness, or edema. ENT: Mucous membranes moist. Respiratory: No increased work of breathing, no retractions or nasal flaring. 12:54 Skin: Wound recheck: Large open wound lateral left foot with granulation gradation and fibrinous tissue, exposed bone. Vital Signs: 11:03 BP 116 / 72; Pulse 96; Resp 16; Weight 84.37 kg; Height 5 ft. 10 in. ; Pain 8/10; iw 12:30 BP 132 / 64; Pulse 66; Resp 16; Temp 98.2; Pulse Ox 100% ; db 13:00 BP 133 / 65; Pulse 65; Resp 16; Pulse Ox 100% on R/A; db 14:31 BP 147 / 86; Pulse 83; Resp 16; Pulse Ox 98% on R/A; db 11:03 Body Mass Index 26.69 (84.37 kg, 177.8 cm) iw 11:03 Pain Scale: Adult iw MDM: 10:54 Medical Screening Exam initiated sb4 12:57 Differential diagnosis: cellulitis, osteomyelitis. sb4 13:08 Data reviewed: vital signs, nurses notes, lab test result(s), radiologic studies, I sb4 have discussed the patient's presentation/case with the attending Emergency Department Physician; and as a result, I will admit patient. Consideration of Admission/Observation Patient was admitted/placed on observation. Care significantly affected by the following chronic conditions: Diabetes, Hypertension. Counseling: I had a detailed discussion with the patient and/or guardian regarding the historical points, exam findings, and any diagnostic results supporting the discharge/admit diagnosis, lab results, radiology results, the need for further work-up and treatment in the hospital. 13:09 Management of patient was discussed with the following: Winch Driver: Dr. Larson, pt's 4 general surgeon. Independent interpretation of the following test(s) in the Emergency Department X-Ray: My interpretation is left foot xray - [place] destruction of remaining 5th metatarsal and distal 4th metatarsal indicative of osteomyelitis. 02/09 11:11 Order name: Blood Culture Adult (2) 4 02/09 11:11 Order name: CBC with Diff; Complete Time: 12:53 sb4 02/09 11:11 Order name: CMP; Complete Time: 13:01 sb4 02/09 11:11 Order name: Lactate w/ 2H reflex if indic.; Complete Time: 13:03 sb4 02/09 11:11 Order name: Protime (+inr); Complete Time: 12:57 sb4 02/09 11:11 Order name: Ptt, Activated; Complete Time: 12:57 4 02/09 13:05 Order name: Ghost Lactate-NO COLLECT Timer; Complete Time: 15:04 EDMS 02/09 14:22 Order name: Basic Metabolic Panel EDMS 02/09 14:22 Order name: Basic Metabolic Panel EDMS 02/09 14:22 Order name: CBC with Automated Diff EDMS 02/09 14:22 Order name: CBC with Automated Diff; Complete Time: 08:48 EDMS 02/09 14:22 Order name: Protime (+INR) EDMS 02/09 14:22 Order name: Protime (+INR); Complete Time: 08:48 EDMS 02/09 14:22 Order name: PTT, Activated Partial Thromb EDMS 02/09 14:22 Order name: PTT, Activated Partial Thromb; Complete Time: 08:48 EDMS 02/09 14:23 Order name: Procalcitonin; Complete Time: 08:48 EDMS 02/09 11:10 Order name: Foot Left 3 View XRAY; Complete Time: 12:07 sb4 02/09 14:22 Order name: CONS Physician Consult EDMS 02/09 11:11 Order name: IV Saline Lock - Large Bore; Complete Time: 12:32 sb4 02/09 11:11 Order name: Labs collected and sent; Complete Time: 12:32 sb4 02/09 11:11 Order name: Vital Signs; Complete Time: 12:32 sb4 Administered Medications: 13:10 Drug: NS 0.9% IV 1000 ml IV at 1 bolus Per protocol; to be given as a bolus over 60 db minutes Route: IV; Rate: 1 bolus; Site: right antecubital; 14:30 Follow up: Response: No adverse reaction; IV Status: Completed infusion; IV Intake: db 1000ml 13:20 Drug: vancoMYCIN IVPB 1 grams IVPB once over 2 hrs Route: IVPB; Infused Over: 2 hrs; db Site: right antecubital; 14:30 Follow up: Response: No adverse reaction; IV Status: Completed infusion; IV Intake: db 250ml Disposition Summary: 02/09/25 13:04 Hospitalization Ordered Notes: Hospitalization Status: Inpatient Admission sb4 Provider: Edson Orantes Location: Telemetry/MedSur (Inpatient) sb4 Condition: Stable sb4 Problem: new sb4 Symptoms: are unchanged sb4 Bed/Room Type: Standard sb4 Room Assignment: 411(02/09/25 14:28) eb Diagnosis - Osteomyelitis of left foot sb4 - Foot Laceration/ Open wound of foot sb4 - Type 2 diabetes mellitus with hyperglycemia sb4 Forms: - Medication Reconciliation Form sb4 - SBAR form sb4 - Leadership Thank You Letter sb4 Signatures: Dispatcher [employer] Amrita Campa, RN RN Soham Jacobo, INTERNATIONAL TRADE MANAGER-C INTERNATIONAL TRADE MANAGER-Cla1 Karly Squires Danielle, RN RN db Brown, Sophia, PA-C PA-C sb4 Corrections: (The following items were deleted from the chart) 14:28 13:04 sb4 eb 02/10 08:48 02/09 12:57 Differential diagnosis: sepsis, cellulitis, osteomyelitis, sb4 sb4
--- NOTE | 2025-02-09 13:05 | ER ---
Nurse's Notes [facility] Name: Danny Voss II Age: 79 yrs Sex: Male : 1945 Arrival Date: 02/09/2025 Time: 10:37 Bed 20 Private MD: Diagnosis: Osteomyelitis of left foot;Foot Laceration/ Open wound of foot;Type 2 diabetes mellitus with hyperglycemia Presentation: 02/09 11:00 Chief complaint: Patient states: had an operation dec 10 to remove a splinter , it got iw infected , they removed my pinky toe on my left foot on dec 17 , has had daily dressing changes and wound vac , on the nurse noticed there was bone showing , today there was a bad smell and more bone showing, pt is being managed by Dr. Larson. Coronavirus screen: At this time, the client does not indicate any symptoms associated with coronavirus-19. Ebola Screen: No symptoms or risks identified at this time. Initial Sepsis Screen: Does the patient meet any 2 criteria? No. Patient's initial sepsis screen is negative. Does the patient have a suspected source of infection? No. Patient's initial sepsis screen is negative. Risk Assessment: Do you want to hurt yourself or someone else? Patient reports no desire to harm self or others. 11:00 Method Of Arrival: Ambulatory iw 11:00 Acuity: ISMA 3 iw 11:04 Onset of symptoms was February 09, 2025. iw Historical: - Allergies: 11:04 No Known Allergies; iw - PMHx: 11:05 Diabetes mellitus; Hypertensive disorder; iw - PSHx: 11:05 cardiac stent; left pinky toe amputation; iw - Immunization history:: Adult Immunizations unknown. - Infectious Disease History:: Denies. - Social history:: Smoking status: Patient denies any tobacco usage or history of. Screenin:[address] [facility] ED Fall Risk Assessment (Adult) History of falling in the last 3 months, db including since admission No falls in past 3 months (0 pts) Confusion or Disorientation No (0 pts) Intoxicated or Sedated No (0 pts) Impaired Gait No (0 pts) Mobility Assist Device Used No (0 pt) Altered Elimination No (0 pt) Score/Fall Risk Level 0 - 2 = Low Risk Oriented to surroundings, Maintained a safe environment. Abuse screen: Denies threats or abuse. Denies injuries from another. Nutritional screening: No deficits noted. Tuberculosis screening: No symptoms or risk factors identified. Assessment: 12:34 Reassessment: Patient appears in no apparent distress at this time. Patient and/or db family updated on plan of care and expected duration. Pain level reassessed. Patient is alert, oriented x 3, equal unlabored respirations, skin warm/dry/pink. General: Appears in no apparent distress. comfortable, Behavior is calm, cooperative. Neuro: Level of Consciousness is awake, alert, obeys commands, Oriented to person, place, time, situation. Respiratory: Airway is patent Respiratory effort is even, unlabored, Respiratory pattern is regular, symmetrical. 14:00 Reassessment: Patient appears in no apparent distress at this time. Patient and/or db family updated on plan of care and expected duration. Pain level reassessed. Patient is alert, oriented x 3, equal unlabored respirations, skin warm/dry/pink. 15:00 Reassessment: Patient appears in no apparent distress at this time. Patient and/or db family updated on plan of care and expected duration. Pain level reassessed. Patient is alert, oriented x 3, equal unlabored respirations, skin warm/dry/pink. Vital Signs: 11:03 BP 116 / 72; Pulse 96; Resp 16; Weight 84.37 kg; Height 5 ft. 10 in. ; Pain 8/10; iw 12:30 BP 132 / 64; Pulse 66; Resp 16; Temp 98.2; Pulse Ox 100% ; db 13:00 BP 133 / 65; Pulse 65; Resp 16; Pulse Ox 100% on R/A; db 14:31 BP 147 / 86; Pulse 83; Resp 16; Pulse Ox 98% on R/A; db 11:03 Body Mass Index 26.69 (84.37 kg, 177.8 cm) iw 11:03 Pain Scale: Adult iw ED Course: 10:47 Patient arrived in ED. iw 10:54 Mariposa Roberts PA-C is PHCP. sb4 10:54 Sue Lindquist MD is Attending Physician. sb4 11:03 Triage completed. iw 11:04 Arm band placed on. iw 11:44 Foot Left 3 View XRAY In Process Unspecified. EDMS 12:10 First set of blood cultures drawn. db 12:27 Initial lab(s) drawn, by mn, sent to lab. Second set of blood cultures drawn. Inserted db saline lock: 20 gauge in right antecubital area, using aseptic technique. Blood collected. Flushed with 10 mL NS. 12:31 Thais Padilla, RN is Primary Nurse. db 12:32 Patient has correct armband on for positive identification. Bed in low position. Call db light in reach. Side rails up X 1. Pulse ox on. NIBP on. Warm blanket given. Pillow given. 13:03 Sj Orantes MD is Hospitalizing Provider. sb4 13:03 Hospitalizing Provider role handed off by Sj Orantes MD sb4 13:03 Edson Orantes MD is Hospitalizing Provider. sb4 15:25 Provided Education on: ADMISSION. db 15:25 No provider procedures requiring assistance completed. Patient admitted, IV remains in db place. Administered Medications: 13:10 Drug: NS 0.9% IV 1000 ml IV at 1 bolus Per protocol; to be given as a bolus over 60 db minutes Route: IV; Rate: 1 bolus; Site: right antecubital; 14:30 Follow up: Response: No adverse reaction; IV Status: Completed infusion; IV Intake: db 1000ml 13:20 Drug: vancoMYCIN IVPB 1 grams IVPB once over 2 hrs Route: IVPB; Infused Over: 2 hrs; db Site: right antecubital; 14:30 Follow up: Response: No adverse reaction; IV Status: Completed infusion; IV Intake: db 250ml Medication: 12:32 VIS not applicable for this client. db Intake: 14:30 IV: 250ml; Total: 250ml. db 14:30 IV: 1000ml; Total: 1250ml. db Outcome: 13:04 Decision to Hospitalize by Provider. sb4 15:25 Admitted to Med/surg accompanied by tech, via wheelchair, room 411, with chart, Report db called to [facility] 15:25 Condition: stable 15:25 Instructed on the need for admit, 15:27 Patient left the ED. db Signatures: Dispatcher [employer] EDAmrita Malone RN RN iw Thais Padilla RN RN db Mariposa Roberts PA-C PAYvonne sb4 Corrections: (The following items were deleted from the chart) 11:04 11:00 Chief complaint: Patient states: had an operation dec 10 to remove a splinter , it iw got infected , they removed my pinky toe on my left foot on dec 17 , has had daily dressing changes and wound vac , on the nurse noticed there was bone showing , is being managed by Dr. Larson, iw 11:04 11:03 BP 116 / 72; Pulse 96bpm; Resp 16bpm; 84.37 kg; Height 5 ft. 10 in.; BMI: 26.6; iwiw 15:24 12:30 BP 132 / 64; Pulse 66bpm; Resp 16bpm; Pulse Ox 100%; db db
[2025-02-09] MEDS ORDERED: NA CHLORIDE 0.9% 250 ML ONE (13:09)
[2025-02-09] MEDS ORDERED: NA CHLORIDE 0.9% 1,000 ML ONE (13:10)
[2025-02-09] MEDS ORDERED: VANCOMYCIN 1 GM/VIAL ONE (13:10)
[2025-02-09] MEDS ORDERED: ACETAMINOPHEN 500 MG TAB PO PRN (14:17)
[2025-02-09] MEDS: NA CHLORIDE 0.9% 1,000 ML IV SCH (15:00)
[2025-02-09] MEDS: Levofloxacin500mg IV 500 MG/100 ML BAG IV SCH (15:00)
[2025-02-09] MEDS ORDERED: VANCOMYCIN 1 GM in NA CHLORIDE 0.9% 250 ML IVPB SCH (15:00)
[2025-02-09] MEDS ORDERED: Levofloxacin500mg IV 500 MG/100 ML BAG IV ONE (15:21)
[2025-02-09 16:03] VITALS: BMI 26.6
[2025-02-09] MEDS: MORPHINE 2 MG/ML SYR IV PRN (16:35)
[2025-02-09] MEDS: VANCOMYCIN 500 MG in NA CHLORIDE 0.9% 100 ML IVPB ONE (16:36)
[2025-02-10 05:36] LABS: Absolute Lymphocytes (CBC) 1.5 K/uL (0.7-4.9); Hematocrit 27.5 % (39.6-49.0); Hemoglobin 9.3 g/dL (13.6-17.9); MCH 31.0 pg (27.0-35.0); MCHC 33.8 g/dL (32.0-36.0); MCV 91.8 fL (80-100); MPV 7.5 fL (7.6-11.3); Nucleated RBC Absolute Count 0.0 (0-0); Nucleated Red Blood Cells % 0.0 % (0-0); RBC Red Blood Cell Count 2.99 M/uL (4.33-5.43); White Blood Count 7.30 thou/uL (4.3-10.9)
[2025-02-10 05:43] LABS: PT Prothrombin Time 16.9 SECONDS (10-13.0); PTT, Activated Partial Thromb 31.7 SECONDS (27.2-37.4); Protime INR 1.51
[2025-02-10 11:09] VITALS: O2SAT 100
[2025-02-10 12:30] LABS: Anion Gap 13.5 mEq/L (5.0-15.0); BUN Blood Urea Nitrogen 19.0 mg/dL (7-18); Glucose Level 117.0 mg/dL (74-106); Potassium 4.5 mEq/L (3.5-5.1)
[2025-02-10] MEDS: VANCOMYCIN 1.5 GM in NA CHLORIDE 0.9% 500 ML IVPB SCH (12:59)
--- NOTE | 2025-02-11 06:37 | P.HP ---
Certification for Inpatient Patient admitted to: Inpatient With expected LOS: >2 Midnights Patient will require the following post-hospital care: None Practitioner: I am a practitioner with admitting privileges, knowledge of patient current condition, hospital course, and medical plan of care. Services: Services provided to patient in accordance with Admission requirements found in Title 42 Section 412.3 of the Code of Federal Regulations Patient History Date of Service: 02/09/25 Reason for admission: Hospitalized with left foot osteomyelitis History of Present Illness: patient is a 79-year-old gentleman who came to hospital with pain and drainage from the left foot. Patient is having a lot of excruciating pain and he was found to have bone exposure. Patient had osteomyelitis left foot. Patient will be admitted for IV antibiotic therapy and General surgery may need to proceed with debridement. General surgery will see the patient on Tuesday will keep patient NPO after midnight. Infectious Disease consultation will also be obtained for recommendations for antibiotic therapy IV. At this time, patient will be admitted for inpatient hospitalization. Allergies No Known Allergies Allergy (Verified 12/17/24 13:03) Home Medications: Aspirin 325 mg PO DAILY 02/10/18 Metformin HCl 1,000 mg PO BID 02/10/18 Tamsulosin [Flomax*] 0.4 mg PO BID 02/10/18 Allopurinol 300 mg PO DAILY 12/07/24 Atorvastatin Calcium 20 mg PO BEDTIME 12/07/24 Colchicine 0.6 mg PO DAILY 12/07/24 Isosorbide Mononitrate [Isosorbide Mononitrate ER] 30 mg PO DAILY 12/07/24 Losartan Potassium 100 mg PO DAILY 12/07/24 Metoprolol Succinate 50 mg PO DAILY 12/07/24 [place]-3S/Dha/Epa/Fish Oil [Fish Oil 1,200 mg Softgel] 1 each PO DAILY 12/07/24 Silver Sulfadiazine Crm [Silvadene*] 1 appl TOP DAILY #1 tube 12/27/24 Smz./Tmp. [Bactrim Ds 800 MG/160 MG*] 1 tab PO BID #20 tab 12/27/24 Codeine/APAP [Tylenol #3*] 1 tab PO BID 02/09/25 - Past Medical/Surgical History Has patient received pneumonia vaccine in the past: No Diabetic: Yes -: HTN -: CAD -: HLD -: Afib -: Gout -: heart stent -: lenses replacement -: Hydrocele Sx - Family History Father Medical History: Heart disease Mother Medical History: Other (see notes) Notes: of old age - Social History Smoking Status: Former smoker Alcohol use: Yes CD- Drugs: No Caffeine use: No Place of Residence: Home Review of Systems 10-point ROS is otherwise unremarkable Physical Examination - Vital Signs Temperature: 97.9 F Blood Pressure: 138/76 Pulse: 102 Respirations: 18 Pulse Ox (%): 97 - Physical Exam General: Alert, In no apparent distress, Oriented x3 HEENT: Atraumatic, PERRLA, Mucous membr. moist/pink, EOMI, Sclerae nonicteric Neck: Supple, 2+ carotid pulse no bruit, No LAD, Without JVD or thyroid abnormality Respiratory: Clear to auscultation bilaterally, Normal air movement Cardiovascular: Regular rate/rhythm, Normal S1 S2 Gastrointestinal: Normal bowel sounds, No tenderness Musculoskeletal: Tenderness Integumentary: Skin breakdown, Tenderness/swelling, Diabetic ulcer, Other Neurological: Normal speech, Normal strength at 5/5 x4 extr, Normal tone, Sensation intact, Cranial nerves 3-12 intact, Normal affect, Abnormal gait Lymphatics: No axilla or inguinal lymphadenopathy Assessment & Plan - Problems (Diagnosis) (1) Foot osteomyelitis, left Current Visit: Yes Status: Acute (2) DM2 (diabetes mellitus, type 2) Current Visit: Yes Status: Acute (3) Gout Current Visit: Yes Status: Acute (4) Atrial fibrillation Current Visit: Yes Status: Acute (5) HTN (hypertension) Current Visit: Yes Status: Acute - Plan 1. Continue with IV antibiotic 2. Continue with local wound care 3. Wound care consultation/surgical consultation 4. Gentle IV hydration 5. Monitor CBC 6. Strict blood sugar monitoring 7. Pain control 8. Arterial Doppler 9. GI and DVT prophylaxis Discharge Plan: Home Plan to discharge in: Greater than 2 days - Advance Directives Does patient have a Living Will: No Does patient have a Durable POA for Healthcare: No - Code Status/Comfort Care Code Status Assessed: Yes Code Status: Full Code Critical Care: No Time Spent Managing PTS Care (In Minutes): 45
--- NOTE | 2025-02-11 06:42 | P.PN ---
Subjective Date of Service: 02/10/25 Patient is a 79-year-old gentleman who came to the hospital with osteomyelitis of the left foot. Arterial Dopplers are pending. No new changes. Spoke with surgery and patient to be NPO. Review of Systems 10-point ROS is otherwise unremarkable Physical Examination - Vital Signs Temperature: 97.9 F Blood Pressure: 138/76 Pulse: 102 Respirations: 18 Pulse Ox (%): 97 - Physical Exam General: Alert, In no apparent distress HEENT: Atraumatic, PERRLA, EOMI Neck: Supple, JVD not distended Respiratory: Clear to auscultation bilaterally, Normal air movement Cardiovascular: Regular rate/rhythm, Normal S1 S2 Gastrointestinal: Normal bowel sounds, No tenderness Musculoskeletal: Tenderness Integumentary: No rashes, Skin breakdown, Tenderness/swelling, Erythema, Diabetic ulcer Neurological: Normal speech, Normal tone, Normal affect Lymphatics: No axilla or inguinal lymphadenopathy - Studies Medications List Reviewed: Yes Assessment & Plan - Problems (Diagnosis) (1) Foot osteomyelitis, left Current Visit: Yes Status: Acute (2) DM2 (diabetes mellitus, type 2) Current Visit: Yes Status: Acute (3) Gout Current Visit: Yes Status: Acute (4) Atrial fibrillation Current Visit: Yes Status: Acute (5) HTN (hypertension) Current Visit: Yes Status: Acute - Plan 1. Continue with IV antibiotic 2. Continue with local wound care 3. Wound care consultation/surgical consultation 4. Gentle IV hydration 5. Monitor CBC 6. Strict blood sugar monitoring 7. Pain control 8. Arterial Doppler 9. GI and DVT prophylaxis Discharge Plan: Home Plan to discharge in: Greater than 2 days - Advance Directives Does patient have a Living Will: No Does patient have a Durable POA for Healthcare: No - Code Status/Comfort Care Code Status: Full Code Critical Care: No Time Spent Managing PTS Care (In Minutes): 45
--- NOTE | 2025-02-11 08:49 | RAD REPORT ---
EXAM:Lower Extremity Artery Uni Ltd HISTORY: Left leg pain. Peripheral vascular disease TECHNIQUE: Sonographic evaluation lower extremity arteries performed.Grayscale, color and spectral analysis performed on all vessels FINDINGS: Left common femoral, superficial femoral and left popliteal arterial waveforms biphasic. Left posterior tibial and dorsalis pedis arterial waveforms monophasic No high-grade stenosis/occlusion IMPRESSION: Mild disease involving proximal and mid arteries left lower extremity Moderate disease involving distal left lower extremity arteries
[2025-02-11] MEDS: ISOSORBIDE MONO SR 30 MG TAB PO SCH (09:00)
[2025-02-11] MEDS: LOSARTAN POTASSIUM 50 MG TABLET PO SCH (09:00)
[2025-02-11] MEDS: TAMSULOSIN 0.4 MG SR CAP PO SCH (09:00)
[2025-02-11] MEDS: COLCHICINE 0.6 MG TAB PO SCH (09:00)
[2025-02-11] MEDS: METOPROLOL XL 50 MG TAB PO SCH (09:00)
[2025-02-11] MEDS: Mupirocin NASAL 2 APPL/1 GM TUBE NAS SCH (10:17)
--- NOTE | 2025-02-11 11:51 | RAD REPORT ---
Procedure: Chest Single View HISTORY: PICC line placement FINDINGS: PICC line has been inserted with its tip in the SVC
--- NOTE | 2025-02-11 14:25 | P.PN ---
Date of Service: 02/11/25 Subjective: Denies fevers and chills. His pain is under control. We discussed setting up IV antibiotics for long-term treatment. His is at bedside Physical Examination - Vital Signs Temperature: 97.9 F Blood Pressure: 138/76 Pulse: 102 Respirations: 18 Pulse Ox (%): 97 - Physical Exam General: Alert, In no apparent distress HEENT: Atraumatic, PERRLA, EOMI Neck: Supple, JVD not distended Respiratory: Clear to auscultation bilaterally, Normal air movement Cardiovascular: Regular rate/rhythm, Normal S1 S2 Gastrointestinal: Normal bowel sounds, No tenderness Musculoskeletal: Tenderness Integumentary: No rashes, Skin breakdown, Tenderness/swelling, Erythema, Diabetic ulcer Neurological: Normal speech, Normal tone, Normal affect Lymphatics: No axilla or inguinal lymphadenopathy - Studies Medications List Reviewed: Yes Assessment & Plan - Problems (Diagnosis) (1) Foot osteomyelitis, left Current Visit: Yes Status: Acute (2) DM2 (diabetes mellitus, type 2) Current Visit: Yes Status: Acute (3) Gout Current Visit: Yes Status: Acute (4) Atrial fibrillation Current Visit: Yes Status: Acute (5) HTN (hypertension) Current Visit: Yes Status: Acute - Plan 02/11 - Discussed with Dr. Larson - Planning for debridement in the a.m. - Continue vancomycin and Levaquin - Resume home pain medication - Left lower extremity ultrasound revealing mild disease involving the proximal and mid arteries with moderate disease involving the distal left lower extremity artery - Follow-up with vascular surgery and PCP. 1. Continue with IV antibiotic 2. Continue with local wound care 3. Wound care consultation/surgical consultation 7. Pain control 8. Arterial Doppler 9. GI and DVT prophylaxis Discharge Plan: Home Plan to discharge in: Greater than 2 days - Advance Directives Does patient have a Living Will: No Does patient have a Durable POA for Healthcare: No - Code Status/Comfort Care Code Status: Full Code Critical Care: No
--- NOTE | 2025-02-11 14:27 | P.CNS ---
Date of Consult: 02/11/25 reason for consult: OM HPI:patient is a 79-year-old gentleman who came to hospital with pain and drainage from the left foot. .left foot xray show OM. He will need [address] Larson will debride his wound tomorrow. Per wound culture back in december, he had proteus mirabilis and esbl and staph aureus which was susceptible to to merrem and levaquin. Per Dr Larson office, staff report pt received doxycyline x 5 days on 01/31 and anotherconti course of doxycyline x 7 days on 02/05. Current Medications Acetaminophen (Acetaminophen 500 Mg Tab) 500 mg PO Q6H PRN PRN Reason: Pain scale 2-4 (Mild)/Fever Acetaminophen/Codeine Phosphate (Codeine 30mg/Apap 300mg Tab) 1 tab PO BID [facility] Allopurinol (Allopurinol 300 Mg Tab) 300 mg PO DAILY [facility] Last Admin: 02/11/25 09:00 Dose: Not Given Aspirin (Aspirin 325 Mg Tab) 325 mg PO DAILY [facility] Atorvastatin Calcium (Atorvastatin 20 Mg Tab) 20 mg PO BEDTIME [facility] Colchicine (Colchicine 0.6 Mg Tab) 0.6 mg PO DAILY [facility] Last Admin: 02/11/25 09:00 Dose: Not Given Collagenase (Collagenase 30 Gm Ointment) 1 appl TOP DAILY [facility] Sodium Chloride (Ns 1000 Ml Ivbag) 1,000 mls @ 75 mls/hr IV .[id number] [facility] Last Admin: 02/11/25 10:17 Dose: 1,000 mls Levofloxacin/Dextrose (Levaquin 500 Mg/100 Ml Ivpb) 500 mg in 100 mls @ 100 mls/hr IV Q24H [facility]; Protocol Last Admin: 02/10/25 15:27 Dose: 100 mls Vancomycin HCl 1.5 gm/ Sodium (Chloride) 500 mls @ 250 mls/hr IVPB Q24H [facility] Last Admin: 02/10/25 12:59 Dose: 500 mls Isosorbide Mononitrate (Isosorbide Cole Sr 30 Mg Tab) 30 mg PO DAILY [facility] Last Admin: 02/11/25 09:00 Dose: Not Given Losartan Potassium (Losartan Potassium 50 Mg Tablet) 100 mg PO DAILY [facility] Last Admin: 02/11/25 09:00 Dose: Not Given Metoprolol Succinate (Metoprolol Xl 50 Mg Tab) 50 mg PO DAILY [facility] Last Admin: 02/11/25 09:00 Dose: Not Given Morphine Sulfate (Morphine 2 Mg/Ml Syr) 2 mg IV Q4H PRN PRN Reason: Pain scale 5-7 (Moderate) Last Admin: 02/11/25 09:12 Dose: 2 mg Mupirocin (Mupirocin Nasal 2 Appl/1 Gm Tube) 1 appl CLARITZA BID [facility] Stop: 02/15/25 21:01 Last Admin: 02/11/25 10:17 Dose: 1 appl Tamsulosin HCl (Tamsulosin 0.4 Mg Sr Cap) 0.4 mg PO BID [facility] Last Admin: 02/11/25 09:00 Dose: Not Given Allergies No Known Allergies Allergy (Verified 12/17/24 13:03) - Past Medical/Surgical History Has patient received pneumonia vaccine in the past: No Diabetic: Yes -: HTN -: CAD -: HLD -: Afib -: Gout -: heart stent -: lenses replacement -: Hydrocele Sx - Family History Father Medical History: Heart disease Mother Medical History: Other (see notes) Notes: of old age - Social History Smoking Status: Former smoker Alcohol use: Yes CD- Drugs: No Caffeine use: No Place of Residence: Home [place]; please see hpi objective Temp Pulse Resp BP Pulse Ox 97.9 F 87 18 148/81 H 100 02/11/25 12:00 02/11/25 12:00 02/11/25 12:00 02/11/25 12:00 02/11/25 12:00 - Physical Exam General: Alert, In no apparent distress, Oriented x3 HEENT: Atraumatic, PERRLA, Neck: Supple, Respiratory: Clear to auscultation bilaterally Cardiovascular: Regular rate/rhythm, Normal S1 S2 Integumentary: right foot wound with dressing Neurological: respond to question appropriately Microbiology 02/09/25 12:10 Blood - Blood Aerobic Blood Culture - Preliminary No growth in 24 hours. 02/09/25 12:10 Blood - Blood Anaerobic Blood Culture - Preliminary No growth in 24 hours. 02/09/25 12:27 Blood - Blood Aerobic Blood Culture - Preliminary No growth in 24 hours. 02/09/25 12:27 Blood - Blood Anaerobic Blood Culture - Preliminary No growth in 24 hours. labs: 7.3 wbc. hgb 9.3, bun 19, cr 0.8 assessment and planning 1. left foot osteomyelitis 2. DM2 3. A fib continue vancomycin and levaquin empirically. recommend 6 weeks of abx. pending debridement tomorrow by Dr Larson thank you for the consult case discussed and in agreement with Dr Asencio
[2025-02-11] MEDS: COLLAGENASE 30 GM OINTMENT TOP SCH (14:38)
[2025-02-11] MEDS: PNEUMOCOCCAL VACCINE 0.5 ML IMVAC ONE (17:00)
--- NOTE | 2025-02-11 17:40 | RAD REPORT ---
EXAMINATION: Forearm Left VIEWS: Two views CLINICAL INDICATION: Male, 79 years old. pt fell in room COMPARISON: No prior exams IMPRESSION: No acute fracture. No acute soft tissue abnormality. No radiopaque foreign body. Peripheral vascular calcifications.
--- NOTE | 2025-02-11 18:07 | RAD REPORT ---
EXAMINATION: Head Brain Wo Cont CLINICAL INDICATION: Male, 79 years old.pt fell in room TECHNIQUE: Axial CT images from the skull base to the vertex without intravenous contrast. Coronal an d sagittal reformatted images were created from the data set. One or more of the following dose reduction techniques were used: Automated exposure control, adjustment of the mA and/or kV according to patient size, and/or iterative reconstruction. Unless otherwise specified, incidental findings do not require dedicated imaging follow-up. [id number]. COMPARISON: No prior exams FINDINGS: INTRACRANIAL: No acute intracranial hemorrhage. No acute large vascular territory infarct. No hydroce phalus. No mass effect or midline shift. No significant white matter disease.Moderate cerebral atrophy. VASCULATURE: No visualized abnormalities in the arteries or dural venous sinuses. SCALP/SKULL: No calvarial fracture identified. No acute soft tissue abnormality. SINUSES: The visualized paranasal sinuses are mostly clear. No significant mastoid fluid. IMPRESSION: No acute intracranial abnormality.
[2025-02-11] MEDS: ATORVASTATIN 20 MG TAB PO SCH (21:18)
[2025-02-11] MEDS: CODEINE 30MG/APAP 300MG TAB PO SCH (21:18)
[2025-02-12 05:31] LABS: Absolute Lymphocytes (CBC) 1.9 K/uL (0.7-4.9); Hematocrit 26.5 % (39.6-49.0); Hemoglobin 9.1 g/dL (13.6-17.9); MCH 31.1 pg (27.0-35.0); MCHC 34.2 g/dL (32.0-36.0); MCV 91.1 fL (80-100); MPV 7.0 fL (7.6-11.3); Nucleated RBC Absolute Count 0.0 (0-0); Nucleated Red Blood Cells % 0.1 % (0-0); RBC Red Blood Cell Count 2.91 M/uL (4.33-5.43); White Blood Count 6.80 thou/uL (4.3-10.9)
[2025-02-12 05:51] LABS: ALT/SGPT 24.0 U/L (16-61); AST/SGOT 22.0 U/L (15-37); Albumin 2.4 g/dL (3.4-5.0); Albumin/Globulin Ratio 0.6 (1.1-1.8); Alkaline Phosphatase 146.0 U/L (45-117); Anion Gap 11.1 mEq/L (5.0-15.0); BUN Blood Urea Nitrogen 10.0 mg/dL (7-18); C-Reactive Protein 49.2 mg/L (<3.00); Globulin 3.8 g/dL (2.3-3.5); Glucose Level 132.0 mg/dL (74-106); Potassium 4.1 mEq/L (3.5-5.1)
[2025-02-12] MEDS ORDERED: ASPIRIN 325 MG TAB PO SCH (09:00)
[2025-02-12] MEDS: NA CHLORIDE 0.9% 1,000 ML ONE (10:00)
[2025-02-12] MEDS ORDERED: MIDAZOLAM HCL 2 MG/2 ML INJ ONE (11:02)
[2025-02-12] MEDS ORDERED: LIDOCAINE 1% MPF 5 ML VIAL ONE (11:02)
[2025-02-12] MEDS ORDERED: FENTANYL CITR 100 MCG/2 ML ONE (11:02)
[2025-02-12] MEDS: LIDOCAINE HCL/EPINEPHRINE 20 ML MDV ONE (11:13)
[2025-02-12] MEDS: FENTANYL CITR 100 MCG/2 ML ONE (11:59)
[2025-02-12] MEDS ORDERED: ONDANSETRON 4 MG/2 ML VIAL ONE (12:21)
--- NOTE | 2025-02-12 12:50 | P.OP ---
Preoperative diagnosis: LEFT foot Chronic Wound Postoperative diagnosis: LEFT foot Chronic Wound Primary procedure: Debridement of LEFT foot Chronic Wound Anesthesia: GETA + Local Estimated blood loss: <5cc Specimen: Debridement Tissue Findings: Necrotic Tissue Grade IV wound Complications: None Transferred to: Recovery Room Condition: Good
[2025-02-12] MEDS: VANCOMYCIN 1.75 GM in NA CHLORIDE 0.9% 500 ML IVPB SCH (13:00)
[2025-02-12] MEDS: FLU (Fluarix) 25-26 (6MOS UP)/PF 45 MCG/0.5 ML Syringe IM ONE (15:30)
--- NOTE | 2025-02-12 15:49 | CON ---
Date of Consultation: 02/11/2025 Brief History Of Present Illness: The patient is a 79-year-old man known to me from previous encount ers. He ultimately previously had stepped on broken glass on his left foot along his fifth metatarsa l. This got significantly infected, abscessed, and he developed significant infection in the area, u ltimately requiring a partial ray amputation of fifth toe on this side. He had a postoperative dehis cence after he ambulated on the area, significantly the sutures came tore through as he was noncompli ant with the postoperative wound care and did not have wound care for several days in the perioperati ve period ultimately developing an additional wound requiring multiple debridements in the clinic. Karla everett continued to be noncompliant with the postoperative instructions with respect to weightbearing as w ell as antibiotic usage as well as dressing changes and wound care instructions. Ultimately, he came to the hospital with worsening infection of the left lateral foot in this area, and as such, he came to the hospital now for the above-stated problem. Past Medical History: Significant for hypertension, coronary artery disease, hyperlipidemia, atrial fibrillation, gout, peripheral arterial disease. Past Surgical History: Includes hydrocele surgery, and partial ray amputation of the left fifth toe as described. He has had multiple debridements as well of this area. Allergies: NO KNOWN DRUG ALLERGIES. Home Medications: Include aspirin, metformin, Flomax, allopurinol, atorvastatin, colchicine, isosorb jennifer mononitrate, losartan, metoprolol, omega-3, Silvadene, Bactrim, codeine. Family History: Significant for heart disease. Social History: He has a positive tobacco use history. Drinks alcohol recreationally. Denies recre ational drug use. Review of Systems: Ten-point review of systems other than HPI, denies. Physical Examination: General: At the time of my examination, he is awake, alert, and oriented. Psychiatric: Appropriate and conversive. HEENT: He is normocephalic. Sclerae anicteric. Mucous membranes are moist. Oropharynx is clear. Neck: Supple without JVD. Chest: Normal to expansion and excursion. Cardiovascular: Regular rate and rhythm. Pulmonary: Clear to auscultation bilaterally. Abdomen: Soft. Extremities: Focused examination of the left lower extremity shows an open wound consistent with pre vious debridements with some healthy granulation tissue and some slough in the periwound area which c ould benefit from debridement as there appears to be some slough and necrosis in this area. Laboratory Data: Revealed a white blood cell count of 7.3, hemoglobin is 9.3, hematocrit of 27.5, pl atelet count was 136, his neutrophils were normal 68%, PT 6.9, INR 1.5, PTT 31.7. Sodium 138, potass ium 4.5, chloride BUN 19, creatinine 0.8, glucose is 141. Assessment And Plan: This is a 79-year-old man who comes in after debridement of the left ray region with an open wound requiring debridement. 1. Continue antibiotics. 2. I have explained the risks, benefits, and alternatives of amputation versus debridement. The amy ent refusing of any amputation of this area, and as such, we will proceed with the debridement of the area after explaining the risks, benefits, and alternatives of this procedure including, but not cary ited to, bleeding, infection, damage to surrounding tissue, need for further operative procedures, bl ood clots, heart attacks, strokes, and other unforeseen complications in the perioperative period. T he patient displayed understanding of the above-stated plan and agrees to proceed as indicated. Thank you for this interesting consult. JAMES Voice ID: [id number] Report ID: [id number]
[2025-02-12 17:03] VITALS: BP 117/88; TEMP 97
--- NOTE | 2025-02-12 17:03 | P.PN ---
Subjective Date of Service: 02/12/25 Chief Complaint: Hospitalized with left foot osteomyelitis Subjective: No chest pain or shortness of breath. No nausea or vomiting. No abdominal pain. No obvious bleeding. Looks comfortable in the bed. Denies any pain in the left foot. Objective: General appearance: Alert and comfortable CVS: Normal S1 and S2 Lungs: Clear to auscultation bilaterally Abdomen: Soft, bowel sounds present, no tenderness Extremities: No edema right lower extremity edema. Left foot has dressing. Physical Examination - Vital Signs Temperature: 97 F Blood Pressure: 117/88 Pulse: 89 Respirations: 16 Pulse Ox (%): 100 - Studies Medications List Reviewed: Yes Assessment And Plan - Plan - Problems (Diagnosis) (1) Foot osteomyelitis, left Current Visit: Yes Status: Acute (2) DM2 (diabetes mellitus, type 2) Current Visit: Yes Status: Acute (3) Gout Current Visit: Yes Status: Acute (4) Atrial fibrillation Current Visit: Yes Status: Acute (5) HTN (hypertension) Current Visit: Yes Status: Acute - Plan - had surgery with Dr. Larson today - Continue vancomycin and Levaquin -ID on board, IV continue antibiotics for now, final antibiotic recommendations depending on culture results. Plan discussed with the patient and family at bedside, he really wants to go home tonight, he may leave AGAINST MEDICAL ADVICE as he has antibiotics at home, I discussed with him about that it is better to wait for the culture results, if he leave AMA without appropriate antibiotics there is significant chance that his infection would come back and he will end up being in the hospital, he understands the risks and he is leaning towards leaving AMA, nursing staff present at bedside as well.
--- NOTE | 2025-02-12 21:14 | OP ---
Date of Procedure: 02/12/2025 Surgeon: Rolando Larson MD, Preoperative Diagnosis: Left foot chronic wound. Postoperative Diagnosis: Left foot chronic wound. Procedure Performed: Debridement of left foot chronic wound. Anesthesia: General endotracheal plus local with 1% lidocaine. Estimated Blood Loss: Less than 5 cc. Specimen: Debridement of tissue. Findings: Necrotic grade 4 wound of the left foot on the lateral aspect along the ray distribution. Complications: None. Disposition: The patient transferred to recovery room in good condition. Procedure In Detail: After informed consent was obtained, the patient was prepped and draped in the usual sterile fashion after adequate anesthesia had been achieved. I debrided the area of the left f oot down to subcutaneous tissues and all the way down to grade 4 level thickness. All nonviable tiss ue was removed and the area was copiously irrigated and then the wound was packed with Xeroform on [place] exposed areas and Hydrofera Blue in the remaining areas and a sterile dressing was applied. The p atient tolerated the procedure well without incident or complication and transferred to PACU in good condition. All counts were cor rect at the end of the case. ALIZA/NISSA Voice ID: [id number] Report ID: [id number]
--- NOTE | 2025-02-13 13:27 | P.DS ---
Admission Date: 02/09/25 Discharge Date: 02/12/25 Disposition: AMA-LEFT AGAINST MEDICAL ADVIC Discharge Condition: FAIR Reason for Admission: Hospitalized with left foot osteomyelitis Hospital Course: 79-year-old patient admitted with left foot osteomyelitis, he was started on IV antibiotics, ID and surgery was following, he had a debridement on 02/12/2025, waiting for the culture results, unfortunately he left AGAINST MEDICAL ADVICE on 02/12/2025 so we were not able to provide any discharge follow-ups to him, I had a long discussion with the patient and family at bedside on the day of AMA, I discussed with him that if he goes home without appropriate antibiotics there is a very high risk that he will be back to the hospital again and worsening infection, he understands and he left AMA. Vital Signs/Physical Exam: Temp Pulse Resp BP Pulse Ox 97 F 89 16 117/88 100 02/12/25 17:03 02/12/25 17:03 02/12/25 17:03 02/12/25 17:03 02/12/25 17:03 Laboratory Data at Discharge: WBC 6.80 thou/uL (4.3-10.9) 02/12/25 04:12 Hgb 9.1 g/dL (13.6-17.9) L 02/12/25 04:12 Hct 26.5 % (39.6-49.0) L 02/12/25 04:12 Plt Count 220 thou/uL (152-406) 02/12/25 04:12 PT 16.9 SECONDS (10-13.0) H 02/10/25 04:36 INR 1.51 02/10/25 04:36 APTT 31.7 SECONDS (27.2-37.4) 02/10/25 04:36 Sodium 139 mEq/L (136-145) 02/12/25 04:12 Potassium 4.1 mEq/L (3.5-5.1) 02/12/25 04:12 BUN 10 mg/dL (7-18) 02/12/25 04:12 Creatinine 0.91 mg/dL (0.70-1.30) 02/12/25 04:12 Glucose 132 mg/dL (74-106) H 02/12/25 04:12 Total Bilirubin 0.5 mg/dL (0.2-1.0) 02/12/25 04:12 AST 22 U/L (15-37) 02/12/25 04:12 ALT 24 U/L (16-61) 02/12/25 04:12 Alkaline Phosphatase 146 U/L (45-117) H 02/12/25 04:12 Home Medications: Aspirin 325 mg PO DAILY 02/10/18 Metformin HCl 1,000 mg PO BID 02/10/18 Tamsulosin [Flomax*] 0.4 mg PO BID 02/10/18 Allopurinol 300 mg PO DAILY 12/07/24 Atorvastatin Calcium 20 mg PO BEDTIME 12/07/24 Colchicine 0.6 mg PO DAILY 12/07/24 Isosorbide Mononitrate [Isosorbide Mononitrate ER] 30 mg PO DAILY 12/07/24 Losartan Potassium 100 mg PO DAILY 12/07/24 Metoprolol Succinate 50 mg PO DAILY 12/07/24 [place]-3S/Dha/Epa/Fish Oil [Fish Oil 1,200 mg Softgel] 1 each PO DAILY 12/07/24 Silver Sulfadiazine Crm [Silvadene*] 1 appl TOP DAILY #1 tube 12/27/24 Smz./Tmp. [Bactrim Ds 800 MG/160 MG*] 1 tab PO BID #20 tab 12/27/24 Codeine/APAP [Tylenol #3*] 1 tab PO BID 02/09/25 Physician Discharge Instructions: Daily dressing changes: Remove all dressings daily irrigate area with sterile saline then apply Xeroform to bone exposed areas and Hydrofera Blue to remaining areas wrapped damp to dry elevate keep dry and shower do not allow to soil. Nonweightbearing to foot. Diet: ADA Activity: Non-weight bearing Followup: Rolando Larson MD [ACTIVE - CAN ADMIT] - 1 Week Tico Coronado DO [Primary Care Provider] - 1 Week
== END 2025-02-12 18:33 | disposition left against medical advice (07) | DRG 264 ==
LOC: ER 10:37 → ERHOLD 14:17 → 4TH 15:12
PROVIDERS: ADMIT Hospitalist; ATTEND Hospitalist
PROC: 02HV33Z Insertion of Infusion Device into Superior Vena Cava, Percutaneous Approach (ICD-10-PCS; 2025-02-11)
PROC: 0JBR0ZZ Excision of Left Foot Subcutaneous Tissue and Fascia, Open Approach (ICD-10-PCS; principal; 2025-02-12 11:15)
DX: E11.52 Type 2 diabetes mellitus with diabetic peripheral angiopathy with gangrene (principal); M86.172 Other acute osteomyelitis, left ankle and foot; E11.69 Type 2 diabetes mellitus with other specified complication; E11.65 Type 2 diabetes mellitus with hyperglycemia; I10 Essential (primary) hypertension; M10.9 Gout, unspecified; I48.91 Unspecified atrial fibrillation; Z89.422 Acquired absence of other left toe(s); Z95.5 Presence of coronary angioplasty implant and graft; Z53.29 Procedure and treatment not carried out because of patient's decision for other reasons; Z79.82 Long term (current) use of aspirin; Z79.84 Long term (current) use of oral hypoglycemic drugs; Z79.899 Other long term (current) drug therapy; Z87.891 Personal history of nicotine dependence; Z91.199 Patient's noncompliance with other medical treatment and regimen due to unspecified reason
CPT/HCPCS: 36415; 70450; 71045; 80048; 80053; 80202; 82947; 83036; 83605; 84145; 85025; 85610; 85730; 86140; 87040; 93926; 96365; 99285; J2003; J2250; J2270; J2405; J2704; J3010; J3373; J3590; J7030; J7040; J7050

== ENCOUNTER 2025-02-14 16:03 | Emergency (ER) | payer MEDICAID ==
--- OUTSIDE RECORDS SUMMARY | 2025-02-14 16:13 | XMS REPORT | Continuity of Care Document ---
Author Name Unknown Address [address] [facility] [address] [place] [address] [facility] [place] Address [address] [facility] 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 Role Phone TICO CORONADO Primary Care Physician Unavailab SURINDER Alvarez Attending Clinician Unavailable DEON OTT Attending Clinician Unavailable MARLEN NELSON Attending Clinician Unavailable TICO CORONADO Attending Clinician Unavailable JOYA RUIZ Attending Clinician UnavailDeon Ballesteros MD Attending Clinician [phone] Jason Perdomo MD Attending Clinician [phone] Arlyn Sawant Attending Clinician [phone] Shek[facility] Jj SALINAS Attending Clinician ARLYN SAWANT Attending Clinician Unavailable NT90 Attending Clinician Unavailable HANNAH SHARMA Attending Clinician Unavailable Doctor Unassigned, Rowe Attending Clinician U Lachelle Rosa MD Attending Clinician [phone] LACHELLE UMAÑA Attending Clinician Unavailable DEON OTT Attending Clinician Unavailable Art Bradford MD Attending Clinician [phone] GEGE VU Attending Clinician Unavaileddie e [id number] Attending Clinician Unavailable Kristen Ahumada Attending Clinician Unavailable Pob, [facility] Main Attending Clinician Unavailabl e 2, Adc Lab Attending Clinician Unavailable Vtc-Lab Attending Clinician Unavailable ZANE, GAYATRI S Attending Clinician Unavaileddie Linares MD, Gayatri S Attending Clinician [phone] JJ MARIE Attending Clinician Unavailable LAB90 Attending Clinician Unavailable Leeroy OTT, Lachelle Attending Clinician [phone] TERESA MARTELL Attending Clinician Unavailab Marcelina Barber Attending Clinician Doctor Unassigned, Rowe Attending Clinician U kietailJOSEPH Perez Attending Clinician Unavailable Deon Ott MD Attending Clinician [phone] MARCELINA CROWLEY Attending Clinician Unavaila ble [facility] Attending Clinician Unavailable Pob, Adc Lab Main Attending Clinician UnavailLeona Duval DO Attending Clinician [phone] Celena OTT, Nisreen Gregory Attending Clinician Un available Lauren Jefferson RN Attending Clinician Unavailable Melody Cosby DO Attending Clinician [phone] Caroline Min MD Attending Clinician [phone] JOHN BARR Attending Clinician Unavaila ble Te ACNP, John Attending Clinician + [phone] TWIN NICK Attending Clinician Unavaila ble [facility] Attending Clinician Unavailable Lucy Kimball MD Attending Clinician [phone] Peng Ernst Attending Clinician [phone] LUCY KIMBALL Attending Clinician Unavailable Joya Ruiz MD Attending Clinician [phone] Twin Nick MD Attending Clinician [phone] LELO YANG Attending Clinician Unavailable Gramm SEBASTIAN Lelo A Attending Clinician [phone] Nurse, Adc Pob Immunization Attending Clinician Unavailable Lavelle Bates DO Attending Clinician [phone] Nurse, Adc Surgery Gu Attending Clinician Yvette nichols , [facility] Procedure Attending Clinician Unavailable Joseph Ingram MD Attending Clinician [phone] Room, [facility] Uro Procedure Attending Clinician Unav cal Martin RN, Kaiden Franks Attending Clinician Unavail able Kris Kenny Attending Clinician [phone] Peter Fitzgerald MD Attending Clinician [phone] Meera MAYP, Armen Attending Clinician [phone] TATE SHABAZZ Attending Clinician Unavailable 2, Adc Lab Attending Clinician Unavailable Mor Simpson MD Attending Clinician [phone] MOR SIMPSON Attending Clinician UnavailAJ Harden Attending Clinician Unavailable Aj Davila Attending Clinician [phone] MEERAARMEN Attending Clinician Unavailable JOYA RUIZ Admitting Clinician UnavailJASON Bee Admitting Clinician Unavailable GAYATRI LINARES Admitting Clinician UnavailCaroline Law MD Admitting Clinician [phone] CAROLINE MIN Admitting Clinician Unavailable Peter Fitzgerald MD Admitting Clinician [phone] Payers Payer Name Policy Type Policy Number Effective Date Expirati on Date Source MEDICARE PART A \\T\\ B [id number] 2012 00:00:00 [employer] INDEMNITY [id number] 2013 00:00:00 [employer] HMO-POS 16 [id number] 00:00:00 JAY ADVANTAGE OON [id number] 2023 00:00:00 Problems Condition Name Condition Details [...] artery disease) Disease Active 2022-05 00:00: 00 sIabel keller History of heart artery stent History of heart artery stent Disease Active 2022-05 00:00: 00 Isabel keller At risk for falls At risk for falls Disease Active 01-05 00:00: 00 [facility] Unspecifie d abnormalit ies of gait and mobility Unspecifie d abnormalit ies of gait and mobility Disease Active 01-05 00:00: 00 [facility] Obesity (BMI 30-39.9) Obesity (BMI 30-39.9) Disease Active 8 00:00: 00 [facility] 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 Disease Active 8 00:00: 00 [facility] Bacteremia Bacteremia Disease Active 8 00:00: 00 [facility] Complicate d UTI (urinary tract infection) Complicate d UTI (urinary tract infection) Disease Active 6 00:00: 00 [facility] Coronary artery disease involving [place] coronary artery of [place] heart without angina pectoris Coronary artery disease involving [place] coronary artery of [place] heart without angina pectoris Disease Active 10-14 00:00: 00 [facility] Chronic atrial fibrillati on Chronic atrial fibrillati on Disease Active 6 00:00: 00 [facility] Elevated brain natriureti c peptide (BNP) level Elevated brain natriureti c peptide (BNP) level Disease Active 6 00:00: 00 [facility] Type 2 diabetes mellitus with other specified complicati on Type 2 diabetes mellitus with other specified complicati on Disease Active 6 00:00: 00 [facility] Coronary artery disease involving [place] coronary artery of [place] heart without angina pectoris Coronary artery disease involving [place] coronary artery of [place] heart without angina pectoris Disease Active 10-14 00:00: 00 [facility] Elevated brain natriureti c peptide (BNP) level Elevated brain natriureti c peptide (BNP) level Disease Active 10-14 00:00: 00 [facility] ANYI (acute kidney injury) ANYI (acute kidney injury) Disease Active 10-13 00:00: 00 [facility] ANYI (acute kidney injury) ANYI (acute kidney injury) Disease Active 10-13 00:00: 00 [facility] Dyslipidem ia Dyslipidem ia Disease Active 06-05 00:00: 00 [facility] Essential hypertensi on Essential hypertensi on Disease Active 06-05 00:00: 00 [facility] Metabolic syndrome Metabolic syndrome Disease Active 06-05 00:00: 00 [facility] Type II or unspecifie d type diabetes mellitus with peripheral gastroenterology professor y disorders, uncontroll ed(250.72) Type II or unspecifie d type diabetes mellitus with peripheral gastroenterology professor y disorders, uncontroll ed(250.72) Disease Active -14 00:00: 00 [facility] 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) Disease Active Isabel keller Allergies, Adverse Reactions, Alerts Allergy Name Allergy Type Status Severity Reaction(s) Onset Date Inactive Date Treating Clinician Comments Source [place] tin Propensi ty to adverse reaction s Active Itching 2015-05 00:00: 00 [facility] Linaglip tin Propensi ty to adverse reaction s Active Itching 2015-05 00:00: 00 [facility] SAXAGLIP TIN DRUG INGREDI Active ITCHING 2015-05 00:00: 00 [facility] LINAGLIP TIN DRUG INGREDI Active ITCHING 2015-05 00:00: 00 [facility] Sit[place] tin Propensi ty to adverse reaction s Active Rash 09-04 00:00: 00 [facility] SITAGLIP TIN DRUG INGREDI Active ITCHING 09-04 00:00: 00 [facility] Social History Social Habit Start Date Stop Date Quantity Comments Source History SDOH Alcohol Frequency [facility] History SDOH Alcohol Std Drinks [facility] History SDOH Alcohol Binge [facility] Sexual orientation Arabella Farnsworth - External History [...] (event) 2022-07-06 00:00:00 2022-07-16 11:25:00 Not sure [facility] Tobacco Comment 2021-12-10 00:00:00 2021-12-10 00:00:00 quit in 1983 [facility] Sex assigned at 1945 00:00:00 1945 00:00:00 Isabel Arzate Smoking Status Start Date Stop Date Source Never smoked tobacco [facility] Ex-smoker 2023-09-14 00:00:00 2023-09-14 00:00:00 Araeblla Arzate Medications Ordered Medication Name Filled Medication Name Start Date Stop Date Current Medication? Ordering Clinician Indication Dosage Frequency Signature (SIG) Comments Components Source Insulin [place], Disposable, (BD ULTRAFINE III MINI PEN) 31 gauge x 3/16" Ndle 12-12 00:00: 00 Yes [id number] USE TWICE DAILY DIRECTED [facility] Isosorbide Mononitrate CR 30 MG oral TABLET SR 24 HR Isosorbide Mononitrate CR 30 MG oral TABLET SR 24 HR 12-03 15:28: 51 Yes 30mg QD Take 1 tablet (30 mg total) by mouth daily. Isabel keller [place] 3 340 MG oral Delayed Release Capsule [place] 3 340 MG oral Delayed Release Capsule [...] MG oral Tablet 12-03 00:00: 00 Yes [id number] 1{tbl} Q.5D Take 1 tablet by mouth [...] total) by mouth daily. Isabel keller [place] 3 340 MG oral Delayed Release Capsule [...] at 1617, Administer over 2-5 Minutes, Intra-op [facility] lidocaine (XYLOCAINE) 2 % jelly URO-JET 11-19 19:57: 00 11-19 19:57 :00 No PRN, Starting on Tue11/19/24 at 1457, Until Tue11/19/24 at 1457, Routine, Intra-op [facility] ALPRAZolam (XANAX) tablet 0.25 mg 11-19 14:45: 00 11-19 19:25 :00 No [id number] .25mg 0.25 mg, Oral, ONCE, 1 dose, On Tue11/19/24 at 0945, Routine [facility] lidocaine variable + sod bicarb injection 11-19 14:45: 00 11-19 20:00 :00 No [id number] 30mL Intraderma l, ONCE, 1 dose, On Tue11/19/24 at 0945, 30 mL [facility] cefdinir 300 mg capsule 10-31 00:00: 00 11-08 04:59 :00 No 300mg Take 1 capsule by mouth in the morning and 1 capsule in the evening. Do all this for 7 days. [facility] sodium phosphates (FLEET ENEMA) 19-7 gram/118 mL enema 10-31 00:00: 00 11-03 04:59 :00 No 1{enema } Insert 1 Enema into rectum in the morning for 2 doses. Follow package directions [facility] ONETOUCH VERIO FLEX METER Misc 10-12 00:00: 00 Yes [id number] Use as directed daily E 11.65 [facility] Blood Glucose Monitoring Suppl (OneTouch Verio Flex System) w/Device does not apply Kit Blood Glucose Monitoring Suppl (OneTouch Verio Flex System) w/Device does not apply Kit 10-12 00:00: 00 Yes USE DIRECTED DAILY E 11.65 Isabel Kauffman l Lancets (OneTouch Delica Plus [id number]) does not apply Misc Lancets (OneTouch Delica Plus [id number]) does not apply Misc 10-11 00:00: 00 Yes Isabel Kauffman l Insulin NPH-Regular Human Rec (NOVOLIN 70-30 FLEXPEN U-100) 100 unit/mL (70-30) injection 10-10 00:00: 00 Yes [id number] 14U inject 14 Units under the skin 2 times daily before breakfast and dinner. E11.65 [facility] lancets (ONETOUCH DELICA PLUS LANCET) 33 gauge Misc 10-10 00:00: 00 Yes [id number] Use to check blood glucose three times daily before meals E11.65 [facility] blood sugar diagnostic (ONETOUCH VERIO TEST STRIPS) strip 10-10 00:00: 00 Yes [id number] Use to check blood glucose 3x daily before meals E11.65 [facility] metFORMIN 1,000 mg tablet 10-10 00:00: 00 Yes [id number] 1000mg Take 1 tablet by mouth every morning and evening. [facility] TAMSULOSIN 0.4 mg 24 hr capsule 10-04 00:00: 00 Yes [id number] TAKE 1 CAPSULE BY MOUTH IN THE MORNING AND IN THE EVENING [facility] Tamsulosin HCl 0.4 MG oral Capsule 08-08 14:40: 20 08-08 00:00 :00 No .4mg Take 1 capsule (0.4 mg total) by mouth every night at bedtime. Isabel keller [place] 3 340 MG oral Delayed Release Capsule [...] Suspension Pen-injecto r 08-08 00:00: 00 Yes [id number] 3 16 unit sc eery am and 14 unit sc every pm. Isabel keller Warfarin 2.5 MG oral Tablet Warfarin 2.5 MG oral Tablet 08-08 00:00: 00 Yes [id number] 2.5mg QD Take 1 tablet (2.5 mg total) by mouth daily. Isabel keller Tamsulosin HCl 0.4 MG oral Capsule Tamsulosin HCl 0.4 MG oral Capsule 08-08 00:00: 00 Yes [id number] .4mg Q.5D Take 1 capsule (0.4 mg total) by mouth in the morning and 1 capsule (0.4 mg total) before bedtime. Isabel keller Ketoconazol e 2 % apply externally Cream 08-08 00:00: 00 11-21 00:00 :00 No [id number] 1{appli cation} Q.5D Apply 1 Applicatio n topically 2 times daily. Isabel keller Gabapentin 100 MG oral Capsule 08-08 00:00: 00 11-21 00:00 :00 No [id number] 100mg Q.5D Take 1 capsule (100 mg total) by mouth 2 times daily as needed. Isabel keller tamsulosin 0.4 mg 24 hr capsule 13 00:00: 00 10-04 00:00 :00 No [id number] .4mg Take 1 capsule by mouth in the morning and 1 capsule in the evening. [facility] Tamsulosin HCl 0.4 MG oral Capsule 06-27 14:25: 38 Yes .4mg Take 1 capsule (0.4 mg total) by mouth every night at bedtime. Isabel keller Isosorbide Mononitrate CR 30 MG oral TABLET SR 24 HR 06-27 14:25: 38 Yes 30mg QD Take 1 tablet (30 mg total) by mouth daily. Isabel keller [place] 3 340 MG oral Delayed Release Capsule 06-27 14:25: 38 Yes 1g Q.5D Take 1 g by mouth 2 times daily. Isabel keller Aspirin (Ecotrin) 325 MG oral Tablet Delayed Response 06-27 14:25: 38 Yes 325mg QD Take 1 tablet (325 mg total) by mouth daily. Isabel keller lidocaine (XYLOCAINE) 2 % jelly URO-JET 10 mL 06-06 19:00: 00 06-06 18:26 :00 No [id number] 10mL 10 mL, Urethral, ONCE, 1 dose, On Tue06/06/24 at 1300, Routine [facility] gentamicin injection 160 mg 06-06 18:00: 00 06-06 17:16 :00 No [id number] 160mg 160 mg, Intramuscu lar, ONCE, 1 dose, On Tue06/06/24 at 1200, [place], Reason for Anti-Infec tive: Surgical Prophylaxi s, Surgical Prophylaxi s: Genitourin filemon, Duration of therapy: within 24 hours of surgery [facility] amoxicillin -pot clavulanate 500 mg (AUGMENTIN) 500-125 mg tablet 06-04 00:00: 00 06-04 00:00 :00 No [id number] 500mg Take 1 tablet by mouth in the morning and 1 tablet at noon and 1 tablet in the evening. [facility] tamsulosin 0.4 mg 24 hr capsule 2023-05 00:00: 00 04-23 00:00 :00 No [id number] .4mg Take 1 capsule by mouth in the morning. [facility] atorvastati n 20 mg tablet 2023-05 14:28: 02 Yes TAKE 1 TABLET BY MOUTH EVERY DAY FOR 90 DAYS [facility] metFORMIN 1,000 mg tablet 2023-05 00:00: 00 10-10 00:00 :00 No [id number] 1000mg Take 1 tablet by mouth every morning and evening. [facility] hydroCHLORO thiazide 12.5 MG oral Tablet hydroCHLORO thiazide 12.5 MG oral Tablet 2023-05 00:00: 00 Yes 12.5mg QD TAKE 1 TABLET BY MOUTH EVERY DAY Isabel keller METFORMIN 1,000 mg tablet 2023-05 00:00: 00 04-11 00:00 :00 No [id number] 1000mg TAKE 1 TABLET BY MOUTH EVERY MORNING AND EVENING. [facility] tamsulosin 0.4 mg 24 hr capsule 2023-05 00:00: 00 Yes [id number] .4mg Take 1 capsule by mouth in the morning and 1 capsule in the evening. [facility] HYDROcodone -acetaminop hen 5-325 mg tablet 2023-05 0-13 00:00: 00 02-26 04:59 :00 No [id number] 1{tbl} Take 1 tablet by mouth every 6 (six) hours as needed for Pain (scale 7-10) for up to 7 days. Indication s: acute pain [facility] blood sugar diagnostic (ONETOUCH VERIO TEST STRIPS) strip 01-12 00:00: 00 Yes [id number] Use to check blood glucose 3x daily before meals E11.65 [facility] metFORMIN 1,000 mg tablet 01-12 00:00: 00 Yes [id number] 1000mg Take 1 tablet by mouth every morning and evening. [facility] Insulin [place], Disposable, (SURE COMFORT PEN NEEDLE) 31 gauge x 5/16" Ndle 01-12 00:00: 00 12-12 00:00 :00 No [id number] USE TWICE DAILY [facility] Insulin NPH-Regular Human Rec (NOVOLIN 70-30 FLEXPEN U-100) 100 unit/mL (70-30) injection 01-12 00:00: 00 10-10 00:00 :00 No [id number] 14U inject 14 Units under the skin 2 (two) times daily before breakfast and dinner. E11.65 [facility] blood sugar diagnostic (ONETOUCH VERIO TEST STRIPS) strip 01-12 00:00: 00 10-10 00:00 :00 No [id number] Use to check blood glucose 3x daily before meals E11.65 [facility] Insulin [place], Disposable, (SURE COMFORT PEN NEEDLE) 31 gauge x 5/16" Ndle 01-11 00:00: 00 01-12 00:00 :00 No [id number] USE TWICE DAILY [facility] Tamsulosin HCl 0.4 MG oral Capsule 12-26 15:24: 56 Yes .4mg Take 1 capsule (0.4 mg total) by mouth every night at bedtime. Isabel keller Isosorbide Mononitrate CR 30 MG oral TABLET SR 24 HR 12-26 15:24: 56 Yes 30mg QD Take 1 tablet (30 mg total) by mouth daily. Isabel keller [place] 3 340 MG oral Delayed Release Capsule [...] MG oral Tablet 12-26 00:00: 00 Yes [id number] 20mg QD Take 1 tablet (20 mg total) by mouth daily FOR 90 DAYS. Isabel keller TAMSULOSIN 0.4 mg 24 hr capsule 12-14 00:00: 00 03-15 00:00 :00 No [id number] TAKE 1 CAPSULE BY MOUTH EVERY MORNING AND EVERY EVENING FOR PAIN [facility] metFORMIN 1,000 mg tablet 12-04 00:00: 00 01-12 00:00 :00 No [id number] 1000mg TAKE 1 TABLET BY MOUTH IN THE MORNING AND IN THE EVENING [facility] Atorvastati n Calcium 20 MG oral [...] 09-12 00:00: 00 12-14 00:00 :00 No [id number] TAKE 1 CAPSULE BY MOUTH EVERY MORNING AND 1 CAPSULE FOR PAIN EVERY EVENING [facility] OneTouch Verio in vitro Strip OneTouch Verio in vitro Strip 4-30 00:00: 00 Yes Isabel keller Sure Comfort Pen [place] 31G X 8 MM does not apply Misc Sure Comfort Pen [place] 31G X 8 MM does not apply [...] total) by mouth daily. Isabel keller [place] 3 340 MG oral Delayed Release Capsule [...] MG oral Tablet 06-08 00:00: 00 Yes [id number] .6mg QD Take 1 tablet (0.6 mg total) by mouth daily. Isabel keller Cefdinir 300 MG oral Capsule 05-18 00:00: 00 06-08 00:00 :00 No [id number] 9100 300mg Take 1 capsule (300 mg [...] total) by mouth daily. Isabel keller [place] 3 340 MG oral Delayed Release Capsule [...] SR 24 HR 2022-05 00:00: 00 Yes [id number] 50mg QD Take 1 tablet (50 mg total) by mouth daily FOR 90 DAYS. Isabel keller Allopurinol 300 MG oral Tablet Allopurinol 300 MG oral Tablet 2022-05 00:00: 00 12-03 00:00 :00 No [id number] 300mg QD Take 1 tablet (300 mg total) by mouth daily FOR 90 DAYS. Isabel keller Warfarin Sodium (COUMADIN) 2 MG oral Tablet 2022-05 00:00: 00 08-08 00:00 :00 No [id number] 2mg QD Take 1 tablet (2 mg total) by mouth daily. Isabel keller Ketoconazol e 2 % apply externally Cream 2022-05 00:00: 00 06-27 00:00 :00 No [id number] Apply to the affected skin twice daily for 14 days.. Isabel keller Triamcinolo ne Acetonide 0.1 % apply externally Cream 2022-05 00:00: 06-02 05:59 :00 No [id number] Apply to affected skin twice daily for 10 days.. Isabel Farnsworth - Jethroa l lancets (ONETOUCH DELICA PLUS LANCET) 33 gauge [facility] [place] [place] 2022-05 00:00: 00 Yes [id number] Use to check blood glucose three times daily before meals E11.65 [facility] lancets (ONETOUCH DELICA PLUS LANCET) 33 gauge [facility] [place] [place] 2022-05 00:00: 00 10-10 00:00 :00 No [id number] Use to check blood glucose three times daily before meals E11.65 [facility] blood sugar diagnostic (ONETOUCH VERIO TEST STRIPS) strip 2022-05 00:00: 00 01-12 00:00 :00 No [id number] Use to check blood glucose 3x daily before meals E11.65 [facility] ONETOUCH VERIO FLEX METER [facility] [place] [place] 2022-05 00:00: 00 Yes [id number] Use as directed TIDAC E11.65 [facility] Metformin HCl 1000 MG oral Tablet Metformin HCl 1000 MG oral Tablet 2022-05 00:00: 00 Yes 1000mg Q.5D Take 1 tablet (1,000 mg total) by mouth in the morning and 1 tablet (1,000 mg total) in the evening. Isabel Morelosa l ONETOUCH VERIO FLEX METER [facility] [place] [place] 2022-05 00:00: 00 10-12 00:00 :00 No [id number] Use as directed TIDAC E11.65 [facility] Insulin NPH-Regular Human Rec (NOVOLIN 70-30 FLEXPEN U-100) 100 unit/mL (70-30) injection 2022-05 00:00: 00 01-12 00:00 :00 No [id number] 14U inject 14 Units under the skin 2 (two) times daily before breakfast and dinner. E11.65 [facility] ONETOUCH VERIO TEST STRIPS strip 2022-05 00:00: 00 04-12 00:00 :00 No [id number] Use as directed TIDAC E11.65 [facility] ONETOUCH DELICA PLUS LANCET 33 gauge Misc 2022-05 2-04 00:00: 00 04-12 00:00 :00 No [id number] Use as directed TIDAC E11.65 [facility] Metoprolol Succinate 50 MG oral TABLET SR 24 HR 2022-05 1-06 00:00: 00 05-04 00:00 :00 No 50mg Take 1 tablet (50 mg total) by mouth 2 times daily FOR 90 DAYS. Isabel keller Insulin [place], Disposable, (SURE COMFORT PEN NEEDLE) 31 gauge x 5/16" Ndle 2022-05 0-23 00:00: 00 01-11 00:00 :00 No [id number] USE TWICE DAILY [facility] Atorvastati n Calcium 10 MG oral Tablet 2022-05 0-02 00:00: 00 12-26 00:00 :00 No 10mg QD Take 1 tablet (10 mg total) by mouth daily. Isabel keller Insulin NPH-Regular Human Rec (NOVOLIN 70-30 FLEXPEN U-100) 100 unit/mL (70-30) injection 6 00:00: 00 04-11 00:00 :00 No [id number] 14U inject 14 Units under the skin 2 (two) times daily before breakfast and dinner. E11.65 [facility] metFORMIN 1,000 mg tablet 10-11 00:00: 00 04-11 00:00 :00 No [id number] 1000mg Take 1 tablet by mouth in the morning and 1 tablet in the evening. [facility] tamsulosin (FLOMAX) 0.4 mg 24 hr capsule 4-25 00:00: 00 09-12 00:00 :00 No [id number] .4mg Take 1 capsule by mouth in the morning and 1 capsule in the evening. once daily [facility] amoxicillin -pot clavulanate 500 mg (AUGMENTIN) 500-125 mg tablet 3-20 00:00: 00 08-03 04:59 :00 No [id number] 500mg Take 1 tablet by mouth in the morning and 1 tablet in the evening. Do all this for 7 days. [facility] cefUROXime 250 mg tablet 3-09 00:00: 00 07-26 00:00 :00 No [id number] 250mg Take 1 tablet by mouth in the morning and 1 tablet in the evening. [facility] cephALEXin (KEFLEX) 500 mg capsule 2-16 00:00: 00 06-30 05:59 :00 No [id number] 500mg Take 1 capsule by mouth in the morning and 1 capsule in the evening. Do all this for 5 days. [facility] Insulin [place], Disposable, (BD ULTRAFINE III MINI PEN) 31 gauge x 3/16" Ndle 06-02 00:00: 00 Yes [id number] USE TO INJECT INSULIN 2X DAILY. DX:E11.9 [facility] Insulin [place], Disposable, (BD ULTRAFINE III MINI PEN) 31 gauge x 3/16" Ndle 06-02 00:00: 00 02-28 00:00 :00 No [id number] USE TO INJECT INSULIN 2X DAILY. DX:E11.9 [facility] Insulin NPH-Regular Human Rec (NOVOLIN 70-30 FLEXPEN U-100) 100 unit/mL (70-30) injection 06-02 00:00: 00 10-11 00:00 :00 No [id number] 14U inject 14 Units under the skin 2 (two) times daily before breakfast and dinner. E11.65 [facility] metFORMIN 1,000 mg tablet -25 00:00: 00 10-11 00:00 :00 No [id number] 1000mg Take 1 tablet by mouth in the morning and 1 tablet in the evening. [facility] Insulin NPH-Regular Human Rec (NOVOLIN 70-30 FLEXPEN U-100) 100 unit/mL (70-30) injection 2021-05 0-11 00:00: 00 06-02 00:00 :00 No 8U inject 8 Units under the skin 2 (two) times daily before breakfast and dinner. [facility] metFORMIN 1,000 mg tablet 02-05 00:00: 00 06-02 00:00 :00 No [id number] 1000mg Take 1 tablet by mouth in the morning and 1 tablet in the evening. [facility] insulin NPH and regular human 70-30 (HUMULIN 70/30 U-100 INSULIN) 100 unit/mL (70-30) injection 02-05 00:00: 00 02-16 00:00 :00 No [id number] 8U inject 8 Units under the skin 2 (two) times daily before breakfast and dinner. [facility] metFORMIN 1,000 mg tablet 02-02 00:00: 00 02-05 00:00 :00 No [id number] 1000mg Take 1 tablet by mouth in the morning and 1 tablet in the evening. [facility] tamsulosin (FLOMAX) 0.4 mg 24 hr capsule 01-29 00:00: 00 08-31 00:00 :00 No [id number] .4mg Take 1 capsule by mouth in the morning and 1 capsule in the evening. once daily [facility] losartan 100 mg tablet 12-11 00:47: 02 Yes 100mg Take 100 mg by mouth in the morning. [facility] omega-3 fatty acids-vitam in E (FISH OIL) 1,000 mg capsule 12-09 12:47: 21 Yes 1g Take 1 g by mouth 2 (two) times daily. [facility] losartan 100 mg tablet 12-09 12:47: 21 Yes 100mg Take 100 mg by mouth in the morning. [facility] COLCHICINE 0.6 MG ORAL TAB 12-09 12:47: 21 Yes once daily [facility] ECOTRIN 325 MG ORAL TBEC 12-09 12:47: 21 Yes once daily [facility] WARFARIN 2.5 MG ORAL TAB 12-09 12:47: 21 Yes once daily [facility] IMDUR 30 MG ORAL TB24 12-09 12:47: 21 Yes once daily [facility] omega-3 fatty acids-vitam in E (FISH OIL) 1,000 mg capsule 12-09 12:47: 21 Yes 1g Take 1 g by mouth 2 (two) times daily. [facility] allopurinol (ZYLOPRIM) 300 mg tablet 12-09 12:47: 21 Yes 300mg Take 300 mg by mouth daily. [facility] finasteride 5 mg tablet 12-09 12:47: 21 Yes 5mg Take 5 mg by mouth daily. [facility] B-complex with vitamin C (VITAMIN B COMPLEX-C ORAL) 12-09 12:47: 21 Yes Take by mouth. [facility] levoFLOXaci n 750 mg tablet 12-09 00:00: 00 12-17 04:59 :00 No [id number] 750mg Take 1 tablet by mouth in the morning for 7 days. [facility] metFORMIN 1,000 mg tablet 10-06 00:00: 00 02-02 00:00 :00 No [id number] 1000mg Take 1 tablet by mouth 2 (two) times daily. [facility] tamsulosin (FLOMAX) 0.4 mg 24 hr capsule 06 00:00: 00 01-29 00:00 :00 No [id number] .4mg Take 1 capsule by mouth 2 (two) times daily. once daily [facility] liraglutide (VICTOZA 3-MERON) 0.6 mg/0.1 mL (18 mg/3 mL) injection 3-18 00:00: 00 06-02 00:00 :00 No [id number] 1.8mg inject 1.8 mg under the skin daily. [facility] Insulin [place], Disposable, (BD ULTRAFINE III MINI PEN) 31 gauge x 3/16" Ndle 3-14 00:00: 00 06-02 00:00 :00 No USE TO INJECT INSULIN 2X DAILY. DX:E11.9 [facility] blood sugar diagnostic (ACCU-CHEK GUIDE TEST STRIPS) strip 06-05 00:00: 00 04-11 00:00 :00 No [id number] Use to check glucose 3X daily. DX:E11.8 [facility] insulin degludec (TRESIBA FLEXTOUCH U-100) 100 unit/mL (3 mL) InPn 06-05 00:00: 00 02-05 00:00 :00 No [id number] 12U inject 12 Units under the skin daily. [facility] FLOMAX 0.4 MG ORAL CP24 2020-05 15:05: 34 03-31 00:00 :00 No once daily [facility] metoprolol succinate XL 50 mg 24 hr tablet 12-14 00:00: 00 Yes 50mg Take 50 mg by mouth daily. [facility] TOPROL XL 25 MG ORAL TB24 05-21 15:00: 04 05-21 00:00 :00 No once daily [facility] LOTREL 10-40 MG ORAL CAP 05-21 14:59: 17 05-21 00:00 :00 No once daily [facility] atorvastati n (LIPITOR) 10 mg tablet 08-15 00:00: 00 04-11 00:00 :00 No [id number] 10mg Take 1 tablet by mouth at bedtime. [facility] Liraglutide (VICTOZA 3-MERON) 0.6 mg/0.1 mL (18 mg/3 mL) injection 01-26 00:00: 00 03-25 00:00 :00 No 1.8mg inject 0.3 mL under the skin daily. [facility] Liraglutide (VICTOZA 2-MERON) 0.6 mg/0.1 mL (18 mg/3 mL) injection 11-12 00:00: 00 01-26 00:00 :00 No [id number] 07 1.8mg inject 0.3 mL under the skin daily. [facility] Insulin Syringes, Disposable, 1 mL Syrg 06-25 00:00: 00 05-21 00:00 :00 No [id number] Inject once a day E11.59Use as directed [facility] Insulin [place], Disposable, 29 gauge x 1/2" Ndle 06-25 00:00: 00 05-21 00:00 :00 No [id number] Once a day E11.59 [facility] metFORMIN 1,000 mg tablet 06-25 00:00: 00 03-25 00:00 :00 No [id number] 1000mg Take 1 tablet by mouth 2 (two) times daily. [facility] atorvastati n (LIPITOR) 10 mg tablet 06-25 00:00: 00 03-25 00:00 :00 No [id number] 10mg Take 1 tablet by mouth at bedtime. [facility] insulin glargine 100 unit/mL injection 06-25 00:00: 00 03-25 00:00 :00 No [id number] 10U inject 10 Units under the skin daily. [facility] Immunizations Ordered Immunization Name Filled Immunization Name Date Status Comments Source Influenza High Dose 2024-01-13 09:30:00 Completed [facility] Pneumococcal 13 Conjugate, PCV13 (Prevnar 13) 2024-01-13 09:30:00 Completed [facility] SARS-COV-2 COVID-19 PFIZER VACCINE 2024-01-13 09:30:00 Completed [facility] Pneumococcal Polysaccharide, PPSV23 (PNEUMOVAX) 2024-01-13 09:30:00 Completed [facility] Influenza High Dose 2023-09-15 00:00:00 Completed [facility] Pneumococcal 13 Conjugate, PCV13 (Prevnar 13) 2023-09-15 00:00:00 Completed [facility] SARS-COV-2 COVID-19 PFIZER VACCINE 2023-09-15 00:00:00 Completed [facility] Pneumococcal Polysaccharide, PPSV23 (PNEUMOVAX) 2023-09-15 00:00:00 Completed [facility] Influenza High Dose 2023-09-11 00:00:00 Completed [facility] Pneumococcal 13 Conjugate, PCV13 (Prevnar 13) 2023-09-11 00:00:00 Completed [facility] SARS-COV-2 COVID-19 PFIZER VACCINE 2023-09-11 00:00:00 Completed [facility] Pneumococcal Polysaccharide, PPSV23 (PNEUMOVAX) 2023-09-11 00:00:00 Completed [facility] Influenza High Dose 2023-05-04 00:00:00 Completed [facility] Pneumococcal 13 Conjugate, PCV13 (Prevnar 13) 2023-05-04 00:00:00 Completed [facility] SARS-COV-2 COVID-19 PFIZER VACCINE 2023-05-04 00:00:00 Completed [facility] Pneumococcal Polysaccharide, PPSV23 (PNEUMOVAX) 2023-05-04 00:00:00 Completed [facility] Influenza vaccine, quadrivalent, adjuvanted, 65+ Influenza vaccine, quadrivalent, adjuvanted, 65+ 2023-05-04 00:00:00 Completed [facility] Influenza High Dose 2023-04-12 00:00:00 Completed [facility] Pneumococcal 13 Conjugate, PCV13 (Prevnar 13) 2023-04-12 00:00:00 Completed [facility] SARS-COV-2 COVID-19 PFIZER VACCINE 2023-04-12 00:00:00 Completed [facility] Pneumococcal Polysaccharide, PPSV23 (PNEUMOVAX) 2023-04-12 00:00:00 Completed [facility] Influenza High Dose 2023-04-11 14:30:00 Completed [facility] Pneumococcal 13 Conjugate, PCV13 (Prevnar 13) 2023-04-11 14:30:00 Completed [facility] Pneumococcal Polysaccharide, PPSV23 (PNEUMOVAX) 2023-04-11 14:30:00 Completed [facility] SARS-COV-2 COVID-19 PFIZER VACCINE 2023-04-11 14:30:00 Completed [facility] Influenza High Dose 2023-02-28 00:00:00 Completed [facility] Pneumococcal 13 Conjugate, PCV13 (Prevnar 13) 2023-02-28 00:00:00 Completed [facility] SARS-COV-2 COVID-19 PFIZER VACCINE 2023-02-28 00:00:00 Completed [facility] Pneumococcal Polysaccharide, PPSV23 (PNEUMOVAX) 2023-02-28 00:00:00 Completed [facility] Influenza High Dose 2023-02-27 00:00:00 Completed [facility] Pneumococcal 13 Conjugate, PCV13 (Prevnar 13) 2023-02-27 00:00:00 Completed [facility] SARS-COV-2 COVID-19 PFIZER VACCINE 2023-02-27 00:00:00 Completed [facility] Pneumococcal Polysaccharide, PPSV23 (PNEUMOVAX) 2023-02-27 00:00:00 Completed [facility] Influenza High Dose 2021-06-10 00:00:00 Completed [facility] Pneumococcal 13 Conjugate, PCV13 (Prevnar 13) 2021-06-10 00:00:00 Completed [facility] SARS-COV-2 COVID-19 PFIZER VACCINE 2021-06-10 00:00:00 Completed [facility] Pneumococcal Polysaccharide, PPSV23 (PNEUMOVAX) 2021-06-10 00:00:00 Completed [facility] SARS-COV-2 COVID-19 PFIZER VACCINE 2021-04-15 00:00:00 Completed [facility] SARS-COV-2 COVID-19 PFIZER VACCINE 2021-04-15 00:00:00 Completed [facility] SARS-COV-2 COVID-19 PFIZER VACCINE 2021-04-15 00:00:00 Completed [facility] SARS-COV-2 COVID-19 PFIZER VACCINE 2021-04-15 00:00:00 Completed [facility] SARS-COV-2 COVID-19 PFIZER VACCINE 2021-04-15 00:00:00 Completed [facility] SARS-COV-2 COVID-19 PFIZER VACCINE 2021-04-15 00:00:00 Completed [facility] SARS-COV-2 COVID-19 PFIZER VACCINE 2021-04-15 00:00:00 Completed [facility] SARS-COV-2 COVID-19 PFIZER VACCINE 2021-04-15 00:00:00 Completed [facility] SARS-COV-2 COVID-19 PFIZER VACCINE 2021-04-15 00:00:00 Completed [facility] SARS-COV-2 COVID-19 PFIZER VACCINE 2021-04-15 00:00:00 Completed [facility] SARS-COV-2 COVID-19 PFIZER VACCINE 2021-04-15 00:00:00 Completed [facility] SARS-COV-2 COVID-19 PFIZER VACCINE 2021-04-15 00:00:00 Completed [facility] SARS-COV-2 COVID-19 PFIZER VACCINE 2021-04-15 00:00:00 Completed [facility] SARS-COV-2 COVID-19 PFIZER VACCINE 2021-04-15 00:00:00 Completed [facility] SARS-COV-2 COVID-19 PFIZER VACCINE 2021-04-15 00:00:00 Completed [facility] SARS-COV-2 COVID-19 PFIZER VACCINE 2021-04-15 00:00:00 Completed [facility] SARS-COV-2 COVID-19 PFIZER VACCINE 2021-04-15 00:00:00 Completed [facility] SARS-COV-2 COVID-19 PFIZER VACCINE 2021-04-15 00:00:00 Completed [facility] SARS-COV-2 COVID-19 PFIZER VACCINE 2021-04-15 00:00:00 Completed [facility] SARS-COV-2 COVID-19 PFIZER VACCINE 2021-04-15 00:00:00 Completed [facility] SARS-COV-2 COVID-19 PFIZER VACCINE 2021-04-15 00:00:00 Completed [facility] SARS-COV-2 COVID-19 PFIZER VACCINE 2021-04-15 00:00:00 Completed [facility] SARS-COV-2 COVID-19 PFIZER VACCINE 2021-04-15 00:00:00 Completed [facility] SARS-COV-2 COVID-19 PFIZER VACCINE 2021-04-15 00:00:00 Completed [facility] SARS-COV-2 COVID-19 PFIZER VACCINE 2021-04-15 00:00:00 Completed [facility] SARS-COV-2 COVID-19 PFIZER VACCINE 2021-04-15 00:00:00 Completed [facility] SARS-COV-2 COVID-19 PFIZER VACCINE 2021-04-15 00:00:00 Completed [facility] SARS-COV-2 COVID-19 PFIZER VACCINE 2021-04-15 00:00:00 Completed [facility] SARS-COV-2 COVID-19 PFIZER VACCINE 2021-04-15 00:00:00 Completed [facility] SARS-COV-2 COVID-19 PFIZER VACCINE 2021-04-15 00:00:00 Completed [facility] SARS-COV-2 COVID-19 PFIZER VACCINE 2020-07-11 00:00:00 Completed [facility] SARS-COV-2 COVID-19 PFIZER VACCINE 2020-07-11 00:00:00 Completed [facility] SARS-COV-2 COVID-19 PFIZER VACCINE 2020-07-11 00:00:00 Completed [facility] SARS-COV-2 COVID-19 PFIZER VACCINE 2020-07-11 00:00:00 Completed [facility] SARS-COV-2 COVID-19 PFIZER VACCINE 2020-07-11 00:00:00 Completed [facility] SARS-COV-2 COVID-19 PFIZER VACCINE 2020-07-11 00:00:00 Completed [facility] SARS-COV-2 COVID-19 PFIZER VACCINE 2020-07-11 00:00:00 Completed [facility] SARS-COV-2 COVID-19 PFIZER VACCINE 2020-07-11 00:00:00 Completed [facility] SARS-COV-2 COVID-19 PFIZER VACCINE 2020-07-11 00:00:00 Completed [facility] SARS-COV-2 COVID-19 PFIZER VACCINE 2020-07-11 00:00:00 Completed [facility] SARS-COV-2 COVID-19 PFIZER VACCINE 2020-07-11 00:00:00 Completed [facility] SARS-COV-2 COVID-19 PFIZER VACCINE 2020-07-11 00:00:00 Completed [facility] SARS-COV-2 COVID-19 PFIZER VACCINE 2020-07-11 00:00:00 Completed [facility] SARS-COV-2 COVID-19 PFIZER VACCINE 2020-07-11 00:00:00 Completed [facility] SARS-COV-2 COVID-19 PFIZER VACCINE 2020-07-11 00:00:00 Completed [facility] SARS-COV-2 COVID-19 PFIZER VACCINE 2020-07-11 00:00:00 Completed [facility] SARS-COV-2 COVID-19 PFIZER VACCINE 2020-07-11 00:00:00 Completed [facility] SARS-COV-2 COVID-19 PFIZER VACCINE 2020-07-11 00:00:00 Completed [facility] SARS-COV-2 COVID-19 PFIZER VACCINE 2020-07-11 00:00:00 Completed [facility] SARS-COV-2 COVID-19 PFIZER VACCINE 2020-07-11 00:00:00 Completed [facility] SARS-COV-2 COVID-19 PFIZER VACCINE 2020-07-11 00:00:00 Completed [facility] SARS-COV-2 COVID-19 PFIZER VACCINE 2020-07-11 00:00:00 Completed [facility] SARS-COV-2 COVID-19 PFIZER VACCINE 2020-07-11 00:00:00 Completed [facility] SARS-COV-2 COVID-19 PFIZER VACCINE 2020-07-11 00:00:00 Completed [facility] SARS-COV-2 COVID-19 PFIZER VACCINE 2020-07-11 00:00:00 Completed [facility] SARS-COV-2 COVID-19 PFIZER VACCINE 2020-07-11 00:00:00 Completed [facility] SARS-COV-2 COVID-19 PFIZER VACCINE 2020-07-11 00:00:00 Completed [facility] SARS-COV-2 COVID-19 PFIZER VACCINE 2020-07-11 00:00:00 Completed [facility] SARS-COV-2 COVID-19 PFIZER VACCINE 2020-07-11 00:00:00 Completed [facility] SARS-COV-2 COVID-19 PFIZER VACCINE 2020-07-11 00:00:00 Completed [facility] SARS-COV-2 COVID-19 PFIZER VACCINE 2020-06-20 00:00:00 Completed [facility] SARS-COV-2 COVID-19 PFIZER VACCINE 2020-06-20 00:00:00 Completed [facility] SARS-COV-2 COVID-19 PFIZER VACCINE 2020-06-20 00:00:00 Completed [facility] SARS-COV-2 COVID-19 PFIZER VACCINE 2020-06-20 00:00:00 Completed [facility] SARS-COV-2 COVID-19 PFIZER VACCINE 2020-06-20 00:00:00 Completed [facility] SARS-COV-2 COVID-19 PFIZER VACCINE 2020-06-20 00:00:00 Completed [facility] SARS-COV-2 COVID-19 PFIZER VACCINE 2020-06-20 00:00:00 Completed [facility] SARS-COV-2 COVID-19 PFIZER VACCINE 2020-06-20 00:00:00 Completed [facility] SARS-COV-2 COVID-19 PFIZER VACCINE 2020-06-20 00:00:00 Completed [facility] SARS-COV-2 COVID-19 PFIZER VACCINE 2020-06-20 00:00:00 Completed [facility] SARS-COV-2 COVID-19 PFIZER VACCINE 2020-06-20 00:00:00 Completed [facility] SARS-COV-2 COVID-19 PFIZER VACCINE 2020-06-20 00:00:00 Completed [facility] SARS-COV-2 COVID-19 PFIZER VACCINE 2020-06-20 00:00:00 Completed [facility] SARS-COV-2 COVID-19 PFIZER VACCINE 2020-06-20 00:00:00 Completed [facility] SARS-COV-2 COVID-19 PFIZER VACCINE 2020-06-20 00:00:00 Completed [facility] SARS-COV-2 COVID-19 PFIZER VACCINE 2020-06-20 00:00:00 Completed [facility] SARS-COV-2 COVID-19 PFIZER VACCINE 2020-06-20 00:00:00 Completed [facility] SARS-COV-2 COVID-19 PFIZER VACCINE 2020-06-20 00:00:00 Completed [facility] SARS-COV-2 COVID-19 PFIZER VACCINE 2020-06-20 00:00:00 Completed [facility] SARS-COV-2 COVID-19 PFIZER VACCINE 2020-06-20 00:00:00 Completed [facility] SARS-COV-2 COVID-19 PFIZER VACCINE 2020-06-20 00:00:00 Completed [facility] SARS-COV-2 COVID-19 PFIZER VACCINE 2020-06-20 00:00:00 Completed [facility] SARS-COV-2 COVID-19 PFIZER VACCINE 2020-06-20 00:00:00 Completed [facility] SARS-COV-2 COVID-19 PFIZER VACCINE 2020-06-20 00:00:00 Completed [facility] SARS-COV-2 COVID-19 PFIZER VACCINE 2020-06-20 00:00:00 Completed [facility] SARS-COV-2 COVID-19 PFIZER VACCINE 2020-06-20 00:00:00 Completed [facility] SARS-COV-2 COVID-19 PFIZER VACCINE 2020-06-20 00:00:00 Completed [facility] SARS-COV-2 COVID-19 PFIZER VACCINE 2020-06-20 00:00:00 Completed [facility] SARS-COV-2 COVID-19 PFIZER VACCINE 2020-06-20 00:00:00 Completed [facility] Pneumococcal Polysaccharide, PPSV23 (PNEUMOVAX) 2019-02-14 00:00:00 Completed [facility] Pneumococcal Polysaccharide, PPSV23 (PNEUMOVAX) 2019-02-14 00:00:00 Completed [facility] Pneumococcal Polysaccharide, PPSV23 (PNEUMOVAX) 2019-02-14 00:00:00 Completed [facility] Pneumococcal Polysaccharide, PPSV23 (PNEUMOVAX) 2019-02-14 00:00:00 Completed [facility] Pneumococcal Polysaccharide, PPSV23 (PNEUMOVAX) 2019-02-14 00:00:00 Completed [facility] Pneumococcal Polysaccharide, PPSV23 (PNEUMOVAX) 2019-02-14 00:00:00 Completed [facility] Pneumococcal Polysaccharide, PPSV23 (PNEUMOVAX) 2019-02-14 00:00:00 Completed [facility] Pneumococcal Polysaccharide, PPSV23 (PNEUMOVAX) 2019-02-14 00:00:00 Completed [facility] Pneumococcal Polysaccharide, PPSV23 (PNEUMOVAX) 2019-02-14 00:00:00 Completed [facility] Pneumococcal Polysaccharide, PPSV23 (PNEUMOVAX) 2019-02-14 00:00:00 Completed [facility] Pneumococcal Polysaccharide, PPSV23 (PNEUMOVAX) 2019-02-14 00:00:00 Completed [facility] Pneumococcal Polysaccharide, PPSV23 (PNEUMOVAX) 2019-02-14 00:00:00 Completed [facility] Pneumococcal Polysaccharide, PPSV23 (PNEUMOVAX) 2019-02-14 00:00:00 Completed [facility] Pneumococcal Polysaccharide, PPSV23 (PNEUMOVAX) 2019-02-14 00:00:00 Completed [facility] Pneumococcal Polysaccharide, PPSV23 (PNEUMOVAX) 2019-02-14 00:00:00 Completed [facility] Pneumococcal Polysaccharide, PPSV23 (PNEUMOVAX) 2019-02-14 00:00:00 Completed [facility] Pneumococcal Polysaccharide, PPSV23 (PNEUMOVAX) 2019-02-14 00:00:00 Completed [facility] Pneumococcal Polysaccharide, PPSV23 (PNEUMOVAX) 2019-02-14 00:00:00 Completed [facility] Pneumococcal Polysaccharide, PPSV23 (PNEUMOVAX) 2019-02-14 00:00:00 Completed [facility] Pneumococcal Polysaccharide, PPSV23 (PNEUMOVAX) 2019-02-14 00:00:00 Completed [facility] Pneumococcal Polysaccharide, PPSV23 (PNEUMOVAX) 2019-02-14 00:00:00 Completed [facility] Pneumococcal Polysaccharide, PPSV23 (PNEUMOVAX) 2019-02-14 00:00:00 Completed [facility] Pneumococcal Polysaccharide, PPSV23 (PNEUMOVAX) 2019-02-14 00:00:00 Completed [facility] Pneumococcal Polysaccharide, PPSV23 (PNEUMOVAX) 2019-02-14 00:00:00 Completed [facility] Pneumococcal Polysaccharide, PPSV23 (PNEUMOVAX) 2019-02-14 00:00:00 Completed [facility] Pneumococcal Polysaccharide, PPSV23 (PNEUMOVAX) 2019-02-14 00:00:00 Completed [facility] Pneumococcal Polysaccharide, PPSV23 (PNEUMOVAX) 2019-02-14 00:00:00 Completed [facility] Pneumococcal Polysaccharide, PPSV23 (PNEUMOVAX) 2019-02-14 00:00:00 Completed [facility] Pneumococcal Polysaccharide, PPSV23 (PNEUMOVAX) 2019-02-14 00:00:00 Completed [facility] Pneumococcal Vaccine, Polysaccharide Pneumococcal Vaccine, Polysaccharide 2019-02-14 00:00:00 Completed [facility] Influenza High Dose 2019-02-07 00:00:00 Completed [facility] Influenza High Dose 2019-02-07 00:00:00 Completed [facility] Influenza High Dose 2019-02-07 00:00:00 Completed [facility] Influenza High Dose 2019-02-07 00:00:00 Completed [facility] Influenza High Dose 2019-02-07 00:00:00 Completed [facility] Influenza High Dose 2019-02-07 00:00:00 Completed [facility] Influenza High Dose 2019-02-07 00:00:00 Completed [facility] Influenza High Dose 2019-02-07 00:00:00 Completed [facility] Influenza High Dose 2019-02-07 00:00:00 Completed [facility] Influenza High Dose 2019-02-07 00:00:00 Completed [facility] Influenza High Dose 2019-02-07 00:00:00 Completed [facility] Influenza High Dose 2019-02-07 00:00:00 Completed [facility] Influenza High Dose 2019-02-07 00:00:00 Completed [facility] Influenza High Dose 2019-02-07 00:00:00 Completed [facility] Influenza High Dose 2019-02-07 00:00:00 Completed [facility] Influenza High Dose 2019-02-07 00:00:00 Completed [facility] Influenza High Dose 2019-02-07 00:00:00 Completed [facility] Influenza High Dose 2019-02-07 00:00:00 Completed [facility] Influenza High Dose 2019-02-07 00:00:00 Completed [facility] Influenza High Dose 2019-02-07 00:00:00 Completed [facility] Influenza High Dose 2019-02-07 00:00:00 Completed [facility] Influenza High Dose 2019-02-07 00:00:00 Completed [facility] Influenza High Dose 2019-02-07 00:00:00 Completed [facility] Influenza High Dose 2019-02-07 00:00:00 Completed [facility] Influenza High Dose 2019-02-07 00:00:00 Completed [facility] Influenza High Dose 2019-02-07 00:00:00 Completed [facility] Influenza High Dose 2019-02-07 00:00:00 Completed [facility] Influenza High Dose 2019-02-07 00:00:00 Completed [facility] Influenza High Dose 2019-02-07 00:00:00 Completed [facility] Influenza Virus Vaccine, High Dose, Age 65 And Up Influenza Virus Vaccine, High Dose, Age 65 And Up 2019-02-07 00:00:00 Completed Isabel Arzate Pneumococcal 13 Conjugate, PCV13 (Prevnar 13) 2018-02-03 00:00:00 Completed [facility] Pneumococcal 13 Conjugate, PCV13 (Prevnar 13) 2018-02-03 00:00:00 Completed [facility] Pneumococcal 13 Conjugate, PCV13 (Prevnar 13) 2018-02-03 00:00:00 Completed [facility] Pneumococcal 13 Conjugate, PCV13 (Prevnar 13) 2018-02-03 00:00:00 Completed [facility] Pneumococcal 13 Conjugate, PCV13 (Prevnar 13) 2018-02-03 00:00:00 Completed [facility] Pneumococcal 13 Conjugate, PCV13 (Prevnar 13) 2018-02-03 00:00:00 Completed [facility] Pneumococcal 13 Conjugate, PCV13 (Prevnar 13) 2018-02-03 00:00:00 Completed [facility] Pneumococcal 13 Conjugate, PCV13 (Prevnar 13) 2018-02-03 00:00:00 Completed [facility] Pneumococcal 13 Conjugate, PCV13 (Prevnar 13) 2018-02-03 00:00:00 Completed [facility] Pneumococcal 13 Conjugate, PCV13 (Prevnar 13) 2018-02-03 00:00:00 Completed [facility] Pneumococcal 13 Conjugate, PCV13 (Prevnar 13) 2018-02-03 00:00:00 Completed [facility] Pneumococcal 13 Conjugate, PCV13 (Prevnar 13) 2018-02-03 00:00:00 Completed [facility] Pneumococcal 13 Conjugate, PCV13 (Prevnar 13) 2018-02-03 00:00:00 Completed [facility] Pneumococcal 13 Conjugate, PCV13 (Prevnar 13) 2018-02-03 00:00:00 Completed [facility] Pneumococcal 13 Conjugate, PCV13 (Prevnar 13) 2018-02-03 00:00:00 Completed [facility] Pneumococcal 13 Conjugate, PCV13 (Prevnar 13) 2018-02-03 00:00:00 Completed [facility] Pneumococcal 13 Conjugate, PCV13 (Prevnar 13) 2018-02-03 00:00:00 Completed [facility] Pneumococcal 13 Conjugate, PCV13 (Prevnar 13) 2018-02-03 00:00:00 Completed [facility] Pneumococcal 13 Conjugate, PCV13 (Prevnar 13) 2018-02-03 00:00:00 Completed [facility] Pneumococcal 13 Conjugate, PCV13 (Prevnar 13) 2018-02-03 00:00:00 Completed [facility] Pneumococcal 13 Conjugate, PCV13 (Prevnar 13) 2018-02-03 00:00:00 Completed [facility] Pneumococcal 13 Conjugate, PCV13 (Prevnar 13) 2018-02-03 00:00:00 Completed [facility] Pneumococcal 13 Conjugate, PCV13 (Prevnar 13) 2018-02-03 00:00:00 Completed [facility] Pneumococcal 13 Conjugate, PCV13 (Prevnar 13) 2018-02-03 00:00:00 Completed [facility] Pneumococcal 13 Conjugate, PCV13 (Prevnar 13) 2018-02-03 00:00:00 Completed [facility] Pneumococcal 13 Conjugate, PCV13 (Prevnar 13) 2018-02-03 00:00:00 Completed [facility] Pneumococcal 13 Conjugate, PCV13 (Prevnar 13) 2018-02-03 00:00:00 Completed [facility] Pneumococcal 13 Conjugate, PCV13 (Prevnar 13) 2018-02-03 00:00:00 Completed [facility] Pneumococcal 13 Conjugate, PCV13 (Prevnar 13) 2018-02-03 00:00:00 Completed [facility] Pneumococcal Vaccine, Conjugate 13 Pneumococcal Vaccine, Conjugate [...] Pulse oximetry 2024-12-03 15:23:00 98 /min Isabel Hutsono ld - External Systolic blood pressure 2024-11-21 [...] Systolic blood pressure 2024-11-19 21:50:00 140 mm[Hg] [facility] Diastolic blood pressure 2024-11-19 21:50:00 68 mm[Hg] [facility] Respiratory rate 2024-11-19 21:50:00 17 /min [facility] Oxygen saturation in Arterial blood by Pulse oximetry 2024-11-19 21:50:00 97 /min [facility] Heart rate 2024-11-19 21:15:00 98 /min General acute hospital Systolic blood pressure 2024-10-10 18:03:00 107 mm[Hg] [facility] Diastolic blood pressure 2024-10-10 18:03:00 72 mm[Hg] [facility] Heart rate 2024-10-10 18:03:00 84 /min General acute hospital Respiratory rate 2024-10-10 18:03:00 18 /min [facility] Body height 2024-10-10 18:03:00 177.8 cm [facility] Body weight 2024-10-10 18:03:00 93.895 kg [facility] BMI 2024-10-10 18:03:00 29.70 kg/m2 [facility] Oxygen saturation in Arterial blood by Pulse oximetry 2024-10-10 18:03:00 95 /min [facility] Systolic blood pressure 2024-08-08 19:16:00 [...] Systolic blood pressure 2024-06-06 16:52:00 135 mm[Hg] [facility] Diastolic blood pressure 2024-06-06 16:52:00 75 mm[Hg] [facility] Heart rate 2024-06-06 16:52:00 76 /min [facility] Body height 2024-06-06 16:52:00 177.8 cm [facility] Body weight 2024-06-06 16:52:00 98.431 kg [facility] BMI 2024-06-06 16:52:00 31.14 kg/m2 [facility] Oxygen saturation in Arterial blood by Pulse oximetry 2024-06-06 16:52:00 98 /min [facility] Systolic blood pressure 2024-04-20 20:02:00 138 mm[Hg] [facility] Diastolic blood pressure 2024-04-20 20:02:00 87 mm[Hg] [facility] Heart rate 2024-04-20 20:02:00 80 /min General acute hospital Body temperature 2024-04-20 20:02:00 36.67 Melinda [facility] Respiratory rate 2024-04-20 20:02:00 20 /min [facility] Body height 2024-04-20 20:02:00 177.8 cm [facility] Body weight 2024-04-20 20:02:00 97.977 kg [facility] BMI 2024-04-20 20:02:00 30.99 kg/m2 [facility] Oxygen saturation in Arterial blood by Pulse oximetry 2024-04-20 20:02:00 100 /min [facility] Systolic blood pressure 2024-04-11 19:56:00 109 mm[Hg] [facility] Diastolic blood pressure 2024-04-11 19:56:00 58 mm[Hg] [facility] Heart rate 2024-04-11 19:56:00 85 /min [facility] Respiratory rate 2024-04-11 19:56:00 16 /min [facility] Body height 2024-04-11 19:56:00 175.3 cm [facility] Body weight 2024-04-11 19:56:00 96.208 kg [facility] BMI 2024-04-11 19:56:00 31.32 kg/m2 [facility] Oxygen saturation in Arterial blood by Pulse oximetry 2024-04-11 19:56:00 97 /min [facility] Systolic blood pressure 2024-02-19 19:18:00 132 mm[Hg] [facility] Diastolic blood pressure 2024-02-19 19:18:00 73 mm[Hg] [facility] Heart rate 2024-02-19 19:18:00 73 /min [facility] Body temperature 2024-02-19 19:18:00 37 Melinda [facility] Respiratory rate 2024-02-19 19:18:00 15 /min [facility] Oxygen saturation in Arterial blood by Pulse oximetry 2024-02-19 19:18:00 98 /min [facility] Body height 2024-02-19 18:46:00 175.3 cm [facility] weight 2024-02-19 18:46:00 95.255 kg [facility] BMI 2024-02-19 18:46:00 31.01 kg/m2 [facility] Systolic blood pressure 2024-01-13 14:34:00 107 mm[Hg] [facility] Diastolic blood pressure 2024-01-13 14:34:00 50 mm[Hg] [facility] Heart rate 2024-01-13 14:34:00 74 /min [facility] Respiratory rate 2024-01-13 14:34:00 14 /min [facility] Body height 2024-01-13 14:34:00 175.3 cm [facility] Body weight 2024-01-13 14:34:00 98.703 kg [facility] BMI 2024-01-13 14:34:00 32.13 kg/m2 [facility] Oxygen saturation in Arterial blood by Pulse oximetry 2024-01-13 14:34:00 99 /min [facility] Systolic blood pressure 2023-12-27 20:23:00 [...] Systolic blood pressure 2023-10-12 17:50:00 138 mm[Hg] [facility] Diastolic blood pressure 2023-10-12 17:50:00 84 mm[Hg] [facility] Heart rate 2023-10-12 17:50:00 79 /min [facility] Res[facility] rate 2023-10-12 17:50:00 16 /min [facility] Body height 2023-10-12 17:50:00 175.3 cm [facility] Body weight 2023-10-12 17:50:00 97.024 kg [facility] BMI 2023-10-12 17:50:00 31.59 kg/m2 [facility] Oxygen saturation in Arterial blood by Pulse oximetry 2023-10-12 17:50:00 98 /min [facility] Systolic blood pressure 2023-09-14 13:24:00 [...] Systolic blood pressure 2023-04-11 20:48:00 156 mm[Hg] [facility] Diastolic blood pressure 2023-04-11 20:48:00 75 mm[Hg] [facility] Heart rate 2023-04-11 20:48:00 76 /min [facility] acute hospital Respiratory rate 2023-04-11 20:48:00 18 /min [facility] Body height 2023-04-11 20:48:00 175.3 cm [facility] Body weight 2023-04-11 20:48:00 96.616 kg [facility] BMI 2023-04-11 20:48:00 31.45 kg/m2 [facility] Oxygen saturation in Arterial blood by Pulse oximetry 2023-04-11 20:48:00 100 /min [facility] Systolic blood pressure 2023-01-05 19:08:00 126 mm[Hg] [facility] Diastolic blood pressure 2023-01-05 19:08:00 68 mm[Hg] [facility] Heart rate 2023-01-05 19:08:00 99 /min [facility] Body temperature 2023-01-05 19:08:00 36.11 Melinda [facility] Respiratory rate 2023-01-05 19:08:00 20 /min [facility] Body height 2023-01-05 19:08:00 175.3 cm [facility] Body weight 2023-01-05 19:08:00 94.348 kg [facility] BMI 2023-01-05 19:08:00 30.72 kg/m2 [facility] Oxygen saturation in Arterial blood by Pulse oximetry 2023-01-05 19:08:00 100 /min [facility] Systolic blood pressure 2022-10-11 19:49:00 133 mm[Hg] [facility] Diastolic blood pressure 2022-10-11 19:49:00 72 mm[Hg] [facility] Heart rate 2022-10-11 19:49:00 100 /min [facility] Respiratory rate 2022-10-11 19:49:00 16 /min [facility] Body height 2022-10-11 19:49:00 175.3 cm [facility] Body weight 2022-10-11 19:49:00 99.202 kg [facility] BMI 2022-10-11 19:49:00 32.30 kg/m2 [facility] Oxygen saturation in Arterial blood by Pulse oximetry 2022-10-11 19:49:00 100 /min [facility] Systolic blood pressure 2022-06-21 22:32:00 138 mm[Hg] [facility] Diastolic blood pressure 2022-06-21 22:32:00 83 mm[Hg] [facility] Heart rate 2022-06-21 22:31:00 80 /min [facility] Body temperature 2022-06-21 22:31:00 36.56 Melinda [facility] Respiratory rate 2022-06-21 22:31:00 18 /min [facility] Body height 2022-06-21 22:31:00 175.3 cm [facility] Body weight 2022-06-21 22:31:00 99.338 kg [facility] BMI 2022-06-21 22:31:00 32.34 kg/m2 [facility] Oxygen saturation in Arterial blood by Pulse oximetry 2022-06-21 22:31:00 97 /min [facility] Systolic blood pressure 2022-06-02 20:02:00 143 mm[Hg] [facility] Diastolic blood pressure 2022-06-02 20:02:00 77 mm[Hg] [facility] Heart rate 2022-06-02 20:02:00 91 /min [facility] Respiratory rate 2022-06-02 20:02:00 16 /min [facility] Body height 2022-06-02 20:02:00 177.8 cm [facility] Body weight 2022-06-02 20:02:00 98.34 kg [facility] BMI 2022-06-02 20:02:00 31.11 kg/m2 [facility] Oxygen saturation in Arterial blood by Pulse oximetry 2022-06-02 20:02:00 96 /min [facility] Systolic blood pressure 2022-02-05 16:41:00 129 mm[Hg] [facility] Diastolic blood pressure 2022-02-05 16:41:00 75 mm[Hg] [facility] Heart rate 2022-02-05 16:41:00 86 /min [facility] Body temperature 2022-02-05 16:41:00 36.44 Melinda [facility] Respiratory rate 2022-02-05 16:41:00 16 /min [facility] Body height 2022-02-05 16:41:00 177.8 cm [facility] Body weight 2022-02-05 16:41:00 97.115 kg [facility] BMI 2022-02-05 16:41:00 30.72 kg/m2 [facility] Oxygen saturation in Arterial blood by Pulse oximetry 2022-02-05 16:41:00 97 /min [facility] Systolic blood pressure 2021-12-10 20:03:00 117 mm[Hg] [facility] Diastolic blood pressure 2021-12-10 20:03:00 72 mm[Hg] [facility] Heart rate 2021-12-10 20:03:00 57 /min [facility] acute hospital Respiratory rate 2021-12-10 20:03:00 16 /min [facility] Body height 2021-12-10 20:03:00 177.8 cm [facility] Body weight 2021-12-10 20:03:00 98.431 kg [facility] BMI 2021-12-10 20:03:00 31.14 kg/m2 [facility] Oxygen saturation in Arterial blood by Pulse oximetry 2021-12-10 20:03:00 96 /min [facility] Procedures Procedure Date / Time Performed Performing Clinician Source FOOT LEFT 2024-12-03 00:00:00 Isabel medina - External PROTHROMBIN TIME (PT) 2024-12-03 00:00:00 Isabel Farnsworth - External MR GUIDED BIOPSY PROSTATE 2024-11-19 20:34:42 Arlyn Sawant [facility] SURGICAL PATHOLOGY EXAM 2024-11-19 20:10:00 Arnie Perdomo [facility] PHYSICIAN ORDERS 2024-10-18 14:42:02 Doctor Leatha signed, Rowe [facility] POCT HEMOGLOBIN A1C TEST 2024-10-10 00:00:00 Dashawn Umaña [facility] JOSE,POST-VOID RES,US,NON-IMAGING 2024-06-06 18:10:00 Tru [facility] POCT URINALYSIS AUTO 2024-06-06 16:43:00 Heron Ott [facility] POCT URINALYSIS AUTO 2024-04-20 19:58:00 Heron Ott [facility] JOSE,POST-VOID RES,US,NON-IMAGING 2024-04-20 00:00:00 Tru [facility] XR RIBS 3 VW RIGHT 2024-02-19 20:26:52 Gayatri Linares [facility] XR SHOULDER 2+ VW RIGHT 2024-02-19 20:26:52 Gayatri Linares [facility] POCT HEMOGLOBIN A1C TEST 2023-10-12 18:44:00 Dashawn Umaña [facility] EXTERNAL PROVIDER - ADC CARDIOLOGY 2023-05-04 06:01:00 Doctor Unassigned, Rowe [facility] POCT HEMOGLOBIN A1C TEST 2023-04-11 00:00:00 Dashawn Umaña [facility] POCT URINALYSIS AUTO 2023-01-05 20:53:00 Heron Ott [facility] MEDICATION CORRESPONDENCE 2022-12-28 05:01:00 Do ctor Unassigned, Rowe [facility] ASSIGNMENT OF BENEFITS 2022-08-16 18:51:48 Docto r Unassigned, Rowe [facility] ASSIGNMENT OF BENEFITS 2022-07-26 19:16:34 Docto r Unassigned, Rowe [facility] ASSIGNMENT OF BENEFITS 2022-07-16 17:18:29 Docto r Unassigned, Rowe [facility] URINE CULTURE 2022-06-21 23:00:00 Marcelina Crowley [facility] POCT URINALYSIS AUTO 2022-06-21 22:33:00 Marcus Crowley [facility] DIABETES TESTING REPORTS 2022-06-02 06:01:00 Doc tor Unassigned, Rowe [facility] POCT HEMOGLOBIN A1C TEST 2022-06-02 00:00:00 Dashawn Umaña [facility] POCT URINALYSIS AUTO 2021-12-10 20:12:00 Heron Ott [facility] Plan of Care Planned Activity Planned Date Details Comments Source Encounters Start Date/Time End Date/Time Encounter Type Admission Type Attending Clinicians Care Facility Care Department Encounter ID Source 2022-12-30 11:54:58 Emergency HFD HFD [id number] [facility] 2021-03-08 23:37:01 Emergency [facility] [id number] [facility] 2025-02-11 00:00:00 2025-02-11 00:00:00 Outpatient RAMONA SURINDER GONZALES [id number] [facility] 2025-02-06 13:00:00 2025-02-06 13:00:00 Outpatient DEON GOULD [facility] [id number] [facility] 2025-02-04 00:00:00 2025-02-04 00:00:00 Outpatient AGUIRRESURINDER [id number] Isabel [facility] 2025-01-24 00:00:00 2025-01-24 00:00:00 Outpatient LESLIEMARLEN ISABEL GONZALES [id number] Isabel [facility] 2025-01-23 00:00:00 2025-01-23 00:00:00 Outpatient [place], TICO ISABEL GONZALES [id number] [facility] 2025-01-15 00:00:00 2025-01-15 00:00:00 Outpatient TICO CORONADO [id number] [facility] 2025-01-14 00:00:00 2025-01-14 23:59:00 Hospital Encounter Roney ISIDROJOYA CHAPARRO [facility] [id number] [facility] 2025-01-14 00:00:00 2025-01-14 00:00:00 Outpatient [facility] [id number] [facility] 2025-01-09 00:00:00 2025-01-09 15:09:42 Telephone Deon Ott [facility] 1.2.840.114 350.1.13.10 4.2.7.2.686 [id number] [facility] 2025-01-02 13:30:00 2025-01-02 13:30:00 Outpatient SURINDER AGUIRRE [id number] [facility] 2024-12-28 00:00:00 2024-12-28 00:00:00 Outpatient SURINDER AGUIRRE [id number] [facility] 2024-11-21 00:00:00 2024-12-22 18:23:08 Patient Secure Msg Jason Perdomo [facility] 1.840.114 350.1.13.10 4.2.7.2.686 [id number] [facility] 2024-11-21 00:00:00 2024-12-22 18:21:27 Patient Secure Msg DustinArlyn thomas [facility] 1.2840.114 350.1.13.10 4.2.7.2.686 [id number] [facility] 2024-12-11 00:00:00 2024-12-12 09:28:00 Jj Jaimes [facility] 1.840.114 350.1.13.10 4.2.7.2.686 [id number] [facility] 2024-12-12 00:00:00 2024-12-12 00:00:00 Outpatient TICO CORONADO [id number] Isabel [facility] 2024-12-09 18:00:00 2024-12-09 18:00:00 Outpatient DEON GOULD [facility] [id number] [facility] 2024-12-03 16:50:00 2024-12-03 16:50:00 Outpatient ISABEL GONZALES [id number] Isabel [facility] 2024-12-03 15:30:00 2024-12-03 15:30:00 Outpatient SURINDER AGUIRRE [id number] Isabel [facility] 2024-12-03 15:00:00 2024-12-03 15:00:00 Outpatient NT90 ISABEL GONZALES [id number] Isabel [facility] 2024-12-03 00:00:00 2024-12-03 00:00:00 Out[facility] [id number] [facility]24-10-[facility] 00:00:00 2024-12-01 18:23:51 Patient Secure Msg Doctor Unassigned, Rowe Doctor Unassigned, Rowe [facility] 1.2.840.114 350.1.13.10 4.2.7.2.686 [id number] [facility] 2024-11-30 00:00:00 2024-11-30 16:15:15 Telephone [facility] 1.2.840.114 350.1.13.10 4.2.7.2.686 [id number] [facility] 2024-11-21 14:00:00 2024-11-21 14:00:00 Outpatient TICO CORONADO [id number] Isabel Farnsworth 2024-11-20 08:00:00 2024-11-20 08:00:00 Outpatient ARLYN WANG [facility] [id number] [facility] 2024-11-19 13:49:45 2024-11-19 23:59:00 Hospital Encounter ARLYN WANG [facility] 1.2.840.114 350.1.13.10 4.2.7.2.686 [id number] [facility] 2024-10-31 00:00:00 2024-10-31 12:10:43 Case Management Jason Perdomo [facility] 1.2.840.114 350.1.13.10 4.2.7.2.686 [id number] [facility] 2024-10-18 00:00:00 2024-10-19 02:04:13 Orders Only Doctor Unassigned, Rowe Doctor Unassigned, Rowe [facility] 1.2.840.114 350.1.13.10 4.2.7.2.686 [id number] [facility] 2024-10-17 00:00:00 2024-10-17 13:22:32 Telephone [facility] 1.2.840.114 350.1.13.10 4.2.7.2.686 [id number] [facility] 2024-10-16 15:15:00 2024-10-16 15:15:00 Outpatient ISABEL GONZALES [id number] Isabelisha Farnsworth 2024-10-10 13:00:00 2024-10-10 14:03:42 Office Visit Lachelle Hard[facility] 1.2.840.114 350.1.13.10 4.2.7.2.686 [id number] [facility] 2024-10-03 00:00:00 2024-10-04 14:09:51 [facility] 1.2.840.114 350.1.13.10 4.2.7.2.686 [id number] [facility] 2024-10-04 00:00:00 2024-10-04 00:00:00 Outpatient ISABEL GONZALES [id number] [facility] 2024-10-04 00:00:00 2024-10-04 00:00:00 Outpatient DEON OTT [id number] Isabel [facility] 2024-09-27 12:30:00 2024-09-27 12:30:00 Outpatient ISABEL GONZALES [id number] [facility]24-[facility]16 00:00:00 2024-09-16 00:00:00 [id number] 2024-09-15 09:15:00 2024-09-15 09:15:00 [facility] [id number] [facility] 2024-09-15 09:15:00 2024-09-15 09:15:00 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 1..840.114 350.1.13.10 4.2.7.2.686 [id number] [facility] 2024-09-14 00:00:00 2024-09-14 17:26:20 Telephone Tru [facility] 1.2.840.114 350.1.13.10 4.2.7.2.686 [id number] [facility] 2017-01-26 00:00:00 2024-08-30 22:27:47 Art Art [facility] 1..840.114 350.1.13.10 4.2.7.2.686 [id number] [facility] 2024-08-28 00:00:00 2024-08-28 00:00:00 Outpatient ISABEL GONZALES [id number] Isabel Farnsworth 2024-08-09 00:00:00 2024-08-09 00:00:00 Outpatient GEGE VU [id number] [facility] 2024-08-08 14:30:00 2024-08-08 14:30:00 Outpatient TICO CORONADO [id number] [facility] 2024-08-08 00:00:00 2024-08-08 00:00:00 Outpatient GEGE VU [id number] Isabel Farnsworth 2024-08-07 08:20:00 2024-08-07 08:20:00 Outpatient [id number] ISABEL GONZALES [id number] Isabel Farnsworth 2024-06-28 00:00:00 2024-06-28 00:00:00 Outpatient TICO CORONADO [id number] Isabel Farnsworth 2024-06-27 14:30:00 2024-06-27 14:30:00 Outpatient TICO CORONADO [id number] Isabel Farnsworth 2021-02-09 00:00:00 2024-06-23 02:53:05 Orders Only Kristen Ahumada Sarah N [facility] BUILDING 1.2.840.114 350.1.13.10 4.2.7.2.686 [id number] 204 [id number] [facility] 2024-06-23 00:00:00 2024-06-23 00:00:00 Outpatient R TRU [facility] [id number] [facility] 2024-06-23 00:00:00 2024-06-23 00:00:00 Outpatient R TRU [facility] [id number] [facility] 2024-06-07 00:00:00 2024-06-07 09:40:15 Telephone Tru [facility] 1..840.114 350.1.13.10 4.2.7.2.686 [id number] 204 [id number] [facility] 2024-06-06 11:00:00 2024-06-06 12:16:41 Outpatient R TRU [facility] [id number] [facility] 2024-06-06 11:00:00 2024-06-06 12:16:41 Office Visit R TRU [facility] 1..840.114 350.1.13.10 4.2.7.2.686 [id number] 204 [id number] [facility] 2024-06-04 00:00:00 2024-06-04 08:52:36 [facility]..840.114 350.1.13.10 4.2.7.2.686 [id number] 204 [id number] [facility] 2024-06-01 14:15:00 2024-06-01 14:30:00 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 BUILDING 1.2.840.114 350.1.13.10 4.2.7.2.686 [id number] 204 [id number] [facility] 2024-04-23 00:00:00 2024-04-23 13:38:[address] 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2, Adc Lab Tru Deon 2, Adc Lab [facility] BUILDING 1.2.840.114 350.1.13.10 4.2.7.2.686 [id number] [facility] 2024-04-20 13:30:00 2024-04-20 13:30:00 [id number] 2024-04-20 13:15:00 2024-04-20 13:30:00 Office Visit Deon Ott [facility] 1.840.114 350.1.13.10 4.2.7.2.686 [id number] [facility] 2024-04-20 00:00:00 2024-04-20 00:00:00 Outpatient TICO CORONADO [id number] [facility] 2024-04-11 14:00:00 2024-04-11 14:33:29 Outpatient R LACHELLE UMAÑA [facility] [id number] [facility] 2024-04-11 14:00:00 2024-04-11 14:33:29 Office Visit Lachelle Umaña [facility] IALTY [place] [facility] 1.840.114 350.1.13.10 4.2.7.2.686 [id number] [facility] 2024-03-31 00:00:00 2024-03-31 00:00:00 Outpatient TICO CORONADO [id number] Isabel [facility] 2024-03-30 00:00:00 2024-03-30 12:21:57 Telephone Jj Marie [facility]ALTY [facility] 1.84.114 350.1.13.10 4.2.7.2.686 [id number] 220 [id number] [facility] 2024-03-30 12:00:00 2024-03-30 12:15:00 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 Lachelle Umaña Vtc-Lab [facility] IALTY [place] [facility] 1..114 350.1.13.10 4.2.7.2.686 [id number] [facility] 2024-03-30 12:00:00 2024-03-30 12:00:00 Outpatient R UMA[facility]A, [facility] [id number] [facility] 2024-03-28 00:00:00 2024-03-28 00:00:00 Outpatient TICO CORONADO [id number] [facility] 2024-03-11 00:00:00 2024-03-15 08:48:13 Refill Deon Ott [facility] 1.84.114 350.1.13.10 4.2.7.2.686 [id number] [facility] 2024-02-19 14:03:00 2024-02-19 18:02:00 Emergency X GAYATRI LINARES [facility] ERT [id number] [facility] 2024-02-19 14:03:00 2024-02-19 18:02:00 Emergency Gayatri Linares [facility] 1..114 350.1.13.10 4.2.7.2.686 [id number] [facility] 2024-01-13 09:30:00 2024-01-13 10:14:07 Outpatient JJ NO [facility] [id number] [facility] 2024-01-13 09:30:00 2024-01-13 10:14:07 Office Visit Jj Marie [facility] MULTISPEC [facility] .114 350.1.13.10 4.2.7.2.686 [id number] 220 [id number] [facility] 2024-01-13 00:00:00 2024-01-13 00:00:00 Outpatient TICO CORONADO [id number] Isabel [facility] 2024-01-12 00:00:00 2024-01-12 14:43:29 Refill Lachelle Umaña [facility] MULTISPEC [facility] ..114 350.1.13.10 4.2.7.2.686 [id number] 220 [id number] [facility] 2023-12-27 15:15:00 2023-12-27 15:15:00 Outpatient TICO CORONADO [id number] Isabel [facility] 2023-12-12 00:00:00 2023-12-15 12:06:03 Refill Tru [facility] 1..840.114 350.1.13.10 4.2.7.2.686 [id number] 204 [id number] [facility] 2023-11-16 15:15:00 2023-11-16 15:15:00 Outpatient TICO CORONADO [id number] Isabel [facility] 2023-11-09 00:00:00 2023-11-09 00:00:00 Outpatient TICO CORONADO [id number] Isabel [facility] 2023-11-08 09:25:00 2023-11-08 09:25:00 Outpatient LAB90 ISABEL GONZALES [id number] Isabel [facility] 2023-10-26 15:45:00 2023-10-26 15:45:00 Outpatient TICO CORONADO [id number] Isabel [facility] 2023-10-24 00:00:00 2023-10-24 00:00:00 Outpatient TICO CORONADO [id number] [facility] 2023-10-12 13:00:00 2023-10-12 13:37:59 Outpatient R LACHELLE UMAÑA [facility] [id number] [facility] 2023-10-12 13:00:00 2023-10-12 13:37:59 Office Visit Lachlele Umaña [facility] ..840.114 350.1.13.10 4.2.7.2.686 [id number] 220 [id number] [facility] 2023-10-02 00:00:00 2023-10-02 00:00:00 Outpatient TICO CORONADO [id number] Isabel [facility] 2023-09-15 00:00:00 2023-09-15 15:14:37 Telephone Lachelle Umaña [facility] 1.2.840.114 350.1.13.10 4.2.7.2.686 [id number] 220 [id number] [facility] 2023-09-14 08:30:00 2023-09-14 08:30:00 Outpatient TERESA MARTELL ISABEL GONZALES [id number] Isabel [facility] 2023-09-11 00:00:00 2023-09-13 09:10:06 Marcelina [facility] 1.2.840.114 350.1.13.10 4.2.7.2.686 [id number] 204 [id number] [facility] 2023-09-07 16:00:00 2023-09-07 16:00:00 Outpatient PREZAWILLIE LassiterBERT GONZALES [id number] Isabel [facility] 2023-06-08 16:15:00 2023-06-08 16:15:00 Outpatient KOKIMaikolTICO [id number] Isabel Antunezhair 2023-06-08 16:15:00 2023-06-08 16:15:00 Outpatient PRERYANNMaikolTICO [id number] Isabel [facility] 2023-05-30 16:15:00 2023-05-30 16:15:00 Outpatient PREZAMaikolTICO [id number] Isabel [facility] 2023-05-25 09:05:00 2023-05-25 09:05:00 Outpatient LAB90 ISABEL GONZALES [id number] Isabel [facility] 2023-05-18 00:00:00 2023-05-18 00:00:00 Outpatient PREZATICO Lassiter [id number] Isabel [facility] 2023-05-16 00:00:00 2023-05-16 00:00:00 Outpatient PRETICO CHAU [id number] Isabel [facility] 2023-05-13 09:25:00 2023-05-13 09:25:00 Outpatient LAB90 ISABEL GONZALES [id number] Isabel [facility] 2023-05-04 15:00:00 2023-05-04 15:00:00 Outpatient TICO CORONADO [id number] [facility] 2023-[facility] 00:00:00 2023-05-04 00:00:00 Orders Only Doctor Unassigned, Rowe [facility] 1.0.114 350.1.13.10 4.2.7.2.686 [id number] [id number] [facility] 2023-04-20 13:00:00 2023-04-20 13:00:00 Outpatient R JOSEPH INGRAM [facility] [id number] [facility] 2023-04-12 00:00:00 2023-04-12 00:00:00 Telephone [facility] 1.0.114 350.1.13.10 4.2.7.2.686 [id number] 220 [id number] [facility] 2023-04-11 14:30:00 2023-04-11 15:54:22 Outpatient R LEEROY [facility] [id number] [facility] 2023-04-11 14:30:00 2023-04-11 15:54:22 Office Visit [facility]eroy [facility] 1..114 350.1.13.10 4.2.7.2.686 [id number] 220 [id number] [facility] 2023-02-28 00:00:00 2023-02-28 00:00:00 Refill Leeroy [facility] MULTISPEC [facility]ALTY CENTER AND [facility] 1.840.114 350.1.13.10 4.2.7.2.686 [id number] 220 [id number] [facility] 2023-02-27 00:00:00 2023-02-27 00:00:00 [facility] 1.0.114 350.1.13.10 4.2.7.2.686 [id number] [facility] 2023-02-23 13:30:00 2023-02-23 13:30:00 Outpatient R JOSEPH INGRAM [facility] [id number] [facility] 2023-01-05 14:00:00 2023-01-05 14:46:21 Outpatient R MEGHANAJANNET [facility] [id number] [facility] 2023-01-05 14:00:00 2023-01-05 14:46:21 Office Visit Tru [facility] 1.0.114 350.1.13.10 4.2.7.2.686 [id number] [facility] 2022-12-28 00:00:00 2022-12-28 00:00:00 Orders Only Doctor Unassigned, Rowe [facility] 1.840.114 350.1.13.10 4.2.7.2.686 [id number] [id number] [facility] 2022-12-28 00:00:00 2022-12-28 00:00:00 Telephone Tru [facility] 1.0.114 350.1.13.10 4.2.7.2.686 [id number] [facility] 2022-10-11 15:45:00 2022-10-11 16:00:00 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 Lachelle Umaña [facility] 1.0.114 350.1.13.10 4.2.7.2.686 [id number] [facility] 2022-10-11 14:30:00 2022-10-11 15:44:45 Outpatient R UMAÑA [facility] [id number] [facility] 2022-10-11 14:30:00 2022-10-11 15:44:45 Office Visit Leeroy [facility] MULTISPEC [facility]ALTY [facility] 1.2.840.114 350.1.13.10 4.2.7.2.686 [id number] 220 [id number] [facility] 2022-08-31 00:00:00 2022-08-31 00:00:[address] 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 BUILDING 1.2.840.114 350.1.13.10 4.2.7.2.686 [id number] [facility] 2022-08-16 14:00:00 2022-08-16 14:00:00 Outpatient R MEGHANALAYOMag [facility] [id number] [facility] 2022-08-16 00:00:00 2022-08-16 00:00:00 Orders Only Doctor Unassigned, Rowe [facility] 1.2.840.114 350.1.13.10 4.2.7.2.686 [id number] [id number] [facility] 2022-07-28 00:00:00 2022-07-28 00:00:00 Case Management Marcelina Crowley [facility] BUILDING 1.2.840.114 350.1.13.10 4.2.7.2.686 [id number] 204 [id number] [facility] 2022-07-26 14:45:00 2022-07-26 15:00:00 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Potobias, Adc Lab Main Carline [facility] 1.2840.114 350.1.13.10 4.2.7.2.686 [id number] [facility] 2022-07-26 14:45:00 2022-07-26 14:45:00 Outpatient R [facility] [id number] [facility] 2022-07-26 00:00:00 2022-07-26 00:00:00 Orders Only Doctor Unassigned, Rowe [facility] 1.2.840.114 350.1.13.10 4.2.7.2.686 [id number] [id number] [facility] 2022-07-26 00:00:00 2022-07-26 00:00:00 [facility]phone [facility] 1.2840.114 350.1.13.10 4.2.7.2.686 [id number] 204 [id number] [facility] 2022-07-16 11:30:00 2022-07-16 11:45:00 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Shona, Adc Lab Main Sara Crowleytney [facility] BUILDING 1.2.840.114 350.1.13.10 4.2.7.2.686 [id number] [facility] 2022-07-16 11:30:00 2022-07-16 11:30:00 Outpatient R CROWLEYSARA [facility] [id number] [facility] 2022-07-16 00:00:00 2022-07-16 00:00:00 Orders Only Doctor Unassigned, Rowe [facility] 1.2.114 350.1.13.10 4.2.7.2.686 [id number] [id number] [facility] 2022-07-15 00:00:00 2022-07-15 00:00:00 Telephone Carline [facility] BUILDING 1..114 350.1.13.10 4.2.7.2.686 [id number] 204 [id number] [facility] 2022-06-24 00:00:00 2022-06-24 00:00:00 Case Management Carline [facility] 1..114 350.1.13.10 4.2.7.2.686 [id number] 204 [id number] [facility] 2022-06-21 16:30:00 2022-06-21 16:58:52 Outpatient R CARLINE [facility] [id number] [facility] 2022-06-21 16:30:00 2022-06-21 16:58:52 Office Visit Carline [facility] 1..114 350.1.13.10 4.2.7.2.686 [id number] [facility] 2022-06-02 14:00:00 2022-06-02 14:37:16 Outpatient R LACHELLE UMAÑA [facility] [id number] [facility] 2022-06-02 14:00:00 2022-06-02 14:37:16 Office Visit Lachelle Umaña [facility] 1.114 350.1.13.10 4.2.7.2.686 [id number] 220 [id number] [facility] 2022-06-02 00:00:00 2022-06-02 00:00:00 Orders Only Doctor Unassigned, Rowe [facility] 1.2.840.114 350.1.13.10 4.2.7.2.686 [id number] 009 [id number] [facility] 2022-02-16 00:00:00 2022-02-16 00:00:00 [facility] [place] [facility] 1..114 350.1.13.10 4.2.7.2.686 [id number] 220 [id number] [facility] 2022-02-05 12:45:00 2022-02-05 13:00:00 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 Leeroy [facility] 1..114 350.1.13.10 4.2.7.2.686 [id number] [facility] 2022-02-05 11:00:00 2022-02-05 12:27:09 Outpatient R [facility]ASHAWN [facility] [id number] [facility] 2022-02-05 11:00:00 2022-02-05 12:27:09 Office Visit Leona Wei [facility] 1..114 350.1.13.10 4.2.7.2.686 [id number] 220 [id number] [facility] 2022-02-05 00:00:00 2022-02-05 00:00:00 Refill Leeroy [facility] 1..114 350.1.13.10 4.2.7.2.686 [id number] 220 [id number] [facility] 2022-02-02 00:00:00 2022-02-02 00:00:00 Telephone Nisreen Dallas [facility] MULTISPEC IALTY C[facility] 1.2.840.114 350.1.13.10 4.2.7.2.686 [id number] 220 [id number] [facility] 2022-02-02 00:00:00 2022-02-02 00:00:00 Refill Leeroy Lachelle [facility] MULTISPEC [facility]ALTY [facility] 1.2840.114 350.1.13.10 4.2.7.2.686 [id number] [facility] 2022-01-29 00:00:00 2022-01-29 00:00:00 [facility] 1.2.840.114 350.1.13.10 4.2.7.2.686 [id number] 220 [id number] [facility] 2022-01-29 00:00:00 2022-01-29 00:00:00 Refill Tru [facility] 1.0.114 350.1.13.10 4.2.7.2.686 [id number] 204 [id number] [facility] 2021-12-10 14:30:00 2021-12-10 15:29:30 Outpatient R TRU [facility] [id number] [facility] 2021-12-10 14:30:00 2021-12-10 15:29:30 Office Visit Tru [facility] 1.0.114 350.1.13.10 4.2.7.2.686 [id number] 204 [id number] [facility] 2021-12-10 00:00:00 2021-12-10 00:00:00 Transition of Care Lauren Jefferson 1.840.114 350.1.13.10 4.2.7.2.686 [id number] [facility] 2021-12-07 13:12:00 2021-12-09 12:47:00 Hospital Encounter Melody Cosby Nils Min Caroline [facility] 1..840.114 350.1.13.10 4.2.7.2.686 [id number] [facility] 2021-12-06 16:49:00 2021-12-06 20:14:00 Emergency X RIDRENZO [facility] E[facility] [id number] [facility] 2021-12-06 16:49:00 2021-12-06 20:14:00 Emergency Larsen, [facility] 1..840.114 350.1.13.10 4.2.7.2.686 [id number] [facility] 2021-12-06 16:49:00 2021-12-06 20:14:00 Emergency X RIDRENZO, [facility] ERT [id number] [facility] 2021-10-12 15:00:00 2021-10-12 15:00:00 Outpatient R [facility] [id number] [facility] 2021-10-12 15:00:00 2021-10-12 15:00:00 Outpatient R [place] [facility] [id number] [facility] 2021-10-06 00:00:00 2021-10-06 00:00:00 Telephone Nisreen Dallas [facility] MULTISPEC [facility]ALTY [facility] 1.840.114 350.1.13.10 4.2.7.2.686 [id number] [facility] 2021-10-02 10:00:00 2021-10-02 10:00:00 Outpatient R LAHCELLE UMAÑA [facility] [id number] [facility] 2021-10-02 10:00:00 2021-10-02 10:00:00 Outpatient R LACHELLE UMAÑA [facility] [id number] [facility] 2021-09-11 00:00:00 2021-09-11 00:00:00 Telephone LydiamagDeon [facility] 1.2.840.114 350.1.13.10 4.2.7.2.686 [id number] [facility] 2021-09-07 15:30:00 2021-09-07 15:30:00 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[facility] Lucy Kimball [facility] 1.2.840.114 350.1.13.10 4.2.7.2.686 [id number] [facility] 2021-09-07 14:30:00 2021-09-07 15:00:00 Office Visit Peng Eng Peter C [facility] 1.2.840.114 350.1.13.10 4.2.7.2.686 [id number] [facility] 2021-09-07 14:30:00 2021-09-07 15:00:00 Office Visit Peng Eng Peter C [facility] 1.2.840.114 350.1.13.10 4.2.7.2.686 [id number] [facility] 2021-09-07 14:30:00 2021-09-07 14:30:00 Outpatient R [facility] [id number] [facility] 2021-09-07 14:30:00 2021-09-07 14:30:00 Outpatient LUCY GREGORY [facility] [id number] [facility] 2021-09-07 14:30:00 2021-09-07 14:30:00 Outpatient LUCY GREGORY [facility] [id number] [facility] 2021-09-03 11:45:00 2021-09-03 12:00:00 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686 [id number] [facility] 2021-07-24 00:00:00 2021-07-24 00:00:00 Refill Nisreen [place] [facility] MULTISPEC [facility]ALTY [facility] 1..114 350.1.13.10 4.2.7.2.686 [id number] [facility] 2021-07-23 00:00:00 2021-07-23 00:00:00 Refill Deon Ott [facility] 1.0.114 350.1.13.10 4.2.7.2.686 [id number] [facility] 2021-07-21 00:00:00 2021-07-21 00:00:00 Orders Only Doctor Unassigned, Rowe [facility] 1.20.114 350.1.13.10 4.2.7.2.686 [id number] [id number] [facility] 2021-07-20 00:00:00 2021-07-20 00:00:00 Nisreen Perez [facility] 1..114 350.1.13.10 4.2.7.2.686 [id number] [facility] 2021-07-06 14:00:00 2021-07-06 15:00:00 Office Visit Peng Eng Juan Carlos [facility] 1.114 350.1.13.10 4.2.7.2.686 [id number] [facility] 2021-07-06 14:00:00 2021-07-06 14:00:00 Outpatient Roney NICK [facility] [id number] [facility] 2021-07-06 14:00:00 2021-07-06 14:00:00 Outpatient Roney NICK [facility] [id number] [facility] 2021-06-11 00:00:00 2021-06-11 00:00:[address] 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 1.2.840.114 350.1.13.10 4.2.7.2.686 [id number] [facility] 2021-06-08 12:45:00 2021-06-08 12:45:00 Outpatient R DEON OTT [facility] [id number] [facility] 2021-06-05 10:00:00 2021-06-05 10:38:40 Office Visit Nisreen [place], [facility] 1.114 350.1.13.10 4.2.7.2.686 [id number] [facility] 2021-06-05 10:00:00 2021-06-05 10:38:40 Outpatient R LEEROY [facility] [id number] [facility] 2021-06-05 10:00:00 2021-06-05 10:38:40 Outpatient R LEEROY [facility] [id number] [facility] 2021-06-05 10:00:00 2021-06-05 10:38:40 Office Visit Nisreen [place], [facility] 1.114 350.1.13.10 4.2.7.2.686 [id number] [facility] 2021-06-05 10:00:00 2021-06-05 10:00:00 Outpatient R LEEROY [facility] [id number] [facility] 2021-06-05 10:00:00 2021-06-05 10:00:00 Outpatient R LEEROY [facility] [id number] [facility] 2021-06-05 00:00:00 2021-06-05 00:00:00 Orders Only Doctor Unassigned, Rowe [facility] 1.114 350.1.13.10 4.2.7.2.686 [id number] [facility] 2021-06-03 13:00:00 2021-06-03 13:00:00 Outpatient R LELO YANG [facility] [id number] [facility] 2021-05-21 00:00:00 2021-05-21 00:00:00 Telephone Deon Ott [facility] BUILD[facility] 1.2.840.114 350.1.13.10 4.2.7.2.686 [id number] [facility] 2021-05-04 00:00:00 2021-05-04 00:00:00 Telephone Lelo Yang [facility] 1.2.840.114 350.1.13.10 4.2.7.2.686 [id number] [facility] [facility] 16:30:00 2021-04-30 16:45:00 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Pob, Adc Lab Main Lelo Yang [facility] 1.2.840.114 350.1.13.10 4.2.7.2.686 [id number] [facility] 2021-04-30 16:30:00 2021-04-30 16:30:00 Outpatient R LELO YANG [facility] [id number] [facility] 2021-04-30 00:00:00 2021-04-30 00:00:00 Case Management Lelo Yang [facility] 1.2.840.114 350.1.13.10 4.2.7.2.686 [id number] [facility] 2021-04-17 00:00:00 2021-04-17 00:00:00 Telephone Deon Ott [facility] BUILD[facility] 1.2.840.114 350.1.13.10 4.2.7.2.686 [id number] [facility] 2021-04-15 13:45:00 2021-04-15 13:45:00 Outpatient R LELO YANG [facility] [id number] [facility] 2021-04-15 13:45:00 2021-04-15 13:45:00 Outpatient R LELO YANG [facility] [id number] [facility] 2021-04-15 10:53:19 2021-04-15 11:08:19 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Pob, Adc Lab Main Lelo Yang [facility] 1.2.840.114 350.1.13.10 4.2.7.2.686 [id number] [facility] 2021-04-15 11:06:06 2021-04-15 11:06:15 Imm/Inj Visit Nurse, Adc Pob Immunizatio Lavelle Jain [facility] 1.2.840.114 350.1.13.10 4.2.7.2.686 [id number] [facility] 2021-03-31 00:00:00 2021-03-31 00:00:00 Refill Tru [facility] 1.2.840.114 350.1.13.10 4.2.7.2.686 [id number] [facility] 2021-03-26 00:00:00 2021-03-26 00:00:[address] 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 Main [facility] BUILDING 1.2.840.114 350.1.13.10 4.2.7.2.686 [id number] [facility] 2021-03-19 12:30:00 2021-03-19 12:30:00 Outpatient R TRU [facility] [id number] [facility] 2021-03-16 00:00:00 2021-03-16 00:00:00 Telephone [facility] BUILDING 1.2.840.114 350.1.13.10 4.2.7.2.686 [id number] [facility] 2021-03-14 09:15:00 2021-03-14 09:15:00 Outpatient R TRU [facility] [id number] [facility] 2021-03-14 08:48:55 2021-03-14 09:03:55 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Pob, Adc Lab Main [facility] BUILDING 1.2.840.114 350.1.13.10 4.2.7.2.686 [id number] [facility] 2021-03-14 00:00:00 2021-03-14 00:00:00 Orders Only Doctor Unassigned, Rowe [facility] 1.284.114 350.1.13.10 4.2.7.2.686 [id number] [id number] [facility] 2021-03-13 00:00:00 2021-03-13 00:00:00 Telephone [facility] 1.2.840.114 350.1.13.10 4.2.7.2.686 [id number] [facility] 2021-03-05 16:30:00 2021-03-05 16:30:00 Outpatient R TRU [facility] [id number] [facility] 2021-03-05 16:30:00 2021-03-05 14:45:25 Outpatient R TRU [facility] [id number] [facility] 2021-03-05 14:11:40 2021-03-05 14:45:25 Office Visit Tru [facility] 1.2.840.114 350.1.13.10 4.2.7.2.686 [id number] [facility] 2021-02-17 00:00:00 2021-02-17 00:00:00 Telephone Tru [facility] 1.2.840.114 350.1.13.10 4.2.7.2.686 [id number] 204 [id number] [facility] 2021-02-16 13:36:51 2021-02-16 15:11:28 Office Visit Tru [facility] Building 1.2.840.114 350.1.13.10 4.2.7.2.686 [id number] [facility] 2021-02-16 14:00:00 2021-02-16 14:00:00 Outpatient R TRU [facility] [id number] [facility] 2021-02-12 08:01:49 2021-02-12 09:06:40 [facility] 1.2.840.114 350.1.13.10 4.2.7.2.686 [id number] [facility] 2021-02-12 08:00:00 2021-02-12 08:00:00 [id number] 2021-02-12 00:00:00 2021-02-12 00:00:00 Telephone Tru [facility] Building 1.2.840.114 350.1.13.10 4.2.7.2.686 [id number] [facility] 2021-02-11 00:00:00 2021-02-11 00:00:00 Telephone Tru [facility] Building 1.2.840.114 350.1.13.10 4.2.7.2.686 [id number] [facility] 2021-02-09 14:00:00 2021-02-09 14:00:00 Outpatient R TRU [facility] [id number] [facility] 2021-02-09 13:51:20 2021-02-09 13:51:43 Nurse Visit Nurse, [facility] Tru [facility] Building 1.2.840.114 350.1.13.10 4.2.7.2.686 [id number] 204 [id number] [facility] 2021-02-09 00:00:00 2021-02-09 00:00:00 Telephone Tru [facility] Building 1.2.840.114 350.1.13.10 4.2.7.2.686 [id number] [facility] 2021-02-09 00:00:00 2021-02-09 00:00:00 Telephone Tru [facility] Building 1.2.840.114 350.1.13.10 4.2.7.2.686 [id number] 204 [id number] [facility] 2021-01-23 09:38:21 2021-01-23 11:17:30 Office Visit Nisreen [place], [facility] 1.114 350.1.13.10 4.2.7.2.686 [id number] 220 [id number] [facility] 2021-01-23 09:38:21 2021-01-23 11:17:30 Office [facility]reen [place], [facility] 1.114 350.1.13.10 4.2.7.2.686 [id number] [facility] 2021-01-23 10:00:00 2021-01-23 10:00:00 Outpatient R LACHELLE UMAÑA [facility] [id number] [facility] 2020-12-25 14:30:00 2020-12-25 14:30:00 Outpatient R DEON OTT [facility] [id number] [facility] 2020-12-25 13:29:16 2020-12-25 13:59:16 Office Visit Deon Ott Adc Surg Spec Procedure [facility] Building 1.114 350.1.13.10 4.2.7.2.686 [id number] [facility] 2020-12-25 00:00:00 2020-12-25 00:00:00 Orders Only Doctor Unassigned, Rowe [facility] 1.114 350.1.13.10 4.2.7.2.686 [id number] [id number] [facility] 2020-12-22 13:35:11 2020-12-22 13:50:11 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 [facility] 1.2.840.114 350.1.13.10 4.2.7.2.686 [id number] 204 [id number] [facility] 2020-12-18 00:00:00 2020-12-18 00:00:00 Telephone Tru [facility] 1.2.840.114 350.1.13.10 4.2.7.2.686 [id number] 204 [id number] [facility] 2020-12-16 09:38:57 2020-12-16 10:54:59 Office Visit Joseph Ingram [place] [facility] 1.2.840.114 350.1.13.10 4.2.7.2.686 [id number] [facility] 2020-12-16 10:00:00 2020-12-16 10:00:00 Outpatient R HOMEJOSEPH [facility] [id number] [facility] 2020-12-16 00:00:00 2020-12-16 00:00:00 Telephone Tru [facility] 1.2.840.114 350.1.13.10 4.2.7.2.686 [id number] [facility] 2020-12-11 11:30:33 2020-12-11 11:45:33 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Pob, Adc Lab Main Deon Ott [facility] Professio nal Building 1.2.840.114 350.1.13.10 4.2.7.2.686 [id number] [facility] 2020-12-11 11:30:00 2020-12-11 11:30:00 Outpatient R DEON OTT [facility] [id number] [facility] 2020-12-09 00:00:00 2020-12-09 00:00:00 Telephone Nisreen Dallas [facility] MULT[facility]PEC [facility] 1.2.840.114 350.1.13.10 4.2.7.2.686 [id number] 220 [id number] [facility] 2020-12-08 00:00:00 2020-12-08 00:00:00 [facility] 1.2.840.114 350.1.13.10 4.2.7.2.686 [id number] 220 [id number] [facility] 2020-11-24 00:00:00 2020-11-24 00:00:00 Telephone Deon Ott [facility] Professio nal Building 1.2.840.114 350.1.13.10 4.2.7.2.686 [id number] [facility] 2020-11-17 09:13:53 2020-11-17 10:00:18 Office Visit Deon Ott , Adc Surg Spec Procedure [facility] Professio nal Building 1.2.840.114 350.1.13.10 4.2.7.2.686 [id number] [facility] 2020-11-17 09:30:00 2020-11-17 09:30:00 Outpatient R DEON OTT [facility] [id number] [facility] 2020-11-04 13:11:14 2020-11-04 13:26:14 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1.13.10 4.2.7.2.686 [id number] [facility] 2020-10-30 00:00:00 2020-10-30 00:00:00 Telephone Tru [facility] 1..114 350.1.13.10 4.2.7.2.686 [id number] [facility] 2020-10-27 15:41:30 2020-10-27 16:27:43 Office Visit Tru [facility] Building 1.284.114 350.1.13.10 4.2.7.2.686 [id number] [facility] 2020-10-27 16:15:00 2020-10-27 16:15:00 Outpatient R TRU [facility] [id number] [facility] 2020-10-16 00:00:00 2020-10-16 00:00:00 Transition of Care Kaiden Martin [facility] 1.2840.114 350.1.13.10 4.2.7.2.686 [id number] [facility] 2020-10-13 13:57:00 2020-10-15 13:45:00 Hospital Encounter Kris Delaney Yaman [facility] 1.2840.114 350.1.13.10 4.2.7.2.686 [id number] [facility] 2020-10-13 00:00:00 2020-10-13 00:00:00 Orders Only Doctor Unassigned, Rowe [facility] 1.840.114 350.1.13.10 4.2.7.2.686 [id number] [facility] 2020-10-07 00:00:00 2020-10-07 00:00:00 Armen Gongora [facility] M[facility]PEC [facility] 1.2840.114 350.1.13.10 4.2.7.2.686 [id number] 220 [id number] [facility] 2020-09-15 00:00:00 2020-09-15 00:00:00 Telephone Nisreen Dallas [facility] M[facility]PEC [facility] 1.2840.114 350.1.13.10 4.2.7.2.686 [id number] 220 [id number] [facility] 2020-09-08 00:00:00 2020-09-08 00:00:00 Telephone Nisreen Dallas [facility]PEC [facility] 1.2840.114 350.1.13.10 4.2.7.2.686 [id number] [facility] 2020-09-01 00:00:00 2020-09-01 00:00:00 [facility] 1.2.840.114 350.1.13.10 4.2.7.2.686 [id number] [facility] 2020-09-01 00:00:00 2020-09-01 00:00:00 Refill Tru [facility] Building 1.2.840.114 350.1.13.10 4.2.7.2.686 [id number] [facility] 2020-08-07 00:00:00 2020-08-07 00:00:00 Orders Only Doctor Unassigned, Rowe [facility] 1.2.840.114 350.1.13.10 4.2.7.2.686 [id number] [facility] 2020-08-04 11:05:55 2020-08-04 11:50:37 Office Visit Deon Ott, Adc Surg Spec Procedure [facility] 1.2.840.114 350.1.13.10 4.2.7.2.686 [id number] [facility] 2020-08-04 11:30:00 2020-08-04 11:30:00 Outpatient R DEON OTT [facility] [id number] [facility] 2020-07-31 13:30:00 2020-07-31 13:30:00 Outpatient R DEON OTT [facility] [id number] [facility] 2020-07-23 13:29:28 2020-07-23 13:44:28 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Potobias, Adc Lab Main Deon Ott [facility] 1.2.840.114 350.1.13.10 4.2.7.2.686 [id number] [facility] 2020-07-23 13:30:00 2020-07-23 13:30:00 Outpatient R TRU [facility] [id number] [facility] 2020-07-22 00:00:00 2020-07-22 00:00:[address] [facility] Professio nal Building 1..840.114 350.1.13.10 4.2.7.2.686 [id number] [facility] 2020-07-18 10:25:49 2020-07-18 11:50:38 Office [facility] [place] [facility] 1.840.114 350.1.13.10 4.2.7.2.686 [id number] [facility] 2020-07-18 10:30:00 2020-07-18 10:30:00 Outpatient R [facility] [id number] [facility] 2020-07-14 00:00:00 2020-07-14 00:00:00 [facility]phone [facility] 1.840.114 350.1.13.10 4.2.7.2.686 [id number] 220 [id number] [facility] 2020-07-11 09:20:00 2020-07-11 09:20:00 Outpatient R TATE SHABAZZ [facility] [id number] [facility] 2020-07-07 00:00:00 2020-07-07 00:00:00 Telephone Tru [facility] Building 1.840.114 350.1.13.10 4.2.7.2.686 [id number] [facility] 2020-06-27 11:00:00 2020-06-27 11:00:00 Outpatient R LACHELLE UMAÑA [facility] [id number] [facility] 2020-06-26 14:30:00 2020-06-26 14:30:00 Outpatient R MEGHANALAYOMag DEON [facility] [id number] [facility] 2020-06-20 14:00:00 2020-06-20 14:00:00 Outpatient R TATE SHABAZZ [facility] [id number] [facility] 2020-06-12 13:30:20 2020-06-12 14:36:30 Office Visit Deon Ott Rm, [facility] Surg Spec [facility] 1.2.840.114 350.1.13.10 4.2.7.2.686 [id number] [facility] 2020-06-12 14:00:00 2020-06-12 14:00:00 [facility] [id number] [facility] 2020-06-09 00:00:00 2020-06-09 00:00:00 Telephone Meghanajannet [facility] Building 1.2.840.114 350.1.13.10 4.2.7.2.686 [id number] [facility] 2020-05-19 00:00:00 2020-05-19 00:00:00 [facility] 1.2.840.114 350.1.13.10 4.2.7.2.686 [id number] [facility] 2020-05-14 11:23:32 2020-05-14 11:37:03 Nurse Visit Nurse, [facility] 1.2.840.114 350.1.13.10 4.2.7.2.686 [id number] [facility] 2020-05-14 10:30:00 2020-05-14 10:30:00 Outpatient R TRU [facility] [id number] [facility] 2020-05-13 00:00:00 2020-05-13 00:00:00 Case Management Gramm, Lelo Franks [facility] 1.2.840.114 350.1.13.10 4.2.7.2.686 [id number] [facility] 2020-05-08 14:46:15 2020-05-08 15:01:15 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2, Adc Lab Tru [facility] Building 1.2.840.114 350.1.13.10 4.2.7.2.686 [id number] [facility] 2020-05-08 13:02:27 2020-05-08 14:42:41 Office Visit Tru [facility] 1.2.840.114 350.1.13.10 4.2.7.2.686 [id number] [facility] 2020-05-08 13:30:00 2020-05-08 13:30:00 Outpatient R TRU [facility] [id number] [facility] 2020-05-08 00:00:00 2020-05-08 00:00:00 Orders Only Doctor Unassigned, Rowe [facility] 1.2.840.114 350.1.13.10 4.2.7.2.686 [id number] [facility] 2020-03-07 00:00:00 2020-03-07 00:00:00 Orders Only Doctor Unassigned, Rowe [facility] 1.2.840.114 350.1.13.10 4.2.7.2.686 [id number] [facility] 2020-03-01 00:00:00 2020-03-01 00:00:00 Anson Agarwal [facility] MULTISPEC [facility] 1.0.114 350.1.13.10 4.2.7.2.686 [id number] [facility] 2020-01-07 00:00:00 2020-01-07 00:00:00 [facility] 1.0.114 350.1.13.10 4.2.7.2.686 [id number] 220 [id number] [facility] 2019-12-28 10:45:55 2019-12-28 12:23:56 Office Visit Nisreen [place], [facility] 1..114 350.1.13.10 4.2.7.2.686 [id number] 220 [id number] [facility] 2019-12-28 11:00:00 2019-12-28 11:00:00 Outpatient R [facility] [id number] [facility] 2019-12-27 14:24:04 2019-12-27 15:17:50 [facility]..114 350.1.13.10 4.2.7.2.686 [id number] [facility] 2019-12-27 14:45:00 2019-12-27 14:45:00 Outpatient R MOR SIMPSON [facility] [id number] [facility] 2019-12-20 11:00:00 2019-12-20 11:00:00 Outpatient R MOR SIMPSON [facility] [id number] [facility] 2019-12-04 00:00:00 2019-12-04 00:00:00 Anson Ag[facility]wal [facility] 1..114 350.1.13.10 4.2.7.2.686 [id number] [facility] 2019-11-28 00:00:00 2019-11-28 00:00:00 Refnaif Meera [facility] MULTISPEC [facility] 1.2.840.114 350.1.13.10 4.2.7.2.686 [id number] [facility] 2019-10-03 13:30:00 2019-10-03 13:30:00 Outpatient Roney ANDRE AJ [facility] [id number] [facility] 2019-10-03 13:12:59 2019-10-03 13:27:59 Office Visit Aj Andre [facility] Surgical Specialti carmelo [place] 1.2840.114 350.1.13.10 4.2.7.2.686 [id number] [facility] 2019-08-20 15:40:00 2019-08-20 15:40:00 Outpatient R MEERA [facility] [id number] [facility] 2019-08-20 14:37:23 2019-08-20 15:17:23 [facility]medici ne [facility] 1.2840.114 350.1.13.10 4.2.7.2.686 [id number] [facility] 2019-07-12 00:00:00 2019-07-12 00:00:00 Anson Agarwal [facility] MULTISPEC [facility] 1.20.114 350.1.13.10 4.2.7.2.686 [id number] 220 [id number] [facility] 2019-01-15 00:00:00 2019-01-15 00:00:[address] [facility] 1.2840.114 350.1.13.10 4.2.7.2.686 [id number] 220 [id number] [facility] Results Test Description Test Time Test Comments Results Result Comments Source MR Guided biopsy prostate 2024-11-06 5 18:35:35 PROCEDURE: TRANSPERINEAL PROSTATE BIOPSY WITH TRANSRECTAL ULTRASOUNDGUIDANCE INDICATION: MRI of the prostate result that showed PI - Rad 3 and 4lesions. Primary target is anterior transition zone lesion on the left midgland [facility] PHYSICIAN ORDERS 2024-10-07 2 14:42:02 Ordered by an unspecified provider. [facility] RES,US,[id number] 18:10:00* Test Item Value Reference Range Interpretation Comme nts PVR (URINE VOLUME) (test code = 5193) 0 ml 0-100 [facility] Urinalysis, [id number] 16:50:00 * Test Item Value Reference Range [...] U APPEAR (test code = 3267) clear [facility] Urinalysis, [id number] 19:59:00 * Test Item Value Reference Range [...] U APPEAR (test code = 3267) cloudy [facility],POST-VOID RES,US,[id number] 00:00:00* Test Item Value Reference Range Interpretation Comme nts PVR (URINE VOLUME) (test cod e = 5193) 177 ml 0-100 A Lab Interpretation (test cod e = 69506-1) Abnormal [facility] SH[facility] 2+ VW [id number] 22:10:41 ORDERING PROVIDER: ?GAYATRI LINARES HISTORY: ?fall TECHNIQUE: Internally and externally rotated and scapular Y views of theright shoulder. ? Technical Quality: Diagnostic COMPARISON: None FINDINGS: The osseous structures are anatomically aligned. ?No acute fractures areidentified. ?Glenohumeral and acromioclavicular osteoarthrosis. ?Softtissues are unremarkable.[facility] RIBS 3 VW [id number] 22:06:10ORDERING PROVIDER: ?GAYATRI LINARES HISTORY: Fall, injury, [...] Degenerative changes are seenin the spine and shoulders.[facility] Hemoglobin A1C [id number] 18:44:00* Test Item Value Reference Range Interpretation Comme nts POCT HBA1C (test code = 4548-4) 6.7 % 4-6 A Lab Interpretation (test cod e = 06861-9) Abnormal [facility] Hemoglobin A1C [id number] 18:44:00* Test Item Value Reference Range Interpretation Comme nts POCT HBA1C (test code = 4548-4) 6.7 % 4-6 A Lab Interpretation (test cod e = 84535-8) Abnormal [facility] Hemoglobin A1C [id number] 18:44:00* Test Item Value Reference Range Interpretation Comme nts POCT HBA1C (test code = 4548-4) 6.7 % 4-6 A Lab Interpretation (test cod e = 16808-1) Abnormal [facility] HEMOGLOBIN A1C [id number] 22:53:00* Test Item Value Reference Range Interpretation Comme nts POCT HBA1C (test code = 4548-4) 8.0 % 4-6 A Lab Interpretation (test cod e = 65386-3) Abnormal [facility] HEMOGLOBIN A1C [id number] 22:53:00* Test Item Value Reference Range Interpretation Comme nts POCT HBA1C (test code = 4548-4) 8.0 % 4-6 A Lab Interpretation (test cod e = 79905-9) Abnormal [facility] URINALYSIS, [id number] 20:53:00 * Test Item Value Reference Range [...] POCT U APPEAR (test code = 3267) [facility] URINALYSIS, [id number] 22:35:00 * Test Item Value Reference Range [...] U APPEAR (test code = 3267) clear [facility] URINALYSIS, [id number] 22:35:00 * Test Item Value Reference Range [...] U APPEAR (test code = 3267) clear [facility] HEMOGLOBIN A1C [id number] 23:08:00* Test Item Value Reference Range Interpretation Comme nts POCT HBA1C (test code = 4548-4) 7.9 % 4-6 A Lab Interpretation (test cod e = 22056-5) Abnormal [facility] HEMOGLOBIN A1C [id number] 23:08:00* Test Item Value Reference Range Interpretation Comme nts POCT HBA1C (test code = 4548-4) 7.9 % 4-6 A Lab Interpretation (test cod e = 53015-6) Abnormal [facility] URINALYSIS, [id number] 20:13:00 * Test Item Value Reference Range [...] U APPEAR (test code = 3267) clear [facility] Procedure Notes Date/Time Note Provider Source 2024-11-19 [...] Full dictated note to follow in PACS. [facility] Notes Date/Time Note Provider Source 2025-01-09 [...] TISSUE WITH CHRONIC INFLAMMATION Airam Fraga RN [facility] 2025-01-09 14:11:32 Patient called and stated that he has an upcoming appointment on 02/06 to discuss biopsy results and he stated he does not understand why the results can not be given over the phone. He would like a call back to discuss plan of treatment. Jordana Waters [facility] 2024-12-12 09:25:27 Refill BD Pen needle MINH: 10/10/2024 NOV: none Refill sent for 90 days Per refill policy, needs follow up scheduled PSS: please assist with scheduling visit Francoise Roberts RN [facility] Referral ID Status Reason Start Date Expiration Date Visits Requested Visits Authorized [id number] Authorized Service Not Available at Clinic 12/03/2024 03/03/2025 1 1 Cristine [id number] 17:15:53* IsabelChristiano [id number] 17:15:53* Surinder Aguirre PA-C - 12/03/2024 3:19 [...] using voice recognition software. This can produce data processing operator errors that can at times significantly distort words and phrases. Please interpret any aspect of the note that is nonsensical in light of this fact. JOSE Hines-CSP: Dr. Tico Coronado, DO [facility] [1]Current Outpatient Medications Medication Sig Dispense [...] FOR 90 DAYS. Blood Glucose Monitoring Suppl (Next Games Flex System) w/Device does not apply Kit [...] (30 mg total) by mouth daily. Lancets (Outsmart Delica Plus [id number]) does not apply Misc Losartan Potassium (COZAAR) [...] by mouth daily FOR 90 DAYS. [place] 3 340 MG oral Delayed Release Capsule Take 1 g by mouth in the morning and 1 g in the evening. [employer] Games in vitro Strip Sure Comfort Pen [place] 31G X 8 MM does not apply [...] No current facility-administered medications for this visit. [facility]2025-07-28 17:15:53Pending Results Scheduled Orders Name Type [...] 2025 05/04/2023, 02/07 Diabetes: Hemoglobin A1C 02/06/2025 042 025, 03/30/2024, 11/08/2023, Additional history exists Creatinine Level (Kidney Fun ction Test) 08/07/2025 08/07/2024, 11/08/2023, 05/13/2023 Diabetes: Urine Protein Screening 08/07/2025 025, 05/13/2023 Lipid Panel 08/07/2025 08/07/2024, 05/13/2023 Pneumococcal Vaccine: 50+ Years Completed 9, 02/03/2018 [place] [id number] 17:15:53 Diagnosis Foreign body in left foot, [...] Warfarin anticoagulation Long-term (current) use of anticoagulants [place] [id number] 17:15:53 [place] 233865-07-28 15:28:55 Chief Complaint Patient presents with Foot Pain Left foot injury Ml Pruitt LVN [place] [id number] 10:43:55 SCHEDULED Asia PelletierFayette County Memorial HospitalFkvrlt0689-16-02 16:14:28 Spoke with patient and updated on POC. Patient awaiting call from [facility] to schedule. Kiya Michael RNFayette County Memorial HospitalHoknto3874-77-03 15:28:[address] Ott's note on 06/06/24 [...] with Dr. 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 Ott with results break down as well as to discuss plan of treatment now that biopsy is completed. Patient states he was sent results via [employer] but was not given any direction as to what to do next. Please advise. Asia Keller [place] 211225-07-16 13:50:18 Chief Complaint Patient presents with Diabetes 3 month follow up Ear Problem Right ear feels clogged Anay Chin MA [place] [id number] 13:48:45 Chief Complaint Patient presents with Diabetes 3 month follow up Anay Chin MA [place] [id number] 09:59:10 Addended by: ARLYN SAWANT O on: 10/18/2024 09:59 AM Modules accepted: Orders [place] 22165-06-12 09:58:10 MRI Guided biopsy ordered with [facility]. [place] [address]-06-12 09:47:31 Called patient, notified him that I received a faxed response from Cristine that they do not offer MRI guided biopsy of the prostate. Patient would like to schedule MRI with [facility]. Please advise. Maria Teresa Plasencia [place] 915045-06-11 14:50:26 Order faxed to [facility] per patient request. Maria Teresa [facility]asencia [facility]dg[facility]h1697[facility]20-44 14:28:51 Addended by: ARLYN SAWANT O on: 10/17/2024 02:28 PM Modules accepted: Orders [facility] HospitalWaluve9734-93-18 14:04:40 Spoke to patient regarding MRI of the prostate result that showed PI - Rad 3 and 4 lesions. Advised that MRI guided biopsy have been ordered and patient requested that the order be sent to Isabel Farnsworth. Order will be faxed to Isabel Farnsworth, [facility] HospitalUanqio1294-46-38 12:59:34 Received MRI prostate results from Isabel Maza uploaded to chart under media for review. Jordana WatersKelly [place] 882565-05-29 10:09:06 MRI orders faxed to [facility] at [phone]. Airam Fraga RN 10/04/2024 10:09 AM Name and verified, pt is aware of MRI orders faxed. Pt verbalized understanding. Airam Fraga RN 10/04/2024 10:14 AM Airam Fraga RNFayette County Memorial HospitalXgnwsg3698-36-88 09:23:35 Patient called back to give information of radiology department he is going to use for his MRI, he will need order to be faxed to [phone] phone # [phone]. He will also want a call back when order is sent so that he can call and scheduled his appointment. Jordana WatersFayette County Memorial HospitalLathkr4788-44-32 08:38:37 Name and verified, pt states he is on his last bottle of tamsulosin and needs more refills. Pt states he has not done his MRI. It was canceled in August and has not rescheduled. Pt states he will call today to schedule MRI. Please advise on refills. Airam Fraga RN 10/04/2024 8:41 AM [facility] HospitalJiffwx9448-16-86 09:15:00 Images from the original note were not included. Venipuncture collection performed by clean technique on the right anticubitus. Total of 1 attempts were made. Slight pressure and a bandage/dressing were applied to the site(s). The patient experienced no complications. The following specimens were processed according to instructions and sent to [facility] laboratories per lab order on today: LT BLUE SST 1 RED LAV PPT DK GREEN (LiHep) DK GREEN (SodH) HSU DK BLUE (K2) DK BLUE (S) ACD Blood Culture NIPT/NTD Labs for Alzweri only T [facility] HospitalQsbfmm1475-97-22 17:06:18 Pt has an appt for a [...] Tuesday. Routed to Dr Ott for review. [place] [id number] 16:08:27 Patient called in regards to scheduled MRI. Order is out of date and radiology will not allow patient to proceed with 09/16/24 appointment. Please advise with new/update MRI order. Aisa Keller [place] 211225-04-02 14:19:16 Chief Complaint Patient presents with Diabetes Blood Pressure 6 week follow up OTHER Patient complains of dry skin and jock itch Anay Chin MA [place] 267215-02-19 14:26:22 Chief Complaint Patient presents with Diabetes Blood Pressure 6 month follow up Anay Chin MA [facility] Pwkpal0320-72-70 09:36:29 LVM- Courtesy post-procedure call. Mailbox is full and unable to leave a message. msg sent. [facility] Belem Veras RNFayette County Memorial HospitalTevbzc0960-48-98 14:53:58 Sent [place] 633225-01-27 14:53:54 Addended by: DEON OTT on: 06/04/2024 02:53 PM Modules accepted: Orders [place] 633225-01-27 13:42:05 Patient notified of results/recommendations, understanding was verbalized via teach back. Augmentin sent to the incorrect pharmacy. Can you please resend to [facility]/pharmacy #[id number] [facility] [address] [place] [address]? I corrected this on the patient chart and made it his preferred pharmacy. 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 Patient has been identified by and name and was provided with cup, antiseptic towelette, and clean catch instructions. 2 urine specimen(s) sent. Unpreserved 1 Urine Culture 1 Aptima tube Other urine [place] 633225-01-23 16:39:50 Patient notified of plan by PSS. ÓN Michael [facility]Mwyoar4845-38-29 15:09:19 Called number on file; no answer; unable to leave message due to mail box is full. ÓN Michael [place] 615945-01-23 15:07:31 Ucx order placed, submit tomorrow, then start oral abx, if need be will change it accordingly [place] [address]-01-23 15:07:29 Addended by: DEON OTT on: 05/31/2024 03:07 PM Modules accepted: Orders [place] [address]-01-23 12:43:00 Patient called asking for antibiotics before cysto procedure. I do not see that UCX was completed within the 14-10 day window please advise. [facility] Asia Keller [place] [address]-12-16 13:36:52 Received refill request for Tamsulosin 0.4 mg. MINH 04/20/2024 noted to continue and RTC for cysto. Cysto scheduled for 05/2024. Refill approved. Patient notified. IRA JANG RN 04/23/2024 1:37 PM [facility] Ira Jang [place] 615944-12-16 13:29:46 Pt is requesting a refill and says he is completley out. Please Assist [place] [address]-12-16 07:29:59 Elevated PSA most likely 2/2 UTI Oral abx Repeat Ucx 10 days prior to cysto Repeat PSA prior to cysto 06/06/2023 If PSA > 3.0 for MRI Prostate RTC as scheduled [place] [address]-12-13 13:30:00 Images from the original note were not included. Venipuncture collection performed by clean technique on the left anticubitus. Total of 1 attempts were made. Slight pressure and a bandage/dressing were applied to the site(s). The patient experienced no complications. The following specimens were processed according to instructions and sent to [facility] laboratories per lab order on 04/20/2024: LT BLUE SST 1 RED LAV PPT DK GREEN (LiHep) DK GREEN (SodH) HSU DK BLUE (K2) DK BLUE (S) ACD Blood Culture NIPT/NTD Alzweri orders only [facility]2024-11-22 12:00:00 Images from the original note were not included. Venipuncture collection performed by clean technique on the left anticubitus. Total of 1 attempts were made. Slight pressure and a bandage/dressing were applied to the site(s). The patient experienced no complications. The following specimens were processed according to instructions and sent to [facility] laboratories per lab order on 03/30/2024 : LT BLUE SST 1 RED LAV 1 PPT DK GREEN (LiHep) DK GREEN (SodH) HSU DK BLUE (K2) DK BLUE (S) ACD Blood Culture NIPT/NTD Patient has been identified by and was provided with cup, antiseptic towelette, and clean catch instructions. 1 urine specimen(s) sent. Unpreserved 1 Urine Culture Aptima tube Other urine [facility]2024-11-07 08:46:18 40 day supply sent to pharmacy. Follow up scheduled on 04/20/2024. If patient is to cancel appointment no further refills will be approved. [facility] Malina River MAFayette County Memorial HospitalSlctlg0342-46-84 14:03:53 Patient requests the medication be sent to [facility] until he's able to come in for his appointment. Please advise. PICKER Rhianna GibbsFayette County Memorial HospitalLtyxze9170-28-63 08:55:53 Scheduled PICKER Asia PelletierFayette County Memorial HospitalRxghqm6891-84-95 08:32:24 Appointment needed for refills PICKER Maile Cortez MAFayette County Memorial HospitalTfbjps3949-69-16 17:52:03 Written/verbal d/c instructions, out of er no distress Mary Murray [facility]Nnvupo0393-23-92 13:40:51 Pt arrives pov. Pt states," he [...] ribs but nothing was done. Benita Ortiz [facility]Nuvlni6101-83-50 13:30:00 [facility] Emergency Department Note Patient Name: Danny Bryant [...] onto hard grass. Pt fell onto R glue spreader and R shoulder abd chest took the [...] 2007 s/p stent Essential hypertension, benign Gout IA (myocardial infarction) Other and unspecified hyperlipidemia Type [...] lateral right rib 9. RL: 4231 AFC: 36130 End of Report SHOULDER 2+ VW RIGHT [...] Glenohumeral and acromioclavicular osteoarthrosis. RL: 4231 AFC: 13478 End of Report Lab Results: Lab Results [...] onto hard grass. Pt fell onto R glue spreader and R shoulder abd chest took the [...] needed for pain. Also provided script for [place] as needed for severe pain. Problems Addressed: [...] ORAL) Take by mouth. BLOOD SUGAR DIAGNOSTIC (BugglUCH VERIO TEST STRIPS) STRIP Use to check [...] daily before breakfast and dinner. E11.65 LANCETS (BugglUCH DELICA PLUS LANCET) 33 GAUGE MISC Use [...] Specialty: FAMILY MEDICINE Relationship: PCP - General [address] [place] [address] [address] [facility] [address] [facility] [id number] Electronically signed by: Gayatri Linares MD 02/19/24 2650 [facility] HospitalQwaubh9882-46-28 14:41:41 MINH-10/12/23 NOV-04/11/24 Refill sent Kristen Carlin [...] 1000 mg twice a day Kristen Carlin [facility]Yrxdto9302-27-08 09:59:53 REFILL (Requires review before approval) Provider: Deon Ott MD Patient's phone number: [phone] (home) Pharmacy: [facility] - [address] Medication: tamsulosin (FLOMAX) Strength: 0.4 mg capsule Directions: TAKE 1 CAPSULE BY MOUTH EVERY MORNING AND 1 CAPSULE FOR PAIN EVERY EVENING Quantity: 180 Capsules with ZERO Refills Last filled: Unknown, last prescribed 09/13/2023 Last office visit: 01/05/2023 Next scheduled visit: No future Urology visits are scheduled. Rizwana Johnson [facility]2024-06-05 13:00:00 Addended by: LACHELLE UMAÑA MD on: 11/06/2023 09:20 PM Modules accepted: Level of Service [facility]2024-05-09 09:11:49 Images from the original note were not included. T Melody [facility]2024-05-08 08:35:55 Chief Complaint Patient presents with Ear Problem Right ear clogged Ml Pruitt LVN [facility]2023-08-30 14:00:00Addended by: DIMITRIS GARDNER on: 01/05/2023 03:55 PM Modules accepted: Orders [facility]2023-08-22 15:31:57 [employer] Medical supply form placed in provider folder in [facility] location for signature. A copy was scannedinto chart Asia Keller [facility]2017-09-20 11:11:11 PA retracted and RX resent as three pack. Awaiting pharmacy processing. 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 T [facility]
--- NOTE | 2025-02-14 17:31 | RAD REPORT ---
EXAMINATION: UPPER EXTREMITY VENOUS UNILATE CLINICAL INDICATION: Male, 79 years old. [facility] MAIN SWELLING Bed Name: 17 TECHNIQUE: Complete venous duplex sonography of the right upper extremity was performed. The examinat ion included compression for vein patency, color Doppler imaging and flow augmentation in response to distal compression of the internal jugular, brachiocephalic, subclavian, axillary, brachial, radia l, ulnar, cephalic and basilic veins. COMPARISON: No prior exam. FINDINGS: Duplex sonography testing of the veins of the right upper extremity is completed. Color flow imaging shows all veins to be compressible with appropriate color filling. Pulsatile and phasic flow is present within the upper extremity deep and superficial veins examined. IMPRESSION: There is no deep vein or superficial vein thrombosis.
--- NOTE | 2025-02-14 18:08 | RAD REPORT ---
EXAMINATION: ONE VIEW CHEST XR CLINICAL INDICATION: Male, 79 years old.,right arm swelling TECHNIQUE: Frontal chest projection is submitted. Examination is limited by patient positioning and t echnique. COMPARISON: 02/11/2025 FINDINGS: The lungs are well inflated and clear. Right arm PICC unchanged in position. No pneumothorax or sizab le effusion. The heart is normal in size. Mediastinal contours are unremarkable. IMPRESSION: No acute intrathoracic abnormalities.
--- NOTE | 2025-02-14 18:09 | RAD REPORT ---
EXAMINATION: XR RIGHT HUMERUS HISTORY: SWELLING RIGHT TECHNIQUE: Multiple views of the right humerus were obtained. COMPARISON: None FINDINGS: No acute bone or joint abnormality detected. Right arm PICC present along the medial soft t issues. Mild to moderate AC joint degenerative changes.
--- NOTE | 2025-02-14 18:14 | EDPHYS ---
Physician Documentation [facility] Name: Danny Voss II Age: 79 yrs Sex: Male : 1945 Arrival Date: 02/14/2025 Time: 16:03 Bed 17 Private MD: ED Physician Moose Valladares HPI: 02/14 16:30 This 79 yrs old Male presents to ER via Ambulatory with complaints of Hand Swelling. cp 16:30 The patient or guardian complains of swelling. The complaints affect the right arm and cp right hand. Context: history of PICC line placement this past Tuesday. 16:30 Associated signs and symptoms: Pertinent negatives: decreased range of motion, cp erythema, fever, pain, warmth, injury. Historical: - Allergies: 16:23 No Known Allergies; dd2 - PMHx: 16:23 diabetes mellitus; Hypertensive disorder; dd2 - PSHx: 16:23 cardiac stent; left pinky toe amputation; dd2 - Immunization history:: Adult Immunizations up to date. - Infectious Disease History:: Denies. - Social history:: Smoking status: Patient denies any tobacco usage or history of. ROS: 16:35 MS/extremity: Positive for swelling, of the right hand and right arm, cp 16:35 Eyes: Negative for injury, pain, redness, and discharge, cp 16:35 Constitutional: Negative for body aches, chills, fever, 16:35 Cardiovascular: Negative for chest pain, palpitations, 16:35 Respiratory: Positive for shortness of breath, Negative for cough, wheezing, 16:35 Abdomen/GI: Negative for abdominal pain, vomiting, diarrhea, constipation, 16:35 Neuro: Negative for altered mental status, dizziness, headache, weakness, cp 16:35 All other systems are negative, cp Exam: 16:40 Constitutional: The patient appears in no acute distress, alert, awake, cp non-diaphoretic, non-toxic, well developed, well nourished, 16:40 Head/Face: Normocephalic, atraumatic. cp 16:40 Eyes: Periorbital structures: appear normal, Conjunctiva: normal, no exudate, no injection, Sclera: no appreciated abnormality, Lids and lashes: appear normal, bilaterally, 16:40 ENT: External ear(s): are unremarkable, Nose: is normal, Mouth: Lips: moist, Oral mucosa: moist, Posterior pharynx: Airway: no evidence of obstruction, patent, 16:40 Neck: ROM/movement: is normal, is supple, without pain, no range of motions limitations, 16:40 Chest/axilla: Inspection: normal, 16:40 Cardiovascular: Rate: normal, Rhythm: regular, JVD: is not appreciated, 16:40 Respiratory: the patient does not display signs of respiratory distress, Respirations: labored breathing, that is mild, Breath sounds: decreased breath sounds, that are mild, throughout, stridor, is not appreciated, wheezing: is not appreciated, 16:40 Abdomen/GI: Inspection: abdomen appears normal, Palpation: abdomen is soft and non-tender, in all quadrants, 16:40 Musculoskeletal/extremity: Extremities: noted in the right arm: mild swelling, PICC line in place mid upper arm. no erythema noted, Vital Signs: 16:23 BP 134 / 69; Pulse 86; Resp 16; Temp 98.4; Pulse Ox 100% on R/A; Weight 84.37 kg; dd2 16:48 BP 145 / 66; Pulse 93; Resp 18; Pulse Ox 99% on R/A; Pain 0/10; ar8 17:30 BP 145 / 84; Pulse 87; Resp 20; Pulse Ox 100% on R/A; ar8 18:15 BP 144 / 64; Pulse 70; Resp 18; Pulse Ox 100% ; ar8 16:48 Pain Scale: Adult ar8 MDM: 16:26 Medical Screening Exam initiated cp 17:00 Differential diagnosis: dvt, cellulitis, obstructive PICC line. cp 18:13 Data reviewed: vital signs, nurses notes, radiologic studies, plain films, ultrasound, cp and as a result, I will discharge patient. 18:13 Counseling: I had a detailed discussion with the patient and/or guardian regarding the cp historical points, exam findings, and any diagnostic results supporting the discharge/admit diagnosis, radiology results, the need for outpatient follow up, a family practitioner, to return to the emergency department if symptoms worsen or persist or if there are any questions or concerns that arise at home. 02/14 16:37 Order name: XRAY Chest (1 view) cp 02/14 16:37 Order name: XRAY Humerus RIGHT cp 02/14 16:49 Order name: UPPER EXTREMITY VENOUS UNILATE; Complete Time: 18:08 EDMS 02/14 18:08 Interpretation: Report reviewed. cp Administered Medications: No medications were administered Disposition: 20:22 I was immediately available on-site in the Emergency Department for consultation in the ms3 care of the patient. Disposition Summary: 02/14/25 18:14 Discharge Ordered Notes: Location: Home cp Problem: new cp Symptoms: have improved cp Condition: Stable cp Diagnosis - Localized swelling, mass and lump, right upper limb cp Followup: cp - With: Private Physician - When: 2 - 3 days - Reason: Worsening of condition Discharge Instructions: - Discharge Summary Sheet cp - PICC Home Care Guide cp - PICC Insertion, Care After cp - Peripheral Edema cp Forms: - Medication Reconciliation Form cp - Antibiotic Education cp - Prescription Opioid Use cp - Patient Portal Instructions cp - Leadership Thank You Letter cp Signatures: Dispatcher [employer] EDMS Rodger Srivastava PA-C PA-C cp Sims, Marcus, DO DO ms3 ROOPA SILVA RN RN dd2 Corrections: (The following items were deleted from the chart) 16:37 16:37 Extremity Venous Uni Ltd+US.RAD.BRZ ordered. EDMS EDMS 16:37 16:37 Chest Single View+RAD.RAD.BRZ ordered. EDMS EDMS 16:37 16:37 Humerus Right+RAD.RAD.BRZ ordered. EDMS EDMS
--- NOTE | 2025-02-14 18:14 | ER ---
Nurse's Notes [facility] Name: Danny Voss II Age: 79 yrs Sex: Male : 1945 Arrival Date: 02/14/2025 Time: 16:03 Bed 17 Private MD: Diagnosis: Localized swelling, mass and lump, right upper limb Presentation: 02/14 16:20 Chief complaint: Patient states: RT HAND SWELLING THAT BEGAN AFTER PICC LINE PLACED ON dd2 TUESDAY, PT REPORTS NOTICING IT TODAY. PT REPORTS MD SENT HIM HERE FOR ULTRASOUND ON RT ARM TO RULE OUT BLOOD CLOT. Coronavirus screen: At this time, the client does not indicate any symptoms associated with coronavirus-19. Ebola Screen: No symptoms or risks identified at this time. Risk Assessment: Do you want to hurt yourself or someone else? Patient reports no desire to harm self or others. Onset of symptoms is unknown. 16:20 Method Of Arrival: Ambulatory dd2 16:20 Acuity: ISMA 3 dd2 16:23 Initial Sepsis Screen: Does the patient meet any 2 criteria? No. Patient's initial dd2 sepsis screen is negative. Does the patient have a suspected source of infection? No. Patient's initial sepsis screen is negative. Triage Assessment: 16:23 General: Appears in no apparent distress. uncomfortable, Behavior is cooperative, dd2 appropriate for age, agitated. Pain: Complains of pain in left foot. Musculoskeletal: Swelling present in right hand Reports RT HAND SWELLING. Historical: - Allergies: 16:23 No Known Allergies; dd2 - PMHx: 16:23 diabetes mellitus; Hypertensive disorder; dd2 - PSHx: 16:23 cardiac stent; left pinky toe amputation; dd2 - Immunization history:: Adult Immunizations up to date. - Infectious Disease History:: Denies. - Social history:: Smoking status: Patient denies any tobacco usage or history of. Screenin:[address] [facility] ED Fall Risk Assessment (Adult) History of falling in the last 3 months, ar8 including since admission No falls in past 3 months (0 pts) Confusion or Disorientation No (0 pts) Intoxicated or Sedated No (0 pts) Impaired Gait No (0 pts) Mobility Assist Device Used Yes (1 pt) Altered Elimination No (0 pt) Score/Fall Risk Level 0 - 2 = Low Risk Oriented to surroundings, Maintained a safe environment. Abuse screen: Denies threats or abuse. Nutritional screening: No deficits noted. Tuberculosis screening: No symptoms or risk factors identified. Assessment: 16:48 General: Appears in no apparent distress. distressed, Behavior is calm, cooperative. ar8 Pain: Denies pain. Neuro: Level of Consciousness is awake, alert, obeys commands, Oriented to person, place, time, situation. Cardiovascular: Patient's skin is warm and dry. Respiratory: Airway is patent Respiratory effort is even, unlabored, Respiratory pattern is regular, symmetrical. GI: No signs and/or symptoms were reported involving the gastrointestinal system. : No signs and/or symptoms were reported regarding the genitourinary system. EENT: No signs and/or symptoms were reported regarding the EENT system. Musculoskeletal: Swelling present in right hand. Vital Signs: 16:23 BP 134 / 69; Pulse 86; Resp 16; Temp 98.4; Pulse Ox 100% on R/A; Weight 84.37 kg; dd2 16:48 BP 145 / 66; Pulse 93; Resp 18; Pulse Ox 99% on R/A; Pain 0/10; ar8 17:30 BP 145 / 84; Pulse 87; Resp 20; Pulse Ox 100% on R/A; ar8 18:15 BP 144 / 64; Pulse 70; Resp 18; Pulse Ox 100% ; ar8 16:48 Pain Scale: Adult ar8 ED Course: 16:11 Patient arrived in ED. al6 16:23 Triage completed. dd2 16:23 Arm band placed on right wrist. dd2 16:25 Rogder Srivastava PA-C is PHCP. cp 16:26 Moose Valladares DO is Attending Physician. cp 16:47 Kenan Ghotra, AAKASH is Primary Nurse. ar8 16:48 Bed in low position. Call light in reach. Side rails up X2. Provided Education on: plan ar8 of care. Pulse ox on. NIBP on. 16:48 No provider procedures requiring assistance completed. ar8 17:08 US tech at bedside. ar8 17:19 biotechnologist at bedside for X-rays. ar8 17:27 UPPER EXTREMITY VENOUS UNILATE In Process Unspecified. EDMS 17:30 Patient did not have IV access during this emergency room visit. ar8 17:38 XRAY Chest (1 view) In Process Unspecified. EDMS 17:39 XRAY Humerus RIGHT In Process Unspecified. EDMS Administered Medications: No medications were administered Medication: 16:48 VIS not applicable for this client. ar8 Outcome: 17:30 Discharged to home ambulatory, ar8 17:30 Condition: stable 17:30 Discharge instructions given to patient, family, Instructed on discharge instructions, follow up and referral plans. Demonstrated understanding of instructions, follow-up care, 18:14 Discharge ordered by MD. garcia 18:31 Patient left the ED. ar8 Signatures: Dispatcher [employer] EDMS Rodger Srivastava, PA-C PA-C ROOPA Servin, RN RN dd2 Sosa Delgado Andrea RN RN ar8
[2025-02-14 19:03] VITALS: TEMP 98.4
[2025-02-14 19:06] VITALS: O2SAT 100
[2025-02-14 19:07] VITALS: BP 144/64
== END 2025-02-14 18:31 | disposition home or self-care (01) ==
LOC: ER 16:03
DX: R22.31 Localized swelling, mass and lump, right upper limb (principal)
CPT/HCPCS: 71045; 93971; 99283

== ENCOUNTER 2025-02-23 15:51 | Emergency (ER) | payer MEDICAID ==
--- OUTSIDE RECORDS SUMMARY | 2025-02-23 16:03 | XMS REPORT | Continuity of Care Document ---
Author Name Unknown Address [address] [facility] [address] [place] [address] [facility] [place] [facility] [address] [facility] [address] [place] [address] Care Team Providers Care Tail Trimmer Name Role Phone TICO CORONADO Primary Care Physician Unavailab AVNI Hargrove Attending Clinician Unavailable DALLIN SCHAEFFER Attending Clinician Unavailable TICO CORONADO Attending Clinician Unavailable [email or web address] Attending Clinician Unavailable YVON PALMER Attending Clinician Unavailable MC MANZANARES Attending Clinician UnavailSURINDER Goodwin Attending Clinician Unavailable DEON OTT Attending Clinician Unavailable MARLEN NELSON Attending Clinician Unavailable JOYA RUIZ Attending Clinician UnavailDeon Ballesteros MD Attending Clinician [phone] Jason Perdomo MD Attending Clinician [phone] Arlyn Sawant Attending Clinician [phone] [place] [address] Jj SALINAS Attending Clinician ARLYN SAWANT Attending Clinician Unavailable NT90 Attending Clinician Unavailable HANNAH SHARMA Attending Clinician Unavailable Doctor Unassigned, [place] Attending Clinician Lachelle Cisneros MD Attending Clinician [phone] LACHELLE UMAÑA Attending Clinician Unavailable DEON OTT Attending Clinician Unavailable Art Bradford MD Attending Clinician [phone] GEGE VU Attending Clinician UnavailKristen Faye Attending Clinician Unavailable Pob, [facility] Main Attending Clinician Unavailabl e 2, [facility] Attending Clinician Unavailable Vtc-Lab Attending Clinician Unavailable GAYATRI LINARES Attending Clinician Unavaileddie Linares MD, Gayatri Lassiter Attending Clinician [phone] JJ MARIE Attending Clinician Unavailable LAB90 Attending Clinician Unavailable Leeroy OTT, Lachelle Attending Clinician [phone] TERESA MARTELL Attending Clinician Unavailab Marcelina Barber Attending Clinician [phone] Doctor Unassigned, [place] Attending Clinician U kietailable JOSEPH INGRAM Attending Clinician Unavailable Deon Ott MD Attending Clinician [phone] MARCELINA CROWLEY Attending Clinician Unavaila ble [facility] Attending Clinician Unavailable Pob, [facility] Main Attending Clinician UnavailLeona Duval DO Attending Clinician [phone] Celena OTT, Nisreen Gregory Attending Clinician Un available Lauren Jefferson RN Attending Clinician Unavailable Melody Cosby DO Attending Clinician [phone] Caroline Min MD Attending Clinician [phone] JOHN BARR Attending Clinician Unavaila ble John Caba Attending Clinician + [phone] TWIN NICK Attending Clinician Unavaila ble [facility] Attending Clinician Unavailable Lucy Kimball MD Attending Clinician [phone] Peng Ernst Attending Clinician [phone] LUCY KIMBALL Attending Clinician Unavailable Joya Ruiz MD Attending Clinician [phone] Twin Nick MD Attending Clinician [phone] LELO YANG A Attending Clinician Unavailable Lelo Acosta Attending Clinician [phone] Nurse, Adc Pob Immunization Attending Clinician Unavailable Lavelle Bates DO Attending Clinician [phone] Nurse, Adc Surgery Gu Attending Clinician Yvette Bird, Adc Surg Spec Procedure Attending Clinician Unavailable Joseph Ingram MD Attending Clinician Room, [facility] Uro Procedure Attending Clinician Unav cal Martin RN, Kaiden Franks Attending Clinician Unavail able Kris Kenny Attending Clinician [phone] Peetr Fitzgerald MD Attending Clinician [phone] Meera CORTES, Armen Attending Clinician [phone] TATE SHABAZZ Attending Clinician Unavailable 2, [facility] Attending Clinician Unavailable Mor Simpson MD Attending Clinician [phone] MOR SIMPSON Attending Clinician UnavailAJ Harden Attending Clinician Unavailable Aj Davila Attending Clinician [phone] ARMEN ESTES Attending Clinician Unavailable JOYA RUIZ Admitting Clinician UnavailJASON Bee Admitting Clinician Unavailable GAYATRI LINARES Admitting Clinician UnavailCaroline Law MD Admitting Clinician [phone] CAROLINE MIN Admitting Clinician Unavailable Peter Fitzgerald MD Admitting Clinician [phone] Payers Payer Name Policy Type Policy Number Effective Date Expirati on Date Source MEDICARE PART A \\T\\ B [id number] 2012 00:00:00 [employer] INDEMNITY [id number] 2013 00:00:00 [employer] H[employer]-POS 16 [id number] 00:00:00 JAY ADVANTAGE OON [id number] 2023 00:00:00 Problems Condition Name Condition Details Condition Category Status Onset Date Resolution Date Last Treatment Date Treating Clinician Comments Source PVD (periphera l vascular disease) PVD (periphera l vascular disease) Disease Active 2024-05 00:00: 00 Isabel keller Hospital discharge follow-up Hospital discharge follow-up Disease Active 2024-05 00:00: 00 Isabel keller Acute hematogeno us osteomyeli tis of left foot Acute hematogeno us osteomyeli tis of left foot Disease Active 2024-05 00:00: 00 Isabel keller Amputation of left great toe Amputation of left great toe Disease Active 2024-05 0-15 00:00: 00 Isabel keller 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 Disease Active 2024-05 015 00:00: 00 Isabel keller Hypercoagu lable state due to longstandi ng persistent atrial fibrillati on Hypercoagu lable state due to longstandi ng persistent atrial fibrillati on Disease Active 2024-05 015 00:00: 00 Isabel keller Stress Stress Disease Active 2024-05 0 00:00: 00 Isabel keller Amputation of fifth toe of left foot Amputation of fifth toe of left foot Disease Active 2024-05 0 00:00: 00 Isabel keller Elevated PSA Elevated PSA Disease Active 2-19 00:00: 00 Isabel keller 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 Disease Active 8-21 00:00: 00 Isabel keller Thrombocyt openia Thrombocyt openia Disease Active 820 00:00: 00 Isabel keller Controlled type 2 diabetes mellitus with stage 3 chronic kidney disease, with long-term current use of insulin (multi HCC) Controlled type 2 diabetes mellitus with stage 3 chronic kidney disease, with long-term current use of insulin (multi HCC) Disease Active 06-08 00:00: 00 Isabel keller Controlled type 2 diabetes mellitus with stage 3 chronic kidney disease, with long-term current use of insulin (multi HCC) Controlled type 2 diabetes mellitus with stage 3 chronic kidney disease, with long-term current use of insulin (multi HCC) Disease Active 06-08 00:00: 00 Isabel keller 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 Disease Active 1-16 00:00: 00 Isabel keller Well adult exam Well adult exam Disease Active 1-10 00:00: 00 Isabel Seybold - Externa l Longstandi ng persistent atrial fibrillati on Longstandi ng persistent atrial fibrillati on Disease Active 2022-05 00:00: 00 Isabel Farnsworth - Externa l Atrial fibrillati on (multi HCC) Atrial fibrillati on (multi HCC) Disease Active 2022-05 00:00: 00 Isabel Farnsworth - Externa l 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 Disease Active 2022-05 00:00: 00 Isabel Farnsworth - Externa l Chronic anticoagul ation Chronic anticoagul ation Disease Active 2022-05 00:00: 00 Isabel Farnsworth - Externa l BPH (benign prostatic hyperplasi a) BPH (benign prostatic hyperplasi a) Disease Active 2022-05 00:00: 00 Isabel Farnsworth - Externa l DM type 2 with diabetic mixed hyperlipid emia DM type 2 with diabetic mixed hyperlipid emia Disease Active 2022-05 00:00: 00 Isabel Farnsworth [...] ear Disease Active 2022-05 00:00: 00 Isabel Hutsonold - Externa l CAD (coronary artery disease) CAD (coronary artery disease) Disease Active 2022-05 00:00: 00 Isabel Hutsonold - Externa l History of heart artery stent History of heart artery stent Disease Active 2022-05 00:00: 00 Isabel Hutsonold - Externa l Overweight (BMI 25.0-29.9) Overweight (BMI 25.0-29.9) Disease Active 2022-05 00:00: 00 Isabel Farnsworth - Externa l At risk for falls At risk for falls Disease Active 01-05 00:00: 00 [facility] Unspecifie d abnormalit ies of gait and mobility Unspecifie d abnormalit ies of gait and mobility Disease Active 8 00:00: 00 [facility] Obesity (BMI 30-39.9) Obesity (BMI 30-39.9) Disease Active 8-02 00:00: 00 [facility] 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 Disease Active 8 00:00: 00 [facility] Bacteremia Bacteremia Disease Active 8 00:00: 00 [facility] Complicate d UTI (urinary tract infection) Complicate d UTI (urinary tract infection) Disease Active 6 00:00: 00 [facility] Coronary artery disease involving match-e[employer]be-nash[place]she-[employer]ish band coronary artery of match-e[place]ish band heart without angina pectoris Coronary artery disease involving match-e-be-[employer]she[employer]ish band coronary artery of match-e-be-nash[place]she[place]ish band heart without angina pectoris Disease Active 10-14 00:00: 00 [facility] Chronic atrial fibrillati on Chronic atrial fibrillati on Disease Active 10-14 00:00: 00 [facility] Elevated brain natriureti c peptide (BNP) level Elevated brain natriureti c peptide (BNP) level Disease Active 10-14 00:00: 00 [facility] Type 2 diabetes mellitus with other specified complicati on Type 2 diabetes mellitus with other specified complicati on Disease Active 10-14 00:00: 00 [facility] Coronary artery disease involving match-[employer]she[place]ish band coronary artery of match-e-be-nash-she-wish band heart without angina pectoris Coronary artery disease involving match-e-be[employer]nash[place]she[place]ish band coronary artery of match-e-be-nash[place]she[place]ish band heart without angina pectoris Disease Active 10-14 00:00: 00 [facility] Elevated brain natriureti c peptide (BNP) level Elevated brain natriureti c peptide (BNP) level Disease Active 6 00:00: 00 [facility] ANYI (acute kidney injury) ANYI (acute kidney injury) Disease Active 6 00:00: 00 [facility] ANYI (acute kidney injury) ANYI (acute kidney injury) Disease Active 10-13 00:00: 00 [facility] Dyslipidem ia Dyslipidem ia Disease Active 06-05 00:00: 00 [facility] Essential hypertensi on Essential hypertensi on Disease Active 06-05 00:00: 00 [facility] Metabolic syndrome Metabolic syndrome Disease Active 06-05 00:00: 00 [facility] Type II or unspecifie d type diabetes mellitus with peripheral bereavement coordinator y disorders, uncontroll ed(250.72) Type II or unspecifie d type diabetes mellitus with peripheral bereavement coordinator y disorders, uncontroll ed(250.72) Disease Active 08-20 00:00: 00 [facility] 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 artery disease due to type 2 diabetes mellitus Disease Active Isabel Farnsworth - Externa l Allergies, Adverse Reactions, Alerts Allergy Name Allergy Type Status Severity Reaction(s) Onset Date Inactive Date Treating Clinician Comments Source Saxag[place] tin Propensi ty to adverse reaction s Active Itching 2015-05 00:00: 00 [facility] Linaglip tin Propensi ty to adverse reaction s Active Itching 2015-05 00:00: 00 [facility] SAXAGLIP TIN DRUG INGREDI Active ITCHING 2015-05 00:00: 00 [facility] LINAGLIP TIN DRUG INGREDI Active ITCHING 2015-05 00:00: 00 [facility] Sitaglip tin Propensi ty to adverse reaction s Active Rash 09-04 00:00: 00 [facility] SITAGLIP TIN DRUG INGREDI Active ITCHING 09-04 00:00: 00 [facility] Social History Social Habit Start Date Stop Date Quantity Comments Source History SDOH Alcohol Frequency [facility] History SDOH Alcohol Std Drinks [facility] History SDOH Alcohol Binge [facility] Sexual orientation Arabella Farnsworth - External History of Occupation Isabel Farnsworth - External Gender identity Patience Farnsworth - External History of tobacco use Cigarette Smoker Isabel Seyb old - External Alcoholic beverage intake 2025-02-21 00:00:00 2025-02-21 00:00:00 Current drinker of alcohol (finding) Isabel [...] (event) 2022-07-06 00:00:00 2022-07-16 11:25:00 Not sure [facility] Tobacco Comment 2021-12-10 00:00:00 2021-12-10 00:00:00 quit in 1983 [facility] Sex assigned at 1945 00:00:00 1945 00:00:00 Isabel Farnsworth - External Smoking Status Start Date Stop Date Source Never smoked tobacco [facility] Ex-smoker 2023-09-14 00:00:00 2023-09-14 00:00:00 Arabella Farnsworth - External Medications Ordered Medication Name Filled Medication Name Start Date Stop Date Current Medication? Ordering Clinician Indication Dosage Frequency Signature (SIG) Comments Components Source Sprague-3 Fatty Acids (Fish Oil) 1000 MG oral Capsule Sprague-3 Fatty Acids (Fish Oil) 1000 MG oral Capsule 2024-05 14:03: 07 Yes [id number] 3 1000mg QD Take 1 capsule (1,000 mg total) by mouth daily. Isabel keller Allopurinol 100 MG oral Tablet Allopurinol 100 MG oral Tablet 2024-05 13:57: 18 Yes [id number] 100mg QD Take 1 tablet (100 mg total) by mouth daily. Isabel keller Acetaminoph en-Codeine 300-30 MG oral Tablet Acetaminoph en-Codeine 300-30 MG oral Tablet 2024-05 00:00: 00 Yes [id number] 1{tbl} Q.5D Take 1 tablet by mouth 2 times daily as needed for pain. Isabel keller Atorvastati n Calcium 20 MG oral Tablet Atorvastati n Calcium 20 MG oral Tablet 2024-05 00:00: 00 Yes [id number] 20mg QD Take 1 tablet (20 mg total) by mouth nightly FOR 90 DAYS. Isabel keller Colchicine 0.6 MG oral Tablet Colchicine 0.6 MG oral Tablet 2024-05 00:00: 00 Yes [id number] .6mg QD Take 1 tablet (0.6 mg total) by mouth daily. Isabel keller Metoprolol Succinate 50 MG oral TABLET SR 24 HR Metoprolol Succinate 50 MG oral TABLET SR 24 HR 2024-05 00:00: 00 Yes [id number] 50mg QD Take 1 tablet (50 mg total) by mouth daily. Isabel keller Acetaminoph en-Codeine 300-30 MG oral Tablet Acetaminoph en-Codeine 300-30 MG oral Tablet 01-22 00:00: 00 02-21 00:00 :00 No Isabel keller Nystatin [id number] UNIT/GM apply externally Powder Nystatin [id number] UNIT/GM apply externally Powder 01-19 00:00: 00 02-21 00:00 :00 No Isabel keller Ketoconazol e 2 % apply externally Cream Ketoconazol e 2 % apply externally Cream 9-07 00:00: 00 02-21 00:00 :00 No 1{appli cation} Q.5D Apply 1 Applicatio n topically 2 times daily APPLY TO AFFECTED AREA. Isabel keller Insulin Moline, Disposable, (BD ULTRAFINE III MINI PEN) 31 gauge x 3/16" Ndle 12-12 00:00: 00 Yes [id number] USE TWICE DAILY [facility]ED [facility] hydro[facility]ORO thiazide 12.5 MG oral Tablet hydroCHLORO thiazide 12.5 MG oral Tablet 12-12 00:00: 00 Yes 12.5mg QD Take 1 tablet (12.5 mg total) by mouth daily. Isabel keller Isosorbide Mononitrate CR 30 MG [...] mg total) by mouth daily. Isabel keller Sprague 3 340 MG oral Delayed Release Capsule Sprague 3 340 MG oral Delayed Release Capsule 12-03 15:28: 51 02-21 00:00 :00 No 1g Q.5D Take 1 g by mouth in the morning and 1 g in the evening. Isabel keller Amoxicillin -Pot Clavulanate 875-125 MG oral Tablet Amoxicillin -Pot Clavulanate 875-125 MG oral Tablet 12-03 00:00: 00 Yes [id number] 1{tbl} Q.5D Take 1 tablet by mouth 2 times daily. Isabel keller Doxycycline Hyclate 100 MG oral Capsule Doxycycline Hyclate 100 MG oral Capsule 12-01 00:00: 00 Yes Isabel keller Warfarin (COUMADIN) 2 MG oral Tablet Warfarin (COUMADIN) 2 MG oral Tablet 11-26 00:00: 00 02-21 00:00 :00 No 1 TABLET ORALLY TUESDAY, TUESDAY, TUESDAY, TUESDAY, TUESDAY Isabel keller Isosorbide Mononitrate CR 30 MG oral TABLET SR 24 HR 11-21 13:48: 44 Yes 30mg QD Take 1 tablet (30 mg total) by mouth daily. Isabel keller Sprague 3 340 MG oral Delayed Release Capsule [...] at 1617, Administer over 2-5 Minutes, Intra-op [facility] lidocaine (XYLOCAINE) 2 % jelly URO-JET 11-19 19:57: 00 11-19 19:57 :00 No PRN, Starting on Tue11/19/24 at 1457, Until Tue11/19/24 at 1457, Routine, Intra-op [facility] ALPRAZolam (XANAX) tablet 0.25 mg 11-19 14:45: 00 11-19 19:25 :00 No [id number] .25mg 0.25 mg, Oral, ONCE, 1 dose, On Tue11/19/24 at 0945, Routine [facility] lidocaine variable + sod bicarb injection 11-19 14:45: 00 11-19 20:00 :00 No [id number] 30mL Intraderma l, ONCE, 1 dose, On Tue11/19/24 at 0945, 30 mL [facility] cefdinir 300 mg capsule 10-31 00:00: 00 11-08 04:59 :00 No 300mg Take 1 capsule by mouth in the morning and 1 capsule in the evening. Do all this for 7 days. [facility] sodium phosphates (FLEET ENEMA) 19-7 gram/118 mL enema 10-31 00:00: 00 11-03 04:59 :00 No 1{enema } Insert 1 Enema into rectum in the morning for 2 doses. Follow package directions [facility] ONETOUCH VERIO FLEX METER Misc 10-12 00:00: 00 Yes [id number] Use as directed daily E 11.65 [facility] Blood Glucose Monitoring Suppl (OneTouch Verio Flex System) w/Device does not apply Kit Blood Glucose Monitoring Suppl (OneTouch Verio Flex System) w/Device does not apply Kit 10-12 00:00: 00 02-20 00:00 :00 No USE DIRECTED DAILY E 11.65 Isabel Morelosa l Lancets (OneTouch Delica Plus [id number]) does not apply [facility] Lancets (OneTouch Delica Plus [id number]) does not apply [facility] 00:[facility]: 00 02-21 00:00 :00 No Isabel Morelosa l Insulin NPH-Regular Human Rec (NOVOLIN 70-30 FLEXPEN U-100) 100 unit/mL (70-30) injection 10-10 00:00: 00 Yes [id number] 14U inject 14 Units under the skin 2 times daily before breakfast and dinner. E11.65 [facility] lancets (ONETOUCH DELICA PLUS LANCET) 33 gauge Misc 10-10 00:00: 00 Yes [id number] Use to check blood glucose three times daily before meals E11.65 [facility] blood sugar diagnostic (ONETOUCH VERIO TEST STRIPS) strip 10-10 00:00: 00 Yes [id number] Use to check blood glucose 3x daily before meals E11.65 [facility] metFORMIN 1,000 mg tablet 10-10 00:00: 00 Yes [id number] 1000mg Take 1 tablet by mouth every morning and evening. [facility] TAMSULOSIN 0.4 mg 24 hr capsule 10-04 00:00: 00 Yes [id number] TAKE 1 CAPSULE BY MOUTH IN THE MORNING AND IN THE EVENING [facility] Tamsulosin HCl 0.4 MG oral Capsule 08-08 14:40: 20 08-08 00:00 :00 No .4mg Take 1 capsule (0.4 mg total) by mouth every night at bedtime. Isabel keller Sprague 3 340 MG oral Delayed Release Capsule [...] mg total) by mouth daily. Isabel keller Warfarin 2.5 MG oral Tablet Warfarin 2.5 MG oral Tablet 08-08 00:00: 00 Yes [id number] 2.5mg QD Take 1 tablet (2.5 mg total) by mouth daily. Isabel keller Tamsulosin HCl 0.4 MG oral Capsule Tamsulosin HCl 0.4 MG oral Capsule 08-08 00:00: 00 Yes [id number] .4mg Q.5D Take 1 capsule (0.4 mg total) by mouth in the morning and 1 capsule (0.4 mg total) before bedtime. Isabel keller Insulin NPH Isophane & Regular (NovoLIN 70/30 FlexPen) (70-30) 100 UNIT/ML subcutaneou s Suspension Pen-injecto r Insulin NPH Isophane & Regular (NovoLIN 70/30 FlexPen) (70-30) 100 UNIT/ML subcutaneou s Suspension Pen-injecto r 08-08 00:00: 00 02-21 00:00 :00 No [id number] 3 16 unit sc eery am and 14 unit sc every pm. Isabel keller Ketoconazol e 2 % apply externally Cream 08-08 00:00: 00 11-21 00:00 :00 No [id number] 1{appli cation} Q.5D Apply 1 Applicatio n topically 2 times daily. Isabel keller Gabapentin 100 MG oral Capsule 08-08 00:00: 00 11-21 00:00 :00 No [id number] 100mg Q.5D Take 1 capsule (100 mg total) by mouth 2 times daily as needed. Isabel keller tamsulosin 0.4 mg 24 hr capsule 07-19 00:00: 00 10-04 00:00 :00 No [id number] .4mg Take 1 capsule by mouth in the morning and 1 capsule in the evening. [facility] Tamsulosin HCl 0.4 MG oral Capsule 06-27 14:25: 38 Yes .4mg Take 1 capsule (0.4 mg total) by mouth every night at bedtime. Isabel keller Isosorbide Mononitrate CR 30 MG oral TABLET SR 24 HR 06-27 14:25: 38 Yes 30mg QD Take 1 tablet (30 mg total) by mouth daily. Isabel keller Sprague 3 340 MG oral Delayed Release Capsule 06-27 14:25: 38 Yes 1g Q.5D Take 1 g by mouth 2 times daily. Isabel keller Aspirin (Ecotrin) 325 MG oral Tablet Delayed Response 06-27 14:25: 38 Yes 325mg QD Take 1 tablet (325 mg total) by mouth daily. Isabel keller lidocaine (XYLOCAINE) 2 % jelly URO-JET 10 mL 06-06 19:00: 00 06-06 18:26 :00 No [id number] 10mL 10 mL, Urethral, ONCE, 1 dose, On Tue06/06/24 at 1300, Routine [facility] gentamicin injection 160 mg 06-06 18:00: 00 06-06 17:16 :00 No [id number] 160mg 160 mg, Intramuscu lar, ONCE, 1 dose, On Tue06/06/24 at 1200, [place], Reason for Anti-Infec tive: Surgical Prophylaxi s, Surgical Prophylaxi s: Genitourin filemon, Duration of therapy: within 24 hours of surgery [facility] amoxicillin -pot clavulanate 500 mg (AUGMENTIN) 500-125 mg tablet 06-04 00:00: 00 06-04 00:00 :00 No [id number] 500mg Take 1 tablet by mouth in the morning and 1 tablet at noon and 1 tablet in the evening. [facility] tamsulosin 0.4 mg 24 hr capsule 2023-05 00:00: 00 04-23 00:00 :00 No [id number] .4mg Take 1 capsule by mouth in the morning. [facility] atorvastati n 20 mg tablet 2023-05 14:28: 02 Yes TAKE 1 TABLET BY MOUTH EVERY DAY FOR 90 DAYS [facility] metFORMIN 1,000 mg tablet 2023-05 00:00: 00 10-10 00:00 :00 No [id number] 1000mg Take 1 tablet by mouth every morning and evening. [facility] hydroCHLORO thiazide 12.5 MG oral Tablet hydroCHLORO thiazide 12.5 MG oral Tablet 2023-05 00:00: 00 Yes 12.5mg QD TAKE 1 TABLET BY MOUTH EVERY DAY Isabel Farnsworth - Jamari keller METFORMIN 1,000 mg tablet 2023-05 00:00: 00 04-11 00:00 :00 No [id number] 1000mg TAKE 1 TABLET BY MOUTH EVERY MORNING AND EVENING. [facility] tamsulosin 0.4 mg 24 hr capsule 2023-05 00:00: 00 Yes [id number] .4mg Take 1 capsule by mouth in the morning and 1 capsule in the evening. [facility] HYDROcodone -acetaminop hen 5-325 mg tablet 2023-05 0-13 00:00: 00 02-26 04:59 :00 No [id number] 1{tbl} Take 1 tablet by mouth every 6 (six) hours as needed for Pain (scale 7-10) for up to 7 days. Indication s: acute pain [facility] blood sugar diagnostic (ONETOUCH VERIO TEST STRIPS) strip 01-12 00:00: 00 Yes [id number] Use to check blood glucose 3x daily before meals E11.65 [facility] metFORMIN 1,000 mg tablet 01-12 00:00: 00 Yes [id number] 1000mg Take 1 tablet by mouth every morning and evening. [facility] Insulin Moline, Disposable, (SURE COMFORT PEN NEEDLE) 31 gauge x 5/16" Ndle 01-12 00:00: 00 12-12 00:00 :00 No [id number] USE TWICE DAILY [facility] Insulin NPH-Regular Human Rec (NOVOLIN 70-30 FLEXPEN U-100) 100 unit/mL (70-30) injection 01-12 00:00: 00 10-10 00:00 :00 No [id number] 14U inject 14 Units under the skin 2 (two) times daily before breakfast and dinner. E11.65 [facility] blood sugar diagnostic (ONETOUCH VERIO TEST STRIPS) strip 01-12 00:00: 00 10-10 00:00 :00 No [id number] Use to check blood glucose 3x daily before meals E11.65 [facility] Insulin Moline, Disposable, (SURE COMFORT PEN NEEDLE) 31 gauge x 5/16" Ndle 05 00:00: 00 01-12 00:00 :00 No [id number] USE TWICE DAILY [facility] Tamsulosin HCl 0.4 MG oral Capsule 8-20 15:24: 56 Yes .4mg Take 1 capsule (0.4 mg total) by mouth every night at bedtime. Isabel keller Isosorbide Mononitrate CR 30 MG oral TABLET SR 24 HR 12-26 15:24: 56 Yes 30mg QD Take 1 tablet (30 mg total) by mouth daily. Isabel keller Sprague 3 340 MG oral Delayed Release Capsule [...] 20 MG oral Tablet 12-26 00:00: 00 02-21 00:00 :00 No [id number] 20mg QD Take 1 tablet (20 mg total) by mouth daily FOR 90 DAYS. Isabel keller TAMSULOSIN 0.4 mg 24 hr capsule 12-14 00:00: 00 03-15 00:00 :00 No [id number] TAKE 1 CAPSULE BY MOUTH EVERY MORNING AND EVERY EVENING FOR PAIN [facility] metFORMIN 1,000 mg tablet 12-04 00:00: 00 01-12 00:00 :00 No [id number] 1000mg TAKE 1 TABLET BY MOUTH IN THE MORNING AND IN THE EVENING [facility] Atorvastati n Calcium 20 MG oral Tablet [...] 09-12 00:00: 00 12-14 00:00 :00 No [id number] TAKE 1 CAPSULE BY MOUTH EVERY MORNING AND 1 CAPSULE FOR PAIN EVERY EVENING [facility] OneTouch Verio in vitro Strip OneTouch Verio in vitro Strip 430 00:00: 00 02-20 00:00 :00 No Isabel keller Sure Comfort Pen Moline 31G X 8 MM does not apply Misc Sure Comfort Pen Moline 31G X 8 MM does not apply Misc 4-25 00:00: 00 02-20 00:00 :00 No Q.5D in the morning and in the evening. Isabel keller NovoLIN 70/30 FlexPen (70-30) 100 UNIT/ML subcutaneou s Suspension Pen-injecto r 3-14 00:00: 00 08-08 00:00 :00 No Isabel keller hydroCHLORO thiazide 12.5 MG oral Tablet 227 00:00: 00 Yes TAKE 1 TABLET BY MOUTH EVERY DAY IN THE MORNING FOR 90 DAYS Isabel keller Losartan Potassium (COZAAR) 100 MG oral Tablet Losartan Potassium (COZAAR) 100 MG oral Tablet 15 00:00: 00 Yes 100mg QD Take 1 [...] mg total) by mouth daily. Isabel keller Sprague 3 340 MG oral Delayed Release Capsule [...] 0.6 MG oral Tablet 06-08 00:00: 00 02-21 00:00 :00 No [id number] .6mg QD Take 1 tablet (0.6 mg total) by mouth daily. Isaebl keller Cefdinir 300 MG oral Capsule 05-18 00:00: 00 06-08 00:00 :00 No [id number] 300mg Take 1 capsule (300 mg [...] mg total) by mouth daily. Isabel keller Sprague 3 340 MG oral Delayed Release Capsule [...] TABLET SR 24 HR 2022-05 00:00: 00 02-21 00:00 :00 No [id number] 50mg QD Take 1 tablet (50 mg total) by mouth daily FOR 90 DAYS. Isabel keller Allopurinol 300 MG oral Tablet Allopurinol 300 MG oral Tablet 2022-05 00:00: 00 12-03 00:00 :00 No [id number] 300mg QD Take 1 tablet (300 mg total) by mouth daily FOR 90 DAYS. Isabel keller Warfarin Sodium (COUMADIN) 2 MG oral Tablet 2022-05 00:00: 00 08-08 00:00 :00 No [id number] 2mg QD Take 1 tablet (2 mg total) by mouth daily. Isabel keller Ketoconazol e 2 % apply externally Cream 2022-05 00:00: 00 06-27 00:00 :00 No [id number] Apply to the affected skin twice daily for 14 days.. Isabel keller Triamcinolo ne Acetonide 0.1 % apply externally Cream 2022-05 00:00: 00 06-02 05:59 :00 No [id number] Apply to affected skin twice daily for 10 days.. Isabel keller lancets (ONETOUCH DELICA PLUS LANCET) 33 gauge [facility] 2022-05 00:00: 00 Yes [id number] Use to check blood glucose three times daily before meals E11.65 [facility] lancets (ONETOUCH DELICA PLUS LANCET) 33 gauge [facility] 2022-05 00:00: 00 10-10 00:00 :00 No [id number] Use to check blood glucose three times daily before meals E11.65 [facility] blood sugar diagnostic (ONETOUCH VERIO TEST STRIPS) strip 2022-05 00:00: 00 01-12 00:00 :00 No [id number] Use to check blood glucose 3x daily before meals E11.65 [facility] ONETOUCH VERIO FLEX METER [facility] 2022-05 00:00: 00 Yes [id number] Use as directed TIDAC E11.65 [facility] Metformin HCl 1000 MG oral Tablet Metformin HCl 1000 MG oral Tablet 2022-05 00:00: 00 Yes 1000mg Q.5D Take 1 tablet (1,000 mg total) by mouth in the morning and 1 tablet (1,000 mg total) in the evening. Isabel keller ONETOUCH VERIO FLEX METER [facility] 2022-05 00:00: 00 10-12 00:00 :00 No [id number] Use as directed TIDAC E11.65 [facility] Insulin NPH-Regular Human Rec (NOVOLIN 70-30 FLEXPEN U-100) 100 unit/mL (70-30) injection 2022-05 00:00: 00 01-12 00:00 :00 No [id number] 14U inject 14 Units under the skin 2 (two) times daily before breakfast and dinner. E11.65 [facility] VERIO TEST STRIPS strip 2022-05 00:00: 00 04-12 00:00 :00 No [id number] Use as directed TIDAC E11.65 [facility] ONETOUCH DELICA PLUS LANCET 33 gauge Misc 2022-05 00:00: 00 04-12 00:00 :00 No [id number] Use as directed TIDAC E11.65 [facility] Metoprolol Succinate 50 MG oral TABLET SR 24 HR 2022-05 00:00: 00 05-04 00:00 :00 No 50mg Take 1 tablet (50 mg total) by mouth 2 times daily FOR 90 DAYS. Isabel keller Insulin Moline, Disposable, (SURE COMFORT PEN NEEDLE) 31 gauge x 5/16" Ndle 2022-05 0- 00:00: 00 01-11 00:00 :00 No [id number] USE TWICE DAILY [facility] Atorvastati n Calcium 10 MG oral Tablet 2022-05 0-02 00:00: 00 12-26 00:00 :00 No 10mg QD Take 1 tablet (10 mg total) by mouth daily. Isabel keller Insulin NPH-Regular Human Rec (NOVOLIN 70-30 FLEXPEN U-100) 100 unit/mL (70-30) injection 10-11 00:00: 00 04-11 00:00 :00 No [id number] 14U inject 14 Units under the skin 2 (two) times daily before breakfast and dinner. E11.65 [facility] metFORMIN 1,000 mg tablet 10-11 00:00: 00 04-11 00:00 :00 No [id number] 1000mg Take 1 tablet by mouth in the morning and 1 tablet in the evening. [facility] tamsulosin (FLOMAX) 0.4 mg 24 hr capsule 4-25 00:00: 00 09-12 00:00 :00 No [id number] .4mg Take 1 capsule by mouth in the morning and 1 capsule in the evening. once daily [facility] amoxicillin -pot clavulanate 500 mg (AUGMENTIN) 500-125 mg tablet 07-26 00:00: 00 08-03 04:59 :00 No [id number] 500mg Take 1 tablet by mouth in the morning and 1 tablet in the evening. Do all this for 7 days. [facility] cefUROXime 250 mg tablet 07-15 00:00: 00 07-26 00:00 :00 No [id number] 250mg Take 1 tablet by mouth in the morning and 1 tablet in the evening. [facility] cephALEXin (KEFLEX) 500 mg capsule -16 00:00: 00 06-30 05:59 :00 No [id number] 500mg Take 1 capsule by mouth in the morning and 1 capsule in the evening. Do all this for 5 days. [facility] Insulin Moline, Disposable, (BD ULTRAFINE III MINI PEN) 31 gauge x 3/16" Ndle 06-02 00:00: 00 Yes [id number] USE TO INJECT INSULIN 2X DAILY. DX:E11.9 [facility] Insulin Moline, Disposable, (BD ULTRAFINE III MINI PEN) 31 gauge x 3/16" Ndle 06-02 00:00: 00 02-28 00:00 :00 No [id number] USE TO INJECT INSULIN 2X DAILY. DX:E11.9 [facility] Insulin NPH-Regular Human Rec (NOVOLIN 70-30 FLEXPEN U-100) 100 unit/mL (70-30) injection 06-02 00:00: 00 10-11 00:00 :00 No [id number] 14U inject 14 Units under the skin 2 (two) times daily before breakfast and dinner. E11.65 [facility] metFORMIN 1,000 mg tablet 06-02 00:00: 00 10-11 00:00 :00 No [id number] 1000mg Take 1 tablet by mouth in the morning and 1 tablet in the evening. [facility] Insulin NPH-Regular Human Rec (NOVOLIN 70-30 FLEXPEN U-100) 100 unit/mL (70-30) injection 2021-05 0 00:00: 00 06-02 00:00 :00 No 8U inject 8 Units under the skin 2 (two) times daily before breakfast and dinner. [facility] metFORMIN 1,000 mg tablet 02-05 00:00: 00 06-02 00:00 :00 No [id number] 1000mg Take 1 tablet by mouth in the morning and 1 tablet in the evening. [facility] insulin NPH and regular human 70-30 (HUMULIN 70/30 U-100 INSULIN) 100 unit/mL (70-30) injection 02-05 00:00: 00 02-16 00:00 :00 No [id number] 8U inject 8 Units under the skin 2 (two) times daily before breakfast and dinner. [facility] metFORMIN 1,000 mg tablet 02-02 00:00: 00 02-05 00:00 :00 No [id number] 1000mg Take 1 tablet by mouth in the morning and 1 tablet in the evening. [facility] tamsulosin (FLOMAX) 0.4 mg 24 hr capsule 01-29 00:00: 00 08-31 00:00 :00 No [id number] .4mg Take 1 capsule by mouth in the morning and 1 capsule in the evening. once daily [facility] losartan 100 mg tablet 12-11 00:47: 02 Yes 100mg Take 100 mg by mouth in the morning. [facility] omega-3 fatty acids-vitam in E (FISH OIL) 1,000 mg capsule 12-09 12:47: 21 Yes 1g Take 1 g by mouth 2 (two) times daily. [facility] losartan 100 mg tablet 12-09 12:47: 21 Yes 100mg Take 100 mg by mouth in the morning. [facility] COLCHICINE 0.6 MG ORAL TAB 12-09 12:47: 21 Yes once daily [facility] ECOTRIN 325 MG ORAL TBEC 12-09 12:47: 21 Yes once daily [facility] WARFARIN 2.5 MG ORAL TAB 12-09 12:47: 21 Yes once daily [facility] IMDUR 30 MG ORAL TB24 12-09 12:47: 21 Yes once daily [facility] omega-3 fatty acids-vitam in E (FISH OIL) 1,000 mg capsule 12-09 12:47: 21 Yes 1g Take 1 g by mouth 2 (two) times daily. [facility] allopurinol (ZYLOPRIM) 300 mg tablet 12-09 12:47: 21 Yes 300mg Take 300 mg by mouth daily. [facility] finasteride 5 mg tablet 12-09 12:47: 21 Yes 5mg Take 5 mg by mouth daily. [facility] B-complex with vitamin C (VITAMIN B COMPLEX-C ORAL) 12-09 12:47: 21 Yes Take by mouth. [facility] levoFLOXaci n 750 mg tablet 12-09 00:00: 00 12-17 04:59 :00 No [id number] 750mg Take 1 tablet by mouth in the morning for 7 days. [facility] metFORMIN 1,000 mg tablet 10-06 00:00: 00 02-02 00:00 :00 No [id number] 1000mg Take 1 tablet by mouth 2 (two) times daily. [facility] tamsulosin (FLOMAX) 0.4 mg 24 hr capsule 09-11 00:00: 00 01-29 00:00 :00 No [id number] .4mg Take 1 capsule by mouth 2 (two) times daily. once daily [facility] liraglutide (VICTOZA 3-MERON) 0.6 mg/0.1 mL (18 mg/3 mL) injection 18 00:00: 00 06-02 00:00 :00 No [id number] 1.8mg inject 1.8 mg under the skin daily. [facility] Insulin Moline, Disposable, (BD ULTRAFINE III MINI PEN) 31 gauge x 3/16" Ndle 3-14 00:00: 00 06-02 00:00 :00 No USE TO INJECT INSULIN 2X DAILY. DX:E11.9 [facility] blood sugar diagnostic (ACCU-CHEK GUIDE TEST STRIPS) strip 06-05 00:00: 00 04-11 00:00 :00 No [id number] Use to check glucose 3X daily. DX:E11.8 [facility] insulin degludec (TRESIBA FLEXTOUCH U-100) 100 unit/mL (3 mL) InPn 06-05 00:00: 00 02-05 00:00 :00 No [id number] 12U inject 12 Units under the skin daily. [facility] FLOMAX 0.4 MG ORAL CP24 2020-05 15:05: 34 03-31 00:00 :00 No once daily [facility] metoprolol succinate XL 50 mg 24 hr tablet 12-14 00:00: 00 Yes 50mg Take 50 mg by mouth daily. [facility] TOPROL XL 25 MG ORAL TB24 05-21 15:00: 04 05-21 00:00 :00 No once daily [facility] LOTREL 10-40 MG ORAL CAP 05-21 14:59: 17 05-21 00:00 :00 No once daily [facility] atorvastati n (LIPITOR) 10 mg tablet 08-15 00:00: 00 04-11 00:00 :00 No [id number] 10mg Take 1 tablet by mouth at bedtime. [facility] Liraglutide (VICTOZA 3-MERON) 0.6 mg/0.1 mL (18 mg/3 mL) injection 01-26 00:00: 00 03-25 00:00 :00 No 1.8mg inject 0.3 mL under the skin daily. [facility] Liraglutide (VICTOZA 2-MERON) 0.6 mg/0.1 mL (18 mg/3 mL) injection 11-12 00:00: 00 01-26 00:00 :00 No [id number] 07 1.8mg inject 0.3 mL under the skin daily. [facility] Insulin Syringes, Disposable, 1 mL Syrg 06-25 00:00: 00 05-21 00:00 :00 No [id number] Inject once a day E11.59Use as directed [facility] Insulin Moline, Disposable, 29 gauge x 1/2" Ndle 06-25 00:00: 00 05-21 00:00 :00 No [id number] Once a day E11.59 [facility] metFORMIN 1,000 mg tablet 06-25 00:00: 00 03-25 00:00 :00 No [id number] 1000mg Take 1 tablet by mouth 2 (two) times daily. [facility] atorvastati n (LIPITOR) 10 mg tablet 06-25 00:00: 00 03-25 00:00 :00 No [id number] 10mg Take 1 tablet by mouth at bedtime. [facility] insulin glargine 100 unit/mL injection 06-25 00:00: 00 03-25 00:00 :00 No [id number] 10U inject 10 Units under the skin daily. [facility] Immunizations Ordered Immunization Name Filled Immunization Name Date Status Comments Source Influenza High Dose 2024-01-13 09:30:00 Completed [facility] Pneumococcal 13 Conjugate, PCV13 (Prevnar 13) 2024-01-13 09:30:00 Completed [facility] SARS-COV-2 COVID-19 PFIZER VACCINE 2024-01-13 09:30:00 Completed [facility] Pneumococcal Polysaccharide, PPSV23 (PNEUMOVAX) 2024-01-13 09:30:00 Completed [facility] Influenza High Dose 2023-09-15 00:00:00 Completed [facility] Pneumococcal 13 Conjugate, PCV13 (Prevnar 13) 2023-09-15 00:00:00 Completed [facility] SARS-COV-2 COVID-19 PFIZER VACCINE 2023-09-15 00:00:00 Completed [facility] Pneumococcal Polysaccharide, PPSV23 (PNEUMOVAX) 2023-09-15 00:00:00 Completed [facility] Influenza High Dose 2023-09-11 00:00:00 Completed [facility] Pneumococcal 13 Conjugate, PCV13 (Prevnar 13) 2023-09-11 00:00:00 Completed [facility] SARS-COV-2 COVID-19 PFIZER VACCINE 2023-09-11 00:00:00 Completed [facility] Pneumococcal Polysaccharide, PPSV23 (PNEUMOVAX) 2023-09-11 00:00:00 Completed [facility] Influenza High Dose 2023-05-04 00:00:00 Completed [facility] Pneumococcal 13 Conjugate, PCV13 (Prevnar 13) 2023-05-04 00:00:00 Completed [facility] SARS-COV-2 COVID-19 PFIZER VACCINE 2023-05-04 00:00:00 Completed [facility] Pneumococcal Polysaccharide, PPSV23 (PNEUMOVAX) 2023-05-04 00:00:00 Completed [facility] Influenza vaccine, quadrivalent, adjuvanted, 65+ Influenza vaccine, quadrivalent, adjuvanted, 65+ 2023-05-04 00:00:00 Completed Isabel Arzate Influenza High Dose 2023-04-12 00:00:00 Completed [facility] Pneumococcal 13 Conjugate, PCV13 (Prevnar 13) 2023-04-12 00:00:00 Completed [facility] SARS-COV-2 COVID-19 PFIZER VACCINE 2023-04-12 00:00:00 Completed [facility] Pneumococcal Polysaccharide, PPSV23 (PNEUMOVAX) 2023-04-12 00:00:00 Completed [facility] Influenza High Dose 2023-04-11 14:30:00 Completed [facility] Pneumococcal 13 Conjugate, PCV13 (Prevnar 13) 2023-04-11 14:30:00 Completed [facility] Pneumococcal Polysaccharide, PPSV23 (PNEUMOVAX) 2023-04-11 14:30:00 Completed [facility] SARS-COV-2 COVID-19 PFIZER VACCINE 2023-04-11 14:30:00 Completed [facility] Influenza High Dose 2023-02-28 00:00:00 Completed [facility] Pneumococcal 13 Conjugate, PCV13 (Prevnar 13) 2023-02-28 00:00:00 Completed [facility] SARS-COV-2 COVID-19 PFIZER VACCINE 2023-02-28 00:00:00 Completed [facility] Pneumococcal Polysaccharide, PPSV23 (PNEUMOVAX) 2023-02-28 00:00:00 Completed [facility] Influenza High Dose 2023-02-27 00:00:00 Completed [facility] Pneumococcal 13 Conjugate, PCV13 (Prevnar 13) 2023-02-27 00:00:00 Completed [facility] SARS-COV-2 COVID-19 PFIZER VACCINE 2023-02-27 00:00:00 Completed [facility] Pneumococcal Polysaccharide, PPSV23 (PNEUMOVAX) 2023-02-27 00:00:00 Completed [facility] Influenza High Dose 2021-06-10 00:00:00 Completed [facility] Pneumococcal 13 Conjugate, PCV13 (Prevnar 13) 2021-06-10 00:00:00 Completed [facility] SARS-COV-2 COVID-19 PFIZER VACCINE 2021-06-10 00:00:00 Completed [facility] Pneumococcal Polysaccharide, PPSV23 (PNEUMOVAX) 2021-06-10 00:00:00 Completed [facility] SARS-COV-2 COVID-19 PFIZER VACCINE 2021-04-15 00:00:00 Completed [facility] SARS-COV-2 COVID-19 PFIZER VACCINE 2021-04-15 00:00:00 Completed [facility] SARS-COV-2 COVID-19 PFIZER VACCINE 2021-04-15 00:00:00 Completed [facility] SARS-COV-2 COVID-19 PFIZER VACCINE 2021-04-15 00:00:00 Completed [facility] SARS-COV-2 COVID-19 PFIZER VACCINE 2021-04-15 00:00:00 Completed [facility] SARS-COV-2 COVID-19 PFIZER VACCINE 2021-04-15 00:00:00 Completed [facility] SARS-COV-2 COVID-19 PFIZER VACCINE 2021-04-15 00:00:00 Completed [facility] SARS-COV-2 COVID-19 PFIZER VACCINE 2021-04-15 00:00:00 Completed [facility] SARS-COV-2 COVID-19 PFIZER VACCINE 2021-04-15 00:00:00 Completed [facility] SARS-COV-2 COVID-19 PFIZER VACCINE 2021-04-15 00:00:00 Completed [facility] SARS-COV-2 COVID-19 PFIZER VACCINE 2021-04-15 00:00:00 Completed [facility] SARS-COV-2 COVID-19 PFIZER VACCINE 2021-04-15 00:00:00 Completed [facility] SARS-COV-2 COVID-19 PFIZER VACCINE 2021-04-15 00:00:00 Completed [facility] SARS-COV-2 COVID-19 PFIZER VACCINE 2021-04-15 00:00:00 Completed [facility] SARS-COV-2 COVID-19 PFIZER VACCINE 2021-04-15 00:00:00 Completed [facility] SARS-COV-2 COVID-19 PFIZER VACCINE 2021-04-15 00:00:00 Completed [facility] SARS-COV-2 COVID-19 PFIZER VACCINE 2021-04-15 00:00:00 Completed [facility] SARS-COV-2 COVID-19 PFIZER VACCINE 2021-04-15 00:00:00 Completed [facility] SARS-COV-2 COVID-19 PFIZER VACCINE 2021-04-15 00:00:00 Completed [facility] SARS-COV-2 COVID-19 PFIZER VACCINE 2021-04-15 00:00:00 Completed [facility] SARS-COV-2 COVID-19 PFIZER VACCINE 2021-04-15 00:00:00 Completed [facility] SARS-COV-2 COVID-19 PFIZER VACCINE 2021-04-15 00:00:00 Completed [facility] SARS-COV-2 COVID-19 PFIZER VACCINE 2021-04-15 00:00:00 Completed [facility] SARS-COV-2 COVID-19 PFIZER VACCINE 2021-04-15 00:00:00 Completed [facility] SARS-COV-2 COVID-19 PFIZER VACCINE 2021-04-15 00:00:00 Completed [facility] SARS-COV-2 COVID-19 PFIZER VACCINE 2021-04-15 00:00:00 Completed [facility] SARS-COV-2 COVID-19 PFIZER VACCINE 2021-04-15 00:00:00 Completed [facility] SARS-COV-2 COVID-19 PFIZER VACCINE 2021-04-15 00:00:00 Completed [facility] SARS-COV-2 COVID-19 PFIZER VACCINE 2021-04-15 00:00:00 Completed [facility] SARS-COV-2 COVID-19 PFIZER VACCINE 2021-04-15 00:00:00 Completed [facility] SARS-COV-2 COVID-19 PFIZER VACCINE 2020-07-11 00:00:00 Completed [facility] SARS-COV-2 COVID-19 PFIZER VACCINE 2020-07-11 00:00:00 Completed [facility] SARS-COV-2 COVID-19 PFIZER VACCINE 2020-07-11 00:00:00 Completed [facility] SARS-COV-2 COVID-19 PFIZER VACCINE 2020-07-11 00:00:00 Completed [facility] SARS-COV-2 COVID-19 PFIZER VACCINE 2020-07-11 00:00:00 Completed [facility] SARS-COV-2 COVID-19 PFIZER VACCINE 2020-07-11 00:00:00 Completed [facility] SARS-COV-2 COVID-19 PFIZER VACCINE 2020-07-11 00:00:00 Completed [facility] SARS-COV-2 COVID-19 PFIZER VACCINE 2020-07-11 00:00:00 Completed [facility] SARS-COV-2 COVID-19 PFIZER VACCINE 2020-07-11 00:00:00 Completed [facility] SARS-COV-2 COVID-19 PFIZER VACCINE 2020-07-11 00:00:00 Completed [facility] SARS-COV-2 COVID-19 PFIZER VACCINE 2020-07-11 00:00:00 Completed [facility] SARS-COV-2 COVID-19 PFIZER VACCINE 2020-07-11 00:00:00 Completed [facility] SARS-COV-2 COVID-19 PFIZER VACCINE 2020-07-11 00:00:00 Completed [facility] SARS-COV-2 COVID-19 PFIZER VACCINE 2020-07-11 00:00:00 Completed [facility] SARS-COV-2 COVID-19 PFIZER VACCINE 2020-07-11 00:00:00 Completed [facility] SARS-COV-2 COVID-19 PFIZER VACCINE 2020-07-11 00:00:00 Completed [facility] SARS-COV-2 COVID-19 PFIZER VACCINE 2020-07-11 00:00:00 Completed [facility] SARS-COV-2 COVID-19 PFIZER VACCINE 2020-07-11 00:00:00 Completed [facility] SARS-COV-2 COVID-19 PFIZER VACCINE 2020-07-11 00:00:00 Completed [facility] SARS-COV-2 COVID-19 PFIZER VACCINE 2020-07-11 00:00:00 Completed [facility] SARS-COV-2 COVID-19 PFIZER VACCINE 2020-07-11 00:00:00 Completed [facility] SARS-COV-2 COVID-19 PFIZER VACCINE 2020-07-11 00:00:00 Completed [facility] SARS-COV-2 COVID-19 PFIZER VACCINE 2020-07-11 00:00:00 Completed [facility] SARS-COV-2 COVID-19 PFIZER VACCINE 2020-07-11 00:00:00 Completed [facility] SARS-COV-2 COVID-19 PFIZER VACCINE 2020-07-11 00:00:00 Completed [facility] SARS-COV-2 COVID-19 PFIZER VACCINE 2020-07-11 00:00:00 Completed [facility] SARS-COV-2 COVID-19 PFIZER VACCINE 2020-07-11 00:00:00 Completed [facility] SARS-COV-2 COVID-19 PFIZER VACCINE 2020-07-11 00:00:00 Completed [facility] SARS-COV-2 COVID-19 PFIZER VACCINE 2020-07-11 00:00:00 Completed [facility] SARS-COV-2 COVID-19 PFIZER VACCINE 2020-07-11 00:00:00 Completed [facility] SARS-COV-2 COVID-19 PFIZER VACCINE 2020-06-20 00:00:00 Completed [facility] SARS-COV-2 COVID-19 PFIZER VACCINE 2020-06-20 00:00:00 Completed [facility] SARS-COV-2 COVID-19 PFIZER VACCINE 2020-06-20 00:00:00 Completed [facility] SARS-COV-2 COVID-19 PFIZER VACCINE 2020-06-20 00:00:00 Completed [facility] SARS-COV-2 COVID-19 PFIZER VACCINE 2020-06-20 00:00:00 Completed [facility] SARS-COV-2 COVID-19 PFIZER VACCINE 2020-06-20 00:00:00 Completed [facility] SARS-COV-2 COVID-19 PFIZER VACCINE 2020-06-20 00:00:00 Completed [facility] SARS-COV-2 COVID-19 PFIZER VACCINE 2020-06-20 00:00:00 Completed [facility] SARS-COV-2 COVID-19 PFIZER VACCINE 2020-06-20 00:00:00 Completed [facility] SARS-COV-2 COVID-19 PFIZER VACCINE 2020-06-20 00:00:00 Completed [facility] SARS-COV-2 COVID-19 PFIZER VACCINE 2020-06-20 00:00:00 Completed [facility] SARS-COV-2 COVID-19 PFIZER VACCINE 2020-06-20 00:00:00 Completed [facility] SARS-COV-2 COVID-19 PFIZER VACCINE 2020-06-20 00:00:00 Completed [facility] SARS-COV-2 COVID-19 PFIZER VACCINE 2020-06-20 00:00:00 Completed [facility] SARS-COV-2 COVID-19 PFIZER VACCINE 2020-06-20 00:00:00 Completed [facility] SARS-COV-2 COVID-19 PFIZER VACCINE 2020-06-20 00:00:00 Completed [facility] SARS-COV-2 COVID-19 PFIZER VACCINE 2020-06-20 00:00:00 Completed [facility] SARS-COV-2 COVID-19 PFIZER VACCINE 2020-06-20 00:00:00 Completed [facility] SARS-COV-2 COVID-19 PFIZER VACCINE 2020-06-20 00:00:00 Completed [facility] SARS-COV-2 COVID-19 PFIZER VACCINE 2020-06-20 00:00:00 Completed [facility] SARS-COV-2 COVID-19 PFIZER VACCINE 2020-06-20 00:00:00 Completed [facility] SARS-COV-2 COVID-19 PFIZER VACCINE 2020-06-20 00:00:00 Completed [facility] SARS-COV-2 COVID-19 PFIZER VACCINE 2020-06-20 00:00:00 Completed [facility] SARS-COV-2 COVID-19 PFIZER VACCINE 2020-06-20 00:00:00 Completed [facility] SARS-COV-2 COVID-19 PFIZER VACCINE 2020-06-20 00:00:00 Completed [facility] SARS-COV-2 COVID-19 PFIZER VACCINE 2020-06-20 00:00:00 Completed [facility] SARS-COV-2 COVID-19 PFIZER VACCINE 2020-06-20 00:00:00 Completed [facility] SARS-COV-2 COVID-19 PFIZER VACCINE 2020-06-20 00:00:00 Completed [facility] SARS-COV-2 COVID-19 PFIZER VACCINE 2020-06-20 00:00:00 Completed [facility] Pneumococcal Polysaccharide, PPSV23 (PNEUMOVAX) 2019-02-14 00:00:00 Completed [facility] Pneumococcal Polysaccharide, PPSV23 (PNEUMOVAX) 2019-02-14 00:00:00 Completed [facility] Pneumococcal Polysaccharide, PPSV23 (PNEUMOVAX) 2019-02-14 00:00:00 Completed [facility] Pneumococcal Polysaccharide, PPSV23 (PNEUMOVAX) 2019-02-14 00:00:00 Completed [facility] Pneumococcal Polysaccharide, PPSV23 (PNEUMOVAX) 2019-02-14 00:00:00 Completed [facility] Pneumococcal Polysaccharide, PPSV23 (PNEUMOVAX) 2019-02-14 00:00:00 Completed [facility] Pneumococcal Polysaccharide, PPSV23 (PNEUMOVAX) 2019-02-14 00:00:00 Completed [facility] Pneumococcal Polysaccharide, PPSV23 (PNEUMOVAX) 2019-02-14 00:00:00 Completed [facility] Pneumococcal Polysaccharide, PPSV23 (PNEUMOVAX) 2019-02-14 00:00:00 Completed [facility] Pneumococcal Polysaccharide, PPSV23 (PNEUMOVAX) 2019-02-14 00:00:00 Completed [facility] Pneumococcal Polysaccharide, PPSV23 (PNEUMOVAX) 2019-02-14 00:00:00 Completed [facility] Pneumococcal Polysaccharide, PPSV23 (PNEUMOVAX) 2019-02-14 00:00:00 Completed [facility] Pneumococcal Polysaccharide, PPSV23 (PNEUMOVAX) 2019-02-14 00:00:00 Completed [facility] Pneumococcal Polysaccharide, PPSV23 (PNEUMOVAX) 2019-02-14 00:00:00 Completed [facility] Pneumococcal Polysaccharide, PPSV23 (PNEUMOVAX) 2019-02-14 00:00:00 Completed [facility] Pneumococcal Polysaccharide, PPSV23 (PNEUMOVAX) 2019-02-14 00:00:00 Completed [facility] Pneumococcal Polysaccharide, PPSV23 (PNEUMOVAX) 2019-02-14 00:00:00 Completed [facility] Pneumococcal Polysaccharide, PPSV23 (PNEUMOVAX) 2019-02-14 00:00:00 Completed [facility] Pneumococcal Polysaccharide, PPSV23 (PNEUMOVAX) 2019-02-14 00:00:00 Completed [facility] Pneumococcal Polysaccharide, PPSV23 (PNEUMOVAX) 2019-02-14 00:00:00 Completed [facility] Pneumococcal Polysaccharide, PPSV23 (PNEUMOVAX) 2019-02-14 00:00:00 Completed [facility] Pneumococcal Polysaccharide, PPSV23 (PNEUMOVAX) 2019-02-14 00:00:00 Completed [facility] Pneumococcal Polysaccharide, PPSV23 (PNEUMOVAX) 2019-02-14 00:00:00 Completed [facility] Pneumococcal Polysaccharide, PPSV23 (PNEUMOVAX) 2019-02-14 00:00:00 Completed [facility] Pneumococcal Polysaccharide, PPSV23 (PNEUMOVAX) 2019-02-14 00:00:00 Completed [facility] Pneumococcal Polysaccharide, PPSV23 (PNEUMOVAX) 2019-02-14 00:00:00 Completed [facility] Pneumococcal Polysaccharide, PPSV23 (PNEUMOVAX) 2019-02-14 00:00:00 Completed [facility] Pneumococcal Polysaccharide, PPSV23 (PNEUMOVAX) 2019-02-14 00:00:00 Completed [facility] Pneumococcal Polysaccharide, PPSV23 (PNEUMOVAX) 2019-02-14 00:00:00 Completed [facility] Pneumococcal Vaccine, Polysaccharide Pneumococcal Vaccine, Polysaccharide 2019-02-14 00:00:00 Completed Isabel Arzate Influenza High Dose 2019-02-07 00:00:00 Completed [facility] Influenza High Dose 2019-02-07 00:00:00 Completed [facility] Influenza High Dose 2019-02-07 00:00:00 Completed [facility] Influenza High Dose 2019-02-07 00:00:00 Completed [facility] Influenza High Dose 2019-02-07 00:00:00 Completed [facility] Influenza High Dose 2019-02-07 00:00:00 Completed [facility] Influenza High Dose 2019-02-07 00:00:00 Completed [facility] Influenza High Dose 2019-02-07 00:00:00 Completed [facility] Influenza High Dose 2019-02-07 00:00:00 Completed [facility] Influenza High Dose 2019-02-07 00:00:00 Completed [facility] Influenza High Dose 2019-02-07 00:00:00 Completed [facility] Influenza High Dose 2019-02-07 00:00:00 Completed [facility] Influenza High Dose 2019-02-07 00:00:00 Completed [facility] Influenza High Dose 2019-02-07 00:00:00 Completed [facility] Influenza High Dose 2019-02-07 00:00:00 Completed [facility] Influenza High Dose 2019-02-07 00:00:00 Completed [facility] Influenza High Dose 2019-02-07 00:00:00 Completed [facility] Influenza High Dose 2019-02-07 00:00:00 Completed [facility] Influenza High Dose 2019-02-07 00:00:00 Completed [facility] Influenza High Dose 2019-02-07 00:00:00 Completed [facility] Influenza High Dose 2019-02-07 00:00:00 Completed [facility] Influenza High Dose 2019-02-07 00:00:00 Completed [facility] Influenza High Dose 2019-02-07 00:00:00 Completed [facility] Influenza High Dose 2019-02-07 00:00:00 Completed [facility] Influenza High Dose 2019-02-07 00:00:00 Completed [facility] Influenza High Dose 2019-02-07 00:00:00 Completed [facility] Influenza High Dose 2019-02-07 00:00:00 Completed [facility] Influenza High Dose 2019-02-07 00:00:00 Completed [facility] Influenza High Dose 2019-02-07 00:00:00 Completed [facility] Influenza Virus Vaccine, High Dose, Age 65 And Up Influenza Virus Vaccine, High Dose, Age 65 And Up 2019-02-07 00:00:00 Completed Isabel Arzate Pneumococcal 13 Conjugate, PCV13 (Prevnar 13) 2018-02-03 00:00:00 Completed [facility] Pneumococcal 13 Conjugate, PCV13 (Prevnar 13) 2018-02-03 00:00:00 Completed [facility] Pneumococcal 13 Conjugate, PCV13 (Prevnar 13) 2018-02-03 00:00:00 Completed [facility] Pneumococcal 13 Conjugate, PCV13 (Prevnar 13) 2018-02-03 00:00:00 Completed [facility] Pneumococcal 13 Conjugate, PCV13 (Prevnar 13) 2018-02-03 00:00:00 Completed [facility] Pneumococcal 13 Conjugate, PCV13 (Prevnar 13) 2018-02-03 00:00:00 Completed [facility] Pneumococcal 13 Conjugate, PCV13 (Prevnar 13) 2018-02-03 00:00:00 Completed [facility] Pneumococcal 13 Conjugate, PCV13 (Prevnar 13) 2018-02-03 00:00:00 Completed [facility] Pneumococcal 13 Conjugate, PCV13 (Prevnar 13) 2018-02-03 00:00:00 Completed [facility] Pneumococcal 13 Conjugate, PCV13 (Prevnar 13) 2018-02-03 00:00:00 Completed [facility] Pneumococcal 13 Conjugate, PCV13 (Prevnar 13) 2018-02-03 00:00:00 Completed [facility] Pneumococcal 13 Conjugate, PCV13 (Prevnar 13) 2018-02-03 00:00:00 Completed [facility] Pneumococcal 13 Conjugate, PCV13 (Prevnar 13) 2018-02-03 00:00:00 Completed [facility] Pneumococcal 13 Conjugate, PCV13 (Prevnar 13) 2018-02-03 00:00:00 Completed [facility] Pneumococcal 13 Conjugate, PCV13 (Prevnar 13) 2018-02-03 00:00:00 Completed [facility] Pneumococcal 13 Conjugate, PCV13 (Prevnar 13) 2018-02-03 00:00:00 Completed [facility] Pneumococcal 13 Conjugate, PCV13 (Prevnar 13) 2018-02-03 00:00:00 Completed [facility] Pneumococcal 13 Conjugate, PCV13 (Prevnar 13) 2018-02-03 00:00:00 Completed [facility] Pneumococcal 13 Conjugate, PCV13 (Prevnar 13) 2018-02-03 00:00:00 Completed [facility] Pneumococcal 13 Conjugate, PCV13 (Prevnar 13) 2018-02-03 00:00:00 Completed [facility] Pneumococcal 13 Conjugate, PCV13 (Prevnar 13) 2018-02-03 00:00:00 Completed [facility] Pneumococcal 13 Conjugate, PCV13 (Prevnar 13) 2018-02-03 00:00:00 Completed [facility] Pneumococcal 13 Conjugate, PCV13 (Prevnar 13) 2018-02-03 00:00:00 Completed [facility] Pneumococcal 13 Conjugate, PCV13 (Prevnar 13) 2018-02-03 00:00:00 Completed [facility] Pneumococcal 13 Conjugate, PCV13 (Prevnar 13) 2018-02-03 00:00:00 Completed [facility] Pneumococcal 13 Conjugate, PCV13 (Prevnar 13) 2018-02-03 00:00:00 Completed [facility] Pneumococcal 13 Conjugate, PCV13 (Prevnar 13) 2018-02-03 00:00:00 Completed [facility] Pneumococcal 13 Conjugate, PCV13 (Prevnar 13) 2018-02-03 00:00:00 Completed [facility] Pneumococcal 13 Conjugate, PCV13 (Prevnar 13) 2018-02-03 00:00:00 Completed [facility] Pneumococcal Vaccine, Conjugate 13 Pneumococcal Vaccine, Conjugate 13 2018-02-03 00:00:00 Completed Isabel Seybold - External Influenza Virus Vaccine, High Dose, [...] External Pneumococcal Vaccine, Polysaccharide Unknown Completed Isabel Hutsonol d - External Influenza vaccine, quadrivalent, adjuvanted, 65+ Unknown Completed Isabel Hutsono ld - External Vital Signs Vital Name Observation Time Observation Value Comments S gaston Systolic blood pressure 2025-02-21 13:42:00 124 mm[Hg] Isabel Antunezybo ld - External Diastolic blood pressure 2025-02-21 13:42:00 62 mm[Hg] Isabel Antunezybo ld - External Heart rate 2025-02-21 13:42:00 70 /min Kelse y Seybold - External Body temperature 2025-02-21 13:42:00 36.44 Melinda Isabel Seybold - External Respiratory rate 2025-02-21 13:42:00 18 /min Isabel Seybold - External Body height 2025-02-21 13:42:00 177.8 cm Patience ey Seybold - External Body weight 2025-02-21 13:42:00 87.544 kg Patience ey Seybold - External BMI 2025-02-21 13:42:00 27.69 kg/m2 Patience ey Seybold - External Oxygen saturation in Arterial blood by Pulse oximetry 2025-02-21 13:42:00 97 /min Isabel Antunezybo ld - External Systolic blood pressure 2025-02-20 11:24:00 124 mm[Hg] Isabel Seybo ld - External Diastolic blood pressure 2025-02-20 11:24:00 68 mm[Hg] Isabel Antunezybo ld - External Heart rate 2025-02-20 11:24:00 80 /min Kelse y Seybold - External Body temperature 2025-02-20 11:24:00 36.5 Melinda Isabel Seybold - External Respiratory rate 2025-02-20 11:24:00 18 /min Isabel Seybold - External Body height 2025-02-20 11:24:00 177.8 cm Patience ey Seybold - External Body weight 2025-02-20 11:24:00 87.544 kg Patience ey Seybold - External BMI 2025-02-20 11:24:00 27.69 kg/m2 Patience ey Seybold - External Oxygen saturation in Arterial blood by Pulse oximetry 2025-02-20 11:24:00 97 /min Isabel Antunezybo ld - External Systolic blood pressure 2024-12-03 15:23:00 122 mm[Hg] Isabel Seybo ld - External Diastolic blood pressure 2024-12-03 15:23:00 70 mm[Hg] Isabel Seybo ld - External Heart rate 2024-12-03 15:23:00 91 /min Kelse y Seybold - External Body temperature 2024-12-03 [...] External Heart rate 2024-11-21 18:43:00 96 /min Pollose y Seybold - External Body temperature 2024-11-21 [...] Pulse oximetry 2024-11-21 18:43:00 96 /min Isabel Antunezybo ld - External Systolic blood pressure 2024-11-19 21:50:00 140 mm[Hg] [facility] Diastolic blood pressure 2024-11-19 21:50:00 68 mm[Hg] [facility] Respiratory rate 2024-11-19 21:50:00 17 /min [facility] Oxygen saturation in Arterial blood by Pulse oximetry 2024-11-19 21:50:00 97 /min [facility] Heart rate 2024-11-19 21:15:00 98 /min [facility] Systolic blood pressure 2024-10-10 18:03:00 107 mm[Hg] [facility] Diastolic blood pressure 2024-10-10 18:03:00 72 mm[Hg] [facility] Heart rate 2024-10-10 18:03:00 84 /min [facility] Respiratory rate 2024-10-10 18:03:00 18 /min [facility] Body height 2024-10-10 18:03:00 177.8 cm [facility] Body weight 2024-10-10 18:03:00 93.895 kg [facility] BMI 2024-10-10 18:03:00 29.70 kg/m2 [facility] Oxygen saturation in Arterial blood by Pulse oximetry 2024-10-10 18:03:00 95 /min [facility] Systolic blood pressure 2024-08-08 19:16:00 116 mm[Hg] Isabel Hutsono ld - External Diastolic blood pressure 2024-08-08 19:16:00 74 mm[Hg] Isabel catalinao ld - External Heart rate 2024-08-08 19:16:00 73 /min Kelse y Seybold - External Body temperature 2024-08-08 19:16:00 36.44 Melinda Isabel Seybold - External Respiratory rate 2024-08-08 19:16:00 18 /min Isabel Hutsonold - External Body height 2024-08-08 19:16:00 177.8 cm Patience ey Seybold - External Body weight 2024-08-08 19:16:00 95.346 kg Patience ey Seybold - External BMI 2024-08-08 19:16:00 30.16 kg/m2 Patience ey Seybold - External Oxygen saturation in Arterial blood by Pulse oximetry 2024-08-08 19:16:00 99 /min Isabel Hutsono ld - External Systolic blood pressure 2024-06-27 20:22:00 122 mm[Hg] Isabel Hutsono ld - External Diastolic blood pressure 2024-06-27 20:22:00 72 mm[Hg] Isabel Hutsono ld - External Heart rate 2024-06-27 20:22:00 93 /min Hilario balderas Seybold - External Body temperature 2024-06-27 20:22:00 36.28 Melinda Isabel Antunezybold - External Respiratory rate 2024-06-27 20:22:00 18 /min Isabel Hutsonold - External Body height 2024-06-27 20:22:00 177.8 cm Patience valdes Seybold - External Body weight 2024-06-27 20:22:00 96.163 kg Patience valdes Seybold - External BMI 2024-06-27 20:22:00 30.42 kg/m2 Patience valdes Seybold - External Oxygen saturation in Arterial blood by Pulse oximetry 2024-06-27 20:22:00 100 /min Isabel Parekh ld - External Systolic blood pressure 2024-06-06 16:52:00 135 mm[Hg] [facility] Diastolic blood pressure 2024-06-06 16:52:00 75 mm[Hg] [facility] Heart rate 2024-06-06 16:52:00 76 /min [facility] height 2024-06-06 16:52:00 177.8 cm [facility] Body weight 2024-06-06 16:52:00 98.431 kg [facility] BMI 2024-06-06 16:52:00 31.14 kg/m2 [facility] Oxygen saturation in Arterial blood by Pulse oximetry 2024-06-06 16:52:00 98 /min [facility] Systolic blood pressure 2024-04-20 20:02:00 138 mm[Hg] [facility] Diastolic blood pressure 2024-04-20 20:02:00 87 mm[Hg] [facility] Heart rate 2024-04-20 20:02:00 80 /min [facility] Body temperature 2024-04-20 20:02:00 36.67 Melinda [facility] Respiratory rate 2024-04-20 20:02:00 20 /min [facility] Body height 2024-04-20 20:02:00 177.8 cm [facility] Body weight 2024-04-20 20:02:00 97.977 kg [facility] BMI 2024-04-20 20:02:00 30.99 kg/m2 [facility] Oxygen saturation in Arterial blood by Pulse oximetry 2024-04-20 20:02:00 100 /min [facility] Systolic blood pressure 2024-04-11 19:56:00 109 mm[Hg] [facility] Diastolic blood pressure 2024-04-11 19:56:00 58 mm[Hg] [facility] Heart rate 2024-04-11 19:56:00 85 /min [facility] Respiratory rate 2024-04-11 19:56:00 16 /min [facility] Body height 2024-04-11 19:56:00 175.3 cm [facility] Body weight 2024-04-11 19:56:00 96.208 kg [facility] BMI 2024-04-11 19:56:00 31.32 kg/m2 [facility] Oxygen saturation in Arterial blood by Pulse oximetry 2024-04-11 19:56:00 97 /min [facility] Systolic blood pressure 2024-02-19 19:18:00 132 mm[Hg] [facility] Diastolic blood pressure 2024-02-19 19:18:00 73 mm[Hg] [facility] Heart rate 2024-02-19 19:18:00 73 /min [facility] Body temperature 2024-02-19 19:18:00 37 Melinda [facility] Respiratory rate 2024-02-19 19:18:00 15 /min [facility] Oxygen saturation in Arterial blood by Pulse oximetry 2024-02-19 19:18:00 98 /min [facility] Body height 2024-02-19 18:46:00 175.3 cm [facility] Body weight 2024-02-19 18:46:00 95.255 kg [facility] BMI 2024-02-19 18:46:00 31.01 kg/m2 [facility] Systolic blood pressure 2024-01-13 14:34:00 107 mm[Hg] [facility] Diastolic blood pressure 2024-01-13 14:34:00 50 mm[Hg] [facility] Heart rate 2024-01-13 14:34:00 74 /min [facility] Respiratory rate 2024-01-13 14:34:00 14 /min [facility] Body height 2024-01-13 14:34:00 175.3 cm [facility] Body weight 2024-01-13 14:34:00 98.703 kg [facility] BMI 2024-01-13 14:34:00 32.13 kg/m2 [facility] Oxygen saturation in Arterial blood by Pulse oximetry 2024-01-13 14:34:00 99 /min [facility] Systolic blood pressure 2023-12-27 20:23:00 119 mm[Hg] Isabel ybo ld - External Diastolic blood pressure 2023-12-27 20:23:00 73 mm[Hg] Isabel ybo ld - External Heart rate 2023-12-27 20:23:00 89 /min Kelse y Seybold - External Body temperature 2023-12-27 20:23:00 36.56 Melinda Isabel Seybold - External Respiratory rate 2023-12-27 20:23:00 20 /min Isabel Seybold - External Body height 2023-12-27 20:23:00 177.8 cm Patience ey Seybold - External Body weight 2023-12-27 20:23:00 97.523 kg Patience ey Seybold - External BMI 2023-12-27 20:23:00 30.85 kg/m2 Patience ey Seybold - External Oxygen saturation in Arterial blood by Pulse oximetry 2023-12-27 20:23:00 98 /min Isabel Antunezybo ld - External Systolic blood pressure 2023-10-12 17:50:00 138 mm[Hg] [facility] Diastolic blood pressure 2023-10-12 17:50:00 84 mm[Hg] [facility] Heart rate 2023-10-12 17:50:00 79 /min [facility] Respiratory rate 2023-10-12 17:50:00 16 /min [facility] Body height 2023-10-12 17:50:00 175.3 cm [facility] Body weight 2023-10-12 17:50:00 97.024 kg [facility] BMI 2023-10-12 17:50:00 31.59 kg/m2 [facility] Oxygen saturation in Arterial blood by Pulse oximetry 2023-10-12 17:50:00 98 /min [facility] Systolic blood pressure 2023-09-14 13:24:00 122 mm[Hg] Isabel Seybo ld - External Diastolic blood pressure 2023-09-14 13:24:00 68 mm[Hg] Isabel ybo ld - External Heart rate 2023-09-14 13:24:00 84 /min Kelse y Seybold - External Body temperature 2023-09-14 13:24:00 36.78 Melinda Isabel Antunezybold - External Respiratory rate 2023-09-14 13:24:00 18 /min Isabel ybold - External Body height 2023-09-14 13:24:00 177.8 [...] Pulse oximetry 2023-06-08 22:04:00 98 /min Isabel Antunezybo ld - External Systolic blood pressure 2023-05-04 20:46:00 129 mm[Hg] Isabel Antunezybo ld - External Diastolic blood pressure 2023-05-04 20:46:00 89 mm[Hg] Isabel Antunezybo ld - External Heart rate 2023-05-04 20:46:00 78 /min Hilario y ybold - External Body temperature 2023-05-04 20:46:00 36.94 Melinda Isabel Antunezybold - External Body height 2023-05-04 20:46:00 177.8 cm Patience valdes Seybold - External Body weight 2023-05-04 20:46:00 97.523 kg Patience valdes Seybold - External BMI 2023-05-04 20:46:00 30.85 kg/m2 Patience ey Seybold - External Systolic blood pressure 2023-04-11 20:48:00 156 mm[Hg] [facility] Diastolic blood pressure 2023-04-11 20:48:00 75 mm[Hg] [facility] Heart rate 2023-04-11 20:48:00 76 /min [facility] Respiratory rate 2023-04-11 20:48:00 18 /min [facility] Body height 2023-04-11 20:48:00 175.3 cm [facility] weight 2023-04-11 20:48:00 96.616 kg [facility] BMI 2023-04-11 20:48:00 31.45 kg/m2 [facility] Oxygen saturation in Arterial blood by Pulse oximetry 2023-04-11 20:48:00 100 /min [facility] Systolic blood pressure 2023-01-05 19:08:00 126 mm[Hg] [facility] Diastolic blood pressure 2023-01-05 19:08:00 68 mm[Hg] [facility] Heart rate 2023-01-05 19:08:00 99 /min [facility] Body temperature 2023-01-05 19:08:00 36.11 Melinda [facility] Respiratory rate 2023-01-05 19:08:00 20 /min [facility] Body height 2023-01-05 19:08:00 175.3 cm [facility] Body weight 2023-01-05 19:08:00 94.348 kg [facility] BMI 2023-01-05 19:08:00 30.72 kg/m2 [facility] Oxygen saturation in Arterial blood by Pulse oximetry 2023-01-05 19:08:00 100 /min [facility] Systolic blood pressure 2022-10-11 19:49:00 133 mm[Hg] [facility] Diastolic blood pressure 2022-10-11 19:49:00 72 mm[Hg] [facility] Heart rate 2022-10-11 19:49:00 100 /min [facility] Respiratory rate 2022-10-11 19:49:00 16 /min [facility] Body height 2022-10-11 19:49:00 175.3 cm [facility] Body weight 2022-10-11 19:49:00 99.202 kg [facility] BMI 2022-10-11 19:49:00 32.30 kg/m2 [facility] Oxygen saturation in Arterial blood by Pulse oximetry 2022-10-11 19:49:00 100 /min [facility] Systolic blood pressure 2022-06-21 22:32:00 138 mm[Hg] [facility] Diastolic blood pressure 2022-06-21 22:32:00 83 mm[Hg] [facility] Heart rate 2022-06-21 22:31:00 80 /min [facility] Body temperature 2022-06-21 22:31:00 36.56 Melinda [facility] Respiratory rate 2022-06-21 22:31:00 18 /min [facility] Body height 2022-06-21 22:31:00 175.3 cm [facility] Body weight 2022-06-21 22:31:00 99.338 kg [facility] BMI 2022-06-21 22:31:00 32.34 kg/m2 [facility] Oxygen saturation in Arterial blood by Pulse oximetry 2022-06-21 22:31:00 97 /min [facility] Systolic blood pressure 2022-06-02 20:02:00 143 mm[Hg] [facility] Diastolic blood pressure 2022-06-02 20:02:00 77 mm[Hg] [facility] Heart rate 2022-06-02 20:02:00 91 /min [facility] Respiratory rate 2022-06-02 20:02:00 16 /min [facility] Body height 2022-06-02 20:02:00 177.8 cm [facility] Body weight 2022-06-02 20:02:00 98.34 kg [facility] BMI 2022-06-02 20:02:00 31.11 kg/m2 [facility] Oxygen saturation in Arterial blood by Pulse oximetry 2022-06-02 20:02:00 96 /min [facility] Systolic blood pressure 2022-02-05 16:41:00 129 mm[Hg] [facility] Diastolic blood pressure 2022-02-05 16:41:00 75 mm[Hg] [facility] Heart rate 2022-02-05 16:41:00 86 /min [facility] Body temperature 2022-02-05 16:41:00 36.44 Melinda [facility] Respiratory rate 2022-02-05 16:41:00 16 /min [facility] Body height 2022-02-05 16:41:00 177.8 [facility] 2022-02-05 16:41:00 97.115 kg [facility] BMI 2022-02-05 16:41:00 30.72 kg/m2 [facility] Oxygen saturation in Arterial blood by Pulse oximetry 2022-02-05 16:41:00 97 /min [facility] Systolic blood pressure 2021-12-10 20:03:00 117 mm[Hg] [facility] Diastolic blood pressure 2021-12-10 20:03:00 72 mm[Hg] [facility] Heart rate 2021-12-10 20:03:00 57 /min [facility] Respiratory rate 2021-12-10 20:03:00 16 /min [facility] Body height 2021-12-10 20:03:00 177.8 cm [facility] Body weight 2021-12-10 20:03:00 98.431 kg [facility] BMI 2021-12-10 20:03:00 31.14 kg/m2 [facility] Oxygen saturation in Arterial blood by Pulse oximetry 2021-12-10 20:03:00 96 /min [facility] Procedures Procedure Date / Time Performed Performing Clinician Source CBC WITH DIFFERENTIAL 2025-02-21 00:00:00 Isabel Arzate COMP. METABOLIC PANEL (14) 2025-02-21 00:00:00 Isabel Arzate HEMOGLOBIN (HB) A1C WITH EAG 2025-02-21 00:00:00 Isabel Devine External PROTHROMBIN TIME (PT) 2025-02-21 00:00:00 Isabel Arzate FOOT LEFT 2024-12-03 00:00:00 Isabel medina - External PROTHROMBIN TIME (PT) 2024-12-03 00:00:00 Isabel Arzate MR GUIDED BIOPSY PROSTATE 2024-11-19 20:34:42 Arlyn Sawant [facility] SURGICAL PATHOLOGY EXAM 2024-11-19 20:10:00 Arnie Perdomo [facility] PHYSICIAN ORDERS 2024-10-18 14:42:02 Doctor Leatha signed, [place] [facility] POCT HEMOGLOBIN A1C TEST 2024-10-10 00:00:00 Dashawn Umaña [facility] JOSE,POST-VOID RES,US,NON-IMAGING 2024-06-06 18:10:00 Deon Ott [facility] POCT URINALYSIS AUTO 2024-06-06 16:43:00 Heron Ott [facility] POCT URINALYSIS AUTO 2024-04-20 19:58:00 Heron Ott [facility] JOSE,POST-VOID RES,US,NON-IMAGING 2024-04-20 00:00:00 Deon Ott [facility] XR RIBS 3 VW RIGHT 2024-02-19 20:26:52 Gayatri Linares [facility] XR SHOULDER 2+ VW RIGHT 2024-02-19 20:26:52 Gayatri Linares [facility] POCT HEMOGLOBIN A1C TEST 2023-10-12 18:44:00 Dashawn Umaña [facility] EXTERNAL PROVIDER - ADC CARDIOLOGY 2023-05-04 06:01:00 Doctor Unassigned, [place] [facility] POCT HEMOGLOBIN A1C TEST 2023-04-11 00:00:00 Dashawn Umaña [facility] POCT URINALYSIS AUTO 2023-01-05 20:53:00 Heron Ott [facility] MEDICATION CORRESPONDENCE 2022-12-28 05:01:00 Do ctor Unassigned, [place] [facility] ASSIGNMENT OF BENEFITS 2022-08-16 18:51:48 Docto r Unassigned, [place] [facility] ASSIGNMENT OF BENEFITS 2022-07-26 19:16:34 Docto r Unassigned, [place] [facility] ASSIGNMENT OF BENEFITS 2022-07-16 17:18:29 Docto r Unassigned, [place] [facility] URINE CULTURE 2022-06-21 23:00:00 Marcelina Crowley [facility] POCT URINALYSIS AUTO 2022-06-21 22:33:00 Marcus Crowley [facility] DIABETES TESTING REPORTS 2022-06-02 06:01:00 Doc tor Unassigned, [place] [facility] POCT HEMOGLOBIN A1C TEST 2022-06-02 00:00:00 Dashawn Umaña joan [facility] POCT URINALYSIS AUTO 2021-12-10 20:12:00 Heron Ott [facility] Plan of Care Planned Activity Planned Date Details Comments Source Encounters Start Date/Time End Date/Time Encounter Type Admission Type Attending [facility] Care Department Encounter ID Source 2022-12-30 11:54:58 Emergency [facility] [id number] [facility] ent 2021-03-08 23:37:01 Emergency [facility] [id number] [facility] 2025-02-23 00:00:00 2025-02-23 00:00:00 Outpatient AVNI LINDA [id number] [facility] 2025-02-22 17:00:00 2025-02-22 17:00:00 Outpatient MAKSIM JENNADRE GONZALES [id number] [facility] 2025-02-22 00:00:00 2025-02-22 00:00:00 Outpatient TICO CORONADO [id number] [facility] 2025-02-21 14:45:00 2025-02-21 14:45:00 Outpatient [id number] ISABEL GONZALES [id number] [facility] 2025-02-21 14:00:00 2025-02-21 14:00:00 Outpatient PRETICO CHAU [id number] [facility] 2025-02-21 00:00:00 2025-02-21 00:00:00 Outpatient YVON PALMER [id number] [facility] 2025-02-21 00:00:00 2025-02-21 00:00:00 Outpatient TICO CORONADO [id number] [facility] 2025-02-21 00:00:00 2025-02-21 00:00:00 Outpatient TICO CORONADO [id number] [facility] 2025-02-20 11:30:00 2025-02-20 11:30:00 Outpatient TICO CORONADO [id number] [facility] 2025-02-20 00:00:00 2025-02-20 00:00:00 Outpatient TICO CORONADO ISABEL GONZALES [id number] [facility] 2025-02-19 00:00:00 2025-02-19 00:00:00 Outpatient MC MANZANARES ISABEL GONZALES [id number] [facility] 2025-02-15 00:00:00 2025-02-15 00:00:00 Outpatient TICO CORONADO ISABEL GONZALES [id number] [facility] 2025-02-11 00:00:00 2025-02-11 00:00:00 Outpatient SURINDER AGUIRRE ISABEL GONZALES [id number] [facility] 2025-02-06 13:00:00 2025-02-06 13:00:00 Outpatient DEON GOULD [facility] [id number] [facility] 2025-02-04 00:00:00 2025-02-04 00:00:00 Outpatient SURINDER AGUIRRE ISABEL GONZALES [id number] [facility] 2025-01-24 00:00:00 2025-01-24 00:00:00 Outpatient MARLEN NELSON ISABEL GONZALES [id number] [facility] 2025-01-23 00:00:00 2025-01-23 00:00:00 Outpatient PRETICO CHAU ISABEL GONZALES [id number] [facility] 2025-01-15 00:00:00 2025-01-15 00:00:00 Outpatient PRETICO CHAU ISABEL GONZALES [id number] [facility] 2025-01-14 00:00:00 2025-01-14 23:59:00 Hospital Encounter JOYA SUTHERLAND [facility] ACO [id number] [facility] 2025-01-14 00:00:00 2025-01-14 00:00:00 Outpatient [facility] [id number] [facility] 2025-01-09 00:00:00 2025-01-09 15:09:42 [facility] 1.2.840.114 350.1.13.10 4.2.7.2.686 [id number] [facility] 2025-01-02 13:30:00 2025-01-02 13:30:00 Outpatient AGUIRRE SURINDER GONZALES [id number] [facility] 2024-12-28 00:00:00 2024-12-28 00:00:00 Outpatient RAMONA SURINDER GONZALES [id number] [facility] 2024-11-21 00:00:00 2024-12-22 18:23:08 Patient Secure Msg Jason Perdomo [facility] 1.2.840.114 350.1.13.10 4.2.7.2.686 [id number] [facility] 2024-11-21 00:00:00 2024-12-22 18:21:27 Patient Secure Msg [facility] 1.2.840.114 350.1.13.10 4.2.7.2.686 [id number] [facility] 2024-12-11 00:00:00 2024-12-12 09:28:00 Jj Jaimes [facility] 1.2.840.114 350.1.13.10 4.2.7.2.686 [id number] [facility] 2024-12-12 00:00:00 2024-12-12 00:00:00 Outpatient TICO CORONADO [id number] Isabel Antunezhair 2024-12-09 18:00:00 2024-12-09 18:00:00 Outpatient DEON GOULD [facility] [id number] [facility] 2024-12-03 16:50:00 2024-12-03 16:50:00 Outpatient ISABEL GONZALES [id number] [facility] 2024-12-03 15:30:00 2024-12-03 15:30:00 Outpatient SURINDER AGUIRRE ISABEL [id number] [facility] 2024-12-03 15:00:00 2024-12-03 15:00:00 Outpatient NT90 ISABEL GILBERTSEY [id number] [facility] 2024-12-03 00:00:00 2024-12-03 00:00:00 Outpatient HANNAH SHARMA ISABEL ISABEL [id number] [facility] 2024-10-29 00:00:00 2024-12-01 18:23:51 Patient Secure Msg Doctor Unassigned, [place] Doctor Unassigned, [place] [facility] 1.2.840.114 350.1.13.10 4.2.7.2.686 [id number] [facility] 2024-11-30 00:00:00 2024-11-30 16:15:15 Telephone Deon Ott [facility] 1.2.840.114 350.1.13.10 4.2.7.2.686 [id number] [facility] 2024-11-21 14:00:00 2024-11-21 14:00:00 Outpatient TICO CORONADO ISABEL ISABEL [id number] [facility] 2024-11-20 08:00:00 2024-11-20 08:00:00 Outpatient ARLYN WANG [facility] [id number] [facility] 2024-11-19 13:49:45 2024-11-19 23:59:00 Hospital Encounter ARLYN WANG [facility] 1.2.840.114 350.1.13.10 4.2.7.2.686 [id number] [facility] 2024-10-31 00:00:00 2024-10-31 12:10:43 Case Management Jason Perdomo [facility] 1.2840.114 350.1.13.10 4.2.7.2.686 [id number] [facility] 2024-10-18 00:00:00 2024-10-19 02:04:13 Orders Only Doctor Unassigned, [place] Doctor Unassigned, [place] [facility] 1.2840.114 350.1.13.10 4.2.7.2.686 [id number] [facility] 2024-10-17 00:00:00 2024-10-17 13:22:32 Telephone Tru [facility] 1.2840.114 350.1.13.10 4.2.7.2.686 [id number] [facility] 2024-10-16 15:15:00 2024-10-16 15:15:00 Outpatient ISABEL GONZALES [id number] Isabel Farnsworth 2024-10-10 13:00:00 2024-10-10 14:03:42 Office Visit Lachelle Harding [facility] 1.2840.114 350.1.13.10 4.2.7.2.686 [id number] [facility] 2024-10-03 00:00:00 2024-10-04 14:09:51 [facility] 1.2.840.114 350.1.13.10 4.2.7.2.686 [id number] [facility] 2024-10-04 00:00:00 2024-10-04 00:00:00 Outpatient ISABEL GONZALES [id number] Isabel Farnsworth 2024-10-04 00:00:00 2024-10-04 00:00:00 Outpatient DEON OTT [id number] Isabel Farnsworth 2024-09-27 12:30:00 2024-09-27 12:30:00 Outpatient ISABEL GONZALES [id number] Isabel Farnsworth 2024-09-16 00:00:00 2024-09-16 00:00:00 Outpatient R DEON OTT [facility] [id number] [facility] 2024-09-15 09:15:00 2024-09-15 09:15:[address] 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 1.2840.114 350.1.13.10 4.2.7.2.686 [id number] [facility] 2024-09-14 00:00:00 2024-09-14 17:26:20 [facility] 1.2.840.114 350.1.13.10 4.2.7.2.686 [id number] [facility] 2017-01-26 00:00:00 2024-08-30 22:27:47 Refill Art Bradford [facility] 1..840.114 350.1.13.10 4.2.7.2.686 [id number] [facility] 2024-08-28 00:00:00 2024-08-28 00:00:00 Outpatient ISABEL GONZALES [id number] Isabel Farnsworth 2024-08-09 00:00:00 2024-08-09 00:00:00 Outpatient GEGE VU [id number] Isabel Farnsworth 2024-08-08 14:30:00 2024-08-08 14:30:00 Outpatient TICO CORONADO [id number] Isabel Farnsworth 2024-08-08 00:00:00 2024-08-08 00:00:00 Outpatient GEGE VU ISABEL ISABEL [id number] Isabel Farnsworth 2024-08-07 08:20:00 2024-08-07 08:20:00 Outpatient [id number] ISABEL ISABEL [id number] Isabel Farnsworth 2024-06-28 00:00:00 2024-06-28 00:00:00 Outpatient TICO CORONADO ISABEL [id number] Isabel Antunezhair 2024-06-27 14:30:00 2024-06-27 14:30:00 Outpatient TICO CORONADO ISABEL [id number] [facility] 2021-02-09 00:00:00 2024-06-23 02:53:05 Orders Only Kristen Ahumada Sarah N [facility] 1.2.840.114 350.1.13.10 4.2.7.2.686 [id number] [facility] 2024-06-23 00:00:00 2024-06-23 00:00:00 Outpatient R DEON OTT [facility] [id number] [facility] 2024-06-23 00:00:00 2024-06-23 00:00:00 Outpatient R DEON OTT [facility] [id number] [facility] 2024-06-07 00:00:00 2024-06-07 09:40:15 [facility] 1.2.840.114 350.1.13.10 4.2.7.2.686 [id number] [facility] 2024-06-06 11:00:00 2024-06-06 12:16:41 Outpatient R DEON OTT [facility] [id number] [facility] 2024-06-06 11:00:00 2024-06-06 12:16:41 Office Visit R DEON OTT [facility] 1.2.840.114 350.1.13.10 4.2.7.2.686 [id number] [facility] 2024-06-04 00:00:00 2024-06-04 08:52:36 Telephone Deon Ott [facility] 1.2.840.114 350.1.13.10 4.2.7.2.686 [id number] [facility] 2024-06-01 14:15:00 2024-06-01 14:30:00 Derrick Boat Captain Visit Pob, Adc Lab Main Deon Ott Pob, Adc Lab Main [facility] 1.2.840.114 350.1.13.10 4.2.7.2.686 [id number] [facility] 2024-06-01 14:15:00 2024-06-01 14:15:00 Outpatient R DEON OTT [facility] [id number] [facility] 2024-05-31 00:00:00 2024-05-31 13:00:38 Telephone Deon Ott [facility] 1.2.840.114 350.1.13.10 4.2.7.2.686 [id number] [facility] 2024-04-23 00:00:00 2024-04-23 13:38:52 [facility] 1.2.840.114 350.1.13.10 4.2.7.2.686 [id number] [facility] 2024-04-23 00:00:00 2024-04-23 07:32:57 Telephone Deon Ott [facility] 1.2.840.114 350.1.13.10 4.2.7.2.686 [id number] [facility] 2024-04-20 13:30:00 2024-04-20 13:45:00 Derrick Boat Captain Visit 2, Adc Lab Deon Ott 2, Adc Lab [facility] 1..840.114 350.1.13.10 4.2.7.2.686 [id number] [facility] 2024-04-20 13:30:00 2024-04-20 13:30:[address] [facility] [id number] [facility] 2024-04-20 13:15:00 2024-04-20 13:30:00 Office Visit Deon Ott [facility] 1..840.114 350.1.13.10 4.2.7.2.686 [id number] [facility] 2024-04-20 00:00:00 2024-04-20 00:00:00 Outpatient TICO CORONADO [id number] [facility] 2024-04-11 14:00:00 2024-04-11 14:33:29 [facility] [id number] [facility] 2024-04-11 14:00:00 2024-04-11 14:33:29 [facility] 1.840.114 350.1.13.10 4.2.7.2.686 [id number] [facility] 2024-03-31 00:00:00 2024-03-31 00:00:00 Outpatient TICO CORONADO [id number] [facility] 2024-03-30 00:00:00 2024-03-30 12:21:57 Telephone Jj Marie [facility] 1.840.114 350.1.13.10 4.2.7.2.686 [id number] [facility] 2024-03-30 12:00:00 2024-03-30 12:15:00 Derrick Boat Captain Visit Vtc-Lab Lachelle Umaña [facility] 1.0.114 350.1.13.10 4.2.7.2.686 [id number] [facility] 2024-03-30 12:00:00 2024-03-30 12:00:00 Outpatient R LACHELLE UMAÑA [facility] [id number] [facility] 2024-03-28 00:00:00 2024-03-28 00:00:00 Outpatient TICO CORONADO [id number] Isabel Farnsworth 2024-03-11 00:00:00 2024-03-15 08:48:13 Deon Cruz [facility] 1.840.114 350.1.13.10 4.2.7.2.686 [id number] [facility] 2024-02-19 14:03:00 2024-02-19 18:02:00 Emergency X GAYATRI LINARES [facility] ERT [id number] [facility] 2024-02-19 14:03:00 2024-02-19 18:02:00 Emergency Gayatri Linares [facility] .840.114 350.1.13.10 4.2.7.2.686 [id number] [facility] 2024-01-13 09:30:00 2024-01-13 10:14:07 Outpatient JJ NO [facility] [id number] [facility] 2024-01-13 09:30:00 2024-01-13 10:14:07 Office Visit Jj Marie [facility] 1.0.114 350.1.13.10 4.2.7.2.686 [id number] [facility] 2024-01-13 00:00:00 2024-01-13 00:00:00 Outpatient PREZATICO Lassiter [id number] [facility] 2024-01-12 00:00:00 2024-01-12 14:43:29 Refill Lachelle Umaña [facility] 1..840.114 350.1.13.10 4.2.7.2.686 [id number] [facility] 2023-12-27 15:15:00 2023-12-27 15:15:00 Outpatient PREZAMaikol, TICO GONZALES [id number] [facility] 2023-12-12 00:00:00 2023-12-15 12:06:03 Refill Deon Ott [facility] 1.2.840.114 350.1.13.10 4.2.7.2.686 [id number] [facility] 2023-11-16 15:15:00 2023-11-16 15:15:00 Outpatient PREZATICO Lassiter [id number] [facility] 2023-11-09 00:00:00 2023-11-09 00:00:00 Outpatient PREZASTICO [id number] [facility] 2023-11-08 09:25:00 2023-11-08 09:25:00 Outpatient LAB90 ISABEL GONZALES [id number] Isabel [facility] 2023-10-26 15:45:00 2023-10-26 15:45:00 Outpatient PREZATICO Lassiter [id number] Isabel [facility] 2023-10-24 00:00:00 2023-10-24 00:00:00 Outpatient PREZATICO Lassiter [id number] [facility] 2023-10-12 13:00:00 2023-10-12 13:37:59 [id number] 2023-10-12 13:00:00 2023-10-12 13:37:59 [facility] 1.2.840.114 350.1.13.10 4.2.7.2.686 [id number] [facility] 2023-10-02 00:00:00 2023-10-02 00:00:00 Outpatient TICO CORONADO [id number] [facility] 2023-09-15 00:00:00 2023-09-15 15:14:37 [facility]phone [facility] 1.2.840.114 350.1.13.10 4.2.7.2.686 [id number] [facility] 2023-09-14 08:30:00 2023-09-14 08:30:00 Outpatient TERESA MARTELL [id number] [facility] 2023-09-11 00:00:00 2023-09-13 09:10:06 Marcelina Murray [facility] 1.2.840.114 350.1.13.10 4.2.7.2.686 [id number] [facility] 2023-09-07 16:00:00 2023-09-07 16:00:00 Outpatient TICO CORONADO [id number] Isabel [facility] 2023-06-08 16:15:00 2023-06-08 16:15:00 Outpatient TICO CORONADO [id number] Isabel [facility] 2023-06-08 16:15:00 2023-06-08 16:15:00 Outpatient TICO CORONADO [id number] Isabel [facility] 2023-05-30 16:15:00 2023-05-30 16:15:00 Outpatient TICO CORONADO [id number] [facility] 2023-05-25 09:05:00 2023-05-25 09:05:00 Outpatient LAB90 ISABEL GONZALES [id number] Isabel [facility] 2023-05-18 00:00:00 2023-05-18 00:00:00 Outpatient TICO CORONADO [id number] [facility] 2023-05-16 00:00:00 2023-05-16 00:00:00 Outpatient TICO CORONADO [id number] [facility] 2023-05-13 09:25:00 2023-05-13 09:25:00 Outpatient LAB90 ISABEL GONZALES [id number] Isabel [facility] 2023-05-04 15:00:00 2023-05-04 15:00:00 Outpatient TICO CORONADO [id number] Isabel [facility] 2023-05-04 00:00:00 2023-05-04 00:00:00 Orders Only Doctor Unassigned, [place] [facility] 1.840.114 350.1.13.10 4.2.7.2.686 [id number] [facility] [facility]-20 13:00:00 2023-04-20 13:00:00 Outpatient JOSEPH SNOW [facility] [id number] [facility] 2023-04-12 00:00:00 2023-04-12 00:00:00 Telephone Lachelle Umaña [facility] 1.840.114 350.1.13.10 4.2.7.2.686 [id number] [facility] 2023-04-11 14:30:00 2023-04-11 15:54:22 Outpatient R LACHELLE UMAÑA [facility] [id number] [facility] 2023-04-11 14:30:00 2023-04-11 15:54:22 Office Visit Leeroy [facility] [place] [facility] 1.0.114 350.1.13.10 4.2.7.2.686 [id number] 220 [id number] [facility] 2023-02-28 00:00:00 2023-02-28 00:00:00 Refill Leeroy [facility] [place] [facility] 1..114 350.1.13.10 4.2.7.2.686 [id number] 220 [id number] [facility] 2023-02-27 00:00:00 2023-02-27 00:00:00 Refill Tru [facility] 1.84.114 350.1.13.10 4.2.7.2.686 [id number] [facility] 2023-02-23 13:30:00 2023-02-23 13:30:00 Outpatient R JOSEPH INGRAM [facility] [id number] [facility] 2023-01-05 14:00:00 2023-01-05 14:46:[address] [facility] [id number] [facility] 2023-01-05 14:00:00 2023-01-05 14:46:21 Office Visit Meghanachermag [facility] BUILDING 1.84.114 350.1.13.10 4.2.7.2.686 [id number] [facility] 2022-12-28 00:00:00 2022-12-28 00:00:00 Orders Only Doctor Unassigned, [place] [facility] 1.284.114 350.1.13.10 4.2.7.2.686 [id number] [id number] [facility] 2022-12-28 00:00:00 2022-12-28 00:00:00 Telephone MeghanacherDeon hathaway [facility] 1.2.840.114 350.1.13.10 4.2.7.2.686 [id number] 204 [id number] [facility] 2022-10-11 15:45:00 2022-10-11 16:00:00 Derrick Boat Captain Visit [facility] 1.2.840.114 350.1.13.10 4.2.7.2.686 [id number] [facility] 2022-10-11 14:30:00 2022-10-11 15:44:45 [facility] [id number] [facility] 2022-10-11 14:30:00 2022-10-11 15:44:45 Office Visit Leeroy [facility] [place] [facility] 1.2.840.114 350.1.13.10 4.2.7.2.686 [id number] 220 [id number] [facility] 2022-08-31 00:00:00 2022-08-31 00:00:00 Telephone Tru [facility] 1.2840.114 350.1.13.10 4.2.7.2.686 [id number] 204 [id number] [facility] 2022-08-26 00:00:00 2022-08-26 00:00:00 Telephone Leeroy [facility] [place] 1.2.840.114 350.1.13.10 4.2.7.2.686 [id number] 220 [id number] [facility] 2022-08-16 14:00:00 2022-08-16 14:15:00 Derrick Boat Captain Visit Pob, [facility] 1.2840.114 350.1.13.10 4.2.7.2.686 [id number] [facility] 2022-08-16 14:00:00 2022-08-16 14:00:00 Outpatient DEON GOULD [facility] [id number] [facility] 2022-08-16 00:00:00 2022-08-16 00:00:00 Orders Only Doctor Unassigned, [place] [facility] 1.2.840.114 350.1.13.10 4.2.7.2.686 [id number] [id number] [facility] 2022-07-28 00:00:00 2022-07-28 00:00:00 Case Management Carline [facility] 1.2840.114 350.1.13.10 4.2.7.2.686 [id number] [facility] 2022-07-26 14:45:00 2022-07-26 15:00:00 Derrick Boat Captain Visit Pob, Adc Lab Main Carline [facility] 1.284.114 350.1.13.10 4.2.7.2.686 [id number] [facility] 2022-07-26 14:45:00 2022-07-26 14:45:00 Outpatient R CARLINE [facility] [id number] [facility] 2022-07-26 00:00:00 2022-07-26 00:00:00 Orders Only Doctor Unassigned, [place] [facility] 1.20.114 350.1.13.10 4.2.7.2.686 [id number] [id number] [facility] 2022-07-26 00:00:00 2022-07-26 00:00:00 Telephone Carline [facility] 1.2840.114 350.1.13.10 4.2.7.2.686 [id number] 204 [id number] [facility] 2022-07-16 11:30:00 2022-07-16 11:45:00 Derrick Boat Captain Visit Pob, Adc Lab Main Sara Crowleytney [facility] BUILDING 1.2.840.114 350.1.13.10 4.2.7.2.686 [id number] [facility] 2022-07-16 11:30:00 2022-07-16 11:30:00 Outpatient R CARLINE [facility] [id number] [facility] 2022-07-16 00:00:00 2022-07-16 00:00:00 Orders Only Doctor Unassigned, [place] [facility] 1..840.114 350.1.13.10 4.2.7.2.686 [id number] [facility] 2022-07-15 00:00:00 2022-07-15 00:00:00 [facility]phone [facility] 1.2.840.114 350.1.13.10 4.2.7.2.686 [id number] 204 [id number] [facility] 2022-06-24 00:00:00 2022-06-24 00:00:00 Case Management Sara Crowleytney [facility] BUILDING 1.2.840.114 350.1.13.10 4.2.7.2.686 [id number] [facility] 2022-06-21 16:30:00 2022-06-21 16:58:52 Outpatient R SARA CROWLEYTNEY [facility] [id number] [facility] 2022-06-21 16:30:00 2022-06-21 16:58:52 [facility] 1..114 350.1.13.10 4.2.7.2.686 [id number] [facility] 2022-06-02 14:00:00 2022-06-02 14:37:16 Outpatient R LEEROY [facility] [id number] [facility] 2022-06-02 14:00:00 2022-06-02 14:37:16 [facility] 1..114 350.1.13.10 4.2.7.2.686 [id number] 220 [id number] [facility] 2022-06-02 00:00:00 2022-06-02 00:00:00 Orders Only Doctor Unassigned, [place] [facility] 1.0.114 350.1.13.10 4.2.7.2.686 [id number] [id number] [facility] 2022-02-16 00:00:00 2022-02-16 00:00:00 Telephone [facility] 1..114 350.1.13.10 4.2.7.2.686 [id number] 220 [id number] [facility] 2022-02-05 12:45:00 2022-02-05 13:00:00 Derrick Boat Captain Visit Vtc-Lab [facility] 1.114 350.1.13.10 4.2.7.2.686 [id number] [facility] 2022-02-05 11:00:00 2022-02-05 12:27:09 Outpatient R LEEROY [facility] [id number] [facility] 2022-02-05 11:00:00 2022-02-05 12:27:09 Office [facility] 1.2.840.114 350.1.13.10 4.2.7.2.686 [id number] 220 [id number] [facility] 2022-02-05 00:00:00 2022-02-05 00:00:00 Refill Leeroy [facility] 1.2.840.114 350.1.13.10 4.2.7.2.686 [id number] 220 [id number] [facility] 2022-02-02 00:00:00 2022-02-02 00:00:00 [facility] 1.2.840.114 350.1.13.10 4.2.7.2.686 [id number] 220 [id number] [facility] 2022-02-02 00:00:00 2022-02-02 00:00:00 Refill Leeroy [facility] 1.2.840.114 350.1.13.10 4.2.7.2.686 [id number] 220 [id number] [facility] 2022-01-29 00:00:00 2022-01-29 00:00:00 [facility] 1.840.114 350.1.13.10 4.2.7.2.686 [id number] 220 [id number] [facility] 2022-01-29 00:00:00 2022-01-29 00:00:00 [facility]ill [facility] 1.2.840.114 350.1.13.10 4.2.7.2.686 [id number] [facility] 2021-12-10 14:30:00 2021-12-10 15:29:30 Outpatient R DEON OTT [facility] [id number] [facility] 2021-12-10 14:30:00 2021-12-10 15:29:30 Office Visit Deon Ott [facility] BUILDING 1.2.840.114 350.1.13.10 4.2.7.2.686 [id number] [facility] 2021-12-10 00:00:00 2021-12-10 00:00:00 Transition of Lauren Amezcua 1.2840.114 350.1.13.10 4.2.7.2.686 [id number] [facility] 2021-12-07 13:12:00 2021-12-09 12:47:00 Hospital Encounter Melody Cosby Jelani [facility] 1.2840.114 350.1.13.10 4.2.7.2.686 [id number] [facility] 2021-12-06 16:49:00 2021-12-06 20:14:00 Emergency X RIDRENZOJOHN [facility] ERT [id number] [facility] 2021-12-06 16:49:00 2021-12-06 20:14:00 [facility] 1.2840.114 350.1.13.10 4.2.7.2.686 [id number] [facility] 2021-12-06 16:49:00 2021-12-06 20:14:00 Emergency X [facility]ENZO [facility] [id number] [facility] 2021-10-12 15:00:00 2021-10-12 15:00:00 Outpatient R [facility] [id number] [facility] 2021-10-12 15:00:00 2021-10-12 15:00:00 Outpatient R [place] [facility] [id number] [facility] 2021-10-06 00:00:00 2021-10-06 00:00:00 Telephone Nisreen Dallas [facility] 1.114 350.1.13.10 4.2.7.2.686 [id number] 220 [id number] [facility] 2021-10-02 10:00:00 2021-10-02 10:00:00 Outpatient Roney UMAÑA [facility] [id number] [facility] 2021-10-02 10:00:00 2021-10-02 10:00:00 Outpatient Roney UMAÑA [facility] [id number] [facility] 2021-09-11 00:00:00 2021-09-11 00:00:00 Telephone [facility] 1..114 350.1.13.10 4.2.7.2.686 [id number] [facility] 2021-09-07 15:30:00 2021-09-07 15:30:00 Derrick Boat Captain Visit [facility] Lucy Kimball [facility] 1..114 350.1.13.10 4.2.7.2.686 [id number] [facility] 2021-09-07 14:30:00 2021-09-07 15:00:00 Office Visit Peng Eng Peter C [facility] 1..114 350.1.13.10 4.2.7.2.686 [id number] [facility] 2021-09-07 14:30:00 2021-09-07 15:00:00 Office Visit Peng Eng Peter C [facility] 1..114 350.1.13.10 4.2.7.2.686 [id number] [facility] 2021-09-07 14:30:00 2021-09-07 14:30:00 Outpatient R [facility] [id number] [facility] 2021-09-07 14:30:00 2021-09-07 14:30:00 Outpatient LUCY GREGORY [facility] [id number] [facility] 2021-09-07 14:30:00 2021-09-07 14:30:00 Outpatient Roney JONESBY LUCY [facility] [id number] [facility] 2021-09-03 11:45:00 2021-09-03 12:00:00 Derrick Boat Captain Visit Pob, Adc Lab Main Joya Ruiz [facility] 1.114 350.1.13.10 4.2.7.2.686 [id number] [facility] 2021-09-03 11:45:00 2021-09-03 11:45:00 Outpatient Roney JOYA RUIZ [facility] [id number] [facility] 2021-09-03 00:00:00 2021-09-03 00:00:00 Orders Only Doctor Unassigned, [place] [facility] 1.114 350.1.13.10 4.2.7.2.686 [id number] [id number] [facility] 2021-08-17 00:00:00 2021-08-17 00:00:00 Peng Egan [facility] 1.114 350.1.13.10 4.2.7.2.686 [id number] [facility] 2021-07-24 00:00:00 2021-07-24 00:00:00 Nisreen Perez [facility] .114 350.1.13.10 4.2.7.2.686 [id number] 220 [id number] [facility] 2021-07-23 00:00:00 2021-07-23 00:00:00 [facility] 1..114 350.1.13.10 4.2.7.2.686 [id number] [facility] 2021-07-21 00:00:00 2021-07-21 00:00:00 Orders Only Doctor Unassigned, [place] [facility] 1..114 350.1.13.10 4.2.7.2.686 [id number] [facility] 2021-07-20 00:00:00 2021-07-20 00:00:00 Refill Nisreen [place] [facility] 1.114 350.1.13.10 4.2.7.2.686 [id number] 220 [id number] [facility] 2021-07-06 14:00:00 2021-07-06 15:00:00 Office Visit Peng Eng Juan Carlos [facility] 1.114 350.1.13.10 4.2.7.2.686 [id number] [facility] 2021-07-06 14:00:00 2021-07-06 14:00:00 Outpatient TWIN PEREIRA [facility] [id number] [facility] 2021-07-06 14:00:00 2021-07-06 14:00:00 Outpatient TWIN PEREIRA [facility] [id number] [facility] 2021-06-11 00:00:00 2021-06-11 00:00:00 Telephone Tru Deon [facility] BUILDING 1..114 350.1.13.10 4.2.7.2.686 [id number] 204 [id number] [facility] 2021-06-10 00:00:00 2021-06-10 00:00:00 Patient Secure Msg Doctor Unassigned, [place] [facility] 1.114 350.1.13.10 4.2.7.2.686 [id number] [facility] 2021-06-08 12:45:00 2021-06-08 13:00:00 Derrick Boat Captain Visit Pob, Adc Lab Main Tru [facility] 1.114 350.1.13.10 4.2.7.2.686 [id number] [facility] 2021-06-08 12:45:00 2021-06-08 12:45:[address] [facility] [id number] [facility] 2021-06-05 10:00:00 2021-06-05 10:38:40 Office Visit Nisreen [place] [facility]PEC [facility] 1. 350.1.13.10 4.2.7.2.686 [id number] [facility] 2021-06-05 10:00:00 2021-06-05 10:38:40 Outpatient R LEEROY [facility] [id number] [facility] 2021-06-05 10:00:00 2021-06-05 10:38:40 Outpatient R LEEROY [facility] [id number] [facility] 2021-06-05 10:00:00 2021-06-05 10:38:40 Office Visit Nisreen [place] [facility] M[facility]PEC [facility] 1.114 350.1.13.10 4.2.7.2.686 [id number] [facility] 2021-06-05 10:00:00 2021-06-05 10:00:00 Outpatient R DASHAWN UMAÑAJOAN [facility] [id number] [facility] 2021-06-05 10:00:00 2021-06-05 10:00:00 Outpatient R LEEROYLACHELLE [facility] [id number] [facility] 2021-06-05 00:00:00 2021-06-05 00:00:00 Orders Only Doctor Unassigned, [place] [facility] 1.2840.114 350.1.13.10 4.2.7.2.686 [id number] [facility] 2021-06-03 13:00:00 2021-06-03 13:00:00 Outpatient LELO SMITH [facility] [id number] [facility] 2021-05-21 00:00:00 2021-05-21 00:00:00 Telephone Deon Ott [facility] 1.2.840.114 350.1.13.10 4.2.7.2.686 [id number] [facility] 2021-05-04 00:00:00 2021-05-04 00:00:00 Telephone Lelo Yang [facility] 1.2.840.114 350.1.13.10 4.2.7.2.686 [id number] [facility] 2021-04-30 16:30:00 2021-04-30 16:45:00 Derrick Boat Captain Visit Pob, Adc Lab Main Lelo Yang [facility] 1.2.840.114 350.1.13.10 4.2.7.2.686 [id number] [facility] 2021-04-30 16:30:00 2021-04-30 16:30:00 Outpatient LELO SMITH [facility] [id number] [facility] 2021-04-30 00:00:00 2021-04-30 00:00:00 Case Management Lelo Yang [facility] 1.84.114 350.1.13.10 4.2.7.2.686 [id number] [facility] 2021-04-17 00:00:00 2021-04-17 00:00:00 Telephone Meghanajannet [facility] 1.84.114 350.1.13.10 4.2.7.2.686 [id number] [facility] 2021-04-15 13:45:00 2021-04-15 13:45:00 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 Visit Potobias, Adc Lab Main Lelo Yang [facility] 1..84.114 350.1.13.10 4.2.7.2.686 [id number] [facility] 2021-04-15 11:06:06 2021-04-15 11:06:15 Imm/Inj Visit Nurse, Adc Pob Immunizatio Lavelle Jain [facility] 1..840.114 350.1.13.10 4.2.7.2.686 [id number] [facility] 2021-03-31 00:00:00 2021-03-31 00:00:00 Refill Tru Deon [facility] 1..84.114 350.1.13.10 4.2.7.2.686 [id number] [facility] 2021-03-26 00:00:00 2021-03-26 00:00:00 Telephone rTu [facility] BUILDING 1.2.840.114 350.1.13.10 4.2.7.2.686 [id number] 204 [id number] [facility] 2021-03-20 00:00:00 2021-03-20 00:00:00 Telephone Tru [facility] BUILDING 1.2.840.114 350.1.13.10 4.2.7.2.686 [id number] [facility] 2021-03-19 12:27:18 2021-03-19 12:42:18 Derrick Boat Captain Visit Pob, Adc Lab Main Tru [facility] 1.2.840.114 350.1.13.10 4.2.7.2.686 [id number] [facility] 2021-03-19 12:30:00 2021-03-19 12:30:00 [id number] 2021-03-16 00:00:00 2021-03-16 00:00:00 Telephone Tru [facility] 1.2.840.114 350.1.13.10 4.2.7.2.686 [id number] [facility] 2021-03-14 09:15:00 2021-03-14 09:15:00 [facility] [id number] [facility] 2021-03-14 08:48:55 2021-03-14 09:03:55 Derrick Boat Captain Visit Pob, [facility] 1.2.840.114 350.1.13.10 4.2.7.2.686 [id number] [facility] 2021-03-14 00:00:00 2021-03-14 00:00:00 Orders Only Doctor Unassigned, [place] [facility] 1.2.840.114 350.1.13.10 4.2.7.2.686 [id number] [facility] 2021-03-13 00:00:00 2021-03-13 00:00:00 Telephone Tru [facility] BUILDING 1.2.840.114 350.1.13.10 4.2.7.2.686 [id number] [facility] 2021-03-05 16:30:00 2021-03-05 16:30:[address] [facility] [id number] [facility] 2021-03-05 16:30:00 2021-03-05 14:45:[address] [facility] [id number] [facility] 2021-03-05 14:11:40 2021-03-05 14:45:25 Office Visit Tru [facility] BUILDING 1.2.840.114 350.1.13.10 4.2.7.2.686 [id number] [facility] 2021-02-17 00:00:00 2021-02-17 00:00:00 Telephone Tru [facility] 1.2.840.114 350.1.13.10 4.2.7.2.686 [id number] [facility] 2021-02-16 13:36:51 2021-02-16 15:11:28 Office Visit Tru [facility] Building 1.2.840.114 350.1.13.10 4.2.7.2.686 [id number] [facility] 2021-02-16 14:00:00 2021-02-16 14:00:00 [facility] [id number] 2021-02-12 08:01:49 2021-02-12 09:06:40 Office Visit Tru [facility] Building 1.2.840.114 350.1.13.10 4.2.7.2.686 [id number] [facility] 2021-02-12 08:00:00 2021-02-12 08:00:[address] [facility] [id number] [facility] 2021-02-12 00:00:00 2021-02-12 00:00:00 Telephone Tru [facility] 1.2.840.114 350.1.13.10 4.2.7.2.686 [id number] [facility] 2021-02-11 00:00:00 2021-02-11 00:00:00 Telephone Tru [facility] 1.2.840.114 350.1.13.10 4.2.7.2.686 [id number] [facility] 2021-02-09 14:00:00 2021-02-09 14:00:[address] [facility] [id number] [facility] 2021-02-09 13:51:20 2021-02-09 13:51:43 Nurse Visit [facility], [facility] 1.2.840.114 350.1.13.10 4.2.7.2.686 [id number] [facility] 2021-02-09 00:00:00 2021-02-09 00:00:00 [facility]phone [facility] Building 1.2.840.114 350.1.13.10 4.2.7.2.686 [id number] [facility] 2021-02-09 00:00:00 2021-02-09 00:00:00 [facility] 1.2.840.114 350.1.13.10 4.2.7.2.686 [id number] [facility] 2021-01-23 09:38:21 2021-01-23 11:17:30 Office Visit Nisreen Dallas, [facility] 1.284.114 350.1.13.10 4.2.7.2.686 [id number] [facility] 2021-01-23 09:38:21 2021-01-23 11:17:30 [facility] 1.284.114 350.1.13.10 4.2.7.2.686 [id number] [facility] 2021-01-23 10:00:00 2021-01-23 10:00:00 Outpatient R LACHELLE UMAÑA [facility] [id number] [facility] 2020-12-25 14:30:00 2020-12-25 14:30:00 Outpatient R DEON OTT [facility] [id number] [facility] 2020-12-25 13:29:16 2020-12-25 13:59:16 Office Visit Deon Ott Rm, Adc Surg Spec Procedure [facility] Building 1.2.840.114 350.1.13.10 4.2.7.2.686 [id number] [facility] 2020-12-25 00:00:00 2020-12-25 00:00:00 Orders Only Doctor Unassigned, [place] [facility] 1.2840.114 350.1.13.10 4.2.7.2.686 [id number] [facility] 2020-12-22 13:35:11 2020-12-22 13:50:11 Derrick Boat Captain Visit Pob, [facility] 1.2840.114 350.1.13.10 4.2.7.2.686 [id number] [facility] 2020-12-22 13:30:00 2020-12-22 13:30:[address] [facility] [id number] [facility] 2020-12-18 00:00:00 2020-12-18 00:00:00 Telephone Tru [facility] Building 1.2840.114 350.1.13.10 4.2.7.2.686 [id number] [facility] 2020-12-18 00:00:00 2020-12-18 00:00:00 Telephone Tru [facility] Building 1.2840.114 350.1.13.10 4.2.7.2.686 [id number] [facility] 2020-12-16 09:38:57 2020-12-16 10:54:59 Office Visit Joseph Ingram, [place] [employer] Procedure [facility] 1.2840.114 350.1.13.10 4.2.7.2.686 [id number] [facility] [facility] 2020-[facility]-16 10:00:00 2020-12-16 10:00:00 Outpatient R JOSEPH INGRAM [facility] [id number] [facility] 2020-12-16 00:00:00 2020-12-16 00:00:00 Telephone Tru [facility] Building 1.2.840.114 350.1.13.10 4.2.7.2.686 [id number] [facility] 2020-12-11 11:30:33 2020-12-11 11:45:33 Derrick Boat Captain Visit Pob, Adc Lab Main [facility] Building 1.2.114 350.1.13.10 4.2.7.2.686 [id number] [facility] 2020-12-11 11:30:00 2020-12-11 11:30:[address] [facility] [id number] [facility] 2020-12-09 00:00:00 2020-12-09 00:00:00 [facility] 1.2.114 350.1.13.10 4.2.7.2.686 [id number] [facility] 2020-12-08 00:00:00 2020-12-08 00:00:00 [facility] 1.20.114 350.1.13.10 4.2.7.2.686 [id number] [facility] 2020-11-24 00:00:00 2020-11-24 00:00:00 Telephone Tur [facility] Building 1.2840.114 350.1.13.10 4.2.7.2.686 [id number] [facility] 2020-11-17 09:13:53 2020-11-17 10:00:18 Office Visit Deon Ott, Ayesha Surg Spec Procedure [facility] Building 1..114 350.1.13.10 4.2.7.2.686 [id number] [facility] 2020-11-17 09:30:00 2020-11-17 09:30:00 [id number] 2020-11-04 13:11:14 2020-11-04 13:26:14 Derrick Boat Captain Visit Shona, Adc Lab Main Lelo Yang [facility] 1..114 350.1.13.10 4.2.7.2.686 [id number] [facility] 2020-11-04 13:15:00 2020-11-04 13:15:00 Outpatient R LELO YANG [facility] [id number] [facility] 2020-11-04 00:00:00 2020-11-04 00:00:00 Orders Only Doctor Unassigned, [place] [facility] 1..114 350.1.13.10 4.2.7.2.686 [id number] [facility] 2020-10-31 00:00:00 2020-10-31 00:00:00 Case Management Lelo Yang [facility] 1..114 350.1.13.10 4.2.7.2.686 [id number] [facility] 2020-10-30 00:00:00 2020-10-30 00:00:00 [facility] 1..114 350.1.13.10 4.2.7.2.686 [id number] [facility] 2020-10-27 15:41:30 2020-10-27 16:27:43 Office Visit Tru [facility] Professio [facility] Building 1.2.114 350.1.13.10 4.2.7.2.686 [id number] [facility] 2020-10-27 16:15:00 2020-10-27 16:15:00 [facility] [id number] [facility] 2020-10-16 00:00:00 2020-10-16 00:00:00 Transition of Care Kaiden Martin 1..114 350.1.13.10 4.2.7.2.686 [id number] [facility] 2020-10-13 13:57:00 2020-10-15 13:45:00 Hospital Encounter Kris Delaney [facility] 1..114 350.1.13.10 4.2.7.2.686 [id number] [facility] 2020-10-13 00:00:00 2020-10-13 00:00:00 Orders Only Doctor Unassigned, [place] [facility] 1..114 350.1.13.10 4.2.7.2.686 [id number] [facility] 2020-10-07 00:00:00 2020-10-07 00:00:00 RefArmen Patel [facility] MULTISPEC [facility] 1.114 350.1.13.10 4.2.7.2.686 [id number] [facility] 2020-09-15 00:00:00 2020-09-15 00:00:00 Telephone Klaudia Dallaskarlos Gregory [facility] 1.2.840.114 350.1.13.10 4.2.7.2.686 [id number] [facility] 2020-09-08 00:00:00 2020-09-08 00:00:00 Telephone Nisreen Dallas [facility]PEC [facility] 1.2.840.114 350.1.13.10 4.2.7.2.686 [id number] 220 [id number] [facility] 2020-09-01 00:00:00 2020-09-01 00:00:00 Telephone [facility] 1.2.840.114 350.1.13.10 4.2.7.2.686 [id number] [facility] 2020-09-01 00:00:00 2020-09-01 00:00:00 Refill Deon Ott [facility] Professio nal Building 1.2.840.114 350.1.13.10 4.2.7.2.686 [id number] [facility] 2020-08-07 00:00:00 2020-08-07 00:00:00 Orders Only Doctor Unassigned, [place] [facility] 1.2.840.114 350.1.13.10 4.2.7.2.686 [id number] [facility] 2020-08-04 11:05:55 2020-08-04 11:50:37 Office Visit Deon Ott Rm, Adc Surg Spec Procedure [facility] 1.2.840.114 350.1.13.10 4.2.7.2.686 [id number] [facility] 2020-08-04 11:30:00 2020-08-04 11:30:[address] [facility] [id number] [facility] 2020-07-31 13:30:00 2020-07-31 13:30:[address] [facility] [id number] [facility] 2020-07-23 13:29:28 2020-07-23 13:44:28 Derrick Boat Captain Visit Pob[facility] 1.84.114 350.1.13.10 4.2.7.2.686 [id number] [facility] 2020-07-23 13:30:00 2020-07-23 13:30:[address] [facility] [id number] [facility] 2020-07-22 00:00:00 2020-07-22 00:00:[facility]114 350.1.13.10 4.2.7.2.686 [id number] [facility] 2020-07-18 10:25:49 2020-07-18 11:50:38 Office Visit Nisreen Dallas Wentong [facility] MULTISPEC [facility] 1.114 350.1.13.10 4.2.7.2.686 [id number] [facility] 2020-07-18 10:30:00 2020-07-18 10:30:00 Outpatient R [facility] [id number] [facility] 2020-07-14 00:00:00 2020-07-14 00:00:00 Telephone Nisreen Dallas [facility] M[facility]PEC [facility] 1.114 350.1.13.10 4.2.7.2.686 [id number] [facility] 2020-07-11 09:20:00 2020-07-11 09:20:00 Outpatient R TATE SHABAZZ [facility] [id number] [facility] 2020-07-07 00:00:00 2020-07-07 00:00:00 Telephone Doen Ott [facility] Building 1.2.840.114 350.1.13.10 4.2.7.2.686 [id number] [facility] 2020-06-27 11:00:00 2020-06-27 11:00:00 Outpatient R LACHELLE UMAÑA [facility] [id number] [facility] 2020-06-26 14:30:00 2020-06-26 14:30:00 [facility] [id number] [facility] 2020-06-20 14:00:00 2020-06-20 14:00:00 Outpatient R TATE SHABAZZ [facility] [id number] [facility] 2020-06-12 13:30:20 2020-06-12 14:36:30 Office Visit Deon Ott, Adc Surg Spec Procedure [facility] Building 1.2.840.114 350.1.13.10 4.2.7.2.686 [id number] [facility] 2020-06-12 14:00:00 2020-06-12 14:00:00 Outpatient R DEON OTT [facility] [id number] [facility] 2020-06-09 00:00:00 2020-06-09 00:00:00 Telephone Deon Ott [facility] Building 1.2.840.114 350.1.13.10 4.2.7.2.686 [id number] [facility] 2020-05-19 00:00:00 2020-05-19 00:00:00 Telephone Deon Ott [facility] Building 1.2.840.114 350.1.13.10 4.2.7.2.686 [id number] [facility] 2020-05-14 11:23:32 2020-05-14 11:37:03 Nurse Visit Nurse, [facility] Surgery Gu Tru [facility] Building 1.2.840.114 350.1.13.10 4.2.7.2.686 [id number] [facility] 2020-05-14 10:30:00 2020-05-14 10:30:[address] [facility] [id number] [facility] 2020-05-13 00:00:00 2020-05-13 00:00:00 Case Management Gramm, Lelo Franks [facility] Building 1.2.840.114 350.1.13.10 4.2.7.2.686 [id number] [facility] 2020-05-08 14:46:15 2020-05-08 15:01:15 Derrick Boat Captain Visit 2, [facility] Lab Tru [facility] Building 1.2.840.114 350.1.13.10 4.2.7.2.686 [id number] [facility] 2020-05-08 13:02:27 2020-05-08 14:42:41 Office Visit Tru [facility] Building 1.2.840.114 350.1.13.10 4.2.7.2.686 [id number] [facility] 2020-05-08 13:30:00 2020-05-08 13:30:[address] [facility] [id number] [facility] 2020-05-08 00:00:00 2020-05-08 00:00:00 Orders Only Doctor Unassigned, [place] [facility] 1.2840.114 350.1.13.10 4.2.7.2.686 [id number] [facility] 2020-03-07 00:00:00 2020-03-07 00:00:00 Orders Only Doctor Unassigned, [place] [facility] 1.2840.114 350.1.13.10 4.2.7.2.686 [id number] [facility] 2020-03-01 00:00:00 2020-03-01 00:00:00 Anson Estes [facility] [place] [facility] 1.840.114 350.1.13.10 4.2.7.2.686 [id number] [facility] 2020-01-07 00:00:00 2020-01-07 00:00:00 [facility] 1.0.114 350.1.13.10 4.2.7.2.686 [id number] [facility] 2019-12-28 10:45:55 2019-12-28 12:23:56 [facility] [place] [place] [facility] 1.2840.114 350.1.13.10 4.2.7.2.686 [id number] [facility] 2019-12-28 11:00:00 2019-12-28 11:00:00 Outpatient R [facility] [id number] [facility] 2019-12-27 14:24:04 2019-12-27 15:17:50 Office Visit Mor Simpson [facility] Health [facility] 1.840.114 350.1.13.10 4.2.7.2.686 [id number] [facility] 2019-12-27 14:45:00 2019-12-27 14:45:00 Outpatient MOR MANZANARES [facility] [id number] [facility] 2019-12-20 11:00:00 2019-12-20 11:00:00 Outpatient R MOR SIMPSON [facility] [id number] [facility] 2019-12-04 00:00:00 2019-12-04 00:00:00 Refill Meera [facility] MULTISPEC [facility] 1.0.114 350.1.13.10 4.2.7.2.686 [id number] [facility] 2019-11-28 00:00:00 2019-11-28 00:00:00 [facility]naif [facility]es [facility] 1..114 350.1.13.10 4.2.7.2.686 [id number] [facility] 2019-10-03 13:30:00 2019-10-03 13:30:00 Outpatient R AJ ANDRE [facility] [id number] [facility] 2019-10-03 13:12:59 2019-10-03 13:27:59 Office Visit Aj Andre [facility] 1..114 350.1.13.10 4.2.7.2.686 [id number] [facility] 2019-08-20 15:40:00 2019-08-20 15:40:00 Outpatient R MEERA [facility] [id number] [facility] 2019-08-20 14:37:23 2019-08-20 15:17:23 Telemedici ne Visit Meera [facility] 1..114 350.1.13.10 4.2.7.2.686 [id number] [facility] 2019-07-12 00:00:00 2019-07-12 00:00:00 [facility] Estes [facility] 1.2.840.114 350.1.13.10 4.2.7.2.686 [id number] [facility] 2019-01-15 00:00:00 2019-01-15 00:00:00 Anson Estes [facility] 1.2.840.114 350.1.13.10 4.2.7.2.686 [id number] [facility] Results Test Description Test Time Test Comments Results Result Co mments Source BLOOD [id number] 02:01:20* Test Item Value Reference Range Interpretation Comme nts CULTURE (BEAKER) (test code = 1095) No growth in 5 days MR Guided biopsy [id number] 18:35:35PROCEDURE: TRANSPERINEAL PROSTATE BIOPSY WITH TRANSRECTAL ULTRASOUNDGUIDANCE INDICATION: MRI of theprostate result that showed PI - Rad 3 and 4lesions. Primary target is anterior transition zone lesion on the left midglandUnVal Verde Regional Medical CenterPHYSICIAN ORDERS 2024-10-18 14:42:02Ordered by an unspecified provider.[facility] Hemoglobin A1C [id number] 18:18:00* Test Item Value Reference Range Interpretation Comme [facility] POCT HBA1C (test code = 4548-4) 7.7 % 4-5.6 A Lab Interpretation (test cod e = 93657-1) Abnormal [facility] HospitalMEAS,POST-VOID RES,US,[id number] 18:10:00* Test Item Value Reference Range Interpretation Comme nts PVR (URINE VOLUME) (test code = 5193) 0 ml 0-100 [facility] Urinalysis, [id number] 16:50:00 * Test Item Value Reference Range [...] U APPEAR (test code = 3267) clear [facility]PO[facility] Urinalysis, [id number] 19:59:00 * Test Item Value Reference Range [...] U APPEAR (test code = 3267) cloudy [facility] HospitalMEAS,POST-VOID RES,US,[id number] 00:00:00* Test Item Value Reference Range Interpretation Comme nts PVR (URINE VOLUME) (test cod e = 5193) 177 ml 0-100 A Lab Interpretation (test cod e = 61401-6) Abnormal [facility] HospitalXR SHOULDER 2+ VW [id number] 22:10:41 ORDERING PROVIDER: ?GAYATRI LINARES HISTORY: ?fall TECHNIQUE: Internally and externally rotated and scapular Y views of theright shoulder. ? Technical Quality: Diagnostic COMPARISON: None FINDINGS: The osseous structures are anatomically aligned. ?No acute fractures areidentified. ?Glenohumeral and acromioclavicular osteoarthrosis. ?Softtissues are unremarkable.[facility] HospitalXR RIBS 3 VW [id number] 22:06:10ORDERING PROVIDER: ?GAYATRI LINARES HISTORY: Fall, injury, [...] Degenerative changes are seenin the spine and shoulders.[facility] Hemoglobin A1C [id number] 18:44:00* Test Item Value Reference Range Interpretation Comme [facility] POCT HBA1C (test code = 4548-4) 6.7 % 4-6 A Lab Interpretation (test cod e = 60202-6) Abnormal [facility] Hemoglobin A1C [id number] 18:44:00* Test Item Value Reference Range Interpretation Comme [facility] POCT HBA1C (test code = 4548-4) 6.7 % 4-6 A Lab Interpretation (test cod e = 35982-4) Abnormal [facility] Hemoglobin A1C [id number] 18:44:00* Test Item Value Reference Range Interpretation Comme [facility] POCT HBA1C (test code = 4548-4) 6.7 % 4-6 A Lab Interpretation (test cod e = 33315-1) Abnormal [facility] HEMOGLOBIN A1C [id number] 22:53:00* Test Item Value Reference Range Interpretation Comme [facility] POCT HBA1C (test code = 4548-4) 8.0 % 4-6 A Lab Interpretation (test cod e = 65412-8) Abnormal [facility] HEMOGLOBIN A1C [id number] 22:53:00* Test Item Value Reference Range Interpretation Comme nts POCT HBA1C (test code = 4548-4) 8.0 % 4-6 A Lab Interpretation (test cod e = 34597-6) Abnormal [facility] URINALYSIS, [id number] 20:53:00 * Test Item Value Reference Range [...] POCT U APPEAR (test code = 3267) [facility] URINALYSIS, [id number] 22:35:00 * Test Item Value Reference Range [...] U APPEAR (test code = 3267) clear [facility] URINALYSIS, [id number] 22:35:00 * Test Item Value Reference Range [...] U APPEAR (test code = 3267) clear [facility] HEMOGLOBIN A1C [id number] 23:08:00* Test Item Value Reference Range Interpretation Comme nts POCT HBA1C (test code = 4548-4) 7.9 % 4-6 A Lab Interpretation (test cod e = 54563-3) Abnormal [facility] HEMOGLOBIN A1C [id number] 23:08:00* Test Item Value Reference Range Interpretation Comme nts POCT HBA1C (test code = 4548-4) 7.9 % 4-6 A Lab Interpretation (test cod e = 31225-3) Abnormal [facility] URINALYSIS, [id number] 20:13:00 * Test Item Value Reference Range [...] U APPEAR (test code = 3267) clear [facility] Procedure Notes Date/Time Note Provider Source [...] Full dictated note to follow in PACS. [facility] [employer] Notes Date/Time Note Provider Source 2025-02-21 14:24:42 [facility] * Temp Answer Date of Assessment Author 97.6 02/21/2025 1:42 PM CDT Rafa Chin MA * Temp src Answer Date of Assessment Author Tympanic 02/21/2025 1:42 PM CDT Rafa Chin MA * Pulse Answer Date of Assessment Author 70 02/21/2025 1:42 PM CDT Rafa Chin MA * Resp Answer Date of Assessment Author 18 02/21/2025 1:42 PM CDT Rafa Chin MA * SpO2 Answer Date of Assessment Author 97 02/21/2025 1:42 PM CDT Rafa Chin MA * Height Answer Date of Assessment Author 70 02/21/2025 1:42 PM CDT Rafa Chin MA * Weight Answer Date of Assessment Author 3088 02/21/2025 1:42 PM CDT Rafa Chin MA * Pain Score Answer Date of Assessment Author 0/10 02/21/2025 1:42 PM CDT Rafa Chin MA * BSA (Calculated - sq m) Answer Date of Assessment Author 2.08 02/21/2025 1:42 PM CDT Rafa Chin MA * BMI (Calculated) Answer Date of Assessment Author 27.7 02/21/2025 1:42 PM CDT Rafa Chin MA * GENERAL Question Answer Date of Assessment Author Preferred learning method? Written Material 02/21/2025 1:45 PM CDT Fantasma Chin MA Preferred language? Kosovan 02/21/2025 1:45 PM CD T Anay Chin MA Needs Licensed Plumber? No 02/21/2025 1:45 PM CDT Anay Chin MA Ability to read? Yes 02/21/2025 1:45 PM CDT Anay Moore MA * BMI (Calculated) Answer Date of Assessment Author 27.7 02/21/2025 1:42 PM CDT Rafa Chin MA * BSA (Calculated - sq m) Answer Date of Assessment Author 2.08 02/21/2025 1:42 PM CDT Rafa Chin MA [facility]2025-10-16 14:24:42* Patient Instructions* Tico Coronado DO - 02/21/2025 2:23 PM CDT Osteomyelitis/history of left fifth toe amputation - Patient was seen by surgeon-Dr. Larson this morning, who is satisfied with foot progress. - Patient scheduled to see Dr. Larson again next week on Tuesday - Will need to discuss with Dr. Larson about wound care. Once wound care is recommended will need to get in contact with home health to continue wound care at home and follow-up with Dr. Larson as directed. -Social work in place to address home needs. -Home health/physical therapy/Occupational Therapy and wound care was consulted yesterday. - PICC line in place. Will discuss with infectious disease today concerning patient. Patient needs to be evaluated for possible IV antibiotic therapy or oral. Hopefully this can be done urgently through telemedicine. Will get in contact with infectious disease today to confirm. Atrial Fibrillation/CAD/PVD/hypercoagulable state/chronic anticoagulation therapy - Managed by Cardiology Dr. Denise - Dr. Denise plans to continue to monitor Coumadin instead of [employer]. Will update [employer]. -Medications updated. Patient to continue with warfarin 2.5 mg daily. Cardiology to monitor and adjust Coumadin moving forward. -Will discuss with cardiology about the possibility of needing PVD evaluation due to his current condition. -Patient to continue with aspirin 325 mg daily, atorvastatin 20 mg daily, hydrochlorothiazide 12.5 mg daily, isosorbide mononitrate 30 mg daily, losartan 100 mg daily, and metoprolol succinate 50 mg daily. Diabetes Mellitus - Diabetes appears to be controlled. Not taking insulin since hospital admission on 12/10/2024. Currently on metformin. - Blood sugar levels: 100, 110, 93, 146 (highest post-meal). - On metformin 1000 mg twice daily. - Monitor blood sugars twice daily. Maintain blood sugar less than 140 fasting and less than 200 after meals. If blood sugars remain elevated will need to consider reinstituting insulin. - Obtain blood work today - Reassess in 2 weeks. Gout/chronic pain - Taking Tylenol with codeine twice daily, prescribed by pain management-Dr. Felix. - Currently on allopurinol 300 mg daily and colchicine 0.6 mg daily - Upcoming appointment with Dr. Felix in a month. BPH - Continue on tamsulosin 0.4 mg twice daily - Reports improved urinary symptoms since discharge and resumption of medication. Medications were held during recent hospitalization. Hyperlipidemia: - Continue atorvastatin 20 mg daily and fish oil at 1000 mg daily. Hypertension - Controlled. Continue metoprolol 50 mg daily, losartan 100 mg daily and hydrochlorothiazide 12.5 mg daily Handicap placard request provided. [id number] 14:24:42* Tico Coronado DO - 02/21/2025 2:00 PM CDT Images from the original note were not included. Patient and patient’s participants in attendance, if any, consented to the use of [employer]), a new technology product that uses artificial intelligence to assist the provider to document the patient encounter and to record this visit. Chief Complaint Hospital F/U (Patient is present to go over all medications ) History of Present Illness Danny Bryant II is a(n) 79 year old male with a past medical history as documented below who presents today for evaluation of Hospital F/U (Patient is present to go over all medications ) . History of Present IllnessThe patient presents for evaluation of osteomyelitis, atrial fibrillation, diabetes mellitus, gout, and prostate issues. Osteomyelitis/history of left fifth toe amputation- Patient was seen by surgeon- Dr. Larson this morning, who is satisfied with foot progress. - Patient scheduled to see Dr. Larson again next week on Tuesday - Photo of his foot uploaded to [employer]. - PICC line in place. Will discuss with infectious disease on whether patient will require IV or oral antibiotic therapy. If oral antibiotic therapy is recommended PICC line will need to be removed. Atrial Fibrillation/CAD/PVD- Patient was seen by cardiology-Dr. Denise - Dr. Reyes plans to continue to monitor Coumadin instead of CPASA. I will update CPASA. - Currently on warfarin 2.5 mg daily. I have - Patient also takes aspirin 325 mg daily, atorvastatin 20 mg daily, hydrochlorothiazide 12.5 mg daily, isosorbide mononitrate 30 mg daily, losartan 100 mg daily, and metoprolol succinate 50 mg daily. Diabetes Mellitus- Not taking insulin since hospital admission on 12/10/2024. - Blood sugar levels: 100, 110, 93, 146 (highest post-meal). - On metformin 1000 mg twice daily. Gout/chronic pain- Taking Tylenol with codeine twice daily, prescribed by pain management-Dr. Fleix. - Currently on allopurinol and colchicine - Upcoming appointment with Dr. Felix in a month. BPH- On tamsulosin 0.4 mg twice daily for prostate issues. - Reports improved urinary symptoms since discharge and resumption of medication. Hyperlipidemia:- Currently on atorvastatin 20 mg daily and fish oil at 1000 mg daily. Hypertension- Currently on metoprolol 50 mg daily, losartan 100 mg daily and hydrochlorothiazide 12.5 mg daily PAST SURGICAL HISTORY:- Amputation of the left fifth toe Results - Labs: - Blood glucose: 100, 110, 93, 146 mg/dL Current Medications Current Medications[1] Past Medical History Past Medical History[2] Past Surgical History Past Surgical History:Procedure Laterality Date DIRECT REVASCULARIZATION CARDIAC WITH CATHETER STENT, PROSTHESIS, OR VEIN GRAFT 2001 one cardiac stent, Cardiology-Dr. Denise Family Medical History Family History[3] Social History Social History[4] Review of Systems Review of Systems Physical Exam BP 124/62 | Pulse 70 | Temp 97.6 ?F (36.4 ?C) (Tympanic) | Resp 18 | Ht 5' 10" (1.778 m) | Wt 193 lb (87.5 kg) | SpO2 97% | BMI 27.69 kg/m? General: Alert, Conversant, cooperative, oriented x3.Neck: Supple. No thyromegaly. Heart: Regular rate and rhythm. No murmurs. Lungs: Clear to auscultation bilateral. Abdomen: Soft, nontender, nondistended. Extremities: Left extremity bandaged. Patient using mobile device. Photo from recent visit with surgeon obtained Mental: Patient appears in good mood. Intact judgement and insight. Patient interactive and appropriate. Assessment and Plan 1. Chronic pain syndrome- Acetaminophen-Codeine 300-30 MG oral Tablet; Take 1 tablet by mouth 2 times daily as needed for pain. - HANDICAP PLACARD APPLICATION 2. Chronic, continuous use of opioids- Acetaminophen-Codeine 300-30 MG oral Tablet; Take 1 tablet by mouth 2 times daily as needed for pain. - HANDICAP PLACARD APPLICATION 3. DM type 2 with diabetic mixed hyperlipidemia (multi HCC) - Improved- Atorvastatin Calcium 20 MG oral Tablet; Take 1 tablet (20 mg total) by mouth nightly FOR 90 DAYS. - Sprague-3 Fatty Acids (Fish Oil) 1000 MG oral Capsule; Take 1 capsule (1,000 mg total) by mouth daily. - HANDICAP PLACARD APPLICATION 4. Coronary artery disease involving [employer] [employer] coronary artery of match[place] [employer] heart without angina pectoris - Controlled - Atorvastatin Calcium 20 MG oral Tablet; Take 1 tablet (20 mg total) by mouth nightly FOR 90 DAYS. - Metoprolol Succinate 50 MG oral TABLET SR 24 HR; Take 1 tablet (50 mg total) by mouth daily. - HANDICAP PLACARD APPLICATION 5. History of heart artery stent - Controlled- Atorvastatin Calcium 20 MG oral Tablet; Take 1 tablet (20 mg total) by mouth nightly FOR 90 DAYS. - HANDICAP PLACARD APPLICATION 6. Chronic gout without tophus, unspecified cause, unspecified site -Controlled - Allopurinol 100 MG oral Tablet; Take 1 tablet (100 mg total) by mouth daily. - Colchicine 0.6 MG oral Tablet; Take 1 tablet (0.6 mg total) by mouth daily. - HANDICAP PLACARD APPLICATION 7. Longstanding persistent atrial fibrillation (multi HCC)- Metoprolol Succinate 50 MG oral TABLET SR 24 HR; Take 1 tablet (50 mg total) by mouth daily. - HANDICAP PLACARD APPLICATION 8. Primary hypertension- Metoprolol Succinate 50 MG oral TABLET SR 24 HR; Take 1 tablet (50 mg total) by mouth daily. - HANDICAP PLACARD APPLICATION 9. Coronary artery disease due to type 2 diabetes mellitus (multi HCC)- Metoprolol Succinate 50 MG oral TABLET SR 24 HR; Take 1 tablet (50 mg total) by mouth daily. - HANDICAP PLACARD APPLICATION 10. Hypercoagulable state due to longstanding persistent atrial fibrillation (multi HCC) - HANDICAP PLACARD APPLICATION 11. Chronic anticoagulation- HANDICAP PLACARD APPLICATION 12. Acute hematogenous osteomyelitis of left foot (multi HCC)- HANDICAP PLACARD APPLICATION 13. Stress 14. Immunodeficiency due to conditions classified elsewhere ([facility]HS-HCC) 15. Benign prostatic hyperplasia with weak urinary stream 16. Amputation of fifth toe of left foot 17. Type 2 diabetes mellitus with stage 3a chronic kidney disease, withoutlong- term current use of insulin (multi HCC) 18. Overweight (BMI 25.0-29.9) 19. 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) Assessment & Plan Osteomyelitis/history of left fifth toe amputation - Patient was seen by surgeon-Dr. Larson this morning, who is satisfied with foot progress. - Patient scheduled to see Dr. Larson again next week on Tuesday - Will need to discuss with Dr. Larson about wound care. Once wound care is recommended will need to get in contact with home health to continue wound care at home and follow-up with Dr. Larson as directed. -Social work in place to address home needs. -Home health/physical therapy/Occupational Therapy and wound care was consulted yesterday. - PICC line in place. Will discuss with infectious disease today concerning patient. Patient needs to be evaluated for possible IV antibiotic therapy or oral. Hopefully this can be done urgently through telemedicine. Will get in contact with infectious disease today to confirm. Atrial Fibrillation/CAD/PVD/hypercoagulable state/chronic anticoagulationtherapy - Managed by Cardiology Dr. Denise - Dr. Denise plans to continue to monitor Coumadin instead of [employer]. Will update [employer]. -Medications updated. Patient to continue with warfarin 2.5 mg daily. Cardiology to monitor and adjust Coumadin moving forward. -Will discuss with cardiology about the possibility of needing PVD evaluation due to his current condition. -Patient to continue with aspirin 325 mg daily, atorvastatin 20 mg daily, hydrochlorothiazide 12.5 mg daily, isosorbide mononitrate 30 mg daily, losartan 100 mg daily, and metoprolol succinate 50 mg daily. Diabetes Mellitus- Diabetes appears to be controlled. Not taking insulin since hospital admission on 12/10/2024. Currently on metformin. - Blood sugar levels: 100, 110, 93, 146 (highest post-meal). - On metformin 1000 mg twice daily. - Monitor blood sugars twice daily. Maintain blood sugar less than 140 fasting and less than 200 after meals. If blood sugars remain elevated will need to consider reinstituting insulin. - Obtain blood work today - Reassess in 2 weeks. Gout/chronic pain- Taking Tylenol with codeine twice daily, prescribed by pain management-Dr. Felix. - Currently on allopurinol 300 mg daily and colchicine 0.6 mg daily - Upcoming appointment with Dr. Felix in a month. BPH- Continue on tamsulosin 0.4 mg twice daily - Reports improved urinary symptoms since discharge and resumption of medication. Medications were held during recent hospitalization. Hyperlipidemia:- Continue atorvastatin 20 mg daily and fish oil at 1000 mg daily. Hypertension- Controlled. Continue metoprolol 50 mg daily, losartan 100 mg daily and hydrochlorothiazide 12.5 mg daily Will provide handicap placard. Questions answered. Instructions/handouts given. Risks and benefits of any prescription medicines, including any side effects, addressed in detail with the patient. Patient understands and agrees with plan of care. Follow-Up Return in about 2 weeks (around 03/07/2025) for DM/HTN. TICO CORONADO DO [1]Current Outpatient Medications Medication Sig Dispense Refill Acetaminophen-Codeine 300-30 MG oral Tablet Take 1 tablet by mouth 2 times daily as needed for pain. Allopurinol 100 MG oral Tablet Take 1 tablet (100 mg total) by mouth daily. Aspirin (Ecotrin) 325 MG oral Tablet Delayed Response Take 1 tablet (325 mg total) by mouth daily. Atorvastatin Calcium 20 MG oral Tablet Take 1 tablet (20 mg total) by mouth nightly FOR 90 DAYS. Colchicine 0.6 MG oral Tablet Take 1 tablet (0.6 mg total) by mouth daily. hydroCHLOROthiazide 12.5 MG oral Tablet Take 1 tablet (12.5 mg total) by mouth daily. 90 tablet 1 Isosorbide Mononitrate CR 30 MG oral TABLET SR 24 HR Take 1 tablet (30 mg total) by mouth daily. Losartan Potassium (COZAAR) 100 MG oral Tablet Take 1 tablet (100 mg total) by mouth daily. Metformin HCl 1000 MG oral Tablet Take 1 tablet (1,000 mg total) by mouth in the morning and 1 tablet (1,000 mg total) in the evening. Metoprolol Succinate 50 MG oral TABLET SR 24 HR Take 1 tablet (50 mg total) by mouth daily. Sprague-3 Fatty Acids (Fish Oil) 1000 MG oral Capsule Take 1 capsule (1,000 mg total) by mouth daily. Tamsulosin HCl 0.4 MG oral Capsule Take 1 capsule (0.4 mg total) by mouth in the morning and 1 capsule (0.4 mg total) before bedtime. Warfarin 2.5 MG oral Tablet Take 1 tablet (2.5 mg total) by mouth daily. No current facility-administered medications for this visit.[2] Past Medical History: Diagnosis Date Atrial fibrillation (multi HCC) BPH (benign prostatic hyperplasia) Urology [facility] CAD (coronary artery disease) Chronic anticoagulation DM type 2 with diabetic mixed hyperlipidemia (multi HCC) Gout History of heart artery stent HTN (hypertension) Hypercoagulable state due to atrial fibrillation (multi HCC) Obesity [3] Family History Problem Relation Name Age of Onset Heart attack Father Coronary Arterial Disease Father [4] Social History Socioeconomic History Marital status: Number of children: 2 Highest education level: Bachelor's degree (e.g., BA, AB, BS) Occupational History 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 [employer] Tobacco Use Smoking status: Former Current packs/day: 0.00 Average packs/day: 0.5 packs/day for 14.0 years (7.0 ttl pk-yrs) Types: Cigarettes Start date: 1969 Quit date: 1983 Years since quittin.8 Smokeless tobacco: Never Vaping Use Vaping status: Never Used Substance and Sexual Activity Alcohol use: Yes Comment: occasionally Drug use: Never [facility]2025-10-16 14:24:42 [facility]2025-10-16 14:24:42 Diagnosis DM type 2 with diabetic mixed hyperlipidemia (multi HCC) - Improved - Primary Type II or unspecified type diabetes mellitus with other specified manifestations, not stated as uncontrolled Chronic pain syndrome Chronic, continuous use of opioids Opioid type dependence, continuous Coronary artery disease invo lving [employer] coronary artery of match[place] [employer] heart without angina pectoris - Controlled History of heart artery stent - Controlled Postsurgical percutaneous transluminal coronary angioplasty status Chronic gout without tophus, unspecified cause, unspecified site - Controlled Longstanding persistent atri al fibrillation (multi HCC) Primary hypertension Unspecified essential hypertension Coronary artery disease due to type 2 diabetes mellitus (multi HCC) Hypercoagulable state due to longstanding persistent atrial fibrillation (multi HCC) Chronic anticoagulation Long-term (current) use of anticoagulants Acute hematogenous osteomyel itis of left foot (multi HCC) Stress Other psychological or physical stress, not elsewhere classified 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 (HHS-HCC) Benign prostatic hyperplasia with weak urinary stream Amputation of fifth toe of l eft foot Type 2 diabetes mellitus wit h stage 3a chronic kidney disease, without long-term current use of insulin (multi HCC) Overweight (BMI 25.0-29.9) Overweight 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 [id number] 13:43:57* Social Care Application (Routine) - Authorized Specialty Diagnoses / Procedures Referred By Contact Referred To Contact Administration / Population Health Diagnoses Hospital discharge follow-up Acute hematogenous osteomyelitis of left foot (multi HCC) Amputation of left great toe Immunodeficiency due to conditions classified elsewhere ([facility]) Longstanding persistent atrial fibrillation (multi HCC) Primary hypertension History of heart artery stent DM type 2 with diabetic mixed hyperlipidemia (multi HCC) Coronary artery disease due to type 2 diabetes mellitus (multi HCC) Coronary artery disease involving [employer] coronary artery of match[place] heart without angina pectoris Hypercoagulable state due to longstanding persistent atrial fibrillation (multi HCC) Chronic anticoagulation Type 2 diabetes mellitus with stage 3a chronic kidney disease, with long-term current use of insulin (multi HCC) 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) Tico Coronado DO [address] [place] [address] Phone: tel:[phone] fax:[phone] Referral ID Status Reason Start Date Expiration Date Visits Requested Visits Authorized [id number] Authorized Specialty Services Required 5 05/21/2025 1 1 * Consultation (Urgent) Specialty Diagnoses / Procedures Referred By Contac t Referred To Contact Administration Diagnoses Longstanding persistent atrial fibrillation (multi HCC) Hypercoagulable state due to longstanding persistent atrial fibrillation (multi HCC) Chronic anticoagulation Tico Coronado DO [address] [place] [address] Phone: tel: fax: Referral ID Status Reason Start Date Expiration Date Visits Re quested Visits Authorized Scheduling Instructions [facility] ([employer]) will be calling you to schedule an enrollment phone appointment with the clinical pharmacist. They will assist with the management of your medication, WARFARIN. If you have not been contacted within 3 business days, please call [phone]. 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) Procedures [facility] MINUTES Tico Coronado DO [address] [place] [address] Phone: tel: fax: Referral ID Status Reason Start Date Expiration Date Visits Requested Visits Authorized [id number] Authorized Specialty Services Required 05/21/2025 1 1 Cristine [id number] 13:43:57* [facility] [id number] 13:43:57* BP Answer Date of Assessment Author 124/68 02/20/2025 11:24 AM CDT Anay Chin MA * Temp Answer Date of Assessment Author 97.7 02/20/2025 11:24 AM CDT Anay Chin MA * Temp src Answer Date of Assessment Author Tympanic 02/20/2025 11:24 AM CDT Anay Chin MA * Pulse Answer Date of Assessment Author 80 02/20/2025 11:24 AM CDT Anay Chin MA * Resp Answer Date of Assessment Author 18 02/20/2025 11:24 AM CDT Anay Chin MA * SpO2 Answer Date of Assessment Author 97 02/20/2025 11:24 AM CDT Anay Chin MA * Height Answer Date of Assessment Author 70 02/20/2025 11:24 AM ABDIAST Anay Chin MA * Weight Answer Date of Assessment Author 3088 02/20/2025 11:24 AM Anay Estrada MA * Pain Score Answer Date of Assessment Author 102/20/2025 11:24 AM CDAnay Mantilla MA * BSA (Calculated - sq m) Answer Date of Assessment Author 2.08 02/20/2025 11:24 AM Anay Estrada MA * BMI (Calculated) Answer Date of Assessment Author 27.7 02/20/2025 11:24 AM Anay Estrada MA * GENERAL Question Answer Date of Assessment Author Preferred learning method? Written Material 02/20/2025 11:29 AM Ritu Estrada MA Preferred language? Kosovan 02/20/2025 11:29 AM Anay Martinez MA Needs Licensed Plumber? No 02/20/2025 11:29 AM Anay Verma MA Ability to read? Yes 02/20/2025 11:29 AM Anay Estrada MA * BMI (Calculated) Answer Date of Assessment Author 27.7 02/20/2025 11:24 AM Anay Estrada MA * BSA (Calculated - sq m) Answer Date of Assessment Author 2.08 02/20/2025 11:24 AM Anay Estrada MA [facility]2025-10-15 13:43:57* Patient Instructions* Tico Coronado DO - 02/20/2025 1:42 PM CDT Hospital follow-up discharge secondary to left foot osteomyelitis, now with left fifth toe amputated/PVD: - Patient recently hospitalized. Patient required amputation of left fifth toe. Patient recently left AGAINST MEDICAL ADVICE. Obtain records from the hospital. PICC line in place. IV antibiotic therapy was to be arranged. Case discussed with surgeon-Dr. Larson. Patient will be seen by Dr. Larson tomorrow to address wound care. - Social work consult to help assist in resetting up home health, IV to medical therapy, and other social needs. - Consult infectious disease on recommendations for osteomyelitis and to help arrange IV antibiotic therapy. - Consult [employer] to arrange for Coumadin monitoring and medication. - Patient needs follow-up with cardiology and likely vascular disease to address multiple issues. - Will have patient return tomorrow to review and update home meds. - Wound care to be addressed by surgeon tomorrow. Diabetes: - Last A1c 7.7, 4 months ago. Obtain records from hospital. Obtain lab. - Will have patient return to update home meds. Previously taking insulin 70/30 16 units every a.m. and 14 units every p.m. along with metformin 1000 mg twice daily. Hyperlipidemia: - Will have patient return tomorrow to update home meds. Previously taking atorvastatin 20 mg daily Hypertension/CAD: - Will need to obtain home meds. Previously taking aspirin 325 mg daily, atorvastatin 20 mg daily, hydrochlorothiazide 12.5 mg daily, isosorbide mononitrate 30 mg daily, losartan 100 mg daily, and metoprolol succinate 50 mg daily. Atrial fibrillation/hypercoagulable state: - Arrange for CPAP's to monitor and adjust Coumadin therapy. Previously taking Coumadin 2 mg every Tuesday, Tuesday, , Tuesday and Tuesday and Coumadin 2.5 mg Tuesday BPH: - Will need to update medications tomorrow. Previously taking Flomax 0.4 mg twice daily. Stress/adjustment disorder: - has cancer and getting therapy. - Arrange social work to evaluate home situation and address social and clinical care needs. [facility]2025-10-15 13:43:57* Tico Coronado DO - 02/20/2025 11:30 AM CDT Patient and patient’s participants in attendance, if any, consented to the use of [employer] ([employer]), a new technology product that uses artificial intelligence to assist the provider to document the patient encounter and to record this visit. ADELITA Bryant II is a 79 year old male is here today for a follow up for discharge from the hospital. The patient was discharged with a final diagnosis of osteomyelitis left foot status post amputation of the fifth digit. The patient was treated with I.V. antibiotics and surgical intervention. The patient is currently at home and since discharge needs multiple issues addressed. Patient left AGAINST MEDICAL ADVICE. Patient was to have IV antibiotic therapy arranged. This was not set up prior to discharge. PICC line in place. Will have follow-up with surgery tomorrow. Needs to have home health, social work referral. The hospital discharge notes were reviewed and the medicine list has been reconciled with the outpatient medication list. Based on this review the following changes were noted needs IV antibiotic therapy arranged.. History of Present Illness The patient presents for Hospital follow up. Osteomyelitis and Wound Management - Recently hospitalized for removal of an infected splinter, which led to amputation of the fifth digit due to necrosis. - Hospitalized for 4 weeks with significant pain and impaired function, treated with a wound VAC. - Two weeks ago, a nurse from his [place] noted a strong odor from the wound, suggesting infection. - Returned to the hospital, where surgeon-Dr. Larson performed additional tissue removal. - Discharged a week ago after a 3.5-day stay, during which he had only 3 meals. - Currently has a PICC line for antibiotics but no follow-up care since discharge. - Left the hospital AMA without paperwork, medications, or instructions. - No home health care currently. - Wound has not been changed since last visit to Dr. Heredia's office last week. - Uncertain if vascular evaluation was performed. - Bandages were initially changed daily, then every other day with the wound VAC. - Concerned about tissue loss in the foot. - Ultrasound and x-ray in the ER last showed no blood clot or abnormalities. - Dr. Larson scraped the wound last morning. - Minimal pain since, uncertain if due to healing or necrosis. Additional Requests - Requests a handicap sticker. - Requests medication for sleep. Past Surgical History - Amputation of the fifth digit due to necrosis. Results - Imaging: - Ultrasound: No DVT - X-ray: No abnormalities Current Medications:Current Medications[1] Allergies[2] Problem List:Patient Active Problem List Diagnosis Longstanding persistent atrial fibrillation (multi HCC) Hypercoagulable state due to atrial fibrillation (multi HCC) Chronic anticoagulation BPH (benign prostatic hyperplasia) DM type 2 with diabetic mixed hyperlipidemia (multi HCC) Gout HTN (hypertension) Obesity Impacted cerumen of right ear CAD (coronary artery disease) History of heart artery stent Well adult exam Immunodeficiency due to conditions classified elsewhere ([facility]) Type 2 diabetes mellitus with stage 3a chronic kidney disease (multi HCC) Thrombocytopenia Elevated PSA Coronary artery disease due to type 2 diabetes mellitus (multi HCC) Hospital discharge follow-up Acute hematogenous osteomyelitis of left foot (multi HCC) Amputation of left 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 Denise Social History[4] Review of Systems Review of SystemsConstitutional: Negative. HENT: Negative. Respiratory: Negative. Physical Exam BP 124/68 | Pulse 80 | Temp 97.7 ?F (36.5 ?C) (Tympanic) | Resp 18 | Ht 5' 10" (1.778 m) | Wt 193 lb (87.5 kg) | SpO2 97% | BMI 27.69 kg/m? Physical ExamHENT: Right Ear: External ear normal. Left Ear: External ear normal. Mouth/Throat: Pharynx: Oropharynx is clear. Eyes: Conjunctiva/sclera: Conjunctivae normal. Cardiovascular: Rate and Rhythm: Normal rate and regular rhythm. Pulses: Normal pulses. Heart sounds: Normal heart sounds. Pulmonary: Effort: Pulmonary effort is normal. Breath sounds: Normal breath sounds. Abdominal: General: Abdomen is flat. Bowel sounds are normal. Neurological: Mental Status: He is alert. Left foot bandaged. Currently utilizing mobility device. Assessment & Plan 1. Hospital discharge follow-up 2. Acute hematogenous osteomyelitis of left foot (multi HCC) 3. Amputation of left great toe 4. Immunodeficiency due to conditions classified elsewhere ([facility]-HCC) 5. Longstanding persistent atrial fibrillation (multi HCC) 6. Primary hypertension 7. History of heart artery stent 8. DM type 2 with diabetic mixed hyperlipidemia (multi HCC) 9. Coronary artery disease due to type 2 diabetes mellitus (multi HCC) 10. Coronary artery disease involving [employer] coronary artery of [employer] [employer] heart without angina pectoris 11. Hypercoagulable state due to longstanding persistent atrial fibrillation (multi HCC) 12. Chronic anticoagulation 13. Type 2 diabetes mellitus with stage 3a chronic kidney disease, withlong-term current use of insulin (multi HCC) 14. 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 Patient required amputation of left fifth toe. Patient recently left AGAINST MEDICAL ADVICE. Obtain records from the hospital. PICC line in place. IV antibiotic therapy was to be arranged. Case discussed with surgeon-Dr. Larson. Patient will be seen by Dr. Larson tomorrow to address wound care. - Social work consult to help assist in resetting up home health, IV to medical therapy, and other social needs. - Consult infectious disease on recommendations for osteomyelitis and to help arrange IV antibiotic therapy. - Consult [employer] to arrange for Coumadin monitoring and medication. - Patient needs follow-up with cardiology and likely vascular disease to address multiple issues. - Will have patient return tomorrow to review and update home meds. - Wound care to be addressed by surgeon tomorrow. Diabetes:- Last A1c 7.7, 4 months ago. Obtain records from hospital. Obtain lab. - Will have patient return to update home meds. Previously taking insulin 70/30 16 units every a.m. and 14 units every p.m. along with metformin 1000 mg twice daily. Hyperlipidemia:- Will have patient return tomorrow to update home meds. Previously taking atorvastatin 20 mg daily Hypertension/CAD:- Will need to obtain home meds. Previously taking aspirin 325 mg daily, atorvastatin 20 mg daily, hydrochlorothiazide 12.5 mg daily, isosorbide mononitrate 30 mg daily, losartan 100 mg daily, and metoprolol succinate 50 mg daily. Atrial fibrillation/hypercoagulable state:- Arrange for CPAP's to monitor and adjust Coumadin therapy. Previously taking Coumadin 2 mg every Tuesday, Tuesday, , Tuesday and Tuesday and Coumadin 2.5 mg Tuesday BPH:- Will need to update medications tomorrow. Previously taking Flomax 0.4 mg twice daily. Stress/adjustment disorder:- has cancer and getting therapy. - Arrange social work to evaluate home situation and address social and clinical care needs. Discussed with the pt and answered all questions. Patient was instructed tocall or return to clinic prn if these symptoms worsen or fail to improve as anticipated; verbalized understanding, repeated directions and agrees with plan of care. TICO CORONADO [facility] This document was completed using voice recognition software. This can produce thumb sewer errors that can at times significantly distort words and phrases. Please interpret any aspect of the note that is nonsensical in light of this fact. [1]Current Outpatient Medications Medication Sig Dispense Refill Acetaminophen-Codeine 300-30 MG oral Tablet Aspirin (Ecotrin) 325 MG oral Tablet Delayed Response Take 1 tablet (325 mg total) by mouth daily. Atorvastatin Calcium 20 MG oral Tablet Take 1 tablet (20 mg total) by mouth daily FOR 90 DAYS. Colchicine 0.6 MG oral Tablet Take 1 tablet (0.6 mg total) by mouth daily. 90 tablet 1 Isosorbide Mononitrate CR 30 MG oral TABLET SR 24 HR Take 1 tablet (30 mg total) by mouth daily. Losartan Potassium (COZAAR) 100 MG oral Tablet Take 1 tablet (100 mg total) by mouth daily. Metformin HCl 1000 MG oral Tablet Take 1 tablet (1,000 mg total) by mouth in the morning and 1 tablet (1,000 mg total) in the evening. Metoprolol Succinate 50 MG oral TABLET SR 24 HR Take 1 tablet (50 mg total) by mouth daily FOR 90 DAYS. Sprague 3 340 MG oral Delayed Release Capsule Take 1 g by mouth in the morning and 1 g in the evening. Tamsulosin HCl 0.4 MG oral Capsule Take 1 capsule (0.4 mg total) by mouth in the morning and 1 capsule (0.4 mg total) before bedtime. Warfarin (COUMADIN) 2 MG oral Tablet 1 TABLET ORALLY TUESDAY, TUESDAY, TUESDAY, TUESDAY, TUESDAY Warfarin 2.5 MG oral Tablet Take 1 tablet (2.5 mg total) by mouth daily. hydroCHLOROthiazide 12.5 MG oral Tablet Take 1 tablet (12.5 mg total) by mouth daily. (Patient not taking: Reported on 02/20/2025.) 90 tablet 1 Insulin NPH Isophane & Regular (NovoLIN 70/30 FlexPen) (70-30) 100 UNIT/ML subcutaneous Suspension Pen-injector 16 unit sc eery am and 14 unit sc every pm. (Patient not taking: Reported on 02/20/2025.) Ketoconazole 2 % apply externally Cream Apply 1 Application topically 2 times daily APPLY TO AFFECTED AREA. Lancets (OneTouch Delica Plus [id number]) does not apply Misc (Patient not taking: Reported on 02/20/2025.) Nystatin 457392 UNIT/GM apply externally Powder No current facility-administered medications for this visit.[2] No Known Allergies [3] Past Medical History: Diagnosis Date Atrial fibrillation (multi HCC) BPH (benign prostatic hyperplasia) Urology [facility] CAD (coronary artery disease) Chronic anticoagulation DM type 2 with diabetic mixed hyperlipidemia (multi HCC) Gout History of heart artery stent HTN (hypertension) Hypercoagulable state due to atrial fibrillation (multi HCC) Obesity [4] Social History Tobacco Use Smoking status: Former Current packs/day: 0.00 Average packs/day: 0.5 packs/day for 14.0 years (7.0 ttl pk-yrs) Types: Cigarettes Start date: 1969 Quit date: 1983 Years since quittin.8 Smokeless tobacco: Never Vaping Use Vaping status: Never Used Substance Use Topics Alcohol use: Yes Comment: occasionally Drug use: Never [facility]2025-10-15 13:43:57Upcoming Encounters Scheduled Orders Name Type Priority Associated Diagnoses Orde r Schedule CBC WITH DIFFERENTIAL Lab Routine Hospital discharge follow-up Acute hematogenous osteomyelitis of left foot (multi HCC) Amputation of left great toe Longstanding persistent atrial fibrillation (multi HCC) Primary hypertension History of heart artery stent DM type 2 with diabetic mixed hyperlipidemia (multi HCC) Coronary artery disease due to type 2 diabetes mellitus (multi HCC) Coronary artery disease involving match-e-be-nash-she-wish band coronary artery of match-e-be-nash-she-wish band heart without angina pectoris Hypercoagulable state due to longstanding persistent atrial fibrillation (multi HCC) Chronic anticoagulation Type 2 diabetes mellitus with stage 3a chronic kidney disease, with long-term current use of insulin (multi HCC) 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 METABOLIC PANEL (14) Lab Routine Hospital discharge follow-up Acute hematogenous osteomyelitis of left foot (multi HCC) Amputation of left great toe Longstanding persistent atrial fibrillation (multi HCC) Primary hypertension History of heart artery stent DM type 2 with diabetic mixed hyperlipidemia (multi HCC) Coronary artery disease due to type 2 diabetes mellitus (multi HCC) Coronary artery disease involving match-e-be-nash-she-wish band coronary artery of match-e-be-nash-she-wish band heart without angina pectoris Hypercoagulable state due to longstanding persistent atrial fibrillation (multi HCC) Chronic anticoagulation Type 2 diabetes mellitus with stage 3a chronic kidney disease, with long-term current use of insulin (multi HCC) 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) Stress and adjustment reaction Expected: 02/21/2025, Expires: 05/23/2025 HEMOGLOBIN (HB) A1C WITH EAG Lab Routine Hospital discharge follow-up DM type 2 with diabetic mixed hyperlipidemia (multi HCC) Type 2 diabetes mellitus with stage 3a chronic kidney disease, with long-term current use of insulin (multi HCC) 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) Expected: 02/21/2025, Expires: 05/23/2025 PROTHROMBIN TIME (PT) Lab Routine Hospital discharge follow-up Longstanding persistent atrial fibrillation (multi HCC) DM type 2 with diabetic mixed hyperlipidemia (multi HCC) Hypercoagulable state due to longstanding persistent atrial fibrillation (multi HCC) Chronic anticoagulation Expected: 02/21/2025 (Approximate), Expires: 05/23/2025 Scheduled Referrals Name Type Priority Associated Diagnoses Orde r Schedule REFERRAL TO INFECTIOUS DISEASES- .KSC Referral Routine Hospital discharge follow-up Acute hematogenous osteomyelitis of left foot (multi HCC) Amputation of left 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) Ordered: 02/20/2025 DIRECTOR EMPLOYEE COMMUNICATIONS REFERRAL TO ANTICOAGULATION THERAPY Referral Routine Longstanding persistent atrial fibrillation (multi HCC) Hypercoagulable state due to longstanding persistent atrial fibrillation (multi HCC) Chronic anticoagulation Ordered: 02/20/2025 AMBULATORY REFERRAL TO COMMUNITY RESOURCE COORDINATION Referral Routine Hospital discharge follow-up Acute hematogenous osteomyelitis of left foot (multi HCC) Amputation of left great toe Immunodeficiency due to conditions classified elsewhere ([facility]) Longstanding persistent atrial fibrillation (multi HCC) Primary hypertension History of heart artery stent DM type 2 with diabetic mixed hyperlipidemia (multi HCC) Coronary artery disease due to type 2 diabetes mellitus (multi HCC) Coronary artery disease involving match-e-be-nash-she-wish band coronary artery of match-e-be-nash-she-wish band heart without angina pectoris Hypercoagulable state due to longstanding persistent atrial fibrillation (multi HCC) Chronic anticoagulation Type 2 diabetes mellitus with stage 3a chronic kidney disease, with long-term current use of insulin (multi HCC) 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) Ordered: 02/20/2025 Health Maintenance Due Date Last Done Comments Tdap Vaccines 1966 Zoster Vaccines (1 of 2) 1997 AAA SCREEN 2012 RSV Vaccines (1 - 1-dose 75+ series) 2022 Diabetes: Retinopathy Screening 01/18/2024 01/17/2023 (Previously completed) Physical Exam 05/04/2024 05/04/2023 Influenza Vaccines (#1) 2025 05/04/2023, 02/07 Diabetes: Hemoglobin A1C 02/06/2025 025, 03/30/2024, 11/08/2023, Additional history exists Creatinine Level (Kidney Fun ction Test) 08/07/2025 08/07/2024, 11/08/2023, 05/13/2023 Diabetes: Urine Protein Screening 08/07/2025 025, 05/13/2023 Lipid Panel 08/07/2025 08/07/2024, 05/13/2023 Pneumococcal Vaccine: 50+ Years Completed 9, 02/03/2018 [facility]2025-10-15 13:43:57 Diagnosis Hospital discharge follow-up - Primary Other follow-up examination Acute hematogenous osteomyel itis of left foot (multi HCC) Amputation of left great toe 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 ([facility]) Longstanding persistent atri al fibrillation (multi HCC) Primary hypertension Unspecified essential hypertension History of heart artery stent Postsurgical percutaneous transluminal coronary angioplasty status DM type 2 with diabetic mixed hyperlipidemia (multi HCC) Type II or unspecified type diabetes mellitus with other specified manifestations, not stated as uncontrolled Coronary artery disease due to type 2 diabetes mellitus (multi HCC) Coronary artery disease invo lving match-e-be-nash-she-wish band coronary artery of match-e-be-nash-she-wish band heart without angina pectoris Hypercoagulable state due to longstanding persistent atrial fibrillation (multi HCC) Chronic anticoagulation Long-term (current) use of anticoagulants Type 2 diabetes mellitus wit h stage 3a chronic kidney disease, with long-term current use of insulin (multi HCC) 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) Type II or unspecified type diabetes mellitus with other specified manifestations, not stated as uncontrolled Stress and adjustment reaction Other specified adjustment reaction [facility]2025-10-15 13:43:57 [place] [id number] 11:28:59 Chief Complaint Patient presents with [facility] F/U Anay Chin MA [facility]2025-09-03 15:07:57 Name and verified, pt is aware [...] PROSTATE TISSUE WITH CHRONIC INFLAMMATION Airam Fraga [facility] 14:11:32 Patient called and stated that he has an upcoming appointment on 02/06 to discuss biopsy results and he stated he does not understand why the results can not be given over the phone. He would like a call back to discuss plan of treatment. Joradna WatersOur [facility] of Mercy [facility] - AndersonHohelr1131-75-28 09:25:27 Refill BD Pen needle MINH: 10/10/2024 NOV: none Refill sent for 90 days Per refill policy, needs follow up scheduled PSS: please assist with scheduling visit Francoise Roberts [facility] HospitalVqgtsf8779-51-19 17:15:53* Consultation (Routine) - Authorized Specialty Diagnoses / Procedures Referred By Billie t Referred To Contact Surgery Diagnoses Foreign body in left foot, subsequent encounter Cellulitis of foot Procedures OFFICE/OUTPATIENT [facility] 60 MINUTES Surinder Aguirre PA-C [address] [place] [address] Phone: tel: fax: Rolando Larson MD [address] [facility] [address] Phone: tel: fax: Referral ID Status Reason Start Date Expiration Date Visits Requested Visits Authorized [id number] Authorized Service Not Available at Clinic 12/03/2024 03/03/2025 1 1 [facility] Zrutek2736-48-30 17:15:53* [facility] Czaadt0983-40-31 17:15:53* Surinder Aguirre PA-C - 12/03/2024 3:19 [...] using voice recognition software. This can produce thumb sewer errors that can at times significantly distort words and phrases. Please interpret any aspect of the note that is nonsensical in light of this fact. JOSE Hines-CSP: Dr. Tico Coronado, [facility] [1]Current Outpatient Medications Medication Sig Dispense [...] FOR 90 DAYS. Blood Glucose Monitoring Suppl (IndiaIdeas Verio Flex System) w/Device does not apply [...] (30 mg total) by mouth daily. Lancets (Ichor Therapeuticsuch Delica Plus [id number]) does not apply Misc Losartan Potassium (COZAAR) [...] total) by mouth daily FOR 90 DAYS. Sprague 3 340 MG oral Delayed Release Capsule Take 1 g by mouth in the morning and 1 g in the evening. IndiaIdeas VerSatellier in vitro Strip Sure Comfort Pen Moline 31G X 8 MM does not apply [...] No current facility-administered medications for this visit. [facility]2025-07-28 17:15:53Pending Results Scheduled Orders Name Type [...] Pneumococcal Vaccine: 50+ Years Completed 9, 02/03/2018 [facility]2025-07-28 17:15:53 Diagnosis Foreign body in left foot, [...] Warfarin anticoagulation Long-term (current) use of anticoagulants [facility]2025-07-28 17:15:53 [place] [id number] 15:28:55 Chief Complaint Patient presents with Foot Pain Left foot injury Ml Pruitt LVN [facility]2025-07-28 10:43:55 SCHEDULED Asia Keller [facility]2025-07-25 16:14:28 Spoke with patient and updated on POC. Patient awaiting call from [facility] to schedule. Kiya Michael [facility] HospitalNkfcpn0720-55-45 15:28:[address] Ott's note on 06/06/24 [...] with Dr. Ott to discuss GARSIA procedure/HoLEP ELECTRIC LOCOMOTIVE CRANE OPERATOR-FAMILY MIDLEVEL PROVIDEROur Lady of Mercy Hospital - AndersonPubmks7256-30-78 14:50:50 Patient requesting to speak to Dr. Ott with results break down as well as to discuss plan of treatment now that biopsy is completed. Patient states he was sent results via [employer] but was not given any direction as to what to do next. Please advise. Asia Keller [facility]2025-07-16 13:50:18 Chief Complaint Patient presents with Diabetes 3 month follow up Ear Problem Right ear feels clogged Anay Chin MA [facility]2025-07-16 13:48:45 Chief Complaint Patient presents with Diabetes 3 month follow up Anay Chin MA [place] [id number] 09:59:10 Addended by: ARLYN SAWANT O on: 10/18/2024 09:59 AM Modules accepted: Orders [place] [address]-06-12 09:58:10 MRI Guided biopsy ordered with [facility]. [place] [id number] 09:47:31 Called patient, notified him that I received a faxed response from [facility] that they do not offer MRI guided biopsy of the prostate. Patient would like to schedule MRI with [facility]. Please advise. Maria Teresa Plasencia [place] [id number] 14:50:26 Order faxed to [facility] per patient request. Maria Teresa Plasencia [place] [address]-06-11 14:28:51 Addended by: ARLYN SAWANT O on: 10/17/2024 02:28 PM Modules accepted: Orders [place] [id number] 14:04:40 Spoke to patient regarding MRI of the prostate result that showed PI - Rad 3 and 4 lesions. Advised that MRI guided biopsy have been ordered and patient requested that the order be sent to [facility]. Order will be faxed to [facility], [place] [id number] 12:59:34 Received MRI prostate results from [facility] uploaded to chart under media for review. Jordana BirchECU HealthMkhhgt7026-81-85 10:09:06 MRI orders faxed to [facility] at [phone]. Airam Fraga RN 10/04/2024 10:09 AM Name and verified, pt is aware of MRI orders faxed. Pt verbalized understanding. Airam Fraga RN 10/04/2024 10:14 AM Airam Fraga [facility]Pbzwyv4485-29-30 09:23:35 Patient called back to give information of radiology department he is going to use for his MRI, he will need order to be faxed to [phone] phone # [phone]. He will also want a call back when order is sent so that he can call and scheduled his appointment. Jordana [facility]2025-05-29 08:38:37 Name and verified, pt states he is on his last bottle of tamsulosin and needs more refills. Pt states he has not done his MRI. It was canceled in August and has not rescheduled. Pt states he will call today to schedule MRI. Please advise on refills. Airam Fraga RN 10/04/2024 8:41 AM [facility] AndersonIbetyh0723-02-19 09:15:00 Images from the original note were not included. Venipuncture collection performed by clean technique on the right anticubitus. Total of 1 attempts were made. Slight pressure and a bandage/dressing were applied to the site(s). The patient experienced no complications. The following specimens were processed according to instructions and sent to [facility] laboratories per lab order on today: LT BLUE SST 1 RED LAV PPT DK GREEN (LiHep) DK GREEN (SodH) HSU DK BLUE (K2) DK BLUE (S) ACD Blood Culture NIPT/NTD Labs for Tru only T [facility] AndersonCeqvhp4598-36-15 17:06:18 Pt has an appt for a [...] Tuesday. Routed to Dr Ott for review. [facility] AndersonRdlctr0644-49-95 16:08:27 Patient called in regards to scheduled MRI. Order is out of date and radiology will not allow patient to proceed with 09/16/24 appointment. Please advise with new/update MRI order. T Asia Keller [facility]2025-04-02 14:19:16 Chief Complaint Patient presents with Diabetes Blood Pressure 6 week follow up OTHER Patient complains of dry skin and jock itch Anay Chin MA [facility]2025-02-19 14:26:22 Chief Complaint Patient presents with Diabetes Blood Pressure 6 month follow up Anay Chin MA [facility]2025-01-30 09:36:29 LVM- Courtesy post-procedure call. Mailbox is full and unable to leave a message. ms sent. [facility] Belem Veras RNOur Lady of Mercy Hospital - AndersonLcrsdr3683-02-40 14:53:58 Sent [place] 268625-01-27 14:53:54 Addended by: DEON OTT on: 06/04/2024 02:53 PM Modules accepted: Orders [place] 268625-01-27 13:42:05 Patient notified of results/recommendations, understanding was verbalized via teach back. Augmentin sent to the incorrect pharmacy. Can you please resend to [facility]/pharmacy #[id number] [facility] [address] [place] [address]? I corrected this on the patient chart and made it his preferred pharmacy. 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 Patient has been identified by and name and was provided with cup, antiseptic towelette, and clean catch instructions. 2 urine specimen(s) sent. Unpreserved 1 Urine Culture 1 Aptima tube Other urine [place] 268625-01-23 16:39:50 Patient notified of plan by PSS. PRESS OPERATOR Kiya Michael [place] [id number] 15:09:19 Called number on file; no answer; unable to leave message due to mail box is full. PRESS OPERATOR Kiya Michael [place] [id number] 15:07:31 Ucx order placed, submit tomorrow, then start oral abx, if need be will change it accordingly [place] [address]-01-23 15:07:29 Addended by: DEON OTT on: 05/31/2024 03:07 PM Modules accepted: Orders [place] [address]-01-23 12:43:00 Patient called asking for antibiotics before cysto procedure. I do not see that UCX was completed within the 14-10 day window please advise. ÓN Keller [place] 195194-12-16 13:36:52 Received refill request for Tamsulosin 0.4 mg. [facility] 04/20/2024 noted to continue and RTC for cysto. Cysto scheduled for 05/2024. Refill approved. Patient notified. IRA JANG RN 04/23/2024 1:37 PM [facility] Ira Jang [place] [id number] 13:29:46 Pt is requesting a refill and says he is completley out. Please Assist [place] 268624-12-16 07:29:59 Elevated PSA most likely 2/2 UTI Oral abx Repeat Ucx 10 days prior to cysto Repeat PSA prior to cysto 06/06/2023 If PSA > 3.0 for MRI Prostate RTC as scheduled [place] 268624-12-13 13:30:00 Images from the original note were not included. Venipuncture collection performed by clean technique on the left anticubitus. Total of 1 attempts were made. Slight pressure and a bandage/dressing were applied to the site(s). The patient experienced no complications. The following specimens were processed according to instructions and sent to [facility] laboratories per lab order on 04/20/2024: LT BLUE SST 1 RED LAV PPT DK GREEN (LiHep) DK GREEN (SodH) HSU DK BLUE (K2) DK BLUE (S) ACD Blood Culture NIPT/NTD Tru orders only [facility]2024-11-22 12:00:00 Images from the original note were not included. Venipuncture collection performed by clean technique on the left anticubitus. Total of 1 attempts were made. Slight pressure and a bandage/dressing were applied to the site(s). The patient experienced no complications. The following specimens were processed according to instructions and sent to [facility] laboratories per lab order on 03/30/2024 : LT BLUE SST 1 RED LAV 1 PPT DK GREEN (LiHep) DK GREEN (SodH) HSU DK BLUE (K2) DK BLUE (S) ACD Blood Culture NIPT/NTD Patient has been identified by and was provided with cup, antiseptic towelette, and clean catch instructions. 1 urine specimen(s) sent. Unpreserved 1 Urine Culture Aptima tube Other urine [place] 268624-11-07 08:46:18 40 day supply sent to pharmacy. Follow up scheduled on 04/20/2024. If patient is to cancel appointment no further refills will be approved. PRESS OPERATOR Malina River MAOur Lady of Mercy Hospital - AndersonJepgug4820-20-77 14:03:53 Patient requests the medication be sent to [facility] until he's able to come in for his appointment. Please advise. PRESS OPERATOR Rhianna GibbsOur Lady of Mercy Hospital - AndersonEemwdh6719-65-70 08:55:53 Scheduled PRESS OPERATOR Asia PelletierOur Lady of Mercy Hospital - AndersonToefoy0252-05-68 08:32:24 Appointment needed for refills PRESS OPERATOR Maile Cortez [facility] PartnersGxcohv1312-54-96 17:52:03 Written/verbal d/c instructions, out of er no distress Mary Murray [facility] HospitalWoqrkv7469-36-78 13:40:51 Pt arrives pov. Pt states," he fall last night while getting groceries and hit shoulder and arm adducted. He states he thinks he broke ribs on the right side, rates pain 12/16. C/o of pain in knee and pain when he reach for items with the right arm. Pt states he had a fall in 2022 and broken some ribs but nothing was done. Benita Ortiz [facility] HospitalWwpnjj1859-94-07 13:30:00 [facility] Emergency Department Note Patient Name: Danny [...] onto hard grass. Pt fell onto R [address] administrative engineer and R shoulder abd chest took the [...] lateral right rib 9. RL: [id number] AFC: [id number] End of Report SHOULDER 2+ VW RIGHT [...] Glenohumeral and acromioclavicular osteoarthrosis. RL: [id number] AFC: [id number] End of Report Lab Results: Lab Results [...] MD -- 02/19/24 1342 First Provider Evaluation ZANE OTT, GAYATRI S -- ED COURSE Diagnosis/Impression as of 02/19/24 [...] onto hard grass. Pt fell onto R [address] administrative engineer and R shoulder abd chest took the [...] needed for pain. Also provided script for [place] as needed for severe pain. Problems Addressed: [...] ORAL) Take by mouth. BLOOD SUGAR DIAGNOSTIC (ShippoUCH VERIO TEST STRIPS) STRIP Use to check [...] daily before breakfast and dinner. E11.65 LANCETS (ExternauticsTOUCH DELICA PLUS LANCET) 33 GAUGE MISC Use [...] Specialty: FAMILY MEDICINE Relationship: PCP - General [address] [place] [address] [address] [facility] [id number] Electronically signed by: Gayatri Linares MD 02/19/24 8133 T [facility] - Ocpuvn9813-54-68 14:41:41 [facility]-10/12/23 NOV-04/11/24 Refill sent Kristen Carlin [...] 1000 mg twice a day Kristen Carlin [facility] HospitalQkqdmc5400-31-93 09:59:53 REFILL (Requires review before approval) Provider: Deon Ott MD Patient's phone number: [phone] (home) Pharmacy: [facility] [address] Medication: tamsulosin (FLOMAX) Strength: 0.4 mg capsule Directions: TAKE 1 CAPSULE BY MOUTH EVERY MORNING AND 1 CAPSULE FOR PAIN EVERY EVENING Quantity: 180 Capsules with ZERO Refills Last filled: Unknown, last prescribed 09/13/2023 Last office visit: 01/05/2023 Next scheduled visit: No future Urology visits are scheduled. Rizwana Johnson Replaced by [facility]2024-06-05 13:00:00 Addended by: LACHELLE UMAÑA MD on: 11/06/2023 09:20 PM Modules accepted: Level of Service [id number] 09:11:49 Images from the original note were not included. [facility]Bu[facility] [id number] 08:35:55 Chief Complaint Patient presents with Ear Problem Right ear clogged Ml Pruitt [facility]N [id number] 14:00:00Addended by: DIMITRIS GARDNER on: 01/05/2023 03:55 PM Modules accepted: Orders [facility]2023-08-22 15:31:57 [employer] Medical supply form placed in provider folder in [facility] location for signature. A copy was scannedinto chart [facility]2017-09-20 11:11:11 PA retracted and RX resent as three pack. Awaiting pharmacy processing. 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 [facility]
--- NOTE | 2025-02-23 17:23 | RAD REPORT ---
EXAMINATION: ONE VIEW CHEST XR CLINICAL INDICATION: CHEST PAIN TECHNIQUE: Frontal chest projection is submitted. Examination is limited by patient positioning and t echnique. COMPARISON: 02/14/2025 FINDINGS: The lungs are well inflated and clear. The heart is upper limit of normal in size. No displaced fract ures identified. Right-sided PICC line is tip in the SVC. IMPRESSION: No acute intrathoracic abnormalities.
--- NOTE | 2025-02-23 17:31 | RAD REPORT ---
EXAMINATION: US RIGHT UPPER EXTREMITY VENOUS DOPPLER CLINICAL INDICATION: SWELLING RIGHT TECHNIQUE: Complete bilateral duplex sonography of the RIGHT upper extremity veins was performed. The examination included compression for vein patency, color Doppler imaging and flow augmentation in response to distal compression of the internal jugular, brachiocephalic, subclavian, axillary, brachi al, radial, ulnar, cephalic and basilic veins. COMPARISON: No prior exam. FINDINGS: Duplex sonography testing of the veins of the RIGHT upper extremity was performed. Color flow imaging shows all veins to be compressible with [id number] color filling. Pulsatile and phasic flow is present within all upper extremity deep and superficial veins examined. Evaluation somewhat limited b y the presence of a PICC line. IMPRESSION: There is no deep vein or superficial vein thrombosis.
[2025-02-23 17:58] LABS: Absolute Lymphocytes (CBC) 1.6 K/uL (0.7-4.9); Hematocrit 30.8 % (39.6-49.0); Hemoglobin 10.1 g/dL (13.6-17.9); MCH 30.9 pg (27.0-35.0); MCHC 32.9 g/dL (32.0-36.0); MCV 93.7 fL (80-100); MPV 7.8 fL (7.6-11.3); Nucleated RBC Absolute Count 0.0 (0-0); Nucleated Red Blood Cells % 0.1 % (0-0); RBC Red Blood Cell Count 3.28 M/uL (4.33-5.43); White Blood Count 8.00 thou/uL (4.3-10.9)
[2025-02-23 18:22] LABS: Anion Gap 13.2 mEq/L (5.0-15.0); BUN Blood Urea Nitrogen 21.0 mg/dL (7-18); Glucose Level 192.0 mg/dL (74-106); NT PRO-BNP 1610.0 pg/mL (<450); Potassium 4.2 mEq/L (3.5-5.1); Troponin High Sensitivity 5.9 pg/mL (<58.9)
--- NOTE | 2025-02-23 18:29 | ER ---
Nurse's Notes [facility] Name: Danny Voss II Age: 79 yrs Sex: Male : 1945 Arrival Date: 02/23/2025 Time: 15:51 Bed 17 Private MD: Diagnosis: Gastro-esophageal reflux disease without esophagitis Presentation: 02/23 16:06 Chief complaint: Patient states: c/o midsternal cp that started about an hour after his nh1 HH nurse came and tried to flush his PICC line. PICC is in RUE and is clogged as it hasnt been used in 9 days. Patient states his CP was 3/10, he belched and has no pain at this time. Wants to r/o anything with his heart and/or blood clots. Coronavirus screen: At this time, the client does not indicate any symptoms associated with coronavirus-19. Ebola Screen: No symptoms or risks identified at this time. 16:06 Method Of Arrival: Ambulatory [facility] 16:06 Initial Sepsis Screen: Does the patient meet any 2 criteria? HR > 90 bpm. Does the [facility] patient have a suspected source of infection? No. Patient's initial sepsis screen is negative. Risk Assessment: Do you want to hurt yourself or someone else? Patient reports no desire to harm self or others. Onset of symptoms was February 23, 2025 at 15:00. 16:06 Acuity: ISMA 3 [facility] [place] Historical: - Allergies: 16:11 No Known Allergies; me1 - PMHx: 16:11 diabetes mellitus; Hypertensive disorder; diabetic wound to left foot (Unknown); me1 - PSHx: 16:11 cardiac stent; left pinky toe amputation; me1 - Immunization history:: Adult Immunizations up to date. - Infectious Disease History:: Denies. Assessment: 18:30 General: Appears in no apparent distress. comfortable, Behavior is calm, cooperative, rg5 appropriate for age. Pain: Denies pain. Neuro: Level of Consciousness is awake, alert, obeys commands, Oriented to person, place, time, situation, Appropriate for age. Cardiovascular: Reports chest pain. Respiratory: Airway is patent Trachea midline Respiratory effort is even, unlabored, Respiratory pattern is regular, symmetrical. Vital Signs: 16:06 BP 137 / 74; Pulse 91; Resp 17; Temp 98.4; Pulse Ox 97% ; Weight 84.37 kg; Pain 0/10; me1 18:30 BP 154 / 80; Pulse 81; Resp 18; Pulse Ox 100% ; rg5 16:06 Pain Scale: Adult me1 ED Course: 15:55 Patient arrived in ED. cj3 15:55 Jewel Pitts FNP-C is [facility]. dr5 15:55 Rodger Zapata MD is Attending Physician. dr5 16:11 Triage completed. me1 16:11 Arm band placed on Patient placed in waiting room. me1 17:18 XRAY Chest (1 view) In Process Unspecified. EDMS 17:24 UPPER EXTREMITY VENOUS UNILATE In Process Unspecified. EDMS 17:29 Initial lab(s) drawn, by me, sent to lab. Inserted saline lock: 22 gauge in left wrist, iw using aseptic technique. Blood collected. Flushed with 10 mL NS. 17:52 Jeff Schroeder, RN is Primary Nurse. rg5 18:30 IV discontinued, bleeding controlled, No redness/swelling at site. Pressure dressing rg5 applied. Patient maintains SpO2 saturation greater than 95% on room air. Administered Medications: No medications were administered Outcome: 18:27 Discharge ordered by MD. dr5 18:30 Discharged to home ambulatory, rg5 18:30 Condition: stable 18:30 Discharge instructions given to patient, Instructed on discharge instructions, Demonstrated understanding of instructions, Prescriptions given X 1, 18:55 Patient left the ED. rg5 Signatures: Dispatcher [employer] EDAmrita Malone RN RN Saima Anderson RN RN nh1 Jeff Schroeder, AAKASH FINN rg5 Jewel Pitts FNP-C [employer]ANITE POLISHER APPRENTICE-[facility]5 Pao Dominique cj3 Corrections: (The following items were deleted from the chart) 16:11 16:06 BP 137 / 74; Pulse 91bpm; Resp 17bpm; Pulse Ox 97%; Temp 98.4F; Pain 0/10, Adult; me1 me1
--- NOTE | 2025-02-23 18:29 | EDPHYS ---
Physician Documentation [facility] Name: Danny Voss II Age: 79 yrs Sex: Male : 1945 Arrival Date: 02/23/2025 Time: 15:51 Bed 17 Private MD: ED Physician Rodger Zapata HPI: 02/23 20:06 This 79 yrs old Male presents to ER via Ambulatory with complaints of Chest dr5 Pain. 20:06 Onset: The symptoms/episode began/occurred acutely. Patient is a 79-year-old male with dr5 history of diabetes, hypertension coming in with midsternal chest pain that happened 30 minutes prior to arrival. Patient reports that on his drive and he burped and chest pain alleviated. Patient also reports that he has had issues with his PICC line for 9 days and has not been flushing. Patient reports he does not want Cathflo or anything done to it. Patient states that he would like "do what you did last time and ultrasound and x-ray".. 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 - Infectious Disease History:: Denies. ROS: 20:06 Constitutional: as per hpi dr5 Exam: 20:06 Constitutional: This is a well developed, well nourished patient who is awake, alert, dr5 and in no acute distress. Head/Face: Normocephalic, atraumatic. Eyes: Pupils equal round and reactive to light, extra-ocular motions intact. Lids and lashes normal. Conjunctiva and sclera are non-icteric and not injected. Cornea within normal limits. Periorbital areas with no swelling, redness, or edema. ENT: Nares patent. No nasal discharge, no septal abnormalities noted. Tympanic membranes are normal and external auditory canals are clear. Oropharynx with no redness, swelling, or masses, exudates, or evidence of obstruction, uvula midline. Mucous membranes moist. Chest/axilla: Normal chest wall appearance and motion. Nontender with no deformity. No lesions are appreciated. Cardiovascular: Regular rate and rhythm with a normal S1 and S2. Normal PMI, no JVD. No pulse deficits. Respiratory: Lungs have equal breath sounds bilaterally, clear to auscultation. No rales, rhonchi or wheezes noted. No increased work of breathing, no retractions or nasal flaring. Back: No spinal tenderness. No costovertebral tenderness. Full range of motion. Skin: Warm, dry with normal turgor. Normal color with no rashes, no lesions, and no evidence of cellulitis. MS/ Extremity: Pulses equal, no cyanosis. Neurovascular intact. Full, normal range of motion. Neuro: Awake and alert, GCS 15, oriented to person, place, time, and situation. Cranial nerves II-XII grossly intact. Motor strength 5/5 in all extremities. Sensory grossly intact. Cerebellar exam normal. Normal gait. Vital Signs: 16:06 BP 137 / 74; Pulse 91; Resp 17; Temp 98.4; Pulse Ox 97% ; Weight 84.37 kg; Pain 0/10; me1 18:30 BP 154 / 80; Pulse 81; Resp 18; Pulse Ox 100% ; rg5 16:06 Pain Scale: Adult me1 MDM: 15:55 Medical Screening Exam initiated dr5 20:06 Differential diagnosis: NSTEMI, blood clot, PICC line mechanical issue. Data reviewed: dr5 vital signs, nurses notes, lab test result(s), cardiac enzymes, troponin i, CBC, white blood cell count, hemoglobin, hematocrit, platelets, electrolytes, sodium, potassium, chloride, serum bicarbonate, BUN, creatinine, serum glucose, BNP, EKG, radiologic studies, plain films, ultrasound. Consideration of Admission/Observation Escalation of care including admission/observation considered. Escalation considered patient found to have chest pain and/or elevated troponin. I considered the following discharge prescriptions or medication management in the emergency department Medications were administered in the Emergency Department. See MAR. Independent interpretation of the following test(s) in the Emergency Department X-Ray: My interpretation is Independent interpretation of chest x-ray does not reveal any abnormality such as pneumonia. Historians other than the Patient: Spouse/Significant Other: Spouse. Care significantly affected by the following chronic conditions: Diabetes, Hypertension. Care significantly affected by the following Social Determinants of Health: Poor access to healthcare and/or lack of insurance, Poor access to transportation, Problems related to employment. Counseling: I had a detailed discussion with the patient and/or guardian regarding the historical points, exam findings, and any diagnostic results supporting the discharge/admit diagnosis, the presence of at least one elevated blood pressure reading (>120/80) during this emergency department visit, lab results, radiology results, the need for outpatient follow up, for definitive care, a family practitioner, to return to the emergency department if symptoms worsen or persist or if there are any questions or concerns that arise at home. Special discussion: I discussed with the patient/guardian in detail that at this point there is no indication for admission to the hospital. It is understood, however, that if the symptoms persist or worsen the patient needs to return immediately for re-evaluation. Based on the history and exam findings, there is no indication for further emergent testing or inpatient evaluation. I discussed with the patient/guardian the need to see the rail gang supervisor for further evaluation of the symptoms. I discussed with the patient/guardian the need to see the primary care provider for further evaluation of the symptoms. ED course: Patient found to have isolated elevated BNP. Patient reports that he has not have lower extremity swelling or shortness of breath with ambulation. Will start patient on low-dose Lasix and have patient follow-up for further management. All labs printed and given to patient to take with him. All questions answered. No blood clot noted. Strict ER precautions given.. 02/23 15: Order name: Basic Metabolic Panel; Complete Time: 18:26 dr5 02/23 1556 Order name: CBC with Diff; Complete Time: 18:06 [facility] 02/23 15:56 Order name: NT PRO-BNP; Complete Time: 18:02/23 15:56 Order name: Troponin HS; Complete Time: 18:02/23 15:56 Order name: XRAY Chest (1 view); Complete Time: 17:51 [facility] 02/23 16:25 Order name: US Extremity Venous Unilateral Ltd dr5 02/23 16:29 Order name: UPPER EXTREMITY VENOUS UNILATE; Complete Time: 17:51 EDMI 02/23 15:56 Order name: Cardiac monitoring; Complete Time: 18:08 [facility] 02/23 15:56 Order name: EKG - Nurse/Tech; Complete Time: 18:08 [facility] 02/23 15:56 Order name: IV Saline Lock; Complete Time: 17:30 [facility] 02/23 15:56 Order name: Labs collected and sent; Complete Time: 17:30 dr5 02/23 15:56 Order name: O2 Per Protocol; Complete Time: 18:08 dr5 02/23 15:56 Order name: O2 Sat Monitoring; Complete Time: 18:08 dr5 EC:04 Rate is 83 beats/min. Rhythm is irregularly irregular. QRS [place] is Normal. QRS interval dr5 is normal at 80 msec. QT interval is normal at 354 msec. Clinical impression: Atrial Fibrillation. Administered Medications: No medications were administered Disposition Summary: 02/23/25 18:27 Discharge Ordered Notes: Location: Home dr5 Condition: Stable dr5 Diagnosis - Gastro-esophageal reflux disease without esophagitis dr5 Followup: dr5 - With: Emergency Department - When: As needed - Reason: Worsening of condition Followup: dr5 - With: Private Physician - When: 1 - 2 days - Reason: Recheck today's complaints, Continuance of care, Re-evaluation by your physician Discharge Instructions: - Discharge Summary Sheet dr5 - Food Choices for Gastroesophageal Reflux Disease, Adult dr5 - Gastroesophageal Reflux Disease, Adult dr5 - PICC Insertion, Care After dr5 Forms: - Medication Reconciliation Form dr5 - Patient Portal Instructions dr5 - Leadership Thank You Letter dr5 Prescriptions: - Lasix 20 mg Oral Tablet - take 1 tablet ORAL route once daily; 20 tablet; Refills: 0, Product Selection dr5 Permitted Signatures: Dispatcher [employer] Saima Ricardo RN RN me1 Jewel Pitts, TECHNOLOGY APPLICATIONS CONSULTANT-C TECHNOLOGY APPLICATIONS CONSULTANT-Cdr5 Corrections: (The following items were deleted from the chart) 15:56 15:56 BASIC METABOLIC PANEL+C.LAB.BRZ ordered. EDMS EDMS 15:56 15:56 CBC+H.LAB.BRZ ordered. EDMS EDMS 15:56 15:56 PROBNP+C.LAB.BRZ ordered. EDMS EDMS 15:56 15:56 Troponin High Sensitivity+C.LAB.BRZ ordered. EDMS EDMS 15:56 15:56 Chest Single View+RAD.RAD.BRZ ordered. EDMS EDMS
[2025-02-24 00:21] VITALS: TEMP 98.4
[2025-02-24 00:23] VITALS: BP 154/80; O2SAT 100
== END 2025-02-23 18:55 | disposition home or self-care (01) ==
LOC: ER 15:51
DX: K21.9 Gastro-esophageal reflux disease without esophagitis (principal); I10 Essential (primary) hypertension; Z95.818 Presence of other cardiac implants and grafts
CPT/HCPCS: 36415; 71045; 80048; 83880; 84484; 85025; 93005; 93971; 99284